=== PATIENT | male | born 1940 | race Caucasian/White ===

== ENCOUNTER 2016-08-27 10:42 | Inpatient (IN) | payer MEDICARE, OTHER ==
[2016-08-27] MEDS ORDERED: Albuterol/Ipratropium 3.0-0.5 MG/3 ML Neb Soln NEB ONE (10:59)
[2016-08-27] MEDS ORDERED: Sodium Chloride 0.9% 10 ML Syringe FLUSH PRN (11:04)
[2016-08-27] MEDS ORDERED: Lactated Ringers 500 ML IV ONE (11:06)
--- NOTE | 2016-08-27 11:09 | EDM.PDOC ---
ED HISTORY OF PRESENT ILLNESS - General Chief Complaint: Respiratory Problem Stated Complaint: [facility] Time Seen by Provider: 08/27/16 10:56 Source of Information: Reports: Patient, RN notes reviewed - History of Present Illness INITIAL COMMENTS - FREE TEXT/NARRATIVE: 75-year-old male has been brought in by [facility] from [facility] for evaluation of dyspnea, cough, fever and generalized weakness. He states he's been feeling sick for a long time. He is chronically short of breath on oxygen continuous typically 2-3 L nasal cannula. He's been coughing for many days. He states he had some diarrhea not too long ago and now also has low-grade fever. He is more short of breath than usual today. He fell trying to stand or walk and was found lying on the floor. He did suffer a toe abrasion. He states he may have injured his left hip and right arm but not having any significant bony discomfort from the fall. He denies hitting his head LOC or major neck pain from the fall. he does have history of COPD. He states he is coughing up yellow colored phlegm. No chest or abdominal pain at this time. - Related Data Allergies/ADRs: Allergies Allergy/AdvReac Type Severity Reaction Status Date / Time moxifloxacin Allergy Other Verified 08/27/16 11:30 tiotropium Allergy Other Verified 08/27/16 11:30 [From Spiriva with HandiHaler] clonidine AdvReac Tremors Verified 08/27/16 11:30 fluticasone AdvReac Leg Cramps Verified 08/27/16 11:30 [From Advair Diskus] paroxetine [From Paxil] AdvReac Tremors Verified 08/27/16 11:30 salmeterol AdvReac Leg Cramps Verified 08/27/16 11:30 [From Advair Diskus] Home Meds: Home Meds Aclidinium [place] [Tudorza Pressair] 1 puff IH BID 04/24/16 [History] Albuterol Sulfate 2.5 mg IH TID PRN 04/24/16 [History] Amitriptyline [Elavil] 25 - 50 mg PO BEDTIME 04/24/16 [History] Arformoterol [Brovana] 15 mcg NEB BID 04/24/16 [History] Aspirin 81 mg PO DAILY 04/24/16 [History] Budesonide [Pulmicort] 0.5 mg IH BID 04/24/16 [History] Clopidogrel [Plavix] 75 mg PO DAILY 04/24/16 [History] Montelukast [Singulair] 10 mg PO BEDTIME 04/24/16 [History] Multivitamin [Multivitamins] 1 each PO DAILY 04/24/16 [History] Nitroglycerin 0.4 mg SL Q5M PRN 04/24/16 [History] [place]-3/DHA/Epa/Fish Oil [Fish Oil 1,000 mg Softgel] 1 each PO DAILY 04/24/16 [ History] Risedronate Sodium 150 mg PO Q30D 04/24/16 [History] Roflumilast [Daliresp] 500 mcg PO DAILY 04/24/16 [History] Triamcinolone Acetonide [Triamcinolone Acetonide 0.1% Crm] 15 gm TOP DAILY PRN 04/24/16 [History] atorvaSTATin [Lipitor] 10 mg PO BEDTIME 04/24/16 [History] predniSONE [Prednisone] 5 mg PO DAILY 04/24/16 [History] Furosemide [Lasix] 40 mg PO DAILY #30 tablet 04/30/16 [Rx] Pantoprazole [Protonix] 40 mg PO 0700 #30 tab.cr 04/30/16 [Rx] Albuterol [IJD: Albuterol HFA] 2 puff INH Q4H PRN 06/14/16 [History] Calcium Carbonate/Vitamin D3 [Calcium 600 + Vit D Tablet] 1 tab PO DAILY [History] EPINEPHrine [Epipen] 0.3 mg IM ASDIRECTED PRN 08/27/16 [History] Lisinopril [Prinivil] 20 mg PO DAILY 08/27/16 [History] Omalizumab [Xolair] 375 mg IM Q30D 08/27/16 [History] Silver Sulfadiazine [Silvadene 1% Cream 20 GM] 1 dose TOP ASDIRECTED PRN [History] guaiFENesin [Tussin] 400 mg PO ASDIRECTED PRN 08/27/16 [History] Past Medical History HEENT History: Reports: Cataract Cardiovascular History: Reports: Hypertension, PTCA, PVD, Stents (1 in CAD on February 21, 2016) Other Cardiovascular History: reports leg edema but no CHF history Respiratory History: Reports: Asthma, COPD (on 3-4 L O2 at home) Gastrointestinal History: Reports: GERD, Hiatal hernia Genitourinary History: Reports: Retention, urinary Musculoskeletal History: Reports: Arthritis (gout) Endocrine/Metabolic History: Reports: Other (see below) Other Endocrine/Metabolic History: pituitary tumor Hematologic History: Reports: Anemia Immunologic History: Reports: None Other Immunologic History: pt is on prednisone for his copd - Past Surgical History Cardiovascular Surgical History: Reports: Coronary artery stent, Percutaneous transluminal angioplasty GI Surgical History: Reports: Appendectomy, Colonoscopy, Hernia, abdominal, Hernia, inguinal Male Surgical History: Reports: Circumcision Other Surgical History Comment: TURP, pituitary removal, but tumor recurred and is now stable for past couple years Social & Family History - Family History Family Medical History: Noncontributory Endocrine/Metabolic: Reports: Diabetes, type II (grandmother) Oncologic: Reports: Other (see below) (grandfather of unknown cancer) - Tobacco Use Smoking Status *Q: Former Smoker Years of Tobacco use: 50 Packs/Tins Daily: 1 Used Tobacco, but Quit: Yes Month Tobacco Last Used: 16 years Second Hand Smoke Exposure: No - Caffeine Use Caffeine Use: Reports: None - Recreational Drug Use Recreational Drug Use: No - Living Situation & Occupation Living situation: Reports: single, alone 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 Denies: Edema GI/Abdominal: Reports: Diarrhea (several days ago). Denies: Abdominal pain, Nausea, Vomiting Musculoskeletal: Reports: joint pain (left hip and right shoulder mild), other ( generalized myalgias) Neurological: Reports: dizziness, weakness (generalized). Denies: trouble speaking ED EXAM, GENERAL - Physical Exam Exam: See Below General Appearance: alert, moderate distress Eye Exam: bilateral eye: PERRL Ears: normal external exam Throat/Mouth: Normal inspection, Normal oropharynx Head: atraumatic. No: facial swelling Neck: supple, full range of motion, other (no JVD). No: lymphadenopathy (L), lymphadenopathy (R) Respiratory/Chest: respiratory distress (moderate), wheezing (moderate bilateral ) Cardiovascular: regular rate, rhythm GI/Abdominal: soft, non tender. No: guarding Back Exam: normal inspection. No: CVA tenderness (L), paraspinal tenderness Extremities: leg pain (mild tenderness left lateral hip mild pain with motion left hip), other (minimal tenderness right shoulder, minimal discomfort with motion, no visible deformity). No: pedal edema Neurological: alert, no motor/sensory deficits Skin Exam: Warm, Dry EKG INTERPRETATION EKG Date: 08/27/16 Rhythm: NSR [place]: RAD-right axis deviation ST-T: other (very mild nonspecific ST changes) Course - Vital Signs Last Recorded V/S: Last Vital Signs Temp 100 F 08/27/16 10:50 Pulse 98 08/27/16 10:50 Resp BP 102/84 08/27/16 10:50 Pulse Ox 99 08/27/16 10:59 - Orders/Labs/Meds Orders: Active Orders 24 hr Category Date Time Status Admission Status [Patient Status] [ADT] Routine ADT 08/27/16 14:22 Ordered EKG 12 Lead [EKG Documentation Completion] [RC] STAT Care 08/27/16 11:04 Active Peripheral IV Care [RC] . DIRECTED Care 08/27/16 11:05 Active RT Aerosol Therapy [RC] ASDIRECTED Care 08/27/16 10:59 Active Hip Min 2V or 3V w Pelvis Lt [CR] Stat Exams 08/27/16 12:15 Taken CULTURE BLOOD [BC] Stat Lab 08/27/16 11:44 Received CULTURE BLOOD [BC] Stat Lab 08/27/16 11:53 Received Sodium Chloride 0.9% [Saline Flush] Med 08/27/16 11:04 Active 10 ml FLUSH ASDIRECTED PRN Peripheral IV Insertion Adult [OM.PC] Stat Oth 08/27/16 11:05 Ordered Medication Orders Sodium Chloride (Saline Flush) 10 ml FLUSH ASDIRECTED PRN PRN Reason: Keep Vein Open Last Admin: 08/27/16 11:29 Dose: 10 ml Labs: Laboratory Tests 08/27/16 08/27/16 08/27/16 Range/Units 11:06 11:06 11:06 WBC 12.66 H (4.23-9.07) K/mm3 RBC 3.65 L (4.63-6.08) M/mm3 Hgb 11.1 L (13.7-17.5) gm/L Hct 35.2 L (40.1-51.0) % MCV 96.4 H (79.0-92.2) fl MCH 30.4 (25.7-32.2) pg MCHC 31.5 L (32.2-35.5) g/dl RDW Std Deviation 60.3 H (35.1-43.9) fL Plt Count 322 (163-337) K/mm3 MPV 9.5 (9.4-12.3) fl Neut % (Auto) 68.5 H (34.0-67.9) % Lymph % (Auto) 13.0 L (21.8-53.1) % [place] % (Auto) 17.8 H (5.3-12.2) % Eos % (Auto) 0.1 L (0.8-7.0) Baso % (Auto) 0.3 (0.1-1.2) % Neut # 8.68 H (1.78-5.38) K/mm3 Lymph # 1.64 (1.32-3.57) K/mm3 [place] # 2.25 H (0.30-0.82) K/mm3 Eos # 0.01 L (0.04-0.54) K/mm3 Baso # 0.04 (0.01-0.08) K/mm3 Manual Slide Review Normal smear Sodium 141 (136-145) mEq/L Potassium 4.2 (3.5-5.1) mEq/L Chloride 102 (98-107) mEq/L Carbon Dioxide 30 (21-32) mEq/L Anion Gap 13.2 (5-15) BUN 23 H (7-18) mg/dL Creatinine 1.6 H (0.7-1.3) mg/dL Est Cr Clr Drug Dosing TNP Estimated GFR (MDRD) 42 (>60) mL/min BUN/Creatinine Ratio 14.4 (14-18) Glucose 76 L (83-115) mg/dL Lactic Acid (0.4-2.0) mmol/L Calcium 8.7 (8.5-10.1) mg/dL Total Bilirubin 0.3 (0.2-1.0) mg/dL AST 67 H (15-37) U/L ALT 24 (16-63) U/L Alkaline Phosphatase 53 (46-116) U/L Troponin I 4.524 H* (0.00-0.056) ng/mL C-Reactive Protein 24.6 H* (<1.0) mg/dL B-Natriuretic Peptide (0-100) pg/mL Total Protein 6.2 L (6.4-8.2) g/dl Albumin 3.0 L (3.4-5.0) g/dl Globulin 3.2 gm/dL Albumin/Globulin Ratio 0.9 L (1-2) 08/27/16 08/27/16 Range/Units 11:06 11:53 WBC (4.23-9.07) K/mm3 RBC (4.63-6.08) M/mm3 Hgb (13.7-17.5) gm/L Hct (40.1-51.0) % MCV (79.0-92.2) fl MCH (25.7-32.2) pg MCHC (32.2-35.5) g/dl RDW Std Deviation (35.1-43.9) fL Plt Count (163-337) K/mm3 MPV (9.4-12.3) fl Neut % (Auto) (34.0-67.9) % Lymph % (Auto) (21.8-53.1) % [place] % (Auto) (5.3-12.2) % Eos % (Auto) (0.8-7.0) Baso % (Auto) (0.1-1.2) % Neut # (1.78-5.38) K/mm3 Lymph # (1.32-3.57) K/mm3 [place] # (0.30-0.82) K/mm3 Eos # (0.04-0.54) K/mm3 Baso # (0.01-0.08) K/mm3 Manual Slide Review Sodium (136-145) mEq/L Potassium (3.5-5.1) mEq/L Chloride (98-107) mEq/L Carbon Dioxide (21-32) mEq/L Anion Gap (5-15) BUN (7-18) mg/dL Creatinine (0.7-1.3) mg/dL Est Cr Clr Drug Dosing Estimated GFR (MDRD) (>60) mL/min BUN/Creatinine Ratio (14-18) Glucose (83-115) mg/dL Lactic Acid 1.8 (0.4-2.0) mmol/L Calcium (8.5-10.1) mg/dL Total Bilirubin (0.2-1.0) mg/dL AST (15-37) U/L ALT (16-63) U/L Alkaline Phosphatase (46-116) U/L Troponin I (0.00-0.056) ng/mL C-Reactive Protein (<1.0) mg/dL B-Natriuretic Peptide 886 H (0-100) pg/mL Total Protein (6.4-8.2) g/dl Albumin (3.4-5.0) g/dl Globulin gm/dL Albumin/Globulin Ratio (1-2) Meds: Medications Generic Name Dose Route Start Last Admin Trade Name Freq PRN Reason Stop Dose Admin Sodium Chloride 10 ml 08/27/16 11:04 08/27/16 11:29 Saline Flush FLUSH 10 ml ASDIRECTED PRN Administration Keep Vein Open Discontinued Medications Generic Name Dose Route Start Last Admin Trade Name Freq PRN Reason Stop Dose Admin Albuterol/Ipratropium 3 ml 08/27/16 10:59 08/27/16 11:06 Duoneb 3.0-0.5 Mg/3 Ml NEB 08/27/16 11:00 3 ml ONETIME ONE Administration Hydromorphone HCl 0.25 mg 08/27/16 12:57 08/27/16 13:02 Dilaudid IVPUSH 08/27/16 12:58 0.25 mg ONETIME ONE Administration Lactated Ringer's 500 mls @ 999 mls/hr 08/27/16 11:06 08/27/16 11:29 Ringers, Lactated IV 08/27/16 11:36 999 mls/hr .BOLUS ONE Administration Piperacillin Sod/Tazobactam 100 mls @ 200 mls/hr 08/27/16 12:05 08/27/16 12: 21 Sod 4.5 gm/ Sodium Chloride IV 08/27/16 12:34 200 mls/hr ONETIME ONE Administration - Re-Assessments/Exams Free Text/Narrative Re-Assessment/Exam: 08/27/16 11:07. patient has a sepsis alert with fever, tachycardia, tachypnea. Clinically I am more worried about pneumonia at this time. Blood cultures x2 will be obtained. Serum lactate has been ordered, he did have 500 cc LR in route , will give a further 500 cc bolus for a total of 1 L. He looks more dehydrated than failure risk at this time. 08/27/16 12:20 chest x-ray shows probable slight infiltrate left base, influenza screen is come back positive. His daughter gives a more concise history and states that he really became ill fairly sudden onset 2 days ago with cough, worsening shortness of breath and worsening generalized weakness. That is likely when the influenza started. He has not been having chest pain other than the difficulty breathing and other than some discomfort with coughing. Over his troponins come back elevated at over 4. BNP also mildly elevated. He did arrive full CODE STATUS. However I discussed with him and with daughter present asking if he really does want to be due to related if it would come to that and he would really want to be on a ventilator if he did go into respiratory failure and he states he really does not want either of those. Therefore he now is changed to code level II status, do not defibrillate, DO NOT INTUBATE. of note white blood count is elevated at 12, 700. C-reactive protein also elevated 24.6. 08/27/16 13:12. x-rays of the left hip are negative for fracture. No pelvic fracture. We we did start Zosyn 4.5 g IV quite a while ago. Or remained stable heart rate currently running in the upper 80s. On last report med surge with [facility] working on discharges. We have a call in the case management, he will need admission, anticipated inpatient status. 08/27/16 13:29 Departure - Departure Time of Disposition: 13:27 Disposition: Admitted As Inpatient 65 Condition: serious Clinical Impression: Influenza A Myocardial infarction Qualifiers: Myocardial infarction ST status: non-ST elevation myocardial infarction Qualified Code(s): I21.4 - Non-ST elevation (NSTEMI) myocardial infarction Referrals: Domingo Osborn Jr, MD [Primary Care Provider] - Forms: ED Department Discharge ED Communication - Discussed Case With (1) Discussed Case With (1): Admitting Provider (Dr. Le, decision to admit at about 14:15) - My Orders Last 24 Hours: My Active Orders 08/27/16 10:59 RT Aerosol Therapy [RC] ASDIRECTED 08/27/16 11:04 EKG 12 Lead [EKG Documentation Completion] [RC] STAT Sodium Chloride 0.9% [Saline Flush] 10 ml FLUSH ASDIRECTED PRN 08/27/16 11:05 Peripheral IV Care [RC] . DIRECTED Peripheral IV Insertion Adult [OM.PC] Stat 08/27/16 11:44 CULTURE BLOOD [BC] Stat 08/27/16 11:53 CULTURE BLOOD [BC] Stat 08/27/16 12:15 Hip Min 2V or 3V w Pelvis Lt [CR] Stat 08/27/16 14:22 Admission Status [Patient Status] [ADT] Routine - Assessment/Plan Last 24 Hours: My Active Orders 08/27/16 10:59 RT Aerosol Therapy [RC] ASDIRECTED 08/27/16 11:04 EKG 12 Lead [EKG Documentation Completion] [RC] STAT Sodium Chloride 0.9% [Saline Flush] 10 ml FLUSH ASDIRECTED PRN 08/27/16 11:05 Peripheral IV Care [RC] . DIRECTED Peripheral IV Insertion Adult [OM.PC] Stat 08/27/16 11:44 CULTURE BLOOD [BC] Stat 08/27/16 11:53 CULTURE BLOOD [BC] Stat 08/27/16 12:15 Hip Min 2V or 3V w Pelvis Lt [CR] Stat 08/27/16 14:22 Admission Status [Patient Status] [ADT] Routine
[2016-08-27] MEDS ORDERED: Piperacillin/Tazobactam 4.5 GM in Sodium Chloride 0.9% 100 ML IV ONE (12:05)
--- NOTE | 2016-08-27 12:28 | CR ---
Chest: Portable view of the chest was obtained. Comparison: Previous chest x-ray of 04/24/16. Heart size appears normal. Tortuous thoracic aorta is seen. Lungs are clear with no acute infiltrates. 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 This is stable from prior exam. Bony structures are grossly intact. Impression: 1. Incidental findings. Nothing acute identified on portable chest x-ray. Diagnostic code #2
[2016-08-27] MEDS ORDERED: HYDROmorphone 0.5 MG/0.5 ML Syringe IVPUSH ONE (12:57)
--- NOTE | 2016-08-27 15:36 | CR ---
Pelvis and left hip: AP view of the pelvis was obtained as well as AP and frog-leg lateral views of the left hip. Comparison: Previous CT study of 12/30/09 showing the pelvis. Findings: Joint spaces within both hips are maintained. Sacroiliac joints are unremarkable. Vascular calcification is seen. No acute fracture or other abnormality is identified. Degenerative change is partially visualized within the lower lumbar spine. Impression: 1. Incidental findings as described above. Nothing acute is identified on AP pelvis or on 2 view left hip exam. Diagnostic code #2
--- NOTE | 2016-08-27 16:07 | PCM.HP ---
H&P History of Present Illness - General Date of Service: 08/27/16 Admit Problem/Dx: Admission Diagnosis/Problem Admission Diagnosis/Problem Influenza due to influenza A virus Source of Information: Provider History Limitations: Reports: No limitations - History of Present Illness Initial Comments - Free Text/Narative: 75 year old male who lives at home fell after stubbing his left great toe and laid on the floor until the following AM. Was resuced by his son, EMS was notified. He was subsequently taken to the ED for evaluation. Intitial work up documents Influenza A, CAP eval has been started. The patient has been given one dose of Zosyn in the the ED. he is a longstanding COPD patient on chronic O2, 2-3 l/m. Multiple newer COPD meds have been prescribed to stabilize his pulmonary status. He reports fever, chills, productive cough, malaise. Onset of Symptoms: Reports: unknown/unsure Duration of Symptoms: Reports: Day(s):, Getting worse Location: Reports: chest Quality: Reports: Same as previous episode Improves with: Reports: Medication Worsens with: Reports: None Context: Reports: sick contact (influenza) Associated Symptoms: Reports: chest pain, cough, fever/chills, loss of appetite , malaise, nausea/vomiting, weakness left arm, shoulder Pain Score (Numeric/FACES): 5 - Related Data Allergies/Adverse Reactions: Allergies Allergy/AdvReac Type Severity Reaction Status Date / Time moxifloxacin Allergy Other Verified 08/27/16 16:05 tiotropium Allergy Other Verified 08/27/16 16:05 [From Spiriva with HandiHaler] clonidine AdvReac Tremors Verified 08/27/16 16:05 fluticasone AdvReac Leg Cramps Verified 08/27/16 16:05 [From Advair Diskus] paroxetine [From Paxil] AdvReac Tremors Verified 08/27/16 16:05 salmeterol AdvReac Leg Cramps Verified 08/27/16 16:05 [From Advair Diskus] Home Medications: Home Meds Aclidinium Watson [Tudorza Pressair] 1 puff IH BID 04/24/16 [History] Albuterol Sulfate 2.5 mg IH TID PRN 04/24/16 [History] Amitriptyline [Elavil] 25 - 50 mg PO BEDTIME 04/24/16 [History] Arformoterol [Brovana] 15 mcg NEB BID 04/24/16 [History] Aspirin 81 mg PO DAILY 04/24/16 [History] Budesonide [Pulmicort] 0.5 mg IH BID 04/24/16 [History] Clopidogrel [Plavix] 75 mg PO DAILY 04/24/16 [History] Montelukast [Singulair] 10 mg PO BEDTIME 04/24/16 [History] Multivitamin [Multivitamins] 1 each PO DAILY 04/24/16 [History] Nitroglycerin 0.4 mg SL Q5M PRN 04/24/16 [History] Warren-3/DHA/Epa/Fish Oil [Fish Oil 1,000 mg Softgel] 1 each PO DAILY 04/24/16 [ History] Risedronate Sodium 150 mg PO Q30D 04/24/16 [History] Roflumilast [Daliresp] 500 mcg PO DAILY 04/24/16 [History] Triamcinolone Acetonide [Triamcinolone Acetonide 0.1% Crm] 15 gm TOP DAILY PRN 04/24/16 [History] atorvaSTATin [Lipitor] 10 mg PO BEDTIME 04/24/16 [History] predniSONE [Prednisone] 5 mg PO DAILY 04/24/16 [History] Furosemide [Lasix] 40 mg PO DAILY #30 tablet 04/30/16 [Rx] Pantoprazole [Protonix] 40 mg PO 0700 #30 tab.cr 04/30/16 [Rx] Albuterol [IJD: Albuterol HFA] 2 puff INH Q4H PRN 06/14/16 [History] Calcium Carbonate/Vitamin D3 [Calcium 600 + Vit D Tablet] 1 tab PO DAILY [History] EPINEPHrine [Epipen] 0.3 mg IM ASDIRECTED PRN 08/27/16 [History] Lisinopril [Prinivil] 20 mg PO DAILY 08/27/16 [History] Omalizumab [Xolair] 375 mg IM Q30D 08/27/16 [History] Silver Sulfadiazine [Silvadene 1% Cream 20 GM] 1 dose TOP ASDIRECTED PRN [History] guaiFENesin [Tussin] 400 mg PO ASDIRECTED PRN 08/27/16 [History] Docusate Sodium 100 mg PO DAILY PRN 08/28/16 [History] Past Medical History HEENT History: Reports: Cataract Cardiovascular History: Reports: Hypertension, PTCA, PVD, Stents Other Cardiovascular History: reports leg edema but no CHF history Respiratory History: Reports: Asthma, COPD Gastrointestinal History: Reports: GERD, Hiatal hernia Genitourinary History: Reports: Retention, urinary Musculoskeletal History: Reports: Arthritis Endocrine/Metabolic History: Reports: Other (see below) Other Endocrine/Metabolic History: pituitary tumor Hematologic History: Reports: Anemia Immunologic History: Reports: None Other Immunologic History: pt is on prednisone for his copd Dermatologic History: Reports: Other (see below) Other Dermatologic History: fragile skin, is on prednisone/steroid therapy - Past Surgical History Cardiovascular Surgical History: Reports: Coronary artery stent, Percutaneous transluminal angioplasty GI Surgical History: Reports: Appendectomy, Colonoscopy, Hernia, abdominal, Hernia, inguinal Male Surgical History: Reports: Circumcision Social & Family History - Family History Family Medical History: Noncontributory Endocrine/Metabolic: Reports: Diabetes, type II Oncologic: Reports: Other (see below) (grandfather of unknown cancer) - Tobacco Use Smoking Status *Q: Former Smoker Years of Tobacco use: 50 Packs/Tins Daily: 1 Used Tobacco, but Quit: Yes Month Tobacco Last Used: 16 years Tobacco Use Comment: quit smoking in 1999 Second Hand Smoke Exposure: No - Caffeine Use Caffeine Use: Reports: None - Recreational Drug Use Recreational Drug Use: No - Living Situation & Occupation Living situation: Reports: single, alone 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[employer] , farming, [employer], and other work.) H&P Review of Systems - Review of Systems: Review Of Systems: See Below General: Reports: fever, chills, malaise, weakness, fatigue HEENT: Reports: no symptoms Pulmonary: Reports: pleuritic chest pain, cough, sputum (yellow) Cardiovascular: Reports: chest pain, lightheadedness Gastrointestinal: Reports: No symptoms Genitourinary: Reports: no symptoms Musculoskeletal: Reports: foot pain (left great toe) Skin: Reports: no symptoms Psychiatric: Reports: no symptoms Neurological: Reports: no symptoms Hematologic/Lymphatic: Reports: no symptoms Immunologic: Reports: no symptoms Exam - Exam Exam: See Below - Vital Signs Vital Signs: Last Vital Signs Temp 37.7 C 08/27/16 15:52 Pulse 92 08/27/16 16:05 Resp 20 08/27/16 15:52 BP 102/65 08/27/16 15:52 Pulse Ox 97 08/27/16 16:05 Weight: 81.42 kg - Exam Quality Assessment: supplemental oxygen, DVT prophylaxis General: alert, oriented, cooperative, mild distress HEENT: Conjunctiva clear, EACs clear, EOMI, Nares patent, Normal nasal septum, Posterior pharynx clear, Pupils equal, Pupils reactive Neck: trachea midline Lungs: Decreased breath sounds, Rhonchi, Wheezing Cardiovascular: regular rate, regular rhythm Abdomen: normal bowel sounds, soft (Male) Exam: Deferred Rectal (Males) Exam: Deferred Back Exam: normal inspection Extremities: normal pulses (UE), other (bloody left great toe; dried) Skin: warm, other (see extremity) Neurological: cranial nerves intact, normal speech Neuro Extensive - Mental Status: alert, oriented x3, normal mood/affect, normal cognition, memory intact Neuro Extensive - Motor, Sensory, Reflexes: CN II-XII intact Psychiatric: alert, normal affect, normal mood - Patient Data Result Diagrams: 08/29/16 05:10 08/29/16 05:10 *Q Meaningful Use (ADM) - VTE *Q VTE Criteria *Q: - Stroke *Q Stroke Criteria *Q: - AMI *Q AMI Criteria *Q: - Problem List (1) Influenza A SNOMED Code(s): 094690318 ICD Code: J10.1 - FLU DUE TO OTH IDENT INFLUENZA VIRUS W OTH RESP MANIFEST Status: Acute Current Visit: Yes (2) Myocardial infarction SNOMED Code(s): 17109246 ICD Code: I21.3 - ST ELEVATION (STEMI) MYOCARDIAL INFARCTION OF [facility] SITE Status: Acute Current Visit: Yes Qualifiers: Myocardial infarction ST status: non-ST elevation myocardial infarction Qualified Code(s): I21.4 - Non-ST elevation (NSTEMI) myocardial infarction (3) Anemia SNOMED Code(s): 794555144 ICD Code: D64.9 - ANEMIA, UNSPECIFIED Status: Acute Priority: High Current Visit: No Problem Details: macrocytic Qualifiers: Anemia type: unspecified type Qualified Code(s): D64.9 - Anemia, unspecified (4) Hypotension due to medication Status: Acute Priority: High Current Visit: No (5) Peripheral vascular disease SNOMED Code(s): 282768799 ICD Code: I73.9 - PERIPHERAL VASCULAR DISEASE, UNSPECIFIED Status: Acute Priority: High Current Visit: No Problem List Initiated/Reviewed/Updated: Yes Orders Last 24hrs: Medication Orders Sodium Chloride (Saline Flush) 10 ml FLUSH ASDIRECTED PRN PRN Reason: Keep Vein Open Last Admin: 08/27/16 11:29 Dose: 10 ml Assessment/Plan Comment:: Impression: Dizziness with URI Influenza A positive CAP screen with lab studies, continue empiric treatment COPD on chronic O2 s/p Fall without fracture or LOC ACS, will need ckmb for temporal relationship to current presentation Chronic HTN COPD Hyperlipidemia PVD CAD GERD Plan: RX for ACS, determination of timeline is necessary. Nebs IV ATBs Tamiflu renal dose Solumedrol Home meds Consult PT/OT/CM Would benefit from SNF stay.
[2016-08-27] MEDS ORDERED: Nitroglycerin 0.4 MG Tab.SL SL PRN (16:50)
[2016-08-27] MEDS ORDERED: Silver Sulfadiazine 1% Crm 50 GM Tube TOP PRN (16:50)
[2016-08-27] MEDS ORDERED: Triamcinolone Acetonide 0.1% Crm 15 GM Tube TOP PRN (16:50)
[2016-08-27] MEDS ORDERED: Levalbuterol HCl 0.63 MG/3 ML Neb NEB SCH (17:00)
[2016-08-27] MEDS ORDERED: Lactated Ringers 1,000 ML IV SCH (17:30)
[2016-08-27] MEDS: Isosorbide Mononitrate 30 MG Tab.ER PO SCH (17:32)
[2016-08-27] MEDS: DALIRESP PO SCH (17:42)
[2016-08-27] MEDS: Azithromycin 500 MG in Sodium Chloride 0.9% 250 ML IV SCH (17:47)
[2016-08-27] MEDS: methylPREDNISolone Sodium Succinate 125 MG/2 ML SDV IVPUSH SCH (17:47)
[2016-08-27] MEDS: Clopidogrel 75 MG Tab PO SCH (17:48)
[2016-08-27] MEDS: Amitriptyline 25 MG Tab PO SCH (20:47)
[2016-08-27] MEDS: Simvastatin 10 MG Tab PO SCH (20:47)
[2016-08-27] MEDS: Montelukast 10 MG Tab PO SCH (20:47)
[2016-08-27] MEDS: Oseltamivir 30 MG Cap PO SCH (20:47)
[2016-08-27] MEDS: Piperacillin/Tazobactam 4.5 GM in Sodium Chloride 0.9% 100 ML IV SCH (20:51)
[2016-08-27] MEDS ORDERED: Clopidogrel 75 MG Tab PO ONE (21:20)
[2016-08-27] MEDS: Budesonide 0.5 MG/2 ML Neb Susp INH SCH (21:37)
[2016-08-27] MEDS: Levalbuterol HCl 1.25 MG/3 ML Neb NEB SCH (21:38)
[2016-08-27] MEDS: Acetaminophen 325 MG Tab PO PRN (23:14)
[2016-08-28] MEDS: methylPREDNISolone Sodium Succinate 125 MG/2 ML SDV IVPUSH SCH ×4 (00:48→20:25)
[2016-08-28] MEDS: Albuterol 0.021% 0.63 MG/3 ML Neb Soln NEB PRN (02:20)
[2016-08-28] MEDS: Piperacillin/Tazobactam 4.5 GM in Sodium Chloride 0.9% 100 ML IV SCH ×3 (05:21→20:25)
[2016-08-28] MEDS: Levalbuterol HCl 1.25 MG/3 ML Neb NEB SCH ×4 (05:26→21:23)
[2016-08-28] MEDS ORDERED: Sodium Chloride 0.9% 1,000 ML IV SCH (06:30)
[2016-08-28] MEDS: Pantoprazole 40 MG Tab.CR PO SCH (06:59)
[2016-08-28] MEDS ORDERED: Enoxaparin 30 MG/0.3 ML Syringe SUBCUT SCH (09:00)
[2016-08-28] MEDS: Oseltamivir 30 MG Cap PO SCH ×2 (09:01→20:26)
[2016-08-28] MEDS: Clopidogrel 75 MG Tab PO SCH (09:01)
[2016-08-28] MEDS: Enoxaparin 40 MG/0.4 ML Syringe SUBCUT SCH ×2 (09:02→09:07)
[2016-08-28] MEDS: Aspirin 81 MG Tab.EC PO SCH (09:02)
[2016-08-28] MEDS: DALIRESP PO SCH (09:02)
[2016-08-28] MEDS: Lisinopril 20 MG Tab PO SCH (09:02)
[2016-08-28] MEDS: Isosorbide Mononitrate 30 MG Tab.ER PO SCH (09:03)
[2016-08-28] MEDS: Budesonide 0.5 MG/2 ML Neb Susp INH SCH ×2 (09:11→21:23)
--- NOTE | 2016-08-28 10:15 | CR ---
Chest: Two views of the chest were obtained. Comparison: Previous chest x-ray of 09/06/16. Thick linear density within the upper right lung adjacent to the mediastinum remains stable. Lung markings are slightly increased which are also stable. Stable scarring noted within the left upper lung. Diaphragms are flattened on the lateral view compatible with emphysematous change. Heart size is normal. Tortuous thoracic aorta is seen. Bony structures are unremarkable for the patient's age. Impression: 1. Emphysematous change. Areas of parenchymal scarring. Nothing acute is appreciated. Diagnostic code #2
[2016-08-28] MEDS: guaiFENesin 600 MG Tab.ER PO PRN (11:15)
[2016-08-28] MEDS: Sodium Chloride 0.9% 500 ML IV ONE ×2 (12:38→13:26)
[2016-08-28] MEDS: Sodium Chloride 0.9% 1,000 ML IV SCH ×2 (15:09→18:07)
--- NOTE | 2016-08-28 15:39 | PCM.PN ---
- General Info Date of Service: 08/28/16 Functional Status: Reports: tolerating diet, ambulating, urinating - Review of Systems General: Reports: no symptoms HEENT: Reports: no symptoms Pulmonary: Reports: no symptoms Cardiovascular: Reports: no symptoms Gastrointestinal: Reports: No symptoms Genitourinary: Reports: no symptoms Musculoskeletal: Reports: no symptoms Skin: Reports: no symptoms Neurological: Reports: no symptoms Psychiatric: Reports: no symptoms - Patient Data Vitals - most recent: Last Vital Signs Temp 36.9 C 08/28/16 12:00 Pulse 89 08/28/16 12:00 Resp 20 08/28/16 12:00 BP 136/82 08/28/16 12:00 Pulse Ox 96 08/28/16 15:00 Weight - most recent: 81.42 kg I&O - last 24 hours: Intake & Output 08/28/16 08/28/16 08/28/16 06:59 14:59 22:59 Intake Total 958 210 Output Total 650 Balance 308 210 Lab Results last 24 hrs: Laboratory Results - last 24 hr 08/27/16 08/27/16 08/28/16 Range/Units 18:07 18:07 02:37 WBC 9.49 H (4.23-9.07) K/mm3 RBC 3.23 L (4.63-6.08) M/mm3 Hgb 9.7 L (13.7-17.5) gm/L Hct 31.5 L (40.1-51.0) % MCV 97.5 H (79.0-92.2) fl MCH 30.0 (25.7-32.2) pg MCHC 30.8 L (32.2-35.5) g/dl RDW Std Deviation 60.0 H (35.1-43.9) fL Plt Count 274 (163-337) K/mm3 MPV 9.2 L (9.4-12.3) fl Neut % (Auto) 91.9 H (34.0-67.9) % Lymph % (Auto) 6.1 L (21.8-53.1) % Teller % (Auto) 1.8 L (5.3-12.2) % Eos % (Auto) 0 L (0.8-7.0) Baso % (Auto) 0.1 (0.1-1.2) % Neut # 8.72 H (1.78-5.38) K/mm3 Lymph # 0.58 L (1.32-3.57) K/mm3 Teller # 0.17 L (0.30-0.82) K/mm3 Eos # 0.00 L (0.04-0.54) K/mm3 Baso # 0.01 (0.01-0.08) K/mm3 Manual Slide Review Abnormal smear Sodium (136-145) mEq/L Potassium (3.5-5.1) mEq/L Chloride (98-107) mEq/L Carbon Dioxide (21-32) mEq/L Anion Gap (5-15) BUN (7-18) mg/dL Creatinine (0.7-1.3) mg/dL Est Cr Clr Drug Dosing mL/min Estimated GFR (MDRD) (>60) mL/min BUN/Creatinine Ratio (14-18) Glucose (83-115) mg/dL Lactic Acid (0.4-2.0) mmol/L Calcium (8.5-10.1) mg/dL Magnesium (1.8-2.4) mg/dl Creatine Kinase (39-308) U/L CK-MB (CK-2) 9.3 H (0-3.6) ng/ml Troponin I 6.204 H* (0.00-0.056) ng/mL C-Reactive Protein (<1.0) mg/dL Mycoplasma pneumon IgM Negative (NEGATIVE) 08/28/16 08/28/16 08/28/16 Range/Units 02:37 02:37 02:37 WBC (4.23-9.07) K/mm3 RBC (4.63-6.08) M/mm3 Hgb (13.7-17.5) gm/L Hct (40.1-51.0) % MCV (79.0-92.2) fl MCH (25.7-32.2) pg MCHC (32.2-35.5) g/dl RDW Std Deviation (35.1-43.9) fL Plt Count (163-337) K/mm3 MPV (9.4-12.3) fl Neut % (Auto) (34.0-67.9) % Lymph % (Auto) (21.8-53.1) % Teller % (Auto) (5.3-12.2) % Eos % (Auto) (0.8-7.0) Baso % (Auto) (0.1-1.2) % Neut # (1.78-5.38) K/mm3 Lymph # (1.32-3.57) K/mm3 Teller # (0.30-0.82) K/mm3 Eos # (0.04-0.54) K/mm3 Baso # (0.01-0.08) K/mm3 Manual Slide Review Sodium 139 (136-145) mEq/L Potassium 4.5 (3.5-5.1) mEq/L Chloride 103 (98-107) mEq/L Carbon Dioxide 28 (21-32) mEq/L Anion Gap 12.5 (5-15) BUN 29 H (7-18) mg/dL Creatinine 1.9 H (0.7-1.3) mg/dL Est Cr Clr Drug Dosing 36.30 mL/min Estimated GFR (MDRD) 35 (>60) mL/min BUN/Creatinine Ratio 15.3 (14-18) Glucose 123 H (83-115) mg/dL Lactic Acid 0.7 (0.4-2.0) mmol/L Calcium 8.0 L (8.5-10.1) mg/dL Magnesium 2.2 (1.8-2.4) mg/dl Creatine Kinase 2600 H (39-308) U/L CK-MB (CK-2) (0-3.6) ng/ml Troponin I 4.579 H* (0.00-0.056) ng/mL C-Reactive Protein 25.8 H* (<1.0) mg/dL Mycoplasma pneumon IgM (NEGATIVE) Med Orders - Current: Current Medications Acetaminophen (Tylenol) 650 mg PO Q4H PRN PRN Reason: Fever Last Admin: 08/27/16 23:14 Dose: 650 mg Albuterol (Proventil Neb Soln) 0.63 mg NEB Q4H PRN PRN Reason: Shortness of Breath Last Admin: 08/28/16 02:20 Dose: 0.63 mg Amitriptyline HCl (Elavil) 25 mg PO BEDTIME HELEN Last Admin: 08/27/16 20:47 Dose: 25 mg Aspirin (Halfprin) 81 mg PO DAILY HELEN Last Admin: 08/28/16 09:02 Dose: 81 mg Budesonide (Pulmicort) 0.5 mg INH BID [facility] Last Admin: 08/28/16 09:11 Dose: 0.5 mg Clopidogrel Bisulfate (Plavix) 75 mg PO DAILY [facility] Last Admin: 08/28/16 09:01 Dose: 75 mg Enoxaparin Sodium (Lovenox) 40 mg SUBCUT DAILY [facility] Last Admin: 08/28/16 09:07 Dose: Not Given Guaifenesin (Mucinex) 600 mg PO Q12H PRN PRN Reason: Congestion Last Admin: 08/28/16 11:15 Dose: 600 mg Piperacillin Sod/Tazobactam (Sod 4.5 gm/ Sodium Chloride) 100 mls @ 25 mls/hr IV Q8H [facility] Last Admin: 08/28/16 11:15 Dose: 25 mls/hr Azithromycin 500 mg/ Sodium (Chloride) 250 mls @ 250 mls/hr IV Q24H [facility] Last Admin: 08/27/16 17:47 Dose: 250 mls/hr Sodium Chloride (Normal Saline) 1,000 mls @ 100 mls/hr IV ASDIRECTED [facility] Last Admin: 08/28/16 15:09 Dose: 100 mls/hr Isosorbide Mononitrate (Imdur) 15 mg PO DAILY [facility] Last Admin: 08/28/16 09:03 Dose: 15 mg Levalbuterol HCl (Xopenex) 1.25 mg NEB QIDRT [facility] Last Admin: 08/28/16 15:00 Dose: 1.25 mg Lisinopril (Prinivil) 20 mg PO DAILY [facility] Last Admin: 08/28/16 09:02 Dose: 20 mg Methylprednisolone Sodium Succinate (Solu-Medrol) 125 mg IVPUSH Q6H [facility] Last Admin: 08/28/16 14:59 Dose: 125 mg Montelukast Sodium (Singulair) 10 mg PO BEDTIME [facility] Last Admin: 08/27/16 20:47 Dose: 10 mg Nitroglycerin (Nitrostat) 0.4 mg SL Q5M PRN PRN Reason: chest pain Oseltamivir Phosphate (Tamiflu) 30 mg PO BID [facility] Stop: 09/01/16 09:01 Last Admin: 08/28/16 09:01 Dose: 30 mg Pantoprazole Sodium (Protonix) 40 mg PO DAILY@0700 [facility] Last Admin: 08/28/16 06:59 Dose: 40 mg Daliresp ( (Roflumilast 500 Mcg)) 0 each PO DAILY [facility] Last Admin: 08/28/16 09:02 Dose: Not Given Risedronate Sodium (150 Mg) 0 each PO Q30D [facility] Silver Sulfadiazine (Silvadene 1% Cream 50 Gm) 0 gm TOP ASDIRECTED PRN PRN Reason: Other Simvastatin (Zocor) 10 mg PO BEDTIME [facility] Last Admin: 08/27/16 20:47 Dose: 10 mg Sodium Chloride (Saline Flush) 10 ml FLUSH ASDIRECTED PRN PRN Reason: Keep Vein Open Last Admin: 08/27/16 11:29 Dose: 10 ml Triamcinolone Acetonide (Triamcinolone Acetonide 0.1% Crm) 0 gm TOP DAILY PRN PRN Reason: Itching Discontinued Medications Albuterol/Ipratropium (Duoneb 3.0-0.5 Mg/3 Ml) 3 ml NEB ONETIME ONE Stop: 08/27/16 11:00 Last Admin: 08/27/16 11:06 Dose: 3 ml Clopidogrel Bisulfate (Plavix) 300 mg PO ONETIME ONE Stop: 08/27/16 21:21 Last Admin: 08/27/16 22:49 Dose: 300 mg Hydromorphone HCl (Dilaudid) 0.25 mg IVPUSH ONETIME ONE Stop: 08/27/16 12:58 Last Admin: 08/27/16 13:02 Dose: 0.25 mg Lactated Ringer's (Ringers, Lactated) 500 mls @ 999 mls/hr IV .BOLUS ONE Stop: 08/27/16 11:36 Last Admin: 08/27/16 11:29 Dose: 999 mls/hr Piperacillin Sod/Tazobactam (Sod 4.5 gm/ Sodium Chloride) 100 mls @ 200 mls/hr IV ONETIME ONE Stop: 08/27/16 12:34 Last Admin: 08/27/16 12:21 Dose: 200 mls/hr Lactated Ringer's (Ringers, Lactated) 1,000 mls @ 50 mls/hr IV ASDIRECTED [facility] Last Admin: 08/27/16 17:47 Dose: 50 mls/hr Sodium Chloride (Normal Saline) 1,000 mls @ 50 mls/hr IV ASDIRECTED [facility] Last Admin: 08/28/16 10:03 Dose: 50 mls/hr Sodium Chloride (Normal Saline) 500 mls @ 999 mls/hr IV .BOLUS ONE Stop: 08/28/16 12:39 Last Admin: 08/28/16 13:26 Dose: 999 mls/hr Levalbuterol HCl (Xopenex) 1.25 mg NEB QID [facility] Last Admin: 08/27/16 17:23 Dose: Not Given Methylprednisolone Sodium Succinate (Solu-Medrol) 125 mg IVPUSH Q8H [facility] Last Admin: 08/28/16 00:48 Dose: 125 mg - Exam Quality Assessment: DVT prophylaxis General: alert, oriented, cooperative, no acute distress HEENT: Pupils equal, Pupils reactive, EOMI Neck: supple, trachea midline Lungs: Normal respiratory effort, Decreased breath sounds, Wheezing Cardiovascular: regular rate, regular rhythm Abdomen: bowel sounds present, soft, no tenderness, no distension (Male) Exam: Deferred Back Exam: normal inspection. No: full range of motion Extremities: normal pulses, edema Skin: warm Neurological: no new focal deficit, normal speech Psy/Mental Status: alert, normal affect, normal mood - Problem List & Annotations (1) Influenza A SNOMED Code(s): 785256385 Code(s): J10.1 - FLU DUE TO OTH IDENT INFLUENZA VIRUS W OTH RESP MANIFEST Status: Acute Current Visit: Yes (2) Myocardial infarction SNOMED Code(s): 93124767 Code(s): I21.3 - ST ELEVATION (STEMI) MYOCARDIAL INFARCTION OF [facility] SITE Status: Acute Current Visit: Yes Qualifiers: Myocardial infarction ST status: non-ST elevation myocardial infarction Qualified Code(s): I21.4 - Non-ST elevation (NSTEMI) myocardial infarction (3) Anemia SNOMED Code(s): 398885754 Code(s): D64.9 - ANEMIA, UNSPECIFIED Status: Acute Priority: High Current Visit: No Qualifiers: Anemia type: unspecified type Qualified Code(s): D64.9 - Anemia, unspecified Annotation/Comment:: macrocytic (4) Hypotension due to medication Status: Acute Priority: High Current Visit: No (5) Peripheral vascular disease SNOMED Code(s): 035016447 Code(s): I73.9 - PERIPHERAL VASCULAR DISEASE, UNSPECIFIED Status: Acute Priority: High Current Visit: No - Problem List Review Problem List Initiated/Reviewed/Updated: Yes - My Orders Last 24 Hours: My Active Orders 08/27/16 16:47 Vital Signs [RC] Q4HR 08/27/16 16:48 Activity as Tolerated [RC] QSHIFT Isolation [COMM] Routine 08/27/16 16:50 Nitroglycerin [Nitrostat] 0.4 mg SL Q5M PRN Silver Sulfadiazine [Silvadene 1% Cream 50 GM] 0 gm TOP ASDIRECTED PRN Triamcinolone Acetonide [Triamcinolone Acetonide 0.1% Crm] 0 gm TOP DAILY PRN 08/27/16 17:00 Patient's Own Medication [Ptom] 0 each PO DAILY 08/27/16 17:01 Antiembolic Devices [RC] QSHIFT RT Aerosol Therapy [RC] .PRN Albuterol [Proventil Neb Soln] 0.63 mg NEB Q4H PRN CORY Hose [Antiembolic Hose] [OM.PC] Routine 08/27/16 17:06 Consult to Case Management [CONS] Routine 08/27/16 17:40 guaiFENesin [Mucinex] 600 mg PO Q12H PRN 08/27/16 18:00 Azithromycin [Zithromax] 500 mg Sodium Chloride 0.9% [Normal Saline] 250 ml IV Q24H Clopidogrel [Plavix] 75 mg PO DAILY Isosorbide Mononitrate [Imdur] 15 mg PO DAILY 08/27/16 20:00 Piperacillin/Tazobactam [Zosyn] 4.5 gm Sodium Chloride 0.9% [Normal Saline] 100 ml IV Q8H 08/27/16 20:32 Code Status [Resuscitation Status] Routine 08/27/16 21:00 Amitriptyline [Elavil] 25 mg PO BEDTIME Budesonide [Pulmicort] 0.5 mg INH BID Levalbuterol HCl [Xopenex] 1.25 mg NEB QIDRT Montelukast [Singulair] 10 mg PO BEDTIME Oseltamivir [Tamiflu] 30 mg PO BID Simvastatin [Zocor] 10 mg PO BEDTIME 08/27/16 22:48 Acetaminophen [Tylenol] 650 mg PO Q4H PRN 08/28/16 06:00 STREP PNEUMONIAE ANTIGEN [MREF] Routine 08/28/16 07:00 Pantoprazole [Protonix] 40 mg PO DAILY@0700 08/28/16 08:00 methylPREDNISolone Sod Succ [Solu-MEDROL] 125 mg IVPUSH Q6H 08/28/16 09:00 Consult to Occupational Therapy [OT Evaluation and Treatment] [CONS] Routine Consult to Physical Therapy [PT Evaluation and Treatment] [CONS] Routine Aspirin [Halfprin] 81 mg PO DAILY Enoxaparin [Lovenox] 40 mg SUBCUT DAILY Lisinopril [Prinivil] 20 mg PO DAILY 08/28/16 12:15 Sodium Chloride 0.9% [Normal Saline] 1,000 ml IV ASDIRECTED 08/29/16 05:00 BASIC METABOLIC PANEL,BMP [CHEM] DAILY CBC WITH AUTO DIFF [HEME] DAILY CKMB [CHEM] Routine CRP [C-REACTIVE PROTEIN] [CHEM] DAILY LACTIC ACID [CHEM] DAILY MAGNESIUM [CHEM] DAILY 08/30/16 05:00 BASIC METABOLIC PANEL,BMP [CHEM] DAILY CBC WITH AUTO DIFF [HEME] DAILY CRP [C-REACTIVE PROTEIN] [CHEM] DAILY MAGNESIUM [CHEM] DAILY 09/10/16 05:00 Patient's Own Medication [Ptom] 0 each PO Q30D - Plan Plan:: Impression: Dizziness with URI Influenza A positive CAP screen with lab studies, continue empiric treatment COPD on chronic O2 s/p Fall without fracture or LOC ACS, add selective BB 2D echo LVEF 60-65%; moderate , Grade 1 diastolic dysfunction Rhabdo Chronic HTN COPD Hyperlipidemia PVD CAD GERD Plan: RX for ACS; Tns have peaked. Nebs IV ATBs Tamiflu renal dose Solumedrol Home meds Consult PT/OT/CM Would benefit from SNF stay. Cardiology follow up at [place].
[2016-08-28] MEDS: Azithromycin 500 MG in Sodium Chloride 0.9% 250 ML IV SCH (18:07)
[2016-08-28] MEDS: Acetaminophen 325 MG Tab PO PRN (20:26)
[2016-08-28] MEDS: Simvastatin 10 MG Tab PO SCH (20:26)
[2016-08-28] MEDS: Amitriptyline 25 MG Tab PO SCH (20:26)
[2016-08-28] MEDS: Montelukast 10 MG Tab PO SCH (20:26)
[2016-08-29] MEDS ORDERED: Temazepam 15 MG Cap PO SCH ×2 (01:00→21:00)
[2016-08-29] MEDS: Temazepam 15 MG Cap PO PRN (01:18)
[2016-08-29] MEDS: guaiFENesin 600 MG Tab.ER PO PRN (01:18)
[2016-08-29] MEDS: methylPREDNISolone Sodium Succinate 125 MG/2 ML SDV IVPUSH SCH ×5 (01:18→21:03)
[2016-08-29] MEDS: Piperacillin/Tazobactam 4.5 GM in Sodium Chloride 0.9% 100 ML IV SCH ×3 (04:33→20:26)
[2016-08-29] MEDS: Acetaminophen 325 MG Tab PO PRN ×2 (04:34→19:01)
[2016-08-29] MEDS ORDERED: Magnesium Hydroxide 400 MG/5 ML Susp 30 ML Cup PO ONE (04:57)
[2016-08-29] MEDS: Levalbuterol HCl 1.25 MG/3 ML Neb NEB SCH ×5 (05:35→21:47)
[2016-08-29] MEDS ORDERED: Sodium Chloride 0.9% 1,000 ML IV SCH ×2 (06:00→12:00)
[2016-08-29] MEDS: Pantoprazole 40 MG Tab.CR PO SCH (06:19)
--- NOTE | 2016-08-29 08:38 | PCM.PN ---
- General Info Date of Service: 08/29/16 Admission Dx/Problem (Free Text): Admission Diagnosis/Problem Admission Diagnosis/Problem Influenza due to influenza A virus Subjective Update: Follow Up Functional Status: Reports: pain controlled, tolerating diet, urinating. Denies : new symptoms - Review of Systems General: Denies: fever, chills HEENT: Reports: no symptoms Pulmonary: Reports: cough. Denies: shortness of breath Cardiovascular: Reports: no symptoms Gastrointestinal: Reports: No symptoms Genitourinary: Reports: no symptoms Musculoskeletal: Reports: no symptoms Skin: Denies: cyanosis Neurological: Denies: confusion Psychiatric: Denies: depression, anxiety, hallucinations, suicidal ideation Systems Review Comment:: No overnight issues. He states "I'm getting better". He still has some chest congestion. He has no new complaints. - Patient Data Vitals - most recent: Last Vital Signs Temp 36.4 C 08/29/16 08:00 Pulse 83 08/29/16 08:00 Resp 18 08/29/16 08:00 BP 146/84 H 08/29/16 08:00 Pulse Ox 97 08/29/16 08:00 Weight - most recent: 84.55 kg I&O - last 24 hours: Intake & Output 08/28/16 08/29/16 08/29/16 22:59 06:59 14:59 Intake Total 2195 1750 Output Total 300 1450 Balance 1895 300 Lab Results last 24 hrs: Laboratory Results - last 24 hr 08/29/16 08/29/16 08/29/16 Range/Units 05:10 05:10 05:10 WBC 7.60 (4.23-9.07) K/mm3 RBC 3.17 L (4.63-6.08) M/mm3 Hgb 9.5 L (13.7-17.5) gm/L Hct 30.5 L (40.1-51.0) % MCV 96.2 H (79.0-92.2) fl MCH 30.0 (25.7-32.2) pg MCHC 31.1 L (32.2-35.5) g/dl RDW Std Deviation 55.8 H (35.1-43.9) fL Plt Count 287 (163-337) K/mm3 MPV 10.0 (9.4-12.3) fl Neut % (Auto) 87.3 H (34.0-67.9) % Lymph % (Auto) 8.4 L (21.8-53.1) % [place] % (Auto) 4.1 L (5.3-12.2) % Eos % (Auto) 0 L (0.8-7.0) Baso % (Auto) 0.1 (0.1-1.2) % Neut # 6.63 H (1.78-5.38) K/mm3 Lymph # 0.64 L (1.32-3.57) K/mm3 [place] # 0.31 (0.30-0.82) K/mm3 Eos # 0.00 L (0.04-0.54) K/mm3 Baso # 0.01 (0.01-0.08) K/mm3 Manual Slide Review Abnormal smear Sodium 141 (136-145) mEq/L Potassium 3.8 (3.5-5.1) mEq/L Chloride 106 (98-107) mEq/L Carbon Dioxide 25 (21-32) mEq/L Anion Gap 13.8 (5-15) BUN 34 H (7-18) mg/dL Creatinine 1.6 H (0.7-1.3) mg/dL Est Cr Clr Drug Dosing 43.11 mL/min Estimated GFR (MDRD) 42 (>60) mL/min BUN/Creatinine Ratio 21.3 H (14-18) Glucose 120 H (83-115) mg/dL Lactic Acid 1.7 (0.4-2.0) mmol/L Calcium 7.5 L (8.5-10.1) mg/dL Magnesium 2.2 (1.8-2.4) mg/dl Creatine Kinase 1555 H (39-308) U/L CK-MB (CK-2) 9.0 H (0-3.6) ng/ml Troponin I 1.652 H* (0.00-0.056) ng/mL C-Reactive Protein 14.8 H* (<1.0) mg/dL Fabien Results last 24 hrs: Microbiology 08/28/16 06:00 Streptococcus pneumoniae Antigen (M - Final Urine Med Orders - Current: Current Medications Acetaminophen (Tylenol) 650 mg PO Q4H PRN PRN Reason: Fever Last Admin: 08/29/16 04:34 Dose: 650 mg Albuterol (Proventil Neb Soln) 0.63 mg NEB Q4H PRN PRN Reason: Shortness of Breath Last Admin: 08/28/16 02:20 Dose: 0.63 mg Amitriptyline HCl (Elavil) 25 mg PO BEDTIME [facility] Last Admin: 08/28/16 20:26 Dose: 25 mg Aspirin (Halfprin) 81 mg PO DAILY [facility] Last Admin: 08/28/16 09:02 Dose: 81 mg Budesonide (Pulmicort) 0.5 mg INH BID [facility] Last Admin: 08/28/16 21:23 Dose: 0.5 mg Clopidogrel Bisulfate (Plavix) 75 mg PO DAILY [facility] Last Admin: 08/28/16 09:01 Dose: 75 mg Enoxaparin Sodium (Lovenox) 40 mg SUBCUT DAILY [facility] Last Admin: 08/28/16 09:07 Dose: Not Given Guaifenesin (Mucinex) 600 mg PO Q12H PRN PRN Reason: Congestion Last Admin: 08/29/16 01:18 Dose: 600 mg Piperacillin Sod/Tazobactam (Sod 4.5 gm/ Sodium Chloride) 100 mls @ 25 mls/hr IV Q8H [facility] Last Admin: 08/29/16 04:33 Dose: 25 mls/hr Azithromycin 500 mg/ Sodium (Chloride) 250 mls @ 250 mls/hr IV Q24H [facility] Last Admin: 08/28/16 18:07 Dose: 250 mls/hr Sodium Chloride (Normal Saline) 1,000 mls @ 75 mls/hr IV ASDIRECTED [facility] Stop: 08/29/16 12:00 Last Admin: 08/29/16 00:02 Dose: 75 mls/hr Sodium Chloride (Normal Saline) 1,000 mls @ 50 mls/hr IV ASDIRECTED [facility] Isosorbide Mononitrate (Imdur) 15 mg PO DAILY [facility] Last Admin: 08/28/16 09:03 Dose: 15 mg Levalbuterol HCl (Xopenex) 1.25 mg NEB QIDRT [facility] Last Admin: 08/29/16 05:35 Dose: 1.25 mg Lisinopril (Prinivil) 20 mg PO DAILY [facility] Last Admin: 08/28/16 09:02 Dose: 20 mg Methylprednisolone Sodium Succinate (Solu-Medrol) 125 mg IVPUSH Q6H [facility] Last Admin: 08/29/16 01:18 Dose: 125 mg Montelukast Sodium (Singulair) 10 mg PO BEDTIME [facility] Last Admin: 08/28/16 20:26 Dose: 10 mg Nitroglycerin (Nitrostat) 0.4 mg SL Q5M PRN PRN Reason: chest pain Oseltamivir Phosphate (Tamiflu) 30 mg PO BID [facility] Stop: 09/01/16 09:01 Last Admin: 08/28/16 20:26 Dose: 30 mg Pantoprazole Sodium (Protonix) 40 mg PO DAILY@0700 [facility] Last Admin: 08/29/16 06:19 Dose: 40 mg Daliresp ( (Roflumilast 500 Mcg)) 0 each PO DAILY [facility] Last Admin: 08/28/16 09:02 Dose: Not Given Risedronate Sodium (150 Mg) 0 each PO Q30D [facility] Silver Sulfadiazine (Silvadene 1% Cream 50 Gm) 0 gm TOP ASDIRECTED PRN PRN Reason: Other Simvastatin (Zocor) 10 mg PO BEDTIME [facility] Last Admin: 08/28/16 20:26 Dose: 10 mg Sodium Chloride (Saline Flush) 10 ml FLUSH ASDIRECTED PRN PRN Reason: Keep Vein Open Last Admin: 08/27/16 11:29 Dose: 10 ml Temazepam (Restoril) 15 mg PO BEDTIME PRN PRN Reason: Sleep Last Admin: 08/29/16 01:18 Dose: 15 mg Triamcinolone Acetonide (Triamcinolone Acetonide 0.1% Crm) 0 gm TOP DAILY PRN PRN Reason: Itching Last Admin: 08/29/16 04:35 Dose: 1 applic Discontinued Medications Albuterol/Ipratropium (Duoneb 3.0-0.5 Mg/3 Ml) 3 ml NEB ONETIME ONE Stop: 08/27/16 11:00 Last Admin: 08/27/16 11:06 Dose: 3 ml Clopidogrel Bisulfate (Plavix) 300 mg PO ONETIME ONE Stop: 08/27/16 21:21 Last Admin: 08/27/16 22:49 Dose: 300 mg Hydromorphone HCl (Dilaudid) 0.25 mg IVPUSH ONETIME ONE Stop: 08/27/16 12:58 Last Admin: 08/27/16 13:02 Dose: 0.25 mg Lactated Ringer's (Ringers, Lactated) 500 mls @ 999 mls/hr IV .BOLUS ONE Stop: 08/27/16 11:36 Last Admin: 08/27/16 11:29 Dose: 999 mls/hr Piperacillin Sod/Tazobactam (Sod 4.5 gm/ Sodium Chloride) 100 mls @ 200 mls/hr IV ONETIME ONE Stop: 08/27/16 12:34 Last Admin: 08/27/16 12:21 Dose: 200 mls/hr Lactated Ringer's (Ringers, Lactated) 1,000 mls @ 50 mls/hr IV ASDIRECTED [facility] Last Admin: 08/27/16 17:47 Dose: 50 mls/hr Sodium Chloride (Normal Saline) 1,000 mls @ 50 mls/hr IV ASDIRECTED [facility] Last Admin: 08/28/16 10:03 Dose: 50 mls/hr Sodium Chloride (Normal Saline) 500 mls @ 999 mls/hr IV .BOLUS ONE Stop: 08/28/16 12:39 Last Admin: 08/28/16 13:26 Dose: 999 mls/hr Sodium Chloride (Normal Saline) 1,000 mls @ 100 mls/hr IV ASDIRECTED [facility] Last Admin: 08/28/16 18:07 Dose: 100 mls/hr Levalbuterol HCl (Xopenex) 1.25 mg NEB QID [facility] Last Admin: 08/27/16 17:23 Dose: Not Given Magnesium Hydroxide (Milk Of Magnesia) 30 ml PO ONETIME ONE Stop: 08/29/16 04:58 Last Admin: 08/29/16 06:07 Dose: Not Given Methylprednisolone Sodium Succinate (Solu-Medrol) 125 mg IVPUSH Q8H [facility] Last Admin: 08/28/16 00:48 Dose: 125 mg Temazepam (Restoril) 15 mg PO BEDTIME [facility] Temazepam (Restoril) 15 mg PO BEDTIME [facility] - Exam General: alert, oriented, cooperative, no acute distress HEENT: Pupils equal, Pupils reactive, EOMI, Mucous membr. moist/pink Neck: supple, trachea midline, no JVD Lungs: Normal respiratory effort, Decreased breath sounds, Wheezing Cardiovascular: regular rate, regular rhythm Abdomen: bowel sounds present, soft, no tenderness, no distension (Male) Exam: Deferred Back Exam: normal inspection, decreased range of motion Extremities: no edema, normal pulses, no tenderness/swelling, no clubbing, no cyanosis, no calf tenderness Peripheral Pulses: 2+: dorsalis pedis (L), dorsalis pedis (R) Skin: warm, dry, intact Neurological: no new focal deficit Psy/Mental Status: alert, normal affect, normal mood - Problem List Review Problem List Initiated/Reviewed/Updated: Yes - Plan Plan:: Impression: Acute: Influenza A positive Advanced COPD on chronic O2 Respiratory Failure, O2 Dependent S/p Fall without fracture or LOC ACS, Medical Management Only: ASA, Plavix and Statin. Will add Coreg 12.5 mg po BID first dose tonight 2D echo LVEF 60-65%; moderate , Grade 1 diastolic dysfunction Rhabdomyolysis Chronic: HTN COPD Hyperlipidemia PVD CAD GERD Extensive Emphysema and Pulmonary Scarring/Fibrosis Plan: He is getting better clinically Continue current treatment Change Mucinex 600 mg po BID to scheduled Acapella Q2 awake if no improvement, Chest Physiotherapy BID Continue PT/OT/CM CXR in 2 days DVT ppx: Lovenox SubQ daily Would benefit from SNF stay, patient refused. He wants to go home Cardiology follow up at [place] Spoke to Dr. Perez per patient request, she states patient has extensive pulmonary scarring and advanced emphysema. Patient was recently discharged in [place] early July. He is to follow up with her in 3 months with repeat chest ct scan.
[2016-08-29] MEDS: Aspirin 81 MG Tab.EC PO SCH (08:48)
[2016-08-29] MEDS: Isosorbide Mononitrate 30 MG Tab.ER PO SCH (08:49)
[2016-08-29] MEDS: Enoxaparin 40 MG/0.4 ML Syringe SUBCUT SCH (08:49)
[2016-08-29] MEDS: Clopidogrel 75 MG Tab PO SCH (08:49)
[2016-08-29] MEDS: Lisinopril 20 MG Tab PO SCH (08:49)
[2016-08-29] MEDS: DALIRESP PO SCH (08:50)
[2016-08-29] MEDS: Oseltamivir 30 MG Cap PO SCH ×2 (08:50→20:31)
[2016-08-29] MEDS: Budesonide 0.5 MG/2 ML Neb Susp INH SCH ×2 (09:20→21:15)
[2016-08-29] MEDS: guaiFENesin 600 MG Tab.ER PO SCH ×2 (12:05→20:31)
[2016-08-29] MEDS ORDERED: hydrALAZINE 20 MG/ML SDV IVPUSH ONE (18:03)
[2016-08-29] MEDS: Azithromycin 500 MG in Sodium Chloride 0.9% 250 ML IV SCH (18:22)
[2016-08-29] MEDS: Simvastatin 10 MG Tab PO SCH (20:31)
[2016-08-29] MEDS: Amitriptyline 25 MG Tab PO SCH (20:31)
[2016-08-29] MEDS: Montelukast 10 MG Tab PO SCH (20:31)
[2016-08-29] MEDS: Saccharomyces Boulardii (Probiotic) 250 MG Cap PO SCH (20:32)
[2016-08-29] MEDS: Carvedilol 12.5 MG Tab PO SCH (20:32)
[2016-08-29] MEDS ORDERED: Levalbuterol HCl 1.25 MG/0.5 ML Neb ONE (21:13)
[2016-08-29] MEDS: ARFORMOTEROL 15 MCG NEB SCH (21:15)
[2016-08-29] MEDS: ACLIDINIUM BROMIDE INH SCH (21:16)
[2016-08-30] MEDS: Temazepam 15 MG Cap PO PRN (02:23)
[2016-08-30] MEDS: Piperacillin/Tazobactam 4.5 GM in Sodium Chloride 0.9% 100 ML IV SCH (04:16)
[2016-08-30] MEDS: methylPREDNISolone Sodium Succinate 125 MG/2 ML SDV IVPUSH SCH ×3 (06:00→18:03)
[2016-08-30] MEDS: Pantoprazole 40 MG Tab.CR PO SCH (06:00)
[2016-08-30] MEDS: Levalbuterol HCl 1.25 MG/3 ML Neb NEB SCH ×5 (06:12→21:52)
--- NOTE | 2016-08-30 07:37 | PCM.PN ---
- General Info Date of Service: 08/30/16 Admission Dx/Problem (Free Text): Admission Diagnosis/Problem Admission Diagnosis/Problem Influenza due to influenza A virus Subjective Update: Follow Up Functional Status: Reports: pain controlled, tolerating diet, ambulating, urinating. Denies: new symptoms - Review of Systems General: Denies: fever, chills HEENT: Reports: no symptoms Pulmonary: Reports: shortness of breath, cough Cardiovascular: Denies: chest pain Gastrointestinal: Denies: Abdominal pain, Nausea, Vomiting Genitourinary: Reports: no symptoms Musculoskeletal: Reports: no symptoms Skin: Denies: cyanosis Neurological: Denies: confusion, difficulty walking, weakness Psychiatric: Denies: depression, anxiety, hallucinations Systems Review Comment:: He did not sleep well last night. He got a lot of things going on in his mind. He complaints of not having the right home med list. He is about the same breathing [place]. He felt chest physiotherapy is not helping much. He is currently on Mucinex 600 mg po BID. He has no new complaints. - Patient Data Vitals - most recent: Last Vital Signs Temp 37.1 C 08/30/16 04:00 Pulse 81 08/30/16 04:00 Resp 18 08/30/16 04:00 BP 157/83 H 08/30/16 04:00 Pulse Ox 99 08/30/16 06:13 Weight - most recent: 85.502 kg I&O - last 24 hours: Intake & Output 08/29/16 08/30/16 08/30/16 22:59 06:59 14:59 Intake Total 2549 1650 Output Total 1600 1325 Balance 949 325 Lab Results last 24 hrs: Laboratory Results - last 24 hr 08/30/16 08/30/16 Range/Units 06:11 06:11 WBC 11.20 H (4.23-9.07) K/mm3 RBC 3.10 L (4.63-6.08) M/mm3 Hgb 9.2 L (13.7-17.5) gm/L Hct 29.5 L (40.1-51.0) % MCV 95.2 H (79.0-92.2) fl MCH 29.7 (25.7-32.2) pg MCHC 31.2 L (32.2-35.5) g/dl RDW Std Deviation 56.7 H (35.1-43.9) fL Plt Count 304 (163-337) K/mm3 MPV 9.7 (9.4-12.3) fl Neut % (Auto) 86.3 H (34.0-67.9) % Lymph % (Auto) 7.4 L (21.8-53.1) % [place] % (Auto) 5.5 (5.3-12.2) % Eos % (Auto) 0.2 L (0.8-7.0) Baso % (Auto) 0.1 (0.1-1.2) % Neut # 9.66 H (1.78-5.38) K/mm3 Lymph # 0.83 L (1.32-3.57) K/mm3 [place] # 0.62 (0.30-0.82) K/mm3 Eos # 0.02 L (0.04-0.54) K/mm3 Baso # 0.01 (0.01-0.08) K/mm3 Manual Slide Review Abnormal smear Sodium 146 H (136-145) mEq/L Potassium 3.5 (3.5-5.1) mEq/L Chloride 110 H (98-107) mEq/L Carbon Dioxide 26 (21-32) mEq/L Anion Gap 13.5 (5-15) BUN 27 H (7-18) mg/dL Creatinine 1.4 H (0.7-1.3) mg/dL Est Cr Clr Drug Dosing 49.34 mL/min Estimated GFR (MDRD) 49 (>60) mL/min BUN/Creatinine Ratio 19.3 H (14-18) Glucose 116 H (83-115) mg/dL Calcium 7.3 L (8.5-10.1) mg/dL Magnesium 2.3 (1.8-2.4) mg/dl C-Reactive Protein 6.0 H* (<1.0) mg/dL Fabien Results last 24 hrs: Microbiology 08/28/16 06:00 Streptococcus pneumoniae Antigen (M - Final Urine Med Orders - Current: Current Medications Acetaminophen (Tylenol) 650 mg PO Q4H PRN PRN Reason: Fever Last Admin: 08/29/16 19:01 Dose: 650 mg Albuterol (Proventil Neb Soln) 0.63 mg NEB Q4H PRN PRN Reason: Shortness of Breath Last Admin: 08/28/16 02:20 Dose: 0.63 mg Amitriptyline HCl (Elavil) 25 mg PO BEDTIME [facility] Last Admin: 08/29/16 20:31 Dose: 25 mg Aspirin (Halfprin) 81 mg PO DAILY [facility] Last Admin: 08/29/16 08:48 Dose: 81 mg Budesonide (Pulmicort) 0.5 mg INH BID [facility] Last Admin: 08/29/16 21:15 Dose: 0.5 mg Carvedilol (Coreg) 12.5 mg PO BID [facility] Last Admin: 08/29/16 20:32 Dose: Not Given Clopidogrel Bisulfate (Plavix) 75 mg PO DAILY [facility] Last Admin: 08/29/16 08:49 Dose: 75 mg Diphenhydr/Magaldrate/Simeth/Lidoca (First-Mouthwash Blm Susp) 10 ml PO QID [facility] Enoxaparin Sodium (Lovenox) 40 mg SUBCUT DAILY [facility] Last Admin: 08/29/16 08:49 Dose: Not Given Guaifenesin (Mucinex) 600 mg PO BID [facility] Last Admin: 08/29/16 20:31 Dose: 600 mg Piperacillin Sod/Tazobactam (Sod 4.5 gm/ Sodium Chloride) 100 mls @ 25 mls/hr IV Q8H [facility] Last Admin: 08/30/16 04:16 Dose: 25 mls/hr Azithromycin 500 mg/ Sodium (Chloride) 250 mls @ 250 mls/hr IV Q24H [facility] Last Admin: 08/29/16 18:22 Dose: 250 mls/hr Isosorbide Mononitrate (Imdur) 15 mg PO DAILY [facility] Last Admin: 08/29/16 08:49 Dose: 15 mg Levalbuterol HCl (Xopenex) 1.25 mg NEB QIDRT [facility] Last Admin: 08/30/16 06:12 Dose: 1.25 mg Lisinopril (Prinivil) 20 mg PO DAILY [facility] Last Admin: 08/29/16 08:49 Dose: 20 mg Methylprednisolone Sodium Succinate (Solu-Medrol) 125 mg IVPUSH Q12H [facility] Montelukast Sodium (Singulair) 10 mg PO BEDTIME [facility] Last Admin: 08/29/16 20:31 Dose: 10 mg Nitroglycerin (Nitrostat) 0.4 mg SL Q5M PRN PRN Reason: chest pain Oseltamivir Phosphate (Tamiflu) 30 mg PO BID [facility] Stop: 09/01/16 09:01 Last Admin: 08/29/16 20:31 Dose: 30 mg Pantoprazole Sodium (Protonix) 40 mg PO DAILY@0700 [facility] Last Admin: 08/30/16 06:00 Dose: 40 mg Daliresp ( (Roflumilast 500 Mcg)) 0 each PO DAILY [facility] Last Admin: 08/29/16 08:50 Dose: Not Given Risedronate Sodium (150 Mg) 0 each PO Q30D [facility] Aclidinium Fordyce [ Tudorza Pressair] Inhaler 0 each INH BID [facility] Last Admin: 08/29/16 21:16 Dose: 1 each Arformoterol 15 Mcg ((Brovana) Med Neb) 0 each NEB BID [facility] Last Admin: 08/29/16 21:15 Dose: 1 each (Omalizumab [Xolair] (375 Mg)) 0 each IM Q30D [facility] Last Admin: 08/29/16 17:02 Dose: Not Given Saccharomyces Boulardii (Florastor) 250 mg PO BID [facility] Last Admin: 08/29/16 20:32 Dose: 250 mg Silver Sulfadiazine (Silvadene 1% Cream 50 Gm) 0 gm TOP ASDIRECTED PRN PRN Reason: Other Simvastatin (Zocor) 10 mg PO BEDTIME [facility] Last Admin: 08/29/16 20:31 Dose: 10 mg Sodium Chloride (Saline Flush) 10 ml FLUSH ASDIRECTED PRN PRN Reason: Keep Vein Open Last Admin: 08/27/16 11:29 Dose: 10 ml Temazepam (Restoril) 15 mg PO BEDTIME PRN PRN Reason: Sleep Last Admin: 08/30/16 02:23 Dose: 15 mg Triamcinolone Acetonide (Triamcinolone Acetonide 0.1% Crm) 0 gm TOP DAILY PRN PRN Reason: Itching Last Admin: 08/29/16 04:35 Dose: 1 applic Discontinued Medications Albuterol/Ipratropium (Duoneb 3.0-0.5 Mg/3 Ml) 3 ml NEB ONETIME ONE Stop: 08/27/16 11:00 Last Admin: 08/27/16 11:06 Dose: 3 ml Clopidogrel Bisulfate (Plavix) 300 mg PO ONETIME ONE Stop: 08/27/16 21:21 Last Admin: 08/27/16 22:49 Dose: 300 mg Guaifenesin (Mucinex) 600 mg PO Q12H PRN PRN Reason: Congestion Last Admin: 08/29/16 01:18 Dose: 600 mg Hydralazine HCl (Apresoline) 20 mg IVPUSH ONETIME ONE Stop: 08/29/16 18:04 Last Admin: 08/29/16 18:22 Dose: 20 mg Hydromorphone HCl (Dilaudid) 0.25 mg IVPUSH ONETIME ONE Stop: 08/27/16 12:58 Last Admin: 08/27/16 13:02 Dose: 0.25 mg Lactated Ringer's (Ringers, Lactated) 500 mls @ 999 mls/hr IV .BOLUS ONE Stop: 08/27/16 11:36 Last Admin: 08/27/16 11:29 Dose: 999 mls/hr Piperacillin Sod/Tazobactam (Sod 4.5 gm/ Sodium Chloride) 100 mls @ 200 mls/hr IV ONETIME ONE Stop: 08/27/16 12:34 Last Admin: 08/27/16 12:21 Dose: 200 mls/hr Lactated Ringer's (Ringers, Lactated) 1,000 mls @ 50 mls/hr IV ASDIRECTED [facility] Last Admin: 08/27/16 17:47 Dose: 50 mls/hr Sodium Chloride (Normal Saline) 1,000 mls @ 50 mls/hr IV ASDIRECTED [facility] Last Admin: 08/28/16 10:03 Dose: 50 mls/hr Sodium Chloride (Normal Saline) 500 mls @ 999 mls/hr IV .BOLUS ONE Stop: 08/28/16 12:39 Last Admin: 08/28/16 13:26 Dose: 999 mls/hr Sodium Chloride (Normal Saline) 1,000 mls @ 100 mls/hr IV ASDIRECTED [facility] Last Admin: 08/28/16 18:07 Dose: 100 mls/hr Sodium Chloride (Normal Saline) 1,000 mls @ 75 mls/hr IV ASDIRECTED [facility] Stop: 08/29/16 12:00 Last Admin: 08/29/16 00:02 Dose: 75 mls/hr Sodium Chloride (Normal Saline) 1,000 mls @ 50 mls/hr IV ASDIRECTED [facility] Last Admin: 08/29/16 12:07 Dose: 50 mls/hr Levalbuterol HCl (Xopenex) 1.25 mg NEB QID [facility] Last Admin: 08/27/16 17:23 Dose: Not Given Levalbuterol HCl (Xopenex) Confirm Administered Dose 1.25 mg .ROUTE .STK-MED ONE Stop: 08/29/16 21:14 Last Admin: 08/29/16 21:15 Dose: 1.25 mg Magnesium Hydroxide (Milk Of Magnesia) 30 ml PO ONETIME ONE Stop: 08/29/16 04:58 Last Admin: 08/29/16 06:07 Dose: Not Given Methylprednisolone Sodium Succinate (Solu-Medrol) 125 mg IVPUSH Q8H [facility] Last Admin: 08/28/16 00:48 Dose: 125 mg Methylprednisolone Sodium Succinate (Solu-Medrol) 125 mg IVPUSH Q6H [facility] Last Admin: 08/29/16 14:10 Dose: 125 mg Methylprednisolone Sodium Succinate (Solu-Medrol) 125 mg IVPUSH Q8H [facility] Last Admin: 08/30/16 06:00 Dose: 125 mg Temazepam (Restoril) 15 mg PO BEDTIME [facility] Temazepam (Restoril) 15 mg PO BEDTIME [facility] - Exam Quality Assessment: supplemental oxygen General: alert, oriented, cooperative, no acute distress HEENT: Pupils equal, Pupils reactive, EOMI, Mucous membr. moist/pink Neck: supple, trachea midline, no JVD Lungs: Normal respiratory effort, Decreased breath sounds, Rhonchi, Wheezing Cardiovascular: regular rate, regular rhythm Abdomen: bowel sounds present, soft, no tenderness, no distension (Male) Exam: Deferred Back Exam: normal inspection, decreased range of motion Extremities: no edema, normal pulses, no tenderness/swelling, no clubbing, no cyanosis, no calf tenderness Peripheral Pulses: 2+: dorsalis pedis (L), dorsalis pedis (R) Skin: warm, dry, intact, ecchymosis Neurological: no new focal deficit Psy/Mental Status: alert, normal affect, normal mood - Problem List Review Problem List Initiated/Reviewed/Updated: Yes - My Orders Last 24 Hours: My Active Orders 08/29/16 11:42 Acapella [RT Chest Physiotherapy] [RC] ASDIRECTED 08/29/16 11:45 guaiFENesin [Mucinex] 600 mg PO BID 08/29/16 16:00 Patient's Own Medication [Ptom] 0 each IM Q30D 08/29/16 21:00 Carvedilol [Coreg] 12.5 mg PO BID Saccharomyces Boulardii [Florastor] 250 mg PO BID 08/30/16 09:00 methylPREDNISolone Sod Succ [Solu-MEDROL] 125 mg IVPUSH Q12H 08/31/16 07:00 Chest 2V [CR] Routine - Plan Plan:: Impression: Acute: Influenza A positive, On Tamiflu Advanced COPD on chronic O2, continue IV steroids at [facility], Respiratory Failure, O2 Dependent, Unchanged Medical-Noncompliance, He is refusing some medications Resolved: S/p Fall without fracture or LOC S/p ACS, Medical Management Only: ASA, Plavix, Statin and Coreg 12.5 mg po BID Rhabdomyolysis, likely resolved Chronic: HTN Hyperlipidemia PVD CAD GERD Extensive Emphysema and Pulmonary Scarring/Fibrosis Plan: He is about the same. He sounded really horrible this am. I do not expect him to get any better than at his current status. Patient carries an advanced lung disease: severe emphysema and scarring Continue current treatment Will increase Mucinex to 1200 mg po BID Start Aminophylline 250 mg IV x 1 then theophylline oral 300 mg po BID Acapella Q2 awake if no improvement, Chest Physiotherapy BID Continue PT/OT/CM CXR in 2 days Will increase Restoril dose to 30 mg po QHS PRN Ativan 1 mg Q6 PRN for Anxiety and to augment his Restoril at night DVT ppx: Lovenox SubQ daily Would benefit from SNF stay, patient refused. He wants to go home Cardiology follow up at [place] LOS anticipate > 96 hrs due to slow response to treatment
[2016-08-30] MEDS ORDERED: methylPREDNISolone Sodium Succinate 125 MG/2 ML SDV IVPUSH SCH (09:00)
[2016-08-30] MEDS: Saccharomyces Boulardii (Probiotic) 250 MG Cap PO SCH ×2 (09:20→21:03)
[2016-08-30] MEDS: Diphenhydramine/Lidocaine/MagAl/Simethicone 119 ML Bottle PO SCH ×4 (09:20→21:05)
[2016-08-30] MEDS: guaiFENesin 600 MG Tab.ER PO SCH ×2 (09:21→21:03)
[2016-08-30] MEDS: Aspirin 81 MG Tab.EC PO SCH (09:21)
[2016-08-30] MEDS: Lisinopril 20 MG Tab PO SCH (09:23)
[2016-08-30] MEDS: Carvedilol 12.5 MG Tab PO SCH ×2 (09:24→21:03)
[2016-08-30] MEDS: Clopidogrel 75 MG Tab PO SCH (09:25)
[2016-08-30] MEDS: Isosorbide Mononitrate 30 MG Tab.ER PO SCH (09:25)
[2016-08-30] MEDS: Enoxaparin 40 MG/0.4 ML Syringe SUBCUT SCH (09:25)
[2016-08-30] MEDS: ARFORMOTEROL 15 MCG NEB SCH ×3 (09:26→21:52)
[2016-08-30] MEDS: Oseltamivir 30 MG Cap PO SCH ×2 (09:26→21:04)
[2016-08-30] MEDS: ACLIDINIUM BROMIDE INH SCH ×3 (09:26→21:52)
[2016-08-30] MEDS: DALIRESP PO SCH (09:26)
[2016-08-30] MEDS ORDERED: Aminophylline 250 MG/10 ML SDV IVPUSH ONE (09:28)
[2016-08-30] MEDS ORDERED: LORazepam 2 MG/ML MDV IVPUSH PRN (09:30)
[2016-08-30] MEDS: Budesonide 0.5 MG/2 ML Neb Susp INH SCH ×3 (09:44→21:47)
[2016-08-30] MEDS ORDERED: SODIUM CHLORIDE 0.9% IV ONE (10:30)
[2016-08-30] MEDS ORDERED: AMINOPHYLLINE IV ONE (10:30)
[2016-08-30] MEDS ORDERED: Metoprolol Tartrate 5 MG/5 ML SDV IVPUSH PRN (17:45)
[2016-08-30] MEDS ORDERED: Lisinopril 10 MG Tab PO ONE (18:00)
[2016-08-30] MEDS: Azithromycin 500 MG in Sodium Chloride 0.9% 250 ML IV SCH (18:04)
[2016-08-30] MEDS: Acetaminophen 325 MG Tab PO PRN (18:31)
[2016-08-30] MEDS: Albuterol 0.021% 0.63 MG/3 ML Neb Soln NEB PRN (18:58)
[2016-08-30] MEDS: hydrALAZINE 20 MG/ML SDV IVPUSH PRN (19:18)
[2016-08-30] MEDS ORDERED: Theophylline 300 MG Tab.ER PO SCH (21:00)
[2016-08-30] MEDS ORDERED: Temazepam 30 MG Cap PO PRN (21:00)
[2016-08-30] MEDS ORDERED: Amitriptyline 25 MG Tab PO SCH (21:00)
[2016-08-30] MEDS: Montelukast 10 MG Tab PO SCH (21:04)
[2016-08-30] MEDS: Simvastatin 10 MG Tab PO SCH (21:05)
[2016-08-30] MEDS ORDERED: Levalbuterol HCl 1.25 MG/0.5 ML Neb ONE (21:44)
[2016-08-31] MEDS: methylPREDNISolone Sodium Succinate 125 MG/2 ML SDV IVPUSH SCH ×4 (00:51→17:24)
[2016-08-31] MEDS: hydrALAZINE 20 MG/ML SDV IVPUSH PRN ×2 (04:13→09:55)
[2016-08-31] MEDS ORDERED: Levalbuterol HCl 1.25 MG/0.5 ML Neb ONE (05:26)
[2016-08-31] MEDS: Levalbuterol HCl 1.25 MG/3 ML Neb NEB SCH ×3 (05:56→16:07)
[2016-08-31] MEDS: Pantoprazole 40 MG Tab.CR PO SCH (07:17)
[2016-08-31] MEDS ORDERED: Lisinopril 10 MG Tab PO SCH (09:00)
[2016-08-31] MEDS: Budesonide 0.5 MG/2 ML Neb Susp INH SCH (09:08)
[2016-08-31] MEDS: ARFORMOTEROL 15 MCG NEB SCH (09:09)
[2016-08-31] MEDS: ACLIDINIUM BROMIDE INH SCH (09:09)
[2016-08-31] MEDS: Oseltamivir 30 MG Cap PO SCH (09:29)
[2016-08-31] MEDS: guaiFENesin 600 MG Tab.ER PO SCH (09:29)
[2016-08-31] MEDS: Aspirin 81 MG Tab.EC PO SCH (09:30)
[2016-08-31] MEDS: Clopidogrel 75 MG Tab PO SCH (09:30)
[2016-08-31] MEDS: Saccharomyces Boulardii (Probiotic) 250 MG Cap PO SCH (09:30)
[2016-08-31] MEDS: Calcium Carbonate 600 MG Tab PO SCH ×2 (09:30→16:27)
[2016-08-31] MEDS: Isosorbide Mononitrate 30 MG Tab.ER PO SCH (09:31)
[2016-08-31] MEDS: Carvedilol 12.5 MG Tab PO SCH (09:31)
[2016-08-31] MEDS: DALIRESP PO SCH (09:32)
[2016-08-31] MEDS: Diphenhydramine/Lidocaine/MagAl/Simethicone 119 ML Bottle PO SCH ×4 (09:33→17:24)
[2016-08-31] MEDS: Enoxaparin 40 MG/0.4 ML Syringe SUBCUT SCH (09:37)
--- NOTE | 2016-08-31 09:46 | CR ---
Chest: Two views of the chest were obtained. Comparison: Previous chest x-ray of 08/28/16. Increased basilar lung markings are seen which appear stable. No acute infiltrates are seen. Lungs are hyperinflated compatible with emphysematous change. There is an area of stable scarring within the right upper lung seen best on the lateral view. Minimal scarring also seen within the left lung apex which is stable. Heart size is normal. Tortuous thoracic aorta is seen. Bony structures are unremarkable for the patient's age. Impression: 1. Emphysematous change. Mild fibrosis and scattered areas of scarring. 2. Nothing acute is appreciated. No significant change seen from prior chest x-ray. Diagnostic code #2
[2016-08-31] MEDS ORDERED: Theophylline 300 MG Tab.ER PO SCH (13:45)
--- NOTE | 2016-08-31 14:07 | PCM.DCSUM1 ---
Discharge Summary - Hospital Course Free Text/Narrative:: 75-year-old male has been brought in by [place] [facility] from [facility] for evaluation of dyspnea, cough, fever and generalized weakness. He states he's been feeling sick for a long time. He is chronically short of breath on oxygen continuous typically 2-3 L nasal cannula. He's been coughing for many days. He states he had some diarrhea not too long ago and now also has low-grade fever. He is more short of breath than usual today. He fell trying to stand or walk and was found lying on the floor. He did suffer a toe abrasion. He states he may have injured his left hip and right arm but not having any significant bony discomfort from the fall. He denies hitting his head LOC or major neck pain from the fall. he does have history of COPD. He states he is coughing up yellow colored phlegm. No chest or abdominal pain at this time. Hospitalist service is consulted for elevated troponin, COPD exacerbation, fall , weakness. Evaluation reveals patient is positive for influenza A. He was placed on 5 days of tamiflu BID. He was found to have elevated troponin and CKMB consistent with NSTEMI. He elected medical management of this only, no transfer to [place] for Cardiology evaluation. He does have established [facility] that he will follow up with as an outpatient. He was started on Coreg BID - he was frequently refusing this despite numerous attempts at education. Also started on Imdur once daily. Mycoplasma was negative, S. Pneumo was negative, CXR negative for pneumonia. He was treated for COPD exacerbation with Zithromax IV x 5 days and decreasing dose of IV solumedrol x 4 days; transitioned to PO prednisone taper at discharge. Oxygen saturations and supplemental requirements improved to baseline. He was started on theophylline drip, transitioned to oral dosing, tolerated well and discharged home on theophylline. Patient was very noncompliant with multiple medical recommendations during his stay; frequently refusing numerous medications and recommended therapies. He is to follow up with his PCP within 5-7 days of discharge for recheck. He was in agreement to Home Health Nursing Care. Per face to face encounter today, day of discharge, based on patients medical diagnosis of end stage COPD, CAD with recent AMI, he will benefit from home health nursing care for disease and medication education, vital signs assessment. He is home bound. He will follow up with his PCP, Dr. Osborn within 5-7 days of discharge for further Home Health Care orders and instructions. - Discharge Data Discharge Date: 08/31/16 (admit date 08/27/16) Discharge Disposition: Home, Self-Care 01 Condition: Good - Patient Summary/Data Operative Procedure(s) Performed: None Complications: None Consults: Consultations 08/27/16 17:06 Consult to Case Management [CONS] Routine 08/28/16 09:00 Consult to Occupational Therapy [OT Evaluation and Treatment] [CONS] Routine Consult to Physical Therapy [PT Evaluation and Treatment] [CONS] Routine Labs Pending at D/C: None Recommended Follow-up Testing/Procedures: Follow up with PCP within 5-7 days of discharge Follow up with Cardiology as previously scheduled Follow up with Pulmonology as previously scheduled Planned Operative Procedure(s) after DC: None Hospital Course: As above - Patient Instructions Diet: Heart Healthy Diet, Low Sodium Activity: As Tolerated Showering/Bathing: May Shower Wound/Incision Care: Change Dressing Daily Notify Provider of: Fever, Increased Pain, Swelling and Redness, Nausea and/or Vomiting (chest pain, worsening of shortness of breath, worsening of weakness) - Discharge Plan Prescriptions/Med Rec: Carvedilol [Coreg] 12.5 mg PO BID #60 tablet Isosorbide Mononitrate [Imdur] 15 mg PO DAILY #30 tab.er Prednisone [IJD: Prednisone] 10 mg PO DAILY #30 tab Theophylline [Theophylline Anhydrous] 300 mg PO DAILY #30 tab.er guaiFENesin [Mucinex] 1,200 mg PO BID #60 tab.er Home Medications: Home Meds Aclidinium [place] [Tudorza Pressair] 1 puff IH BID 04/24/16 [History] Albuterol Sulfate 2.5 mg IH TID PRN 04/24/16 [History] Amitriptyline [Elavil] 25 - 50 mg PO BEDTIME 04/24/16 [History] Arformoterol [Brovana] 15 mcg NEB BID 04/24/16 [History] Aspirin 81 mg PO DAILY 04/24/16 [History] Budesonide [Pulmicort] 0.5 mg IH BID 04/24/16 [History] Clopidogrel [Plavix] 75 mg PO DAILY 04/24/16 [History] Montelukast [Singulair] 10 mg PO BEDTIME 04/24/16 [History] Multivitamin [Multivitamins] 1 each PO DAILY 04/24/16 [History] Nitroglycerin 0.4 mg SL Q5M PRN 04/24/16 [History] Campbell-3/DHA/Epa/Fish Oil [Fish Oil 1,000 mg Softgel] 1 each PO DAILY 04/24/16 [ History] Risedronate Sodium 150 mg PO Q30D 04/24/16 [History] Roflumilast [Daliresp] 500 mcg PO DAILY 04/24/16 [History] Triamcinolone Acetonide [Triamcinolone Acetonide 0.1% Crm] 15 gm TOP DAILY PRN 04/24/16 [History] atorvaSTATin [Lipitor] 10 mg PO BEDTIME 04/24/16 [History] predniSONE [Prednisone] 5 mg PO DAILY 04/24/16 [History] Furosemide [Lasix] 40 mg PO DAILY #30 tablet 04/30/16 [Rx] Pantoprazole [Protonix] 40 mg PO 0700 #30 tab.cr 04/30/16 [Rx] Albuterol [IJD: Albuterol HFA] 2 puff INH Q4H PRN 06/14/16 [History] Calcium Carbonate/Vitamin D3 [Calcium 600 + Vit D Tablet] 1 tab PO DAILY [History] EPINEPHrine [Epipen] 0.3 mg IM ASDIRECTED PRN 08/27/16 [History] Lisinopril [Prinivil] 20 mg PO DAILY 08/27/16 [History] Omalizumab [Xolair] 375 mg IM Q30D 08/27/16 [History] Silver Sulfadiazine [Silvadene 1% Cream 20 GM] 1 dose TOP ASDIRECTED PRN [History] guaiFENesin [Tussin] 400 mg PO ASDIRECTED PRN 08/27/16 [History] Docusate Sodium 100 mg PO DAILY PRN 08/28/16 [History] Carvedilol [Coreg] 12.5 mg PO BID #60 tablet 08/31/16 [Rx] Isosorbide Mononitrate [Imdur] 15 mg PO DAILY #30 tab.er 08/31/16 [Rx] Prednisone [IJD: Prednisone] 10 mg PO DAILY #30 tab 08/31/16 [Rx] Theophylline [Theophylline Anhydrous] 300 mg PO DAILY #30 tab.er 08/31/16 [Rx] guaiFENesin [Mucinex] 1,200 mg PO BID #60 tab.er 08/31/16 [Rx] Patient Handouts: Rhabdomyolysis, Influenza, Adult, [id number], Heart Attack , [id number] Forms: ED Department Discharge Referrals: Vicente Asif MD [Ordering Only Provider] - (clinic will call patient for this appt. appt. to be in [place]) Jess Klein MD [Ordering Only Provider] - (facility ([facility]) will call patient when they have the doctors schedule at this time they do not have the October schedule.) Domingo Osborn Jr, MD [Primary Care Provider] - 09/06/16 2:15 pm (If this does not work for patient please call for another time.) - Discharge Summary/Plan Comment DC Time >30 min.: Yes (40 min) - General Info Date of Service: 08/31/16 Admission Dx/Problem (Free Text: Admission Diagnosis/Problem Admission Diagnosis/Problem Influenza due to influenza A virus Functional Status: Reports: pain controlled, tolerating diet, ambulating, urinating. Denies: new symptoms - Review of Systems General: Reports: weakness (improved), fatigue (improved) HEENT: Reports: no symptoms Pulmonary: Reports: shortness of breath (chronic and at baseline), wheezing ( chronic and at baseline) Cardiovascular: Reports: dyspnea on exertion (chronic and at baseline). Denies : chest pain, palpitations, edema, lightheadedness Gastrointestinal: Reports: No symptoms Genitourinary: Reports: no symptoms Musculoskeletal: Reports: no symptoms Neurological: Reports: no symptoms Psychiatric: Reports: no symptoms - Patient Data Vitals - Most Recent: Last Vital Signs Temp 98.2 F 08/31/16 08:44 Pulse 83 08/31/16 09:31 Resp 32 H 08/31/16 08:44 BP 176/85 H 08/31/16 09:31 Pulse Ox 94 L 08/31/16 09:45 Weight - Most Recent: 186 lb 14.4 oz I&O - Last 24 hours: Intake & Output 08/30/16 08/31/16 08/31/16 22:59 06:59 14:59 Intake Total 1590 1088 360 Output Total 1450 2295 Balance 140 -687 360 Lab Results - Last 24 hrs: Laboratory Results - last 24 hr 08/31/16 Range/Units 11:31 Theophylline 7.1 L (10.0-20.0) ug/mL Med Orders - Current: Current Medications Acetaminophen (Tylenol) 650 mg PO Q4H PRN PRN Reason: Fever Last Admin: 08/30/16 18:31 Dose: 650 mg Albuterol (Proventil Neb Soln) 0.63 mg NEB Q4H PRN PRN Reason: Shortness of Breath Last Admin: 08/30/16 18:58 Dose: 0.63 mg Amitriptyline HCl (Elavil) 50 mg PO BEDTIME [facility] Last Admin: 08/30/16 21:04 Dose: 50 mg Aspirin (Halfprin) 81 mg PO DAILY [facility] Last Admin: 08/31/16 09:30 Dose: 81 mg Budesonide (Pulmicort) 0.5 mg INH BID [facility] Last Admin: 08/31/16 09:08 Dose: 0.5 mg Calcium Carbonate/Glycine (Calcium Carbonate) 600 mg PO BIDMEALS [facility] Last Admin: 08/31/16 09:30 Dose: 600 mg Carvedilol (Coreg) 12.5 mg PO BID [facility] Last Admin: 08/31/16 09:31 Dose: 12.5 mg Clopidogrel Bisulfate (Plavix) 75 mg PO DAILY [facility] Last Admin: 08/31/16 09:30 Dose: 75 mg Diphenhydr/Magaldrate/Simeth/Lidoca (First-Mouthwash Blm Susp) 10 ml PO QID [facility] Last Admin: 08/31/16 09:40 Dose: Not Given Enoxaparin Sodium (Lovenox) 40 mg SUBCUT DAILY [facility] Last Admin: 08/31/16 09:37 Dose: Not Given Guaifenesin (Mucinex) 1,200 mg PO BID [facility] Last Admin: 08/31/16 09:29 Dose: 1,200 mg Hydralazine HCl (Apresoline) 20 mg IVPUSH Q4H PRN PRN Reason: Hypertension Last Admin: 08/31/16 09:55 Dose: 20 mg Azithromycin 500 mg/ Sodium (Chloride) 250 mls @ 250 mls/hr IV Q24H [facility] Last Admin: 08/30/16 18:04 Dose: 250 mls/hr Isosorbide Mononitrate (Imdur) 15 mg PO DAILY [facility] Last Admin: 08/31/16 09:31 Dose: 15 mg Levalbuterol HCl (Xopenex) 1.25 mg NEB QIDRT [facility] Last Admin: 08/31/16 09:09 Dose: 1.25 mg Lisinopril (Prinivil) 30 mg PO DAILY [facility] Last Admin: 08/31/16 09:30 Dose: 30 mg Lorazepam (Ativan) 1 mg IVPUSH Q6H PRN; Protocol PRN Reason: Anxiety Stop: 09/04/16 09:31 Last Admin: 08/30/16 21:06 Dose: 1 mg Methylprednisolone Sodium Succinate (Solu-Medrol) 125 mg IVPUSH Q8H [facility] Last Admin: 08/31/16 11:32 Dose: 125 mg Metoprolol Tartrate (Lopressor) 5 mg IVPUSH Q4H PRN PRN Reason: Tachycardia Montelukast Sodium (Singulair) 10 mg PO BEDTIME [facility] Last Admin: 08/30/16 21:04 Dose: 10 mg Nitroglycerin (Nitrostat) 0.4 mg SL Q5M PRN PRN Reason: chest pain Oseltamivir Phosphate (Tamiflu) 30 mg PO BID [facility] Stop: 09/01/16 09:01 Last Admin: 08/31/16 09:29 Dose: 30 mg Pantoprazole Sodium (Protonix) 40 mg PO DAILY@0700 [facility] Last Admin: 08/31/16 07:17 Dose: 40 mg Daliresp ( (Roflumilast 500 Mcg)) 0 each PO DAILY [facility] Last Admin: 08/31/16 09:32 Dose: Not Given Risedronate Sodium (150 Mg) 0 each PO Q30D [facility] Aclidinium [place] [ Tudorza Pressair] Inhaler 0 each INH BID [facility] Last Admin: 08/31/16 09:09 Dose: 1 each Arformoterol 15 Mcg ((Brovana) Med Neb) 0 each NEB BID [facility] Last Admin: 08/31/16 09:09 Dose: 1 each (Omalizumab [Xolair] (375 Mg)) 0 each IM Q30D [facility] Last Admin: 08/29/16 17:02 Dose: Not Given Saccharomyces Boulardii (Florastor) 250 mg PO BID [facility] Last Admin: 08/31/16 09:30 Dose: 250 mg Silver Sulfadiazine (Silvadene 1% Cream 50 Gm) 0 gm TOP ASDIRECTED PRN PRN Reason: Other Simvastatin (Zocor) 10 mg PO BEDTIME [facility] Last Admin: 08/30/16 21:05 Dose: 10 mg Sodium Chloride (Saline Flush) 10 ml FLUSH ASDIRECTED PRN PRN Reason: Keep Vein Open Last Admin: 08/27/16 11:29 Dose: 10 ml Temazepam (Restoril) 30 mg PO BEDTIME PRN PRN Reason: Sleep Last Admin: 08/30/16 21:04 Dose: 30 mg Theophylline (Theophylline Anhydrous) 300 mg PO DAILY [facility] Triamcinolone Acetonide (Triamcinolone Acetonide 0.1% Crm) 0 gm TOP DAILY PRN PRN Reason: Itching Last Admin: 08/29/16 04:35 Dose: 1 applic Discontinued Medications Albuterol/Ipratropium (Duoneb 3.0-0.5 Mg/3 Ml) 3 ml NEB ONETIME ONE Stop: 08/27/16 11:00 Last Admin: 08/27/16 11:06 Dose: 3 ml Aminophylline (Aminophylline) 250 mg IVPUSH ONETIME ONE Stop: 08/30/16 09:29 Last Admin: 08/30/16 10:48 Dose: Not Given Amitriptyline HCl (Elavil) 25 mg PO BEDTIME [facility] Last Admin: 08/29/16 20:31 Dose: 25 mg Clopidogrel Bisulfate (Plavix) 300 mg PO ONETIME ONE Stop: 08/27/16 21:21 Last Admin: 08/27/16 22:49 Dose: 300 mg Guaifenesin (Mucinex) 600 mg PO Q12H PRN PRN Reason: Congestion Last Admin: 08/29/16 01:18 Dose: 600 mg Guaifenesin (Mucinex) 600 mg PO BID [facility] Last Admin: 08/30/16 09:21 Dose: 600 mg Hydralazine HCl (Apresoline) 20 mg IVPUSH ONETIME ONE Stop: 08/29/16 18:04 Last Admin: 08/29/16 18:22 Dose: 20 mg Hydromorphone HCl (Dilaudid) 0.25 mg IVPUSH ONETIME ONE Stop: 08/27/16 12:58 Last Admin: 08/27/16 13:02 Dose: 0.25 mg Lactated Ringer's (Ringers, Lactated) 500 mls @ 999 mls/hr IV .BOLUS ONE Stop: 08/27/16 11:36 Last Admin: 08/27/16 11:29 Dose: 999 mls/hr Piperacillin Sod/Tazobactam (Sod 4.5 gm/ Sodium Chloride) 100 mls @ 200 mls/hr IV ONETIME ONE Stop: 08/27/16 12:34 Last Admin: 08/27/16 12:21 Dose: 200 mls/hr Piperacillin Sod/Tazobactam (Sod 4.5 gm/ Sodium Chloride) 100 mls @ 25 mls/hr IV Q8H [facility] Last Admin: 08/30/16 04:16 Dose: 25 mls/hr Lactated Ringer's (Ringers, Lactated) 1,000 mls @ 50 mls/hr IV ASDIRECTED [facility] Last Admin: 08/27/16 17:47 Dose: 50 mls/hr Sodium Chloride (Normal Saline) 1,000 mls @ 50 mls/hr IV ASDIRECTED [facility] Last Admin: 08/28/16 10:03 Dose: 50 mls/hr Sodium Chloride (Normal Saline) 500 mls @ 999 mls/hr IV .BOLUS ONE Stop: 08/28/16 12:39 Last Admin: 08/28/16 13:26 Dose: 999 mls/hr Sodium Chloride (Normal Saline) 1,000 mls @ 100 mls/hr IV ASDIRECTED [facility] Last Admin: 08/28/16 18:07 Dose: 100 mls/hr Sodium Chloride (Normal Saline) 1,000 mls @ 75 mls/hr IV ASDIRECTED [facility] Stop: 08/29/16 12:00 Last Admin: 08/29/16 00:02 Dose: 75 mls/hr Sodium Chloride (Normal Saline) 1,000 mls @ 50 mls/hr IV ASDIRECTED [facility] Last Admin: 08/29/16 12:07 Dose: 50 mls/hr Aminophylline 440 mg/ Sodium (Chloride) 100 mls @ 200 mls/hr IV ONETIME ONE Stop: 08/30/16 10:59 Last Admin: 08/30/16 11:01 Dose: 200 mls/hr Aminophylline 500 mg/ Sodium (Chloride) 250 mls @ 14.6 mls/hr IV Q24H [facility] Aminophylline 500 mg/ Sodium (Chloride) 250 mls @ 14.6 mls/hr IV Q24H [facility] Last Admin: 08/30/16 11:42 Dose: 14.6 mls/hr Levalbuterol HCl (Xopenex) 1.25 mg NEB QID [facility] Last Admin: 08/27/16 17:23 Dose: Not Given Levalbuterol HCl (Xopenex) Confirm Administered Dose 1.25 mg .ROUTE .STK-MED ONE Stop: 08/29/16 21:14 Last Admin: 08/29/16 21:15 Dose: 1.25 mg Levalbuterol HCl (Xopenex) Confirm Administered Dose 1.25 mg .ROUTE .STK-MED ONE Stop: 08/30/16 21:45 Last Admin: 08/30/16 21:47 Dose: 1.25 mg Levalbuterol HCl (Xopenex) Confirm Administered Dose 1.25 mg .ROUTE .STK-MED ONE Stop: 08/31/16 05:27 Last Admin: 08/31/16 05:53 Dose: 1.25 mg Lisinopril (Prinivil) 20 mg PO DAILY [facility] Last Admin: 08/30/16 09:23 Dose: 20 mg Lisinopril (Prinivil) 10 mg PO ONETIME ONE Stop: 08/30/16 18:01 Last Admin: 08/30/16 18:04 Dose: 10 mg Magnesium Hydroxide (Milk Of Magnesia) 30 ml PO ONETIME ONE Stop: 08/29/16 04:58 Last Admin: 08/29/16 06:07 Dose: Not Given Methylprednisolone Sodium Succinate (Solu-Medrol) 125 mg IVPUSH Q8H [facility] Last Admin: 08/28/16 00:48 Dose: 125 mg Methylprednisolone Sodium Succinate (Solu-Medrol) 125 mg IVPUSH Q6H [facility] Last Admin: 08/29/16 14:10 Dose: 125 mg Methylprednisolone Sodium Succinate (Solu-Medrol) 125 mg IVPUSH Q8H [facility] Last Admin: 08/30/16 06:00 Dose: 125 mg Methylprednisolone Sodium Succinate (Solu-Medrol) 125 mg IVPUSH Q12H [facility] Last Admin: 08/30/16 09:21 Dose: 125 mg Temazepam (Restoril) 15 mg PO BEDTIME [facility] Temazepam (Restoril) 15 mg PO BEDTIME [facility] Temazepam (Restoril) 15 mg PO BEDTIME PRN PRN Reason: Sleep Last Admin: 08/30/16 02:23 Dose: 15 mg Theophylline (Theophylline Anhydrous) 300 mg PO BID [facility] - Exam Quality Assessment: Reports: supplemental oxygen, DVT prophylaxis General: Reports: alert, oriented, cooperative, no acute distress HEENT: Reports: Pupils equal, Pupils reactive, EOMI, Mucous membr. moist/pink Neck: Reports: supple Lungs: Reports: Normal respiratory effort, Decreased breath sounds, Wheezing ( throughout on expiration) Cardiovascular: Reports: regular rate, regular rhythm Abdomen: Reports: bowel sounds present, soft, no tenderness, no distension (Male) Exam: Deferred Rectal (Males) Exam: Deferred Extremities: Reports: no edema, no calf tenderness Neurological: Reports: no new focal deficit Psy/Mental Status: Reports: alert, normal affect, normal mood *Q Meaningful Use (DIS) - VTE *Q VTE Criteria *Q: - Stroke *Q Stroke Criteria *Q: - AMI *Q AMI Criteria *Q:
[2016-08-31 14:59] VITALS: BP 142/71
== END 2016-08-31 17:00 | disposition home or self-care (01) | DRG 280 ==
LOC: JD.ED 10:42 → SUPCPDRO 10:42 → JD.MS 14:22
PROVIDERS: ADMIT Internal Medicine Cardiovascular Disease; ATTEND Internal Medicine Cardiovascular Disease
DX: I21.4 Non-ST elevation (NSTEMI) myocardial infarction (principal); J09.X2 Influenza due to identified novel influenza A virus with other respiratory manifestations; M25.552 Pain in left hip; M79.601 Pain in right arm; J96.90 Respiratory failure, unspecified, unspecified whether with hypoxia or hypercapnia; I10 Essential (primary) hypertension; I50.30 Unspecified diastolic (congestive) heart failure; M62.82 Rhabdomyolysis; J10.1 Influenza due to other identified influenza virus with other respiratory manifestations; D64.9 Anemia, unspecified; I95.2 Hypotension due to drugs; I73.9 Peripheral vascular disease, unspecified; R42 Dizziness and giddiness; J44.9 Chronic obstructive pulmonary disease, unspecified; J45.909 Unspecified asthma, uncomplicated; Z87.891 Personal history of nicotine dependence; W19.XXXA Unspecified fall, initial encounter; I25.10 Atherosclerotic heart disease of native coronary artery without angina pectoris; I11.0 Hypertensive heart disease with heart failure; Z95.5 Presence of coronary angioplasty implant and graft; Z88.8 Allergy status to other drugs, medicaments and biological substances; R60.0 Localized edema; K21.9 Gastro-esophageal reflux disease without esophagitis; K44.9 Diaphragmatic hernia without obstruction or gangrene; R33.9 Retention of urine, unspecified; M19.90 Unspecified osteoarthritis, unspecified site; Z79.82 Long term (current) use of aspirin; Z99.81 Dependence on supplemental oxygen; Z79.899 Other long term (current) drug therapy; Z91.14 Patient's other noncompliance with medication regimen; Z79.52 Long term (current) use of systemic steroids
CPT/HCPCS: 36415; 71010; 71010-26; 71020; 71020-26; 73502-26-LT; 73502-LT; 80048; 80053; 80198; 82550; 82553; 83605; 83735; 83880; 84484; 85025; 86140; 86738; 87040; 87804; 87899; 93005; 93306; 94640; 94640-76; 94664; 94667; 94668; 94760; 94761; 96361; 96365; 96375; 97110-GO; 97110-GP; 97116-GP; 97161-GP; 97166-GO; 97530-GO; 97530-GP; 99232; 99239; 99285; 99285-25; A9270-GY; J0280; J0360; J0456; J1170; J1650; J2060; J2543; J2930; J7030; J7040; J7050; J7120

== ENCOUNTER 2016-10-03 11:29 | Inpatient (IN) | payer MEDICARE, OTHER ==
[2016-10-03] MEDS ORDERED: Sodium Chloride 0.9% 10 ML Syringe FLUSH PRN (11:40)
[2016-10-03] MEDS ORDERED: Albuterol/Ipratropium 3.0-0.5 MG/3 ML Neb Soln NEB ONE (11:45)
[2016-10-03] MEDS ORDERED: Sodium Chloride 0.9% 500 ML IV ONE (11:46)
--- NOTE | 2016-10-03 12:06 | EDM.PDOC ---
ED HISTORY OF PRESENT ILLNESS - General Chief Complaint: Respiratory Problem Stated Complaint: SOB Time Seen by Provider: 10/03/16 11:44 Source of Information: Reports: Patient History Limitations: Reports: No limitations - History of Present Illness INITIAL COMMENTS - FREE TEXT/NARRATIVE: Patient presents for evaluation and treatment of productive cough, shortness of breath and chest pain. Patient was admitted to our facility about one month ago. At that time he was treated for pneumonia and influenza. Patient reports that since leaving the hospital he has been coughing. He states that for the last 10 days he has been coughing up a thick white phlegm which he describes as looking like pain. He states that today that it has been green and yellow in color. Patient became concerned today when he developed sharp stabbing pain to the right side of his chest. He states that the pain is worse with breathing and movement. Denies any fevers, nausea or vomiting. Patient has a past medical history of COPD. He normally is on 2-3 L of oxygen at home. He is on multiple nebulizers. He has been using his neds as prescribed. Location, General: Reports: chest - Related Data Allergies/ADRs: Allergies Allergy/AdvReac Type Severity Reaction Status Date / Time moxifloxacin Allergy Other Verified 10/03/16 11:42 tiotropium Allergy Other Verified 10/03/16 11:42 [From Spiriva with HandiHaler] clonidine AdvReac Tremors Verified 10/03/16 11:42 fluticasone AdvReac Leg Cramps Verified 10/03/16 11:42 [From Advair Diskus] paroxetine [From Paxil] AdvReac Tremors Verified 10/03/16 11:42 salmeterol AdvReac Leg Cramps Verified 10/03/16 11:42 [From Advair Diskus] Home Meds: Home Meds Aclidinium Means [Tudorza Pressair] 1 puff IH BID 04/24/16 [History] Albuterol Sulfate 2.5 mg IH TID PRN 04/24/16 [History] Amitriptyline [Elavil] 25 - 50 mg PO BEDTIME 04/24/16 [History] Arformoterol [Brovana] 15 mcg NEB BID 04/24/16 [History] Budesonide [Pulmicort] 0.5 mg IH BID 04/24/16 [History] Clopidogrel [Plavix] 75 mg PO DAILY 04/24/16 [History] Montelukast [Singulair] 10 mg PO BEDTIME 04/24/16 [History] Multivitamin [Multivitamins] 1 each PO DAILY 04/24/16 [History] Nitroglycerin 0.4 mg SL Q5M PRN 04/24/16 [History] Harrison-3/DHA/Epa/Fish Oil [Fish Oil 1,000 mg Softgel] 1 each PO DAILY 04/24/16 [ History] Risedronate Sodium 150 mg PO Q30D 04/24/16 [History] Roflumilast [Daliresp] 500 mcg PO DAILY 04/24/16 [History] Triamcinolone Acetonide [Triamcinolone Acetonide 0.1% Crm] 15 gm TOP DAILY PRN 04/24/16 [History] atorvaSTATin [Lipitor] 10 mg PO BEDTIME 04/24/16 [History] predniSONE [Prednisone] 5 mg PO DAILY 04/24/16 [History] Pantoprazole [ProTONIX] 40 mg PO 0700 #30 tab.cr 04/30/16 [Rx] Albuterol [IJD: Albuterol HFA] 2 puff INH Q4H PRN 06/14/16 [History] Calcium Carbonate/Vitamin D3 [Calcium 600 + Vit D Tablet] 1 tab PO DAILY [History] EPINEPHrine [Epipen] 0.3 mg IM ASDIRECTED PRN 08/27/16 [History] Lisinopril [Prinivil] 20 mg PO DAILY 08/27/16 [History] Silver Sulfadiazine [Silvadene 1% Cream 20 GM] 1 dose TOP ASDIRECTED PRN [History] guaiFENesin [Tussin] 400 mg PO ASDIRECTED PRN 08/27/16 [History] Docusate Sodium 100 mg PO DAILY PRN 08/28/16 [History] guaiFENesin [Mucinex] 1,200 mg PO BID #60 tab.er 08/31/16 [Rx] Past Medical History HEENT History: Reports: Cataract Cardiovascular History: Reports: Hypertension, PTCA, PVD, Stents, Other (see below) Other Cardiovascular History: reports leg edema but no CHF history, "silent 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 Respiratory History: Reports: Asthma, COPD Gastrointestinal History: Reports: GERD, Hiatal hernia Genitourinary History: Reports: Retention, urinary Musculoskeletal History: Reports: Arthritis Endocrine/Metabolic History: Reports: Other (see below) Other Endocrine/Metabolic History: pituitary tumor Hematologic History: Reports: Anemia Immunologic History: Reports: None Other Immunologic History: pt is on prednisone for his copd Dermatologic History: Reports: Other (see below) Other Dermatologic History: fragile skin, is on prednisone/steroid therapy - Past Surgical History Cardiovascular Surgical History: Reports: Coronary artery stent, Percutaneous transluminal angioplasty GI Surgical History: Reports: Appendectomy, Colonoscopy, Hernia, abdominal, Hernia, inguinal Male Surgical History: Reports: Circumcision Social & Family History - Family History Family Medical History: Noncontributory Endocrine/Metabolic: Reports: Diabetes, type II Oncologic: Reports: Other (see below) (grandfather of unknown cancer) - Tobacco Use Smoking Status *Q: Former Smoker Years of Tobacco use: 50 Packs/Tins Daily: 1 Used Tobacco, but Quit: Yes Month Tobacco Last Used: 18 Second Hand Smoke Exposure: No - Caffeine Use Caffeine Use: Reports: Coffee - Recreational Drug Use Recreational Drug Use: No - Living Situation & Occupation Living situation: Reports: single, alone 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[employer] , farming, realtor, and other work.) ED ROS GENERAL - Review of Systems Review Of Systems: See Below Constitutional: Denies: fever Respiratory: Reports: Shortness of Breath, Wheezing, Pleuritic Chest Pain, Cough , Sputum (yellow, white and green) Cardiovascular: Reports: Chest pain (right sided, sharp and stabbing) GI/Abdominal: Denies: Abdominal pain, Nausea, Vomiting ED EXAM, GENERAL - Physical Exam Exam: See Below Exam Limited By: No limitations General Appearance: alert, WD/WN, no apparent distress Ears: normal external exam Nose: normal inspection Throat/Mouth: Normal voice, No airway compromise Respiratory/Chest: respiratory distress (tachypnic ), decreased breath sounds, wheezing (diffuse expiratory) Cardiovascular: normal peripheral pulses, regular rate, rhythm, no murmur GI/Abdominal: normal bowel sounds, soft, non tender Neurological: alert, oriented, normal cognition Psychiatric: normal affect, normal mood Skin Exam: Warm, Dry, Normal color EKG INTERPRETATION EKG Date: 10/03/16 Time: 12:00 Rhythm: NSR Rate (beats/min): 94 Plessis: normal P-wave: present QRS: RBBB (incomplete) ST-T: normal QT: normal EKG Interpretation Comments: NSR at 94 bpm. Q wave in AVL. decreased voltage in the percordial leads. Incomplete RBBB pattern. Reviewed by myself and Dr. Moore. Course - Vital Signs Last Recorded V/S: Last Vital Signs Temp 36.6 C 10/03/16 15:01 Pulse 88 10/03/16 15:01 Resp 21 H 10/03/16 15:01 BP 154/77 H 10/03/16 15:01 Pulse Ox 94 L 10/03/16 15:01 - Orders/Labs/Meds Orders: Active Orders 24 hr Category Date Time Status Cardiac Monitoring [RC] . DIRECTED Care 10/03/16 11:40 Active EKG Documentation Completion [RC] STAT Care 10/03/16 11:40 Active Oxygen Therapy [RC] ASDIRECTED Care 10/03/16 11:47 Active Peripheral IV Care [RC] . DIRECTED Care 10/03/16 11:41 Active RT Aerosol Therapy [RC] ASDIRECTED Care 10/03/16 11:45 Active Ang Chest [CT] Stat Exams 10/03/16 11:40 Taken CULTURE BLOOD [BC] Stat Lab 10/03/16 13:42 Received CULTURE BLOOD [BC] Stat Lab 10/03/16 13:50 Received CULTURE SPUTUM + SMEAR [RM] Stat Lab 10/03/16 13:26 Uncollected Sodium Chloride 0.9% [Normal Saline] 100 ml Med 10/03/16 12:30 Active IV ASDIRECTED Sodium Chloride 0.9% [Saline Flush] Med 10/03/16 11:40 Active 10 ml FLUSH ASDIRECTED PRN Blood Culture x2 Reflex Set [OM.PC] Stat Oth 10/03/16 12:54 Ordered Peripheral IV Insertion Adult [OM.PC] Routine Oth 10/03/16 11:40 Ordered Medication Orders Sodium Chloride (Normal Saline) 100 mls @ 60 mls/hr IV ASDIRECTED HELEN Last Admin: 10/03/16 12:37 Dose: 60 mls/hr Sodium Chloride (Saline Flush) 10 ml FLUSH ASDIRECTED PRN PRN Reason: Keep Vein Open Last Admin: 10/03/16 11:59 Dose: 10 ml Labs: Laboratory Tests 10/03/16 10/03/16 10/03/16 Range/Units 11:40 11:40 11:40 WBC 26.19 H (4.23-9.07) K/mm3 RBC 3.59 L (4.63-6.08) M/mm3 Hgb 10.9 L (13.7-17.5) gm/L Hct 34.6 L (40.1-51.0) % MCV 96.4 H (79.0-92.2) fl MCH 30.4 (25.7-32.2) pg MCHC 31.5 L (32.2-35.5) g/dl RDW Std Deviation 59.4 H (35.1-43.9) fL Plt Count 450 H (163-337) K/mm3 MPV 9.2 L (9.4-12.3) fl Neut % (Auto) 83.9 H (34.0-67.9) % Lymph % (Auto) 7.8 L (21.8-53.1) % [place] % (Auto) 7.4 (5.3-12.2) % Eos % (Auto) 0.2 L (0.8-7.0) Baso % (Auto) 0.2 (0.1-1.2) % Neut # (Auto) 21.99 H (1.78-5.38) K/mm3 Lymph # (Auto) 2.04 (1.32-3.57) K/mm3 [place] # (Auto) 1.95 H (0.30-0.82) K/mm3 Eos # (Auto) 0.04 (0.04-0.54) K/mm3 Baso # (Auto) 0.04 (0.01-0.08) K/mm3 Manual Slide Review Abnormal smear D-Dimer, Quantitative 0.67 H (0.19-0.59) mg/L Sodium 142 (136-145) mEq/L Potassium 3.7 (3.5-5.1) mEq/L Chloride 104 (98-107) mEq/L Carbon Dioxide 29 (21-32) mEq/L Anion Gap 12.7 (5-15) BUN 19 H (7-18) mg/dL Creatinine 1.1 (0.7-1.3) mg/dL Est Cr Clr Drug Dosing 62.71 mL/min Estimated GFR (MDRD) > 60 (>60) mL/min BUN/Creatinine Ratio 17.3 (14-18) Glucose 92 (83-115) mg/dL Lactic Acid (0.4-2.0) mmol/L Calcium 8.9 (8.5-10.1) mg/dL Total Bilirubin 0.5 (0.2-1.0) mg/dL AST 11 L (15-37) U/L ALT 17 (16-63) U/L Alkaline Phosphatase 70 (46-116) U/L CK-MB (CK-2) 1.5 (0-3.6) ng/ml Troponin I < 0.017 (0.00-0.056) ng/mL C-Reactive Protein 16.1 H* (<1.0) mg/dL B-Natriuretic Peptide (0-100) pg/mL Total Protein 6.7 (6.4-8.2) g/dl Albumin 3.0 L (3.4-5.0) g/dl Globulin 3.7 gm/dL Albumin/Globulin Ratio 0.8 L (1-2) Lipase 166 (73-393) U/L Mycoplasma pneumon IgM (NEGATIVE) 10/03/16 10/03/16 10/03/16 Range/Units 11:40 11:40 13:50 WBC (4.23-9.07) K/mm3 RBC (4.63-6.08) M/mm3 Hgb (13.7-17.5) gm/L Hct (40.1-51.0) % MCV (79.0-92.2) fl MCH (25.7-32.2) pg MCHC (32.2-35.5) g/dl RDW Std Deviation (35.1-43.9) fL Plt Count (163-337) K/mm3 MPV (9.4-12.3) fl Neut % (Auto) (34.0-67.9) % Lymph % (Auto) (21.8-53.1) % [place] % (Auto) (5.3-12.2) % Eos % (Auto) (0.8-7.0) Baso % (Auto) (0.1-1.2) % Neut # (Auto) (1.78-5.38) K/mm3 Lymph # (Auto) (1.32-3.57) K/mm3 [place] # (Auto) (0.30-0.82) K/mm3 Eos # (Auto) (0.04-0.54) K/mm3 Baso # (Auto) (0.01-0.08) K/mm3 Manual Slide Review D-Dimer, Quantitative (0.19-0.59) mg/L Sodium (136-145) mEq/L Potassium (3.5-5.1) mEq/L Chloride (98-107) mEq/L Carbon Dioxide (21-32) mEq/L Anion Gap (5-15) BUN (7-18) mg/dL Creatinine (0.7-1.3) mg/dL Est Cr Clr Drug Dosing mL/min Estimated GFR (MDRD) (>60) mL/min BUN/Creatinine Ratio (14-18) Glucose (83-115) mg/dL Lactic Acid 1.0 (0.4-2.0) mmol/L Calcium (8.5-10.1) mg/dL Total Bilirubin (0.2-1.0) mg/dL AST (15-37) U/L ALT (16-63) U/L Alkaline Phosphatase (46-116) U/L CK-MB (CK-2) (0-3.6) ng/ml Troponin I (0.00-0.056) ng/mL C-Reactive Protein (<1.0) mg/dL B-Natriuretic Peptide 279 H (0-100) pg/mL Total Protein (6.4-8.2) g/dl Albumin (3.4-5.0) g/dl Globulin gm/dL Albumin/Globulin Ratio (1-2) Lipase (73-393) U/L Mycoplasma pneumon IgM Negative (NEGATIVE) Meds: Medications Generic Name Dose Route Start Last Admin Trade Name Freq PRN Reason Stop Dose Admin Sodium Chloride 100 mls @ 60 mls/hr 10/03/16 12:30 10/03/16 12:37 Normal Saline IV 60 mls/hr ASDIRECTED HELEN Administration Sodium Chloride 10 ml 10/03/16 11:40 10/03/16 11:59 Saline Flush FLUSH 10 ml ASDIRECTED PRN Administration Keep Vein Open Discontinued Medications Generic Name Dose Route Start Last Admin Trade Name Altagracia PRN Reason Stop Dose Admin Acetaminophen 650 mg 10/03/16 13:26 10/03/16 13:34 Tylenol PO 10/03/16 13:27 650 mg NOW ONE Administration Albuterol/Ipratropium 3 ml 10/03/16 11:45 10/03/16 12:03 Duoneb 3.0-0.5 Mg/3 Ml NEB 10/03/16 11:46 3 ml ONETIME ONE Administration Sodium Chloride 500 mls @ 500 mls/hr 10/03/16 11:46 10/03/16 11:59 Normal Saline IV 10/03/16 12:45 500 mls/hr ONETIME ONE Administration Levofloxacin/Dextrose 750 mg/ 150 mls @ 100 mls/hr 10/03/16 12:55 10/03/16 14 :06 Premix IV 10/03/16 14:24 100 mls/hr ONETIME ONE Administration Iopamidol 100 ml 10/03/16 12:30 10/03/16 12:36 Isovue-370 (76%) IVPUSH 10/03/16 12:31 100 ml ONETIME ONE Administration Sodium Chloride 10 ml 10/03/16 12:30 10/03/16 12:36 Saline Flush FLUSH 10/03/16 12:31 10 ml ONETIME ONE Administration - Radiology Interpretation Free Text/Narrative:: Chest PE impression per vrad: 1. Comparison to the previous CT chest study shows an interval development of multifocal subsegmental atelectases and/or pleuroparechymal scarring in both lungs especially the posterior segment of the right upper lobe, together with innumerable tiny nodular densities in both lungs and a tiny right pleural effusion. The differential diagnosis includes atypical infectious disease and small airways infectious disease versus underlying malignancy in some of the nodular areas of atelectasis especially on image 44 or series 6 in the right upper lobe on image 82 of series 6 in the right lower lobe. In view of the underlying emphysema and presumed high risk of malignancy, I would recommend following the [employer] ACR white paper guidelines which suggest follow-up pCT at around 3, 9 and 24 months with dynamic contrast-enhanced CT , PET an/or biopsy for patients with low or high risk of malignancy. 2. No evidence of acute PE. 3. No Ct evidence of acute aortic dissection, aneurysm or acute intramural thoracic aortic hematoma. 4. The heart size is normal. Moderately severe coronary artery calcification is present, however. 5. There is a 4.8 x 3.3 cm hypodense mass in the mid-pole left kidney, likely a cyst. CT Results Date: 10/03/16 - Re-Assessments/Exams Free Text/Narrative Re-Assessment/Exam: 10/03/16 13:48 Labs returned. White blood cell count is elevated at 26.19, hemoglobin 10.9 and platelets are 450. D-dimer is mildly elevated at 0.67. - CT pumonary angiogram was obtained to rule out PE (see report) BNP is mildly elevated at 279. Troponin is within normal limits a less than 0.017. CK-MB is within normal limits a 1.5. Lipase is 166. Sodium is 142, potassium 3.7 chloride is 104. Anion gap is 2.7. Creatinine is 1.1. Glucose is 92. CRP is elevated at 16.1 mycoplasma ag is negative Blood cultures, lactic acid and sputum cultures have been ordered. I feel the patient needs to be admitted for pneumonia. Will contact Dr. Le for admission. Lung sounds improved after duoneb treatment. Continues to have expiratory wheezing thought out but tightness has significantly improve.d 10/03/16 14:49 Dr. Le presented to the ER and evaluated the patient. Will admit to med/surg under Dr. Le. Departure - Departure Time of Disposition: 14:35 Disposition: Admitted As Inpatient 65 Condition: poor Clinical Impression: Pneumonia COPD (chronic obstructive pulmonary disease) with emphysema Qualifiers: Emphysema type: panlobular Qualified Code(s): J43.1 - Panlobular emphysema - My Orders Last 24 Hours: My Active Orders 10/03/16 11:40 Cardiac Monitoring [RC] . DIRECTED EKG Documentation Completion [RC] STAT Ang Chest [CT] Stat Sodium Chloride 0.9% [Saline Flush] 10 ml FLUSH ASDIRECTED PRN Peripheral IV Insertion Adult [OM.PC] Routine 10/03/16 11:41 Peripheral IV Care [RC] . DIRECTED 10/03/16 11:45 RT Aerosol Therapy [RC] ASDIRECTED 10/03/16 11:47 Oxygen Therapy [RC] ASDIRECTED 10/03/16 12:30 Sodium Chloride 0.9% [Normal Saline] 100 ml IV ASDIRECTED 10/03/16 12:54 Blood Culture x2 Reflex Set [OM.PC] Stat 10/03/16 13:26 CULTURE SPUTUM + SMEAR [RM] Stat 10/03/16 13:42 CULTURE BLOOD [BC] Stat 10/03/16 13:50 CULTURE BLOOD [BC] Stat - Assessment/Plan Last 24 Hours: My Active Orders 10/03/16 11:40 Cardiac Monitoring [RC] . DIRECTED EKG Documentation Completion [RC] STAT Ang Chest [CT] Stat Sodium Chloride 0.9% [Saline Flush] 10 ml FLUSH ASDIRECTED PRN Peripheral IV Insertion Adult [OM.PC] Routine 10/03/16 11:41 Peripheral IV Care [RC] . DIRECTED 10/03/16 11:45 RT Aerosol Therapy [RC] ASDIRECTED 10/03/16 11:47 Oxygen Therapy [RC] ASDIRECTED 10/03/16 12:30 Sodium Chloride 0.9% [Normal Saline] 100 ml IV ASDIRECTED 10/03/16 12:54 Blood Culture x2 Reflex Set [OM.PC] Stat 10/03/16 13:26 CULTURE SPUTUM + SMEAR [RM] Stat 10/03/16 13:42 CULTURE BLOOD [BC] Stat 10/03/16 13:50 CULTURE BLOOD [BC] Stat
[2016-10-03] MEDS ORDERED: Sodium Chloride 0.9% 10 ML Syringe FLUSH ONE (12:30)
[2016-10-03] MEDS ORDERED: Iopamidol 755 Mg/ML 100 ML Bottle IVPUSH ONE (12:30)
[2016-10-03] MEDS: Sodium Chloride 0.9% 100 ML IV SCH ×2 (12:37→17:15)
[2016-10-03] MEDS ORDERED: Levofloxacin/Dextrose 5%-Water 750 MG in Premix Bag 1 BAG IV ONE (12:55)
[2016-10-03] MEDS ORDERED: Acetaminophen 325 MG Tab PO ONE (13:26)
[2016-10-03] MEDS ORDERED: Triamcinolone Acetonide 0.1% Crm 15 GM Tube TOP PRN (16:25)
[2016-10-03] MEDS ORDERED: Docusate Sodium 100 MG Cap PO PRN (16:25)
[2016-10-03] MEDS ORDERED: Nitroglycerin 0.4 MG Tab.SL SL PRN (16:25)
[2016-10-03] MEDS ORDERED: Silver Sulfadiazine 1% Crm 50 GM Tube TOP PRN (16:25)
[2016-10-03] MEDS: methylPREDNISolone Sodium Succinate 40 MG/1 ML SDV IVPUSH SCH (17:13)
[2016-10-03] MEDS: Clopidogrel 75 MG Tab PO SCH (17:13)
--- NOTE | 2016-10-03 17:14 | PCM.HP ---
H&P History of Present Illness - General Date of Service: 10/03/16 Admit Problem/Dx: Admission Diagnosis/Problem Admission Diagnosis/Problem Pneumonia Source of Information: Patient, Provider History Limitations: Reports: No limitations - History of Present Illness Initial Comments - Free Text/Narative: 75 year old male with severe COPD, requires chronic O2 and steroids recently was treated for PNA and Influenza returns with similar complaints of productive cough with sputum. A CT of the thorax documents a change from the previous study , "innumerable tiny nodular densities" are noted; differential includes atypical infectious process cf malignancy. The cough has been present for ten days with a change in color from white to yellowish-green. The chest pain is sharp in nature, appears to be present on the right cf the left. The patient was discharged on 08/30/16 on prednisone 10 mg without an antibiotic. He has been seen by his pulmonary physician since discharged; Theophylline which had been started during the hospitalization has been subsequently discontinued. Onset of Symptoms: Reports: unknown/unsure Duration of Symptoms: Reports: Day(s):, Getting worse Location: Reports: chest Quality: Reports: Same as previous episode Improves with: Reports: Medication Worsens with: Reports: None Associated Symptoms: Reports: chest pain (right sided), cough w sputum Right Chest Pain Score (Numeric/FACES): 4 - Related Data Allergies/Adverse Reactions: Allergies Allergy/AdvReac Type Severity Reaction Status Date / Time moxifloxacin Allergy Other Verified 10/03/16 11:42 tiotropium Allergy Other Verified 10/03/16 11:42 [From Spiriva with HandiHaler] clonidine AdvReac Tremors Verified 10/03/16 11:42 fluticasone AdvReac Leg Cramps Verified 10/03/16 11:42 [From Advair Diskus] paroxetine [From Paxil] AdvReac Tremors Verified 10/03/16 11:42 salmeterol AdvReac Leg Cramps Verified 10/03/16 11:42 [From Advair Diskus] Home Medications: Home Meds Aclidinium [place] [Tudorza Pressair] 1 puff IH BID 04/24/16 [History] Albuterol Sulfate 2.5 mg IH TID PRN 04/24/16 [History] Amitriptyline [Elavil] 25 - 50 mg PO BEDTIME 04/24/16 [History] Arformoterol [Brovana] 15 mcg NEB BID 04/24/16 [History] Budesonide [Pulmicort] 0.5 mg IH BID 04/24/16 [History] Clopidogrel [Plavix] 75 mg PO DAILY 04/24/16 [History] Montelukast [Singulair] 10 mg PO BEDTIME 04/24/16 [History] Multivitamin [Multivitamins] 1 each PO DAILY 04/24/16 [History] Nitroglycerin 0.4 mg SL Q5M PRN 04/24/16 [History] [place]-3/DHA/Epa/Fish Oil [Fish Oil 1,000 mg Softgel] 1 each PO DAILY 04/24/16 [ History] Risedronate Sodium 150 mg PO Q30D 04/24/16 [History] Roflumilast [Daliresp] 500 mcg PO DAILY 04/24/16 [History] Triamcinolone Acetonide [Triamcinolone Acetonide 0.1% Crm] 15 gm TOP DAILY PRN 04/24/16 [History] atorvaSTATin [Lipitor] 10 mg PO BEDTIME 04/24/16 [History] predniSONE [Prednisone] 5 mg PO DAILY 04/24/16 [History] Pantoprazole [ProTONIX] 40 mg PO 0700 #30 tab.cr 04/30/16 [Rx] Albuterol [IJD: Albuterol HFA] 2 puff INH Q4H PRN 06/14/16 [History] Calcium Carbonate/Vitamin D3 [Calcium 600 + Vit D Tablet] 1 tab PO DAILY [History] EPINEPHrine [Epipen] 0.3 mg IM ASDIRECTED PRN 08/27/16 [History] Lisinopril [Prinivil] 20 mg PO DAILY 08/27/16 [History] Silver Sulfadiazine [Silvadene 1% Cream 20 GM] 1 dose TOP ASDIRECTED PRN [History] guaiFENesin [Tussin] 400 mg PO ASDIRECTED PRN 08/27/16 [History] Docusate Sodium 100 mg PO DAILY PRN 08/28/16 [History] guaiFENesin [Mucinex] 1,200 mg PO BID #60 tab.er 08/31/16 [Rx] Past Medical History HEENT History: Reports: Cataract Cardiovascular History: Reports: Hypertension, PTCA, PVD, Stents, Other (see below) Other Cardiovascular History: reports leg edema but no CHF history, "silent 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 Respiratory History: Reports: Asthma, COPD Other Respiratory History: wears O2 at 2L at home, up to 3-4L with activity Gastrointestinal History: Reports: GERD, Hiatal hernia Genitourinary History: Reports: Retention, urinary Musculoskeletal History: Reports: Arthritis Neurological History: Reports: Neuropathy, peripheral Endocrine/Metabolic History: Reports: Other (see below) Other Endocrine/Metabolic History: pituitary tumor Hematologic History: Reports: Anemia Immunologic History: Reports: None Other Immunologic History: pt is on prednisone for his copd Dermatologic History: Reports: Other (see below) Other Dermatologic History: fragile skin, is on prednisone/steroid therapy - Infectious Disease History Infectious Disease History: Reports: Influenza - Past Surgical History Cardiovascular Surgical History: Reports: Coronary artery stent, Percutaneous transluminal angioplasty GI Surgical History: Reports: Appendectomy, Colonoscopy, Hernia, abdominal, Hernia, inguinal Male Surgical History: Reports: Circumcision Social & Family History - Family History Family Medical History: Noncontributory Endocrine/Metabolic: Reports: Diabetes, type II Oncologic: Reports: Other (see below) (grandfather of unknown cancer) - Tobacco Use Smoking Status *Q: Former Smoker Years of Tobacco use: 50 Packs/Tins Daily: 1 Used Tobacco, but Quit: Yes Month Tobacco Last Used: 18 Second Hand Smoke Exposure: No - Caffeine Use Caffeine Use: Reports: Coffee - Recreational Drug Use Recreational Drug Use: No - Living Situation & Occupation Living situation: Reports: single, alone Occupation: retired (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 , farming, [employer], and other work.) H&P Review of Systems - Review of Systems: Review Of Systems: See Below General: Reports: malaise, weakness, fatigue HEENT: Denies: sore throat Pulmonary: Reports: Shortness of Breath, Wheezing, Pleuritic Chest Pain, Cough, Sputum Cardiovascular: Reports: no symptoms Gastrointestinal: Reports: No symptoms Genitourinary: Reports: no symptoms Musculoskeletal: Reports: no symptoms Skin: Reports: no symptoms Psychiatric: Reports: no symptoms Neurological: Reports: No Symptoms Hematologic/Lymphatic: Reports: no symptoms Immunologic: Reports: no symptoms Exam - Exam Exam: See Below - Vital Signs Vital Signs: Last Vital Signs Temp 36.6 C 10/03/16 15:01 Pulse 88 10/03/16 15:01 Resp 21 H 10/03/16 15:01 BP 154/77 H 10/03/16 15:01 Pulse Ox 94 L 10/03/16 15:01 Weight: 78.109 kg - Exam Quality Assessment: supplemental oxygen, DVT prophylaxis General: alert, oriented, cooperative HEENT: EOMI, Nares patent, Normal nasal septum, Pupils equal, Pupils reactive Neck: supple, trachea midline Lungs: Normal respiratory effort, Decreased breath sounds, Wheezing Cardiovascular: regular rate Abdomen: normal bowel sounds, soft (Male) Exam: Deferred Rectal (Males) Exam: Deferred Back Exam: normal inspection Extremities: normal pulses (UE) Skin: warm, dry Neurological: cranial nerves intact Neuro Extensive - Mental Status: alert, oriented x3, normal mood/affect, normal cognition, memory intact Neuro Extensive - Motor, Sensory, Reflexes: CN II-XII intact Psychiatric: alert, normal affect, normal mood - Patient Data Result Diagrams: 10/03/16 11:40 10/03/16 11:40 *Q Meaningful Use (ADM) - VTE *Q VTE Criteria *Q: - Stroke *Q Stroke Criteria *Q: - AMI *Q AMI Criteria *Q: - Problem List (1) Pneumonia SNOMED Code(s): 378036967 ICD Code: J18.9 - PNEUMONIA, UNSPECIFIED ORGANISM Status: Acute Current Visit: Yes (2) COPD (chronic obstructive pulmonary disease) with emphysema SNOMED Code(s): 76093260 ICD Code: J43.9 - EMPHYSEMA, UNSPECIFIED Status: Chronic Priority: High Current Visit: Yes Qualifiers: Emphysema type: panlobular Qualified Code(s): J43.1 - Panlobular emphysema (3) Anemia SNOMED Code(s): 815214190 ICD Code: D64.9 - ANEMIA, UNSPECIFIED Status: Acute Priority: High Current Visit: No Problem Details: macrocytic Qualifiers: Anemia type: unspecified type Qualified Code(s): D64.9 - Anemia, unspecified Problem List Initiated/Reviewed/Updated: Yes Orders Last 24hrs: Active Orders 24 hr Category Date Time Status Antiembolic Devices [RC] PER UNIT ROUTINE Care 10/03/16 15:41 Active Bedrest Bathroom Privileges [RC] ASDIRECTED Care 10/03/16 16:38 Active Vital Signs [RC] PER UNIT ROUTINE Care 10/03/16 16:38 Active Clear Liquid Diet [DIET] Diet 10/03/16 Dinner Active CXR [Chest 2V] [CR] Routine Exams 10/05/16 09:00 Ordered BASIC METABOLIC PANEL,BMP [CHEM] DAILY Lab 10/04/16 05:00 Ordered BASIC METABOLIC PANEL,BMP [CHEM] DAILY Lab 10/05/16 05:00 Ordered BASIC METABOLIC PANEL,BMP [CHEM] DAILY Lab 10/06/16 05:00 Ordered CBC WITH AUTO DIFF [HEME] DAILY Lab 10/04/16 05:00 Ordered CBC WITH AUTO DIFF [HEME] DAILY Lab 10/05/16 05:00 Ordered CBC WITH AUTO DIFF [HEME] DAILY Lab 10/06/16 05:00 Ordered CRP [C-REACTIVE PROTEIN] [CHEM] DAILY Lab 10/04/16 05:00 Ordered CRP [C-REACTIVE PROTEIN] [CHEM] DAILY Lab 10/05/16 05:00 Ordered CRP [C-REACTIVE PROTEIN] [CHEM] DAILY Lab 10/06/16 05:00 Ordered MAGNESIUM [CHEM] DAILY Lab 10/04/16 05:00 Ordered MAGNESIUM [CHEM] DAILY Lab 10/05/16 05:00 Ordered MAGNESIUM [CHEM] DAILY Lab 10/06/16 05:00 Ordered MYCOPLASMA PNEUMONIAE IGM AB [CHEM] Routine Lab 10/04/16 05:00 Ordered RESPIRATORY PANEL BY PCR [MREF] Routine Lab 10/03/16 16:33 Uncollected STREP PNEUMONIAE ANTIGEN [MREF] Routine Lab 10/03/16 18:00 Uncollected Albuterol [Proventil Neb Soln] Med 10/03/16 16:25 Active 2.5 mg NEB QID PRN Amitriptyline [Elavil] Med 10/03/16 21:00 Active 25 mg PO BEDTIME Budesonide [Pulmicort] Med 10/03/16 21:00 Active 0.5 mg NEB BID Clopidogrel [Plavix] Med 10/03/16 16:30 Active 75 mg PO DAILY Docusate Sodium [Colace] Med 10/03/16 16:25 Active 100 mg PO DAILY PRN Multivitamins,Therapeutic [Thera] Med 10/04/16 09:00 Active 1 each PO DAILY Nitroglycerin [Nitrostat] Med 10/03/16 16:25 Active 0.4 mg SL Q5M PRN Pantoprazole [ProTONIX] Med 10/04/16 07:00 Active 40 mg PO DAILY@0700 Patient's Own Medication [Ptom] Med 10/03/16 21:00 Active 0 each NEB BID Patient's Own Medication [Ptom] Med 10/04/16 09:00 Active 0 each PO DAILY Patient's Own Medication [Ptom] Med 10/11/16 06:00 Active 0 each PO Q30D Silver Sulfadiazine [Silvadene 1% Cream 50 GM] Med 10/03/16 16:25 Active 0 gm TOP ASDIRECTED PRN Simvastatin [Zocor] Med 10/03/16 21:00 Active 10 mg PO BEDTIME Triamcinolone Acetonide [Triamcinolone Acetonide 0.1% Med 10/03/16 16:25 Active Crm] 0 gm TOP DAILY PRN guaiFENesin [Mucinex] Med 10/03/16 21:00 Active 1,200 mg PO BID methylPREDNISolone Sod Succ [Solu-MEDROL] Med 10/03/16 17:00 Active 40 mg IVPUSH Q8H CORY Hose [Antiembolic Hose] [OM.PC] Routine Oth 10/03/16 15:41 Ordered Code Status [Resuscitation Status] Routine Resus Stat 10/03/16 16:37 Ordered Medication Orders Albuterol (Proventil Neb Soln) 2.5 mg NEB QID PRN PRN Reason: Wheezing Amitriptyline HCl (Elavil) 25 mg PO BEDTIME [facility] Budesonide (Pulmicort) 0.5 mg NEB BID [facility] Clopidogrel Bisulfate (Plavix) 75 mg PO DAILY [facility] Last Admin: 10/03/16 17:13 Dose: 75 mg Docusate Sodium (Colace) 100 mg PO DAILY PRN PRN Reason: Constipation Guaifenesin (Mucinex) 1,200 mg PO BID HELEN Sodium Chloride (Normal Saline) 100 mls @ 60 mls/hr IV ASDIRECTED [facility] Last Admin: 10/03/16 12:37 Dose: 60 mls/hr Methylprednisolone Sodium Succinate (Solu-Medrol) 40 mg IVPUSH Q8H [facility] Last Admin: 10/03/16 17:13 Dose: 40 mg Multivitamins (Thera) 1 each PO DAILY HELEN Nitroglycerin (Nitrostat) 0.4 mg SL Q5M PRN PRN Reason: chest pain Pantoprazole Sodium (Protonix) 40 mg PO DAILY@0700 HELEN Roflumilast 500 Mcg 0 each PO DAILY HELEN Risedronate Sodium (150 Mg) 0 each PO Q30D HELEN Arformoterol 15 Mcg 0 each NEB BID HELEN Silver Sulfadiazine (Silvadene 1% Cream 50 Gm) 0 gm TOP ASDIRECTED PRN PRN Reason: Other Simvastatin (Zocor) 10 mg PO BEDTIME HELEN Sodium Chloride (Saline Flush) 10 ml FLUSH ASDIRECTED PRN PRN Reason: Keep Vein Open Last Admin: 10/03/16 11:59 Dose: 10 ml Triamcinolone Acetonide (Triamcinolone Acetonide 0.1% Crm) 0 gm TOP DAILY PRN PRN Reason: Itching Assessment/Plan Comment:: Impression: Severe COPD patient on chronic O2 and steroids Abnormal CT of thorax, multiple tiny nodules Recent admission, 08/27-08/30/2016 for PNA, presents with leukocytosis, change in sputum with pleuritic CP; HCAP empiric treatment started. Chronic CAD PVD HTN GERD Plan: Solumedrol Home meds Zosyn/Levoquin Sputum with Cx Resp panel bacterial and viral Daily Labs DVT/GI prophylaxis
[2016-10-03] MEDS: guaiFENesin 600 MG Tab.ER PO SCH (20:16)
[2016-10-03] MEDS: Albuterol 0.083% 2.5 MG/3 ML Neb Soln NEB PRN (20:51)
[2016-10-03] MEDS: ARFORMOTEROL 15 MCG NEB SCH (20:51)
[2016-10-03] MEDS: Budesonide 0.5 MG/2 ML Neb Susp NEB SCH (20:51)
[2016-10-03] MEDS ORDERED: Amitriptyline 25 MG Tab PO SCH ×2 (21:00)
[2016-10-03] MEDS ORDERED: Simvastatin 10 MG Tab PO SCH (21:00)
[2016-10-04] MEDS ORDERED: Acetaminophen 325 MG Tab PO PRN (01:32)
[2016-10-04] MEDS ORDERED: guaiFENesin/Dextromethorphan 100-10 MG/5 ML Soln 5 ML Cup PO PRN (03:25)
[2016-10-04] MEDS: Pantoprazole 40 MG Tab.CR PO SCH (06:18)
[2016-10-04] MEDS: Benzonatate 100 MG Cap PO SCH ×3 (08:13→20:43)
[2016-10-04] MEDS: guaiFENesin 600 MG Tab.ER PO SCH ×2 (08:13→20:42)
[2016-10-04] MEDS: ARFORMOTEROL 15 MCG NEB SCH ×3 (08:14→20:17)
[2016-10-04] MEDS: Clopidogrel 75 MG Tab PO SCH (08:14)
[2016-10-04] MEDS: Multivitamins,Therapeutic Tab PO SCH (08:14)
[2016-10-04] MEDS: methylPREDNISolone Sodium Succinate 40 MG/1 ML SDV IVPUSH SCH ×3 (08:14→17:43)
[2016-10-04] MEDS: Albuterol 0.083% 2.5 MG/3 ML Neb Soln NEB PRN (09:41)
[2016-10-04] MEDS: Budesonide 0.5 MG/2 ML Neb Susp NEB SCH ×2 (09:41→20:17)
--- NOTE | 2016-10-04 10:14 | PCM.PN ---
<Susie Loaiza M - Last Filed: 10/04/16 10:03> - General Info Date of Service: 10/04/16 Admission Dx/Problem (Free Text): Admission Diagnosis/Problem Admission Diagnosis/Problem Pneumonia "Chau" is seen this morning. He coughed most of the night, improved after cough medicine. He feels "much better" this morning. Still has mild right sided pleuritic chest pain, but improved. Good appetite, voiding, no abdominal pain, n /v/d, no chest pain. VSS, afebrile overnight. Functional Status: Reports: pain controlled, tolerating diet (advanced to heart healthy diet- is hungry this morning), ambulating, urinating. Denies: new symptoms - Review of Systems General: Reports: No Symptoms HEENT: Reports: no symptoms Pulmonary: Reports: shortness of breath (chronic but improved from admit yesterday), pleuritic chest pain (rt sided, improved), cough, sputum (thick white), wheezing (improved) Cardiovascular: Reports: Dyspnea on Exertion (chronic). Denies: Chest Pain, Palpitations, Orthopnea, Edema, Lightheadedness Gastrointestinal: Reports: No symptoms Genitourinary: Reports: no symptoms Musculoskeletal: Reports: no symptoms Skin: Reports: no symptoms Neurological: Reports: No Symptoms Psychiatric: Reports: no symptoms - Patient Data Vitals - most recent: Last Vital Signs Temp 98.1 F 10/04/16 08:15 Pulse 72 10/04/16 08:15 Resp 22 H 10/04/16 08:15 BP 136/94 H 10/04/16 08:15 Pulse Ox 97 10/04/16 08:15 Weight - most recent: 76.702 kg I&O - last 24 hours: Intake & Output 10/03/16 10/04/16 10/04/16 22:59 06:59 14:59 Intake Total 840 1150 Output Total 300 1850 Balance 540 -700 Lab Results last 24 hrs: Laboratory Results - last 24 hr 10/04/16 10/04/16 Range/Units 06:05 06:05 WBC 15.12 H (4.23-9.07) K/mm3 RBC 3.25 L (4.63-6.08) M/mm3 Hgb 9.8 L (13.7-17.5) gm/L Hct 31.1 L (40.1-51.0) % MCV 95.7 H (79.0-92.2) fl MCH 30.2 (25.7-32.2) pg MCHC 31.5 L (32.2-35.5) g/dl RDW Std Deviation 57.1 H (35.1-43.9) fL Plt Count 402 H (163-337) K/mm3 MPV 9.4 (9.4-12.3) fl Neut % (Auto) 94.3 H (34.0-67.9) % Lymph % (Auto) 3.8 L (21.8-53.1) % [place] % (Auto) 1.5 L (5.3-12.2) % Eos % (Auto) 0 L (0.8-7.0) Baso % (Auto) 0.0 L (0.1-1.2) % Neut # (Auto) 14.27 H (1.78-5.38) K/mm3 Lymph # (Auto) 0.57 L (1.32-3.57) K/mm3 [place] # (Auto) 0.22 L (0.30-0.82) K/mm3 Eos # (Auto) 0.00 L (0.04-0.54) K/mm3 Baso # (Auto) 0.00 L (0.01-0.08) K/mm3 Manual Slide Review Abnormal smear Sodium 141 (136-145) mEq/L Potassium 4.5 (3.5-5.1) mEq/L Chloride 105 (98-107) mEq/L Carbon Dioxide 29 (21-32) mEq/L Anion Gap 11.5 (5-15) BUN 16 (7-18) mg/dL Creatinine 1.1 (0.7-1.3) mg/dL Est Cr Clr Drug Dosing 61.98 mL/min Estimated GFR (MDRD) > 60 (>60) mL/min BUN/Creatinine Ratio 14.5 (14-18) Glucose 117 H (83-115) mg/dL Calcium 8.7 (8.5-10.1) mg/dL Magnesium 2.3 (1.8-2.4) mg/dl C-Reactive Protein 16.9 H* (<1.0) mg/dL Mycoplasma pneumon IgM Negative (NEGATIVE) Fabien Results last 24 hrs: Microbiology 10/03/16 16:14 Gram Stain - Final Sputum - Expectorated Sputum Culture - Preliminary NORMAL RESPIRATORY [facility] 1 DAY Med Orders - Current: Current Medications Acetaminophen (Tylenol) 650 mg PO Q4H PRN PRN Reason: Pain Last Admin: 10/04/16 01:44 Dose: 650 mg Albuterol (Proventil Neb Soln) 2.5 mg NEB QID PRN PRN Reason: Wheezing Last Admin: 10/04/16 09:41 Dose: 2.5 mg Albuterol/Ipratropium (Duoneb 3.0-0.5 Mg/3 Ml) 3 ml NEB Q6HRRT [facility] Amitriptyline HCl (Elavil) 25 - 50 mg PO BEDTIME [facility] Benzonatate (Tessalon Perles) 100 mg PO TID [facility] Last Admin: 10/04/16 08:13 Dose: 100 mg Budesonide (Pulmicort) 0.5 mg NEB BID [facility] Last Admin: 10/04/16 09:41 Dose: 0.5 mg Clopidogrel Bisulfate (Plavix) 75 mg PO DAILY [facility] Last Admin: 10/04/16 08:14 Dose: 75 mg Docusate Sodium (Colace) 100 mg PO DAILY PRN PRN Reason: Constipation Enoxaparin Sodium (Lovenox) 40 mg SUBCUT DAILY [facility] Guaifenesin (Mucinex) 1,200 mg PO BID [facility] Last Admin: 10/04/16 08:13 Dose: 1,200 mg Guaifenesin/Phenylephrine HCl (Robitussin Dm) 10 ml PO QID PRN PRN Reason: Cough Last Admin: 10/04/16 03:36 Dose: 10 ml Levofloxacin/Dextrose 750 mg/ (Premix) 150 mls @ 100 mls/hr IV Q24H [facility] Piperacillin Sod/Tazobactam (Sod 4.5 gm/ Sodium Chloride) 100 mls @ 33.333 mls/ hr IV Q6H [facility] Methylprednisolone Sodium Succinate (Solu-Medrol) 40 mg IVPUSH Q8H [facility] Last Admin: 10/04/16 08:14 Dose: 40 mg Multivitamins (Thera) 1 each PO DAILY [facility] Last Admin: 10/04/16 08:14 Dose: 1 each Nitroglycerin (Nitrostat) 0.4 mg SL Q5M PRN PRN Reason: chest pain Pantoprazole Sodium (Protonix) 40 mg PO DAILY@0700 [facility] Last Admin: 10/04/16 06:18 Dose: 40 mg Roflumilast 500 Mcg 0 each PO DAILY [facility] Last Admin: 10/04/16 08:14 Dose: Not Given Risedronate Sodium (150 Mg) 0 each PO Q30D [facility] Arformoterol 15 Mcg 0 each NEB BID [facility] Last Admin: 10/04/16 09:44 Dose: 1 each Silver Sulfadiazine (Silvadene 1% Cream 50 Gm) 0 gm TOP ASDIRECTED PRN PRN Reason: Other Simvastatin (Zocor) 10 mg PO BEDTIME [facility] Last Admin: 10/03/16 20:16 Dose: 10 mg Sodium Chloride (Saline Flush) 10 ml FLUSH ASDIRECTED PRN PRN Reason: Keep Vein Open Last Admin: 10/03/16 11:59 Dose: 10 ml Triamcinolone Acetonide (Triamcinolone Acetonide 0.1% Crm) 0 gm TOP DAILY PRN PRN Reason: Itching Discontinued Medications Acetaminophen (Tylenol) 650 mg PO NOW ONE Stop: 10/03/16 13:27 Last Admin: 10/03/16 13:34 Dose: 650 mg Albuterol/Ipratropium (Duoneb 3.0-0.5 Mg/3 Ml) 3 ml NEB ONETIME ONE Stop: 10/03/16 11:46 Last Admin: 10/03/16 12:03 Dose: 3 ml Amitriptyline HCl (Elavil) 25 mg PO BEDTIME [facility] Amitriptyline HCl (Elavil) 50 mg PO BEDTIME [facility] Last Admin: 10/03/16 20:16 Dose: 50 mg Sodium Chloride (Normal Saline) 500 mls @ 500 mls/hr IV ONETIME ONE Stop: 10/03/16 12:45 Last Admin: 10/03/16 11:59 Dose: 500 mls/hr Sodium Chloride (Normal Saline) 100 mls @ 60 mls/hr IV ASDIRECTED [facility] Last Admin: 10/03/16 17:15 Dose: 60 mls/hr Levofloxacin/Dextrose 750 mg/ (Premix) 150 mls @ 100 mls/hr IV ONETIME ONE Stop: 10/03/16 14:24 Last Admin: 10/03/16 14:06 Dose: 100 mls/hr Iopamidol (Isovue-370 (76%)) 100 ml IVPUSH ONETIME ONE Stop: 10/03/16 12:31 Last Admin: 10/03/16 12:36 Dose: 100 ml Sodium Chloride (Saline Flush) 10 ml FLUSH ONETIME ONE Stop: 10/03/16 12:31 Last Admin: 10/03/16 12:36 Dose: 10 ml - Exam Quality Assessment: supplemental oxygen, DVT prophylaxis General: alert, oriented, cooperative, no acute distress HEENT: Pupils equal, Pupils reactive, EOMI, Mucous membr. moist/pink Neck: supple Lungs: Normal respiratory effort, Decreased breath sounds (throughout), Wheezing (expiratory throughout). No: Crackles, Rales Cardiovascular: Regular Rate, Regular Rhythm, No Murmurs, Other (distant heart tones) Abdomen: bowel sounds present, soft, no tenderness, no distension (Male) Exam: Deferred Back Exam: normal inspection Extremities: no edema, calf tenderness, other (teds bilat) Peripheral Pulses: 1+: dorsalis pedis (L), dorsalis pedis (R) Skin: warm, dry Neurological: no new focal deficit, cranial nerves intact Psy/Mental Status: alert, normal affect, normal mood - Problem List & Annotations (1) Pneumonia SNOMED Code(s): 499347126 Code(s): J18.9 - PNEUMONIA, UNSPECIFIED ORGANISM Status: Acute Priority: High Current Visit: Yes Qualifiers: Pneumonia type: due to unspecified organism Lung location: unspecified part of lung (2) COPD exacerbation SNOMED Code(s): 709043147, 840230178 Code(s): J44.1 - CHRONIC OBSTRUCTIVE PULMONARY DISEASE W (ACUTE) EXACERBATION Status: Acute Priority: High Current Visit: Yes (3) Anemia SNOMED Code(s): 135450290 Code(s): D64.9 - ANEMIA, UNSPECIFIED Status: Chronic Priority: High Current Visit: Yes Qualifiers: Anemia type: unspecified type Qualified Code(s): D64.9 - Anemia, unspecified Annotation/Comment:: macrocytic (4) Renal insufficiency SNOMED Code(s): 957210318 Code(s): N28.9 - DISORDER OF KIDNEY AND URETER, UNSPECIFIED Status: Chronic Priority: High Current Visit: Yes (5) Pulmonary nodules/lesions, multiple SNOMED Code(s): 669480785 Code(s): R91.8 - OTHER NONSPECIFIC ABNORMAL FINDING OF LUNG FIELD Status: Acute Priority: High Current Visit: Yes Annotation/Comment:: new finding on chest CT done on 10/03/16 - Problem List Review Problem List Initiated/Reviewed/Updated: Yes - My Orders Last 24 Hours: My Active Orders 10/04/16 06:48 Convert IV to Saline Lock [OM.PC] Routine 10/04/16 09:00 Benzonatate [Tessalon Perles] 100 mg PO TID 10/04/16 09:06 Activity as Tolerated [RC] BID 10/04/16 09:55 RT Aerosol Therapy [RC] ASDIRECTED 10/04/16 09:57 RT Chest Physiotherapy [RC] Q2HWA RT Incentive Spirometry [RC] Q2HWA Turn, Cough, Deep Breathe [RC] Q2HWA 10/04/16 10:00 Enoxaparin [Lovenox] 40 mg SUBCUT DAILY Levofloxacin/Dextrose 5%-Water [Levaquin in D5W 750 MG/150 ML] 750 mg Premix Bag 1 bag IV Q24H Piperacillin/Tazobactam [Zosyn] 4.5 gm Sodium Chloride 0.9% [Normal Saline] 100 ml IV Q6H 10/04/16 12:00 Albuterol/Ipratropium [DuoNeb 3.0-0.5 MG/3 ML] 3 ml NEB Q6HRRT 10/04/16 Breakfast Heart Healthy Diet [DIET] 10/08/16 07:00 CBC W/O DIFF,HEMOGRAM [HEME] MOTH@0700 10/11/16 07:00 CBC W/O DIFF,HEMOGRAM [HEME] MOTH@0700 10/15/16 07:00 CBC W/O DIFF,HEMOGRAM [HEME] MOTH@0700 10/18/16 07:00 CBC W/O DIFF,HEMOGRAM [HEME] MOTH@00 10/22/16 07:00 CBC W/O DIFF,HEMOGRAM [HEME] MOTH@0700 10/25/16 07:00 CBC W/O DIFF,HEMOGRAM [HEME] MOTH@0700 - Plan Plan:: Impression/Plan -HCAP with increased and change in sputum production, pleuritic chest pains, leukocytosis -Empiric tx with levaquin, zosyn -Solumedrol IV -Aggressive pulmonary toilet -Cont supplemental O2 to keep sats >90% -CXR repeat - tomorrow -Recent admission, 08/27-08/30/2016 for PNA Severe COPD patient on chronic O2 and steroids -Cont usual home meds and tx as above Abnormal CT of thorax, multiple tiny nodules- ? malignancy -Chart review states has had recent fup with Pulmonology -Will arrange recheck with [employer] [facility] after discharge; images from CT to [employer] [facility] [facility] Chronic anemia -Monitor labs daily -Workup in the past unremarkable, has refused colonoscopy on prior admissions CKD -Monitor labs daily -Renal dosing all meds- per pharmacy Chronic--cont usual home meds CAD PVD HTN GERD Other: DVT and GI prophylaxis CM/SW for DC planning- Patient just moved into [facility] assisted living home end of August, is slowly accepting this transition as family urged this placement. PT/OT Patient is DNR/DNI <Brittany Le - Last Filed: 10/04/16 15:55> - Patient Data Vitals - most recent: Last Vital Signs Temp 36.7 C 10/04/16 15:43 Pulse 82 10/04/16 15:43 Resp 18 10/04/16 15:43 BP 129/64 10/04/16 15:43 Pulse Ox 93 L 10/04/16 15:43 I&O - last 24 hours: Intake & Output 10/04/16 10/04/16 10/04/16 06:59 14:59 22:59 Intake Total 1150 1900 Output Total 1850 850 Balance -700 1050 Lab Results last 24 hrs: Laboratory Results - last 24 hr 10/04/16 10/04/16 Range/Units 06:05 06:05 WBC 15.12 H (4.23-9.07) K/mm3 RBC 3.25 L (4.63-6.08) M/mm3 Hgb 9.8 L (13.7-17.5) gm/L Hct 31.1 L (40.1-51.0) % MCV 95.7 H (79.0-92.2) fl MCH 30.2 (25.7-32.2) pg MCHC 31.5 L (32.2-35.5) g/dl RDW Std Deviation 57.1 H (35.1-43.9) fL Plt Count 402 H (163-337) K/mm3 MPV 9.4 (9.4-12.3) fl Neut % (Auto) 94.3 H (34.0-67.9) % Lymph % (Auto) 3.8 L (21.8-53.1) % [place] % (Auto) 1.5 L (5.3-12.2) % Eos % (Auto) 0 L (0.8-7.0) Baso % (Auto) 0.0 L (0.1-1.2) % Neut # (Auto) 14.27 H (1.78-5.38) K/mm3 Lymph # (Auto) 0.57 L (1.32-3.57) K/mm3 [place] # (Auto) 0.22 L (0.30-0.82) K/mm3 Eos # (Auto) 0.00 L (0.04-0.54) K/mm3 Baso # (Auto) 0.00 L (0.01-0.08) K/mm3 Manual Slide Review Abnormal smear Sodium 141 (136-145) mEq/L Potassium 4.5 (3.5-5.1) mEq/L Chloride 105 (98-107) mEq/L Carbon Dioxide 29 (21-32) mEq/L Anion Gap 11.5 (5-15) BUN 16 (7-18) mg/dL Creatinine 1.1 (0.7-1.3) mg/dL Est Cr Clr Drug Dosing 61.98 mL/min Estimated GFR (MDRD) > 60 (>60) mL/min BUN/Creatinine Ratio 14.5 (14-18) Glucose 117 H (83-115) mg/dL Calcium 8.7 (8.5-10.1) mg/dL Magnesium 2.3 (1.8-2.4) mg/dl C-Reactive Protein 16.9 H* (<1.0) mg/dL Mycoplasma pneumon IgM Negative (NEGATIVE) Fabien Results last 24 hrs: Microbiology 10/03/16 16:14 Gram Stain - Final Sputum - Expectorated Sputum Culture - Preliminary NORMAL RESPIRATORY [facility] 1 DAY Med Orders - Current: Current Medications Acetaminophen (Tylenol) 650 mg PO Q4H PRN PRN Reason: Pain Last Admin: 10/04/16 01:44 Dose: 650 mg Albuterol (Proventil Neb Soln) 2.5 mg NEB QID PRN PRN Reason: Wheezing Last Admin: 10/04/16 09:41 Dose: 2.5 mg Albuterol/Ipratropium (Duoneb 3.0-0.5 Mg/3 Ml) 3 ml NEB Q6HRRT [facility] Last Admin: 10/04/16 12:30 Dose: 3 ml Amitriptyline HCl (Elavil) 25 - 50 mg PO BEDTIME [facility] Benzonatate (Tessalon Perles) 100 mg PO TID [facility] Last Admin: 10/04/16 14:22 Dose: 100 mg Budesonide (Pulmicort) 0.5 mg NEB BID [facility] Last Admin: 10/04/16 09:41 Dose: 0.5 mg Clopidogrel Bisulfate (Plavix) 75 mg PO DAILY [facility] Last Admin: 10/04/16 08:14 Dose: 75 mg Docusate Sodium (Colace) 100 mg PO DAILY PRN PRN Reason: Constipation Enoxaparin Sodium (Lovenox) 40 mg SUBCUT DAILY [facility] Last Admin: 10/04/16 10:21 Dose: Not Given Guaifenesin (Mucinex) 1,200 mg PO BID [facility] Last Admin: 10/04/16 08:13 Dose: 1,200 mg Guaifenesin/Phenylephrine HCl (Robitussin Dm) 10 ml PO QID PRN PRN Reason: Cough Last Admin: 10/04/16 03:36 Dose: 10 ml Levofloxacin/Dextrose 750 mg/ (Premix) 150 mls @ 100 mls/hr IV Q24H [facility] Last Admin: 10/04/16 14:22 Dose: 100 mls/hr Piperacillin Sod/Tazobactam (Sod 4.5 gm/ Sodium Chloride) 100 mls @ 25 mls/hr IV Q8H [facility] Methylprednisolone Sodium Succinate (Solu-Medrol) 40 mg IVPUSH Q8H [facility] Last Admin: 10/04/16 08:14 Dose: 40 mg Multivitamins (Thera) 1 each PO DAILY [facility] Last Admin: 10/04/16 08:14 Dose: 1 each Nitroglycerin (Nitrostat) 0.4 mg SL Q5M PRN PRN Reason: chest pain Pantoprazole Sodium (Protonix) 40 mg PO DAILY@0700 [facility] Last Admin: 10/04/16 06:18 Dose: 40 mg Roflumilast 500 Mcg 0 each PO DAILY [facility] Last Admin: 10/04/16 08:14 Dose: Not Given Risedronate Sodium (150 Mg) 0 each PO Q30D [facility] Arformoterol 15 Mcg 0 each NEB BID [facility] Last Admin: 10/04/16 09:44 Dose: 1 each Aclidinium [place] [ Tudorza Pressair] 1 Puff 0 each INH BID [facility] Silver Sulfadiazine (Silvadene 1% Cream 50 Gm) 0 gm TOP ASDIRECTED PRN PRN Reason: Other Simvastatin (Zocor) 10 mg PO BEDTIME [facility] Last Admin: 10/03/16 20:16 Dose: 10 mg Sodium Chloride (Saline Flush) 10 ml FLUSH ASDIRECTED PRN PRN Reason: Keep Vein Open Last Admin: 10/03/16 11:59 Dose: 10 ml Triamcinolone Acetonide (Triamcinolone Acetonide 0.1% Crm) 0 gm TOP DAILY PRN PRN Reason: Itching Discontinued Medications Acetaminophen (Tylenol) 650 mg PO NOW ONE Stop: 10/03/16 13:27 Last Admin: 10/03/16 13:34 Dose: 650 mg Albuterol/Ipratropium (Duoneb 3.0-0.5 Mg/3 Ml) 3 ml NEB ONETIME ONE Stop: 10/03/16 11:46 Last Admin: 10/03/16 12:03 Dose: 3 ml Amitriptyline HCl (Elavil) 25 mg PO BEDTIME [facility] Amitriptyline HCl (Elavil) 50 mg PO BEDTIME [facility] Last Admin: 10/03/16 20:16 Dose: 50 mg Sodium Chloride (Normal Saline) 500 mls @ 500 mls/hr IV ONETIME ONE Stop: 10/03/16 12:45 Last Admin: 10/03/16 11:59 Dose: 500 mls/hr Sodium Chloride (Normal Saline) 100 mls @ 60 mls/hr IV ASDIRECTED [facility] Last Admin: 10/03/16 17:15 Dose: 60 mls/hr Levofloxacin/Dextrose 750 mg/ (Premix) 150 mls @ 100 mls/hr IV ONETIME ONE Stop: 10/03/16 14:24 Last Admin: 10/03/16 14:06 Dose: 100 mls/hr Piperacillin Sod/Tazobactam (Sod 4.5 gm/ Sodium Chloride) 100 mls @ 200 mls/hr IV ONETIME ONE Stop: 10/04/16 10:59 Last Admin: 10/04/16 10:22 Dose: 200 mls/hr Iopamidol (Isovue-370 (76%)) 100 ml IVPUSH ONETIME ONE Stop: 10/03/16 12:31 Last Admin: 10/03/16 12:36 Dose: 100 ml Sodium Chloride (Saline Flush) 10 ml FLUSH ONETIME ONE Stop: 10/03/16 12:31 Last Admin: 10/03/16 12:36 Dose: 10 ml - Problem List & Annotations (1) Pneumonia SNOMED Code(s): 764056666 Code(s): J18.9 - PNEUMONIA, UNSPECIFIED ORGANISM Status: Acute Priority: High Current Visit: Yes Qualifiers: Pneumonia type: due to unspecified organism Lung location: unspecified part of lung (2) COPD (chronic obstructive pulmonary disease) with emphysema SNOMED Code(s): 14962861 Code(s): J43.9 - EMPHYSEMA, UNSPECIFIED Status: Chronic Priority: High Current Visit: Yes Qualifiers: Emphysema type: panlobular Qualified Code(s): J43.1 - Panlobular emphysema (3) Anemia SNOMED Code(s): 043079448 Code(s): D64.9 - ANEMIA, UNSPECIFIED Status: Chronic Priority: High Current Visit: Yes Qualifiers: Anemia type: unspecified type Qualified Code(s): D64.9 - Anemia, unspecified Annotation/Comment:: macrocytic - My Orders Last 24 Hours: My Active Orders 10/03/16 15:41 Antiembolic Devices [RC] PER UNIT ROUTINE CORY Hose [Antiembolic Hose] [OM.PC] Routine 10/03/16 16:25 Albuterol [Proventil Neb Soln] 2.5 mg NEB QID PRN Docusate Sodium [Colace] 100 mg PO DAILY PRN Nitroglycerin [Nitrostat] 0.4 mg SL Q5M PRN Silver Sulfadiazine [Silvadene 1% Cream 50 GM] 0 gm TOP ASDIRECTED PRN Triamcinolone Acetonide [Triamcinolone Acetonide 0.1% Crm] 0 gm TOP DAILY PRN 10/03/16 16:30 Clopidogrel [Plavix] 75 mg PO DAILY 10/03/16 16:37 Code Status [Resuscitation Status] Routine 10/03/16 16:38 Vital Signs [RC] Q4HR 10/03/16 17:00 methylPREDNISolone Sod Succ [Solu-MEDROL] 40 mg IVPUSH Q8H 10/03/16 17:22 RESPIRATORY PANEL BY PCR [MREF] Routine 10/03/16 17:49 STREP PNEUMONIAE ANTIGEN [MREF] Routine 10/03/16 18:37 Consult to Occupational Therapy [OT Evaluation and Treatment] [CONS] Routine PT Evaluation and Treatment [CONS] Routine 10/03/16 21:00 Budesonide [Pulmicort] 0.5 mg NEB BID Patient's Own Medication [Ptom] 0 each NEB BID Simvastatin [Zocor] 10 mg PO BEDTIME guaiFENesin [Mucinex] 1,200 mg PO BID 10/04/16 00:48 Oxygen Therapy [RC] ASDIRECTED 10/04/16 01:32 Acetaminophen [Tylenol] 650 mg PO Q4H PRN 10/04/16 03:25 Dextromethorphan/guaiFENesin [Robitussin DM] 10 ml PO QID PRN 10/04/16 07:00 Pantoprazole [ProTONIX] 40 mg PO DAILY@0700 10/04/16 09:00 Multivitamins,Therapeutic [Thera] 1 each PO DAILY Patient's Own Medication [Ptom] 0 each PO DAILY 10/04/16 21:00 Amitriptyline [Elavil] 25 - 50 mg PO BEDTIME Patient's Own Medication [Ptom] 0 each INH BID 10/05/16 05:00 BASIC METABOLIC PANEL,BMP [CHEM] DAILY CBC WITH AUTO DIFF [HEME] DAILY CRP [C-REACTIVE PROTEIN] [CHEM] DAILY MAGNESIUM [CHEM] DAILY 10/05/16 09:00 CXR [Chest 2V] [CR] Routine 10/06/16 05:00 BASIC METABOLIC PANEL,BMP [CHEM] DAILY CBC WITH AUTO DIFF [HEME] DAILY CRP [C-REACTIVE PROTEIN] [CHEM] DAILY MAGNESIUM [CHEM] DAILY 10/11/16 06:00 Patient's Own Medication [Ptom] 0 each PO Q30D - Plan Plan:: Pulmonary meds are being confirmed
[2016-10-04] MEDS: Enoxaparin 40 MG/0.4 ML Syringe SUBCUT SCH (10:21)
[2016-10-04] MEDS ORDERED: Piperacillin/Tazobactam 4.5 GM in Sodium Chloride 0.9% 100 ML IV ONE (10:30)
--- NOTE | 2016-10-04 11:44 | CT ---
CT chest Technique: Multiple axial sections through the chest are obtained. Study performed as a pulmonary angiogram protocol. Comparison: Previous chest CT exam of 06/20/10. Findings: Pulmonary arteries are fairly well-opacified. No filling defects seen to indicate pulmonary embolism. Several calcified lymph nodes are seen within the mediastinum as well as other lymph nodes felt to be within normal limits. Fairly severe coronary artery calcification is seen. No pericardial thickening is seen. Low density lesion within the left kidney is seen compatible with a cyst measuring about 4.6 cm. Patchy areas of increased density are seen within both sides of the chest worse on the right side. Emphysematous changes are present. Parenchymal densities are an interval change from prior exam. Impression: 1. Patchy areas of increased density within both sides of the chest worse on the right side. Recommend patient be treated as a pneumonia and follow-up chest CT obtained at one month to evaluate for resolution. 2. No findings of pulmonary embolism. 3. Emphysematous change. 4. Other incidental findings. Agree with preliminary report issued by [facility] (preliminary report dictated on 10/03/16, 2:47 PM Central Time) Diagnostic code #3
[2016-10-04] MEDS: Albuterol/Ipratropium 3.0-0.5 MG/3 ML Neb Soln NEB SCH ×3 (12:30→21:36)
[2016-10-04] MEDS: Levofloxacin/Dextrose 5%-Water 750 MG in Premix Bag 1 BAG IV SCH (14:22)
[2016-10-04] MEDS: Piperacillin/Tazobactam 4.5 GM in Sodium Chloride 0.9% 100 ML IV SCH (17:43)
[2016-10-04] MEDS: Amitriptyline 25 MG Tab PO SCH (20:43)
[2016-10-04] MEDS: Simvastatin 40 MG Tab PO SCH (20:43)
[2016-10-04] MEDS: Carvedilol 12.5 MG Tab PO SCH (20:44)
[2016-10-04] MEDS: ACLIDINIUM BROMIDE INH SCH (21:10)
[2016-10-05] MEDS: methylPREDNISolone Sodium Succinate 40 MG/1 ML SDV IVPUSH SCH ×3 (01:41→18:00)
[2016-10-05] MEDS: Piperacillin/Tazobactam 4.5 GM in Sodium Chloride 0.9% 100 ML IV SCH ×3 (01:41→17:57)
[2016-10-05] MEDS: Albuterol/Ipratropium 3.0-0.5 MG/3 ML Neb Soln NEB SCH ×5 (06:14→20:44)
[2016-10-05] MEDS: Pantoprazole 40 MG Tab.CR PO SCH (06:50)
[2016-10-05] MEDS: ARFORMOTEROL 15 MCG NEB SCH ×2 (08:22→20:45)
[2016-10-05] MEDS: Budesonide 0.5 MG/2 ML Neb Susp NEB SCH ×2 (08:22→20:45)
--- NOTE | 2016-10-05 08:48 | PCM.PN ---
<Susie Loaiza M - Last Filed: 10/05/16 11:54> - General Info Date of Service: 10/05/16 Admission Dx/Problem (Free Text): Admission Diagnosis/Problem Admission Diagnosis/Problem Pneumonia "Chau" is seen this morning. Cough much improved. Slept well last night. Working with PT, strenght is "good". Good appetite, voiding, no abdominal pain, n/v/d, no chest pain. VSS, afebrile overnight. Functional Status: Reports: pain controlled (minimal to resolved rt sided pleuritic chest pain), tolerating diet, ambulating, urinating. Denies: new symptoms - Review of Systems General: Reports: No Symptoms. Denies: Fever HEENT: Reports: no symptoms Pulmonary: Reports: shortness of breath (chronic- at baseline), pleuritic chest pain (improving), cough (improving), wheezing (improving) Cardiovascular: Reports: No Symptoms. Denies: Chest Pain, Palpitations Gastrointestinal: Reports: No symptoms Genitourinary: Reports: no symptoms Musculoskeletal: Reports: no symptoms Skin: Reports: no symptoms Neurological: Reports: No Symptoms Psychiatric: Reports: no symptoms - Patient Data Vitals - most recent: Last Vital Signs Temp 98.1 F 10/05/16 01:51 Pulse 65 10/05/16 01:51 Resp 18 10/05/16 01:51 BP 142/69 H 10/05/16 01:51 Pulse Ox 95 10/05/16 08:23 Weight - most recent: 77.927 kg I&O - last 24 hours: Intake & Output 10/04/16 10/05/16 10/05/16 22:59 06:59 14:59 Intake Total 2350 300 Output Total 850 250 Balance 1500 50 Lab Results last 24 hrs: Laboratory Results - last 24 hr 10/05/16 10/05/16 Range/Units 05:51 05:51 WBC 18.24 H (4.23-9.07) K/mm3 RBC 3.13 L (4.63-6.08) M/mm3 Hgb 9.5 L (13.7-17.5) gm/L Hct 30.0 L (40.1-51.0) % MCV 95.8 H (79.0-92.2) fl MCH 30.4 (25.7-32.2) pg MCHC 31.7 L (32.2-35.5) g/dl RDW Std Deviation 56.7 H (35.1-43.9) fL Plt Count 417 H (163-337) K/mm3 MPV 9.7 (9.4-12.3) fl Neut % (Auto) 93.0 H (34.0-67.9) % Lymph % (Auto) 4.1 L (21.8-53.1) % [place] % (Auto) 2.4 L (5.3-12.2) % Eos % (Auto) 0 L (0.8-7.0) Baso % (Auto) 0.1 (0.1-1.2) % Neut # (Auto) 16.98 H (1.78-5.38) K/mm3 Lymph # (Auto) 0.75 L (1.32-3.57) K/mm3 [place] # (Auto) 0.43 (0.30-0.82) K/mm3 Eos # (Auto) 0.00 L (0.04-0.54) K/mm3 Baso # (Auto) 0.01 (0.01-0.08) K/mm3 Manual Slide Review Abnormal smear Sodium 142 (136-145) mEq/L Potassium 4.3 (3.5-5.1) mEq/L Chloride 108 H (98-107) mEq/L Carbon Dioxide 29 (21-32) mEq/L Anion Gap 9.3 (5-15) BUN 25 H (7-18) mg/dL Creatinine 1.4 H (0.7-1.3) mg/dL Est Cr Clr Drug Dosing 49.34 mL/min Estimated GFR (MDRD) 49 (>60) mL/min BUN/Creatinine Ratio 17.9 (14-18) Glucose 109 (83-115) mg/dL Calcium 8.3 L (8.5-10.1) mg/dL Magnesium 2.3 (1.8-2.4) mg/dl C-Reactive Protein 6.7 H* (<1.0) mg/dL Fabien Results last 24 hrs: Microbiology 10/03/16 17:22 Respiratory Virus Panel (PCR) (FABIEN) - Final Nasopharyngeal Swab 10/03/16 17:49 Streptococcus pneumoniae Antigen (M - Final Urine 10/03/16 16:14 Gram Stain - Final Sputum - Expectorated Sputum Culture - Preliminary NORMAL RESPIRATORY [facility] 1 DAY Med Orders - Current: Current Medications Acetaminophen (Tylenol) 650 mg PO Q4H PRN PRN Reason: Pain Last Admin: 10/04/16 01:44 Dose: 650 mg Albuterol (Proventil Neb Soln) 2.5 mg NEB QID PRN PRN Reason: Wheezing Last Admin: 10/04/16 09:41 Dose: 2.5 mg Albuterol/Ipratropium (Duoneb 3.0-0.5 Mg/3 Ml) 3 ml NEB QIDRT [facility] Last Admin: 10/05/16 08:22 Dose: 3 ml Amitriptyline HCl (Elavil) 25 - 50 mg PO BEDTIME [facility] Last Admin: 10/04/16 20:43 Dose: 50 mg Benzonatate (Tessalon Perles) 100 mg PO TID [facility] Last Admin: 10/04/16 20:43 Dose: 100 mg Budesonide (Pulmicort) 0.5 mg NEB BID [facility] Last Admin: 10/05/16 08:22 Dose: 0.5 mg Carvedilol (Coreg) 12.5 mg PO BID [facility] Last Admin: 10/04/16 20:44 Dose: 12.5 mg Clopidogrel Bisulfate (Plavix) 75 mg PO DAILY [facility] Last Admin: 10/04/16 08:14 Dose: 75 mg Docusate Sodium (Colace) 100 mg PO DAILY PRN PRN Reason: Constipation Last Admin: 10/04/16 20:52 Dose: 100 mg Enoxaparin Sodium (Lovenox) 40 mg SUBCUT DAILY [facility] Last Admin: 10/04/16 10:21 Dose: Not Given Guaifenesin (Mucinex) 1,200 mg PO BID [facility] Last Admin: 10/04/16 20:42 Dose: 1,200 mg Guaifenesin/Phenylephrine HCl (Robitussin Dm) 10 ml PO QID PRN PRN Reason: Cough Last Admin: 10/04/16 03:36 Dose: 10 ml Levofloxacin/Dextrose 750 mg/ (Premix) 150 mls @ 100 mls/hr IV Q24H [facility] Last Admin: 10/04/16 14:22 Dose: 100 mls/hr Piperacillin Sod/Tazobactam (Sod 4.5 gm/ Sodium Chloride) 100 mls @ 25 mls/hr IV Q8H [facility] Last Admin: 10/05/16 01:41 Dose: 25 mls/hr Methylprednisolone Sodium Succinate (Solu-Medrol) 40 mg IVPUSH Q8H [facility] Last Admin: 10/05/16 01:41 Dose: 40 mg Multivitamins (Thera) 1 each PO DAILY [facility] Last Admin: 10/04/16 08:14 Dose: 1 each Nitroglycerin (Nitrostat) 0.4 mg SL Q5M PRN PRN Reason: chest pain Pantoprazole Sodium (Protonix) 40 mg PO DAILY@0700 [facility] Last Admin: 10/05/16 06:50 Dose: 40 mg Roflumilast 500 Mcg 0 each PO DAILY [facility] Last Admin: 10/04/16 08:14 Dose: Not Given Risedronate Sodium (150 Mg) 0 each PO Q30D [facility] Arformoterol 15 Mcg 0 each NEB BID [facility] Last Admin: 10/05/16 08:22 Dose: 1 each Aclidinium [place] [ Tudorza Pressair] 1 Puff 0 each INH BID [facility] Last Admin: 10/04/16 21:10 Dose: Not Given Silver Sulfadiazine (Silvadene 1% Cream 50 Gm) 0 gm TOP ASDIRECTED PRN PRN Reason: Other Simvastatin (Zocor) 40 mg PO BEDTIME [facility] Last Admin: 10/04/16 20:43 Dose: 40 mg Sodium Chloride (Saline Flush) 10 ml FLUSH ASDIRECTED PRN PRN Reason: Keep Vein Open Last Admin: 10/03/16 11:59 Dose: 10 ml Triamcinolone Acetonide (Triamcinolone Acetonide 0.1% Crm) 0 gm TOP DAILY PRN PRN Reason: Itching Discontinued Medications Acetaminophen (Tylenol) 650 mg PO NOW ONE Stop: 10/03/16 13:27 Last Admin: 10/03/16 13:34 Dose: 650 mg Albuterol/Ipratropium (Duoneb 3.0-0.5 Mg/3 Ml) 3 ml NEB ONETIME ONE Stop: 10/03/16 11:46 Last Admin: 10/03/16 12:03 Dose: 3 ml Albuterol/Ipratropium (Duoneb 3.0-0.5 Mg/3 Ml) 3 ml NEB Q6HRRT [facility] Last Admin: 10/05/16 06:14 Dose: 3 ml Amitriptyline HCl (Elavil) 25 mg PO BEDTIME [facility] Amitriptyline HCl (Elavil) 50 mg PO BEDTIME [facility] Last Admin: 10/03/16 20:16 Dose: 50 mg Sodium Chloride (Normal Saline) 500 mls @ 500 mls/hr IV ONETIME ONE Stop: 10/03/16 12:45 Last Admin: 10/03/16 11:59 Dose: 500 mls/hr Sodium Chloride (Normal Saline) 100 mls @ 60 mls/hr IV ASDIRECTED [facility] Last Admin: 10/03/16 17:15 Dose: 60 mls/hr Levofloxacin/Dextrose 750 mg/ (Premix) 150 mls @ 100 mls/hr IV ONETIME ONE Stop: 10/03/16 14:24 Last Admin: 10/03/16 14:06 Dose: 100 mls/hr Piperacillin Sod/Tazobactam (Sod 4.5 gm/ Sodium Chloride) 100 mls @ 200 mls/hr IV ONETIME ONE Stop: 10/04/16 10:59 Last Admin: 10/04/16 10:22 Dose: 200 mls/hr Iopamidol (Isovue-370 (76%)) 100 ml IVPUSH ONETIME ONE Stop: 10/03/16 12:31 Last Admin: 10/03/16 12:36 Dose: 100 ml Simvastatin (Zocor) 10 mg PO BEDTIME [facility] Last Admin: 10/03/16 20:16 Dose: 10 mg Sodium Chloride (Saline Flush) 10 ml FLUSH ONETIME ONE Stop: 10/03/16 12:31 Last Admin: 10/03/16 12:36 Dose: 10 ml - Exam Quality Assessment: supplemental oxygen, DVT prophylaxis General: alert, oriented, cooperative, no acute distress HEENT: Pupils equal, Pupils reactive, EOMI, Mucous membr. moist/pink Neck: supple Lungs: Normal respiratory effort, Decreased breath sounds (to bases), Rhonchi ( rt lung base), Wheezing (improved from yesterday- scattered throughout) Cardiovascular: Regular Rate, Regular Rhythm Abdomen: bowel sounds present, soft, no tenderness, no distension (Male) Exam: Deferred Back Exam: normal inspection Extremities: no edema, no calf tenderness, other (teds bilat) Peripheral Pulses: 1+: dorsalis pedis (L), dorsalis pedis (R) Skin: warm, dry, intact Neurological: no new focal deficit Psy/Mental Status: alert, normal affect, normal mood - Problem List & Annotations (1) Pneumonia SNOMED Code(s): 386886649 Code(s): J18.9 - PNEUMONIA, UNSPECIFIED ORGANISM Status: Acute Priority: High Current Visit: Yes Qualifiers: Pneumonia type: due to unspecified organism Lung location: unspecified part of lung (2) COPD exacerbation SNOMED Code(s): 368448597, 208369402 Code(s): J44.1 - CHRONIC OBSTRUCTIVE PULMONARY DISEASE W (ACUTE) EXACERBATION Status: Acute Priority: High Current Visit: Yes (3) Anemia SNOMED Code(s): 945809404 Code(s): D64.9 - ANEMIA, UNSPECIFIED Status: Chronic Priority: High Current Visit: Yes Qualifiers: Anemia type: unspecified type Qualified Code(s): D64.9 - Anemia, unspecified Annotation/Comment:: macrocytic (4) Renal insufficiency SNOMED Code(s): 379168122 Code(s): N28.9 - DISORDER OF KIDNEY AND URETER, UNSPECIFIED Status: Chronic Priority: High Current Visit: Yes (5) Pulmonary nodules/lesions, multiple SNOMED Code(s): 598147437 Code(s): R91.8 - OTHER NONSPECIFIC ABNORMAL FINDING OF LUNG FIELD Status: Acute Priority: High Current Visit: Yes Annotation/Comment:: new finding on chest CT done on 10/03/16 - Problem List Review Problem List Initiated/Reviewed/Updated: Yes - My Orders Last 24 Hours: My Active Orders 10/04/16 09:00 Benzonatate [Tessalon Perles] 100 mg PO TID 10/04/16 09:06 Activity as Tolerated [RC] BID 10/04/16 09:55 RT Aerosol Therapy [RC] ASDIRECTED 10/04/16 09:57 RT Chest Physiotherapy [RC] Q2HWA RT Incentive Spirometry [RC] Q2HWA Turn, Cough, Deep Breathe [RC] Q2HWA 10/04/16 11:00 Enoxaparin [Lovenox] 40 mg SUBCUT DAILY 10/04/16 14:00 Levofloxacin/Dextrose 5%-Water [Levaquin in D5W 750 MG/150 ML] 750 mg Premix Bag 1 bag IV Q24H 10/04/16 18:30 Piperacillin/Tazobactam [Zosyn] 4.5 gm Sodium Chloride 0.9% [Normal Saline] 100 ml IV Q8H 10/05/16 10:00 Albuterol/Ipratropium [DuoNeb 3.0-0.5 MG/3 ML] 3 ml NEB QIDRT 10/08/16 07:00 CBC W/O DIFF,HEMOGRAM [HEME] MOTH@0700 10/11/16 07:00 CBC W/O DIFF,HEMOGRAM [HEME] MOTH@0700 10/15/16 07:00 CBC W/O DIFF,HEMOGRAM [HEME] MOTH@0700 10/18/16 07:00 CBC W/O DIFF,HEMOGRAM [HEME] MOTH@0700 10/22/16 07:00 CBC W/O DIFF,HEMOGRAM [HEME] MOTH@0700 10/25/16 07:00 CBC W/O DIFF,HEMOGRAM [HEME] MOTH@0700 - Plan Plan:: Impression/Plan -HCAP with increased and change in sputum production, pleuritic chest pains, leukocytosis -Empiric tx with levaquin, zosyn -Solumedrol IV -Aggressive pulmonary toilet -Cont supplemental O2 to keep sats >90% -CXR today- shows RLL pneumonia- treatment as above -Recent admission, 08/27-08/30/2016 for PNA Severe COPD patient on chronic O2 and steroids -Cont usual home meds and tx as above Abnormal CT of thorax, multiple tiny nodules- ? malignancy -Chart review states has had recent fup with Pulmonology -Will arrange recheck with [facility] after discharge; images from CT to [facility] Chronic anemia -Monitor labs daily -Workup in the past unremarkable, has refused colonoscopy on prior admissions CKD -Monitor labs daily -Renal dosing all meds- per pharmacy Chronic--cont usual home meds CAD PVD HTN GERD Other: DVT and GI prophylaxis CM/SW for DC planning- Patient just moved into [facility] [place] end of [place], is slowly accepting this transition as family urged this placement. PT/OT LOS will be 96 + hours due to recurrent pneumonia and need for complete course of IV abx treatment Patient is DNR/DNI <Brittany Le - Last Filed: 10/05/16 15:41> - Patient Data Vitals - most recent: Last Vital Signs Temp 36.9 C 10/05/16 13:36 Pulse 68 10/05/16 13:36 Resp 18 10/05/16 13:36 BP 179/70 H 10/05/16 13:36 Pulse Ox 98 10/05/16 15:23 I&O - last 24 hours: Intake & Output 10/05/16 10/05/16 10/05/16 06:59 14:59 22:59 Intake Total 300 330 Output Total 250 Balance 50 330 Lab Results last 24 hrs: Laboratory Results - last 24 hr 10/05/16 10/05/16 Range/Units 05:51 05:51 WBC 18.24 H (4.23-9.07) K/mm3 RBC 3.13 L (4.63-6.08) M/mm3 Hgb 9.5 L (13.7-17.5) gm/L Hct 30.0 L (40.1-51.0) % MCV 95.8 H (79.0-92.2) fl MCH 30.4 (25.7-32.2) pg MCHC 31.7 L (32.2-35.5) g/dl RDW Std Deviation 56.7 H (35.1-43.9) fL Plt Count 417 H (163-337) K/mm3 MPV 9.7 (9.4-12.3) fl Neut % (Auto) 93.0 H (34.0-67.9) % Lymph % (Auto) 4.1 L (21.8-53.1) % [place] % (Auto) 2.4 L (5.3-12.2) % Eos % (Auto) 0 L (0.8-7.0) Baso % (Auto) 0.1 (0.1-1.2) % Neut # (Auto) 16.98 H (1.78-5.38) K/mm3 Lymph # (Auto) 0.75 L (1.32-3.57) K/mm3 [place] # (Auto) 0.43 (0.30-0.82) K/mm3 Eos # (Auto) 0.00 L (0.04-0.54) K/mm3 Baso # (Auto) 0.01 (0.01-0.08) K/mm3 Manual Slide Review Abnormal smear Sodium 142 (136-145) mEq/L Potassium 4.3 (3.5-5.1) mEq/L Chloride 108 H (98-107) mEq/L Carbon Dioxide 29 (21-32) mEq/L Anion Gap 9.3 (5-15) BUN 25 H (7-18) mg/dL Creatinine 1.4 H (0.7-1.3) mg/dL Est Cr Clr Drug Dosing 49.34 mL/min Estimated GFR (MDRD) 49 (>60) mL/min BUN/Creatinine Ratio 17.9 (14-18) Glucose 109 (83-115) mg/dL Calcium 8.3 L (8.5-10.1) mg/dL Magnesium 2.3 (1.8-2.4) mg/dl C-Reactive Protein 6.7 H* (<1.0) mg/dL Fabien Results last 24 hrs: Microbiology 10/03/16 16:14 Gram Stain - Final Sputum - Expectorated Sputum Culture - Final NORMAL RESPIRATORY [facility] 2 DAYS 10/03/16 17:22 Respiratory Virus Panel (PCR) (FABIEN) - Final Nasopharyngeal Swab 10/03/16 17:49 Streptococcus pneumoniae Antigen (M - Final Urine Med Orders - Current: Current Medications Acetaminophen (Tylenol) 650 mg PO Q4H PRN PRN Reason: Pain Last Admin: 10/04/16 01:44 Dose: 650 mg Albuterol (Proventil Neb Soln) 2.5 mg NEB QID PRN PRN Reason: Wheezing Last Admin: 10/04/16 09:41 Dose: 2.5 mg Albuterol/Ipratropium (Duoneb 3.0-0.5 Mg/3 Ml) 3 ml NEB QIDRT [facility] Last Admin: 10/05/16 15:23 Dose: 3 ml Amitriptyline HCl (Elavil) 25 - 50 mg PO BEDTIME [facility] Last Admin: 10/04/16 20:43 Dose: 50 mg Benzonatate (Tessalon Perles) 100 mg PO TID [facility] Last Admin: 10/05/16 09:04 Dose: 100 mg Budesonide (Pulmicort) 0.5 mg NEB BID [facility] Last Admin: 10/05/16 08:22 Dose: 0.5 mg Carvedilol (Coreg) 12.5 mg PO BID [facility] Last Admin: 10/05/16 09:06 Dose: 12.5 mg Clopidogrel Bisulfate (Plavix) 75 mg PO DAILY [facility] Last Admin: 10/05/16 09:05 Dose: 75 mg Docusate Sodium (Colace) 100 mg PO DAILY PRN PRN Reason: Constipation Last Admin: 10/04/16 20:52 Dose: 100 mg Enoxaparin Sodium (Lovenox) 40 mg SUBCUT DAILY [facility] Last Admin: 10/05/16 09:04 Dose: Not Given Guaifenesin (Mucinex) 1,200 mg PO BID [facility] Last Admin: 10/05/16 09:05 Dose: 1,200 mg Guaifenesin/Phenylephrine HCl (Robitussin Dm) 10 ml PO QID PRN PRN Reason: Cough Last Admin: 10/04/16 03:36 Dose: 10 ml Levofloxacin/Dextrose 750 mg/ (Premix) 150 mls @ 100 mls/hr IV Q24H [facility] Last Admin: 10/05/16 13:49 Dose: 100 mls/hr Piperacillin Sod/Tazobactam (Sod 4.5 gm/ Sodium Chloride) 100 mls @ 25 mls/hr IV Q8H [facility] Last Admin: 10/05/16 09:50 Dose: 25 mls/hr Methylprednisolone Sodium Succinate (Solu-Medrol) 40 mg IVPUSH Q8H [facility] Last Admin: 10/05/16 09:04 Dose: 40 mg Multivitamins (Thera) 1 each PO DAILY [facility] Last Admin: 10/05/16 09:05 Dose: 1 each Nitroglycerin (Nitrostat) 0.4 mg SL Q5M PRN PRN Reason: chest pain Pantoprazole Sodium (Protonix) 40 mg PO DAILY@0700 [facility] Last Admin: 10/05/16 06:50 Dose: 40 mg Roflumilast 500 Mcg 0 each PO DAILY [facility] Last Admin: 10/05/16 09:51 Dose: Not Given Risedronate Sodium (150 Mg) 0 each PO Q30D [facility] Arformoterol 15 Mcg 0 each NEB BID [facility] Last Admin: 10/05/16 08:22 Dose: 1 each Aclidinium [place] [ Tudorza Pressair] 1 Puff 0 each INH BID [facility] Last Admin: 10/05/16 09:51 Dose: Not Given Silver Sulfadiazine (Silvadene 1% Cream 50 Gm) 0 gm TOP ASDIRECTED PRN PRN Reason: Other Simvastatin (Zocor) 40 mg PO BEDTIME [facility] Last Admin: 10/04/16 20:43 Dose: 40 mg Sodium Chloride (Saline Flush) 10 ml FLUSH ASDIRECTED PRN PRN Reason: Keep Vein Open Last Admin: 10/03/16 11:59 Dose: 10 ml Triamcinolone Acetonide (Triamcinolone Acetonide 0.1% Crm) 0 gm TOP DAILY PRN PRN Reason: Itching Discontinued Medications Acetaminophen (Tylenol) 650 mg PO NOW ONE Stop: 10/03/16 13:27 Last Admin: 10/03/16 13:34 Dose: 650 mg Albuterol/Ipratropium (Duoneb 3.0-0.5 Mg/3 Ml) 3 ml NEB ONETIME ONE Stop: 10/03/16 11:46 Last Admin: 10/03/16 12:03 Dose: 3 ml Albuterol/Ipratropium (Duoneb 3.0-0.5 Mg/3 Ml) 3 ml NEB Q6HRRT [facility] Last Admin: 10/05/16 06:14 Dose: 3 ml Amitriptyline HCl (Elavil) 25 mg PO BEDTIME [facility] Amitriptyline HCl (Elavil) 50 mg PO BEDTIME [facility] Last Admin: 10/03/16 20:16 Dose: 50 mg Sodium Chloride (Normal Saline) 500 mls @ 500 mls/hr IV ONETIME ONE Stop: 10/03/16 12:45 Last Admin: 10/03/16 11:59 Dose: 500 mls/hr Sodium Chloride (Normal Saline) 100 mls @ 60 mls/hr IV ASDIRECTED [facility] Last Admin: 10/03/16 17:15 Dose: 60 mls/hr Levofloxacin/Dextrose 750 mg/ (Premix) 150 mls @ 100 mls/hr IV ONETIME ONE Stop: 10/03/16 14:24 Last Admin: 10/03/16 14:06 Dose: 100 mls/hr Piperacillin Sod/Tazobactam (Sod 4.5 gm/ Sodium Chloride) 100 mls @ 200 mls/hr IV ONETIME ONE Stop: 10/04/16 10:59 Last Admin: 10/04/16 10:22 Dose: 200 mls/hr Iopamidol (Isovue-370 (76%)) 100 ml IVPUSH ONETIME ONE Stop: 10/03/16 12:31 Last Admin: 10/03/16 12:36 Dose: 100 ml Simvastatin (Zocor) 10 mg PO BEDTIME [facility] Last Admin: 10/03/16 20:16 Dose: 10 mg Sodium Chloride (Saline Flush) 10 ml FLUSH ONETIME ONE Stop: 10/03/16 12:31 Last Admin: 10/03/16 12:36 Dose: 10 ml - Problem List & Annotations (1) Pneumonia SNOMED Code(s): 658458512 Code(s): J18.9 - PNEUMONIA, UNSPECIFIED ORGANISM Status: Acute Priority: High Current Visit: Yes Qualifiers: Pneumonia type: due to unspecified organism Lung location: unspecified part of lung (2) COPD (chronic obstructive pulmonary disease) with emphysema SNOMED Code(s): 06316734 Code(s): J43.9 - EMPHYSEMA, UNSPECIFIED Status: Chronic Priority: High Current Visit: Yes Qualifiers: Emphysema type: panlobular Qualified Code(s): J43.1 - Panlobular emphysema (3) Anemia SNOMED Code(s): 399107257 Code(s): D64.9 - ANEMIA, UNSPECIFIED Status: Chronic Priority: High Current Visit: Yes Qualifiers: Anemia type: unspecified type Qualified Code(s): D64.9 - Anemia, unspecified Annotation/Comment:: macrocytic - My Orders Last 24 Hours: My Active Orders 10/04/16 21:00 Amitriptyline [Elavil] 25 - 50 mg PO BEDTIME Carvedilol [Coreg] 12.5 mg PO BID Patient's Own Medication [Ptom] 0 each INH BID Simvastatin [Zocor] 40 mg PO BEDTIME 10/06/16 05:00 BASIC METABOLIC PANEL,BMP [CHEM] DAILY CBC WITH AUTO DIFF [HEME] DAILY CRP [C-REACTIVE PROTEIN] [CHEM] DAILY MAGNESIUM [CHEM] DAILY 10/11/16 06:00 Patient's Own Medication [Ptom] 0 each PO Q30D
[2016-10-05] MEDS: Benzonatate 100 MG Cap PO SCH ×3 (09:04→21:41)
[2016-10-05] MEDS: Enoxaparin 40 MG/0.4 ML Syringe SUBCUT SCH (09:04)
[2016-10-05] MEDS: guaiFENesin 600 MG Tab.ER PO SCH ×2 (09:05→21:40)
[2016-10-05] MEDS: Multivitamins,Therapeutic Tab PO SCH (09:05)
[2016-10-05] MEDS: Clopidogrel 75 MG Tab PO SCH (09:05)
[2016-10-05] MEDS: Carvedilol 12.5 MG Tab PO SCH ×2 (09:06→21:39)
[2016-10-05] MEDS: ACLIDINIUM BROMIDE INH SCH ×2 (09:51→20:50)
--- NOTE | 2016-10-05 10:29 | CR ---
Chest: Two views of the chest were obtained. Comparison: Previous chest x-ray of 08/31/16. Patchy areas of increased density are noted within the right chest. Findings have slightly changed from previous exam. Increased density within the left base shows improvement from prior exam. Heart size appears within normal limits. Tortuous thoracic aorta is seen. Impression: 1. Slight changing areas of increased density within the right chest which may represent changing areas of pneumonia or atelectasis. 2. Improvement is seen within the left lung base. Diagnostic code #3
[2016-10-05] MEDS: Levofloxacin/Dextrose 5%-Water 750 MG in Premix Bag 1 BAG IV SCH (13:49)
[2016-10-05] MEDS: hydrALAZINE 20 MG/ML SDV IVPUSH PRN (16:19)
[2016-10-05] MEDS: Amitriptyline 25 MG Tab PO SCH (21:40)
[2016-10-05] MEDS: Simvastatin 40 MG Tab PO SCH (21:41)
[2016-10-06] MEDS: methylPREDNISolone Sodium Succinate 40 MG/1 ML SDV IVPUSH SCH ×3 (02:43→17:46)
[2016-10-06] MEDS: Piperacillin/Tazobactam 4.5 GM in Sodium Chloride 0.9% 100 ML IV SCH ×3 (02:43→17:47)
[2016-10-06] MEDS: Albuterol/Ipratropium 3.0-0.5 MG/3 ML Neb Soln NEB SCH ×4 (05:59→20:56)
[2016-10-06] MEDS: Pantoprazole 40 MG Tab.CR PO SCH (06:10)
[2016-10-06] MEDS: Clopidogrel 75 MG Tab PO SCH (08:27)
[2016-10-06] MEDS: Multivitamins,Therapeutic Tab PO SCH (08:27)
[2016-10-06] MEDS: Carvedilol 12.5 MG Tab PO SCH ×2 (08:28→20:19)
[2016-10-06] MEDS: Benzonatate 100 MG Cap PO SCH ×3 (08:28→20:19)
[2016-10-06] MEDS: guaiFENesin 600 MG Tab.ER PO SCH ×2 (08:28→20:19)
[2016-10-06] MEDS: Enoxaparin 40 MG/0.4 ML Syringe SUBCUT SCH (08:32)
[2016-10-06] MEDS: Budesonide 0.5 MG/2 ML Neb Susp NEB SCH ×2 (09:24→20:56)
[2016-10-06] MEDS: ARFORMOTEROL 15 MCG NEB SCH ×2 (09:25→20:56)
[2016-10-06] MEDS: ACLIDINIUM BROMIDE INH SCH ×2 (09:25→23:47)
[2016-10-06] MEDS: Lisinopril 20 MG Tab PO SCH ×2 (10:34→20:19)
--- NOTE | 2016-10-06 10:56 | PCM.PN ---
- General Info Date of Service: 10/06/16 Functional Status: Reports: tolerating diet, ambulating, urinating - Review of Systems General: Reports: No Symptoms HEENT: Reports: no symptoms Pulmonary: Reports: shortness of breath (decreased) Cardiovascular: Reports: No Symptoms Gastrointestinal: Reports: No symptoms Genitourinary: Reports: no symptoms Musculoskeletal: Reports: no symptoms Skin: Reports: no symptoms Neurological: Reports: No Symptoms Psychiatric: Reports: no symptoms - Patient Data Vitals - most recent: Last Vital Signs Temp 36.5 C 10/06/16 08:32 Pulse 80 10/06/16 08:32 Resp 20 10/06/16 08:32 BP 183/77 H 10/06/16 10:34 Pulse Ox 99 10/06/16 09:25 Weight - most recent: 77.791 kg I&O - last 24 hours: Intake & Output 10/05/16 10/06/16 10/06/16 22:59 06:59 14:59 Intake Total 1950 750 Output Total 1375 1050 Balance 575 -300 Lab Results last 24 hrs: Laboratory Results - last 24 hr 10/06/16 10/06/16 Range/Units 05:03 05:03 WBC 15.31 H (4.23-9.07) K/mm3 RBC 3.13 L (4.63-6.08) M/mm3 Hgb 9.4 L (13.7-17.5) gm/L Hct 30.0 L (40.1-51.0) % MCV 95.8 H (79.0-92.2) fl MCH 30.0 (25.7-32.2) pg MCHC 31.3 L (32.2-35.5) g/dl RDW Std Deviation 57.7 H (35.1-43.9) fL Plt Count 447 H (163-337) K/mm3 MPV 9.6 (9.4-12.3) fl Neut % (Auto) 87.0 H (34.0-67.9) % Lymph % (Auto) 7.7 L (21.8-53.1) % [place] % (Auto) 4.2 L (5.3-12.2) % Eos % (Auto) 0 L (0.8-7.0) Baso % (Auto) 0.1 (0.1-1.2) % Neut # (Auto) 13.33 H (1.78-5.38) K/mm3 Lymph # (Auto) 1.18 L (1.32-3.57) K/mm3 [place] # (Auto) 0.64 (0.30-0.82) K/mm3 Eos # (Auto) 0.00 L (0.04-0.54) K/mm3 Baso # (Auto) 0.01 (0.01-0.08) K/mm3 Manual Slide Review Abnormal smear Sodium 141 (136-145) mEq/L Potassium 4.2 (3.5-5.1) mEq/L Chloride 108 H (98-107) mEq/L Carbon Dioxide 27 (21-32) mEq/L Anion Gap 10.2 (5-15) BUN 32 H (7-18) mg/dL Creatinine 1.3 (0.7-1.3) mg/dL Est Cr Clr Drug Dosing 53.13 mL/min Estimated GFR (MDRD) 54 (>60) mL/min BUN/Creatinine Ratio 24.6 H (14-18) Glucose 90 (83-115) mg/dL Calcium 8.2 L (8.5-10.1) mg/dL Magnesium 2.2 (1.8-2.4) mg/dl C-Reactive Protein 3.2 H* (<1.0) mg/dL Fabien Results last 24 hrs: Microbiology 10/03/16 16:14 Gram Stain - Final Sputum - Expectorated Sputum Culture - Final NORMAL RESPIRATORY [facility] 2 DAYS Med Orders - Current: Current Medications Acetaminophen (Tylenol) 650 mg PO Q4H PRN PRN Reason: Pain Last Admin: 10/04/16 01:44 Dose: 650 mg Albuterol (Proventil Neb Soln) 2.5 mg NEB QID PRN PRN Reason: Wheezing Last Admin: 10/04/16 09:41 Dose: 2.5 mg Albuterol/Ipratropium (Duoneb 3.0-0.5 Mg/3 Ml) 3 ml NEB QIDRT [facility] Last Admin: 10/06/16 09:24 Dose: 3 ml Amitriptyline HCl (Elavil) 25 - 50 mg PO BEDTIME [facility] Last Admin: 10/05/16 21:40 Dose: 50 mg Benzonatate (Tessalon Perles) 100 mg PO TID [facility] Last Admin: 10/06/16 08:28 Dose: 100 mg Budesonide (Pulmicort) 0.5 mg NEB BID [facility] Last Admin: 10/06/16 09:24 Dose: 0.5 mg Carvedilol (Coreg) 12.5 mg PO BID [facility] Last Admin: 10/06/16 08:28 Dose: 12.5 mg Clopidogrel Bisulfate (Plavix) 75 mg PO DAILY [facility] Last Admin: 10/06/16 08:27 Dose: 75 mg Docusate Sodium (Colace) 100 mg PO DAILY PRN PRN Reason: Constipation Last Admin: 10/04/16 20:52 Dose: 100 mg Enoxaparin Sodium (Lovenox) 40 mg SUBCUT DAILY [facility] Last Admin: 10/06/16 08:32 Dose: Not Given Guaifenesin (Mucinex) 1,200 mg PO BID [facility] Last Admin: 10/06/16 08:28 Dose: 1,200 mg Guaifenesin/Phenylephrine HCl (Robitussin Dm) 10 ml PO QID PRN PRN Reason: Cough Last Admin: 10/04/16 03:36 Dose: 10 ml Hydralazine HCl (Apresoline) 20 mg IVPUSH Q6H PRN PRN Reason: Hypertension Last Admin: 10/05/16 16:19 Dose: 20 mg Levofloxacin/Dextrose 750 mg/ (Premix) 150 mls @ 100 mls/hr IV Q24H [facility] Last Admin: 10/05/16 13:49 Dose: 100 mls/hr Piperacillin Sod/Tazobactam (Sod 4.5 gm/ Sodium Chloride) 100 mls @ 25 mls/hr IV Q8H [facility] Last Admin: 10/06/16 10:34 Dose: 25 mls/hr Lisinopril (Prinivil) 20 mg PO BID [facility] Last Admin: 10/06/16 10:34 Dose: 20 mg Methylprednisolone Sodium Succinate (Solu-Medrol) 40 mg IVPUSH Q8H [facility] Last Admin: 10/06/16 08:27 Dose: 40 mg Multivitamins (Thera) 1 each PO DAILY [facility] Last Admin: 10/06/16 08:27 Dose: 1 each Nitroglycerin (Nitrostat) 0.4 mg SL Q5M PRN PRN Reason: chest pain Pantoprazole Sodium (Protonix) 40 mg PO DAILY@0700 [facility] Last Admin: 10/06/16 06:10 Dose: 40 mg Roflumilast 500 Mcg 0 each PO DAILY [facility] Last Admin: 10/06/16 08:33 Dose: 1 each Risedronate Sodium (150 Mg) 0 each PO Q30D [facility] Arformoterol 15 Mcg 0 each NEB BID [facility] Last Admin: 10/06/16 09:25 Dose: 1 each Aclidinium [place] [ Tudorza Pressair] 1 Puff 0 each INH BID [facility] Last Admin: 10/06/16 09:25 Dose: Not Given Silver Sulfadiazine (Silvadene 1% Cream 50 Gm) 0 gm TOP ASDIRECTED PRN PRN Reason: Other Simvastatin (Zocor) 40 mg PO BEDTIME [facility] Last Admin: 10/05/16 21:41 Dose: 40 mg Sodium Chloride (Saline Flush) 10 ml FLUSH ASDIRECTED PRN PRN Reason: Keep Vein Open Last Admin: 10/03/16 11:59 Dose: 10 ml Triamcinolone Acetonide (Triamcinolone Acetonide 0.1% Crm) 0 gm TOP DAILY PRN PRN Reason: Itching Discontinued Medications Acetaminophen (Tylenol) 650 mg PO NOW ONE Stop: 10/03/16 13:27 Last Admin: 10/03/16 13:34 Dose: 650 mg Albuterol/Ipratropium (Duoneb 3.0-0.5 Mg/3 Ml) 3 ml NEB ONETIME ONE Stop: 10/03/16 11:46 Last Admin: 10/03/16 12:03 Dose: 3 ml Albuterol/Ipratropium (Duoneb 3.0-0.5 Mg/3 Ml) 3 ml NEB Q6HRRT [facility] Last Admin: 10/05/16 06:14 Dose: 3 ml Amitriptyline HCl (Elavil) 25 mg PO BEDTIME [facility] Amitriptyline HCl (Elavil) 50 mg PO BEDTIME [facility] Last Admin: 10/03/16 20:16 Dose: 50 mg Sodium Chloride (Normal Saline) 500 mls @ 500 mls/hr IV ONETIME ONE Stop: 10/03/16 12:45 Last Admin: 10/03/16 11:59 Dose: 500 mls/hr Sodium Chloride (Normal Saline) 100 mls @ 60 mls/hr IV ASDIRECTED [facility] Last Admin: 10/03/16 17:15 Dose: 60 mls/hr Levofloxacin/Dextrose 750 mg/ (Premix) 150 mls @ 100 mls/hr IV ONETIME ONE Stop: 10/03/16 14:24 Last Admin: 10/03/16 14:06 Dose: 100 mls/hr Piperacillin Sod/Tazobactam (Sod 4.5 gm/ Sodium Chloride) 100 mls @ 200 mls/hr IV ONETIME ONE Stop: 10/04/16 10:59 Last Admin: 10/04/16 10:22 Dose: 200 mls/hr Iopamidol (Isovue-370 (76%)) 100 ml IVPUSH ONETIME ONE Stop: 10/03/16 12:31 Last Admin: 10/03/16 12:36 Dose: 100 ml Simvastatin (Zocor) 10 mg PO BEDTIME [facility] Last Admin: 10/03/16 20:16 Dose: 10 mg Sodium Chloride (Saline Flush) 10 ml FLUSH ONETIME ONE Stop: 10/03/16 12:31 Last Admin: 10/03/16 12:36 Dose: 10 ml - Exam Quality Assessment: supplemental oxygen, DVT prophylaxis General: alert, oriented, cooperative, no acute distress HEENT: Pupils equal, Pupils reactive, EOMI Neck: supple, trachea midline Lungs: Normal respiratory effort, Decreased breath sounds, Wheezing Cardiovascular: Regular Rate Abdomen: bowel sounds present, soft, no tenderness, no distension (Male) Exam: Deferred Back Exam: normal inspection Extremities: normal pulses Skin: warm Neurological: no new focal deficit, normal speech Psy/Mental Status: alert, normal affect, normal mood - Problem List & Annotations (1) Pneumonia SNOMED Code(s): 029883287 Code(s): J18.9 - PNEUMONIA, UNSPECIFIED ORGANISM Status: Acute Priority: High Current Visit: Yes Qualifiers: Pneumonia type: due to unspecified organism Lung location: unspecified part of lung (2) COPD (chronic obstructive pulmonary disease) with emphysema SNOMED Code(s): 47360169 Code(s): J43.9 - EMPHYSEMA, UNSPECIFIED Status: Chronic Priority: High Current Visit: Yes Qualifiers: Emphysema type: panlobular Qualified Code(s): J43.1 - Panlobular emphysema (3) Anemia SNOMED Code(s): 149269627 Code(s): D64.9 - ANEMIA, UNSPECIFIED Status: Chronic Priority: High Current Visit: Yes Qualifiers: Anemia type: unspecified type Qualified Code(s): D64.9 - Anemia, unspecified Annotation/Comment:: macrocytic - Problem List Review Problem List Initiated/Reviewed/Updated: Yes - My Orders Last 24 Hours: My Active Orders 10/05/16 16:02 hydrALAZINE [Apresoline] 20 mg IVPUSH Q6H PRN 10/06/16 09:15 Lisinopril [Prinivil] 20 mg PO BID 10/11/16 06:00 Patient's Own Medication [Ptom] 0 each PO Q30D - Plan Plan:: Impression/Plan -HCAP with increased and change in sputum production, pleuritic chest pains, improving leukocytosis -Empiric tx -Solumedrol IV -Aggressive pulmonary toilet -Cont supplemental O2 to keep sats >90% -CXR today- shows RLL pneumonia- treatment as above -Recent admission, 08/27-08/30/2016 for PNA Severe COPD patient on chronic O2 and steroids -Cont usual home meds and tx as above Abnormal CT of thorax, multiple tiny nodules- ? malignancy -Chart review states has had recent fup with Pulmonology -Will arrange recheck with [facility] after discharge; images from CT to [facility] HTN-Restarted lisinopril 20 mg; will use 20 mg BID or as tolerated; reportedly is allergic to hydrazine. Chronic anemia -Monitor labs daily -Workup in the past unremarkable, has refused colonoscopy on prior admissions CKD -Monitor labs daily -Renal dosing all meds- per pharmacy Chronic--cont usual home meds CAD PVD HTN GERD Other: DVT and GI prophylaxis CM/SW for DC planning- Patient just moved into [facility] assisted living home end of August, is slowly accepting this transition as family urged this placement. PT/OT LOS will be 96 + hours due to recurrent pneumonia and need for complete course of IV abx treatment Patient is DNR/DNI
[2016-10-06] MEDS: Levofloxacin/Dextrose 5%-Water 750 MG in Premix Bag 1 BAG IV SCH (14:35)
[2016-10-06] MEDS: Amitriptyline 25 MG Tab PO SCH (20:19)
[2016-10-06] MEDS: Simvastatin 40 MG Tab PO SCH (20:20)
[2016-10-07] MEDS: methylPREDNISolone Sodium Succinate 40 MG/1 ML SDV IVPUSH SCH ×3 (02:44→20:19)
[2016-10-07] MEDS: Piperacillin/Tazobactam 4.5 GM in Sodium Chloride 0.9% 100 ML IV SCH ×3 (02:44→17:52)
[2016-10-07] MEDS: hydrALAZINE 20 MG/ML SDV IVPUSH PRN (03:40)
[2016-10-07] MEDS: Albuterol/Ipratropium 3.0-0.5 MG/3 ML Neb Soln NEB SCH ×4 (06:14→20:50)
[2016-10-07] MEDS: Pantoprazole 40 MG Tab.CR PO SCH (06:20)
[2016-10-07] MEDS: Multivitamins,Therapeutic Tab PO SCH (08:14)
[2016-10-07] MEDS: guaiFENesin 600 MG Tab.ER PO SCH ×2 (08:14→20:19)
[2016-10-07] MEDS: Carvedilol 12.5 MG Tab PO SCH ×2 (08:15→20:20)
[2016-10-07] MEDS: Clopidogrel 75 MG Tab PO SCH (08:15)
[2016-10-07] MEDS: Enoxaparin 40 MG/0.4 ML Syringe SUBCUT SCH (08:15)
[2016-10-07] MEDS: Lisinopril 20 MG Tab PO SCH ×2 (08:15→20:19)
[2016-10-07] MEDS: Benzonatate 100 MG Cap PO SCH ×3 (08:15→20:19)
[2016-10-07] MEDS: ACLIDINIUM BROMIDE INH SCH ×2 (08:54→20:51)
[2016-10-07] MEDS: Budesonide 0.5 MG/2 ML Neb Susp NEB SCH ×2 (09:02→20:50)
[2016-10-07] MEDS: ARFORMOTEROL 15 MCG NEB SCH ×2 (09:02→20:51)
--- NOTE | 2016-10-07 09:35 | PCM.PN ---
- General Info Date of Service: 10/07/16 Functional Status: Reports: tolerating diet, ambulating, urinating - Review of Systems General: Reports: No Symptoms HEENT: Reports: no symptoms Pulmonary: Reports: shortness of breath (decreased) Cardiovascular: Reports: No Symptoms Gastrointestinal: Reports: No symptoms Genitourinary: Reports: no symptoms Musculoskeletal: Reports: no symptoms Skin: Reports: no symptoms Neurological: Reports: No Symptoms Psychiatric: Reports: no symptoms - Patient Data Vitals - most recent: Last Vital Signs Temp 36.1 C 10/07/16 08:14 Pulse 87 10/07/16 08:15 Resp 18 10/07/16 08:14 BP 160/81 H 10/07/16 08:15 Pulse Ox 97 10/07/16 09:03 Weight - most recent: 78.381 kg I&O - last 24 hours: Intake & Output 10/06/16 10/07/16 10/07/16 22:59 06:59 14:59 Intake Total 1680 400 Output Total 1850 1050 Balance -170 -650 Med Orders - Current: Current Medications Acetaminophen (Tylenol) 650 mg PO Q4H PRN PRN Reason: Pain Last Admin: 10/04/16 01:44 Dose: 650 mg Albuterol (Proventil Neb Soln) 2.5 mg NEB QID PRN PRN Reason: Wheezing Last Admin: 10/04/16 09:41 Dose: 2.5 mg Albuterol/Ipratropium (Duoneb 3.0-0.5 Mg/3 Ml) 3 ml NEB QIDRT [facility] Last Admin: 10/07/16 09:02 Dose: 3 ml Amitriptyline HCl (Elavil) 25 - 50 mg PO BEDTIME [facility] Last Admin: 10/06/16 20:19 Dose: 50 mg Benzonatate (Tessalon Perles) 100 mg PO TID [facility] Last Admin: 10/07/16 08:15 Dose: 100 mg Budesonide (Pulmicort) 0.5 mg NEB BID [facility] Last Admin: 10/07/16 09:02 Dose: 0.5 mg Carvedilol (Coreg) 12.5 mg PO BID [facility] Last Admin: 10/07/16 08:15 Dose: 12.5 mg Clopidogrel Bisulfate (Plavix) 75 mg PO DAILY [facility] Last Admin: 10/07/16 08:15 Dose: 75 mg Docusate Sodium (Colace) 100 mg PO DAILY PRN PRN Reason: Constipation Last Admin: 10/04/16 20:52 Dose: 100 mg Enoxaparin Sodium (Lovenox) 40 mg SUBCUT DAILY [facility] Last Admin: 10/07/16 08:15 Dose: Not Given Guaifenesin (Mucinex) 1,200 mg PO BID [facility] Last Admin: 10/07/16 08:14 Dose: 1,200 mg Guaifenesin/Phenylephrine HCl (Robitussin Dm) 10 ml PO QID PRN PRN Reason: Cough Last Admin: 10/04/16 03:36 Dose: 10 ml Hydralazine HCl (Apresoline) 20 mg IVPUSH Q6H PRN PRN Reason: Hypertension Last Admin: 10/07/16 03:40 Dose: 20 mg Levofloxacin/Dextrose 750 mg/ (Premix) 150 mls @ 100 mls/hr IV Q24H [facility] Last Admin: 10/06/16 14:35 Dose: 100 mls/hr Piperacillin Sod/Tazobactam (Sod 4.5 gm/ Sodium Chloride) 100 mls @ 25 mls/hr IV Q8H [facility] Last Admin: 10/07/16 02:44 Dose: 25 mls/hr Lisinopril (Prinivil) 20 mg PO BID [facility] Last Admin: 10/07/16 08:15 Dose: 20 mg Methylprednisolone Sodium Succinate (Solu-Medrol) 40 mg IVPUSH Q8H [facility] Last Admin: 10/07/16 08:15 Dose: 40 mg Multivitamins (Thera) 1 each PO DAILY [facility] Last Admin: 10/07/16 08:14 Dose: 1 each Nitroglycerin (Nitrostat) 0.4 mg SL Q5M PRN PRN Reason: chest pain Pantoprazole Sodium (Protonix) 40 mg PO DAILY@0700 [facility] Last Admin: 10/07/16 06:20 Dose: 40 mg Roflumilast 500 Mcg 0 each PO DAILY [facility] Last Admin: 10/07/16 08:15 Dose: 1 each Risedronate Sodium (150 Mg) 0 each PO Q30D [facility] Arformoterol 15 Mcg 0 each NEB BID [facility] Last Admin: 10/07/16 09:02 Dose: 1 each Aclidinium [place] [ Tudorza Pressair] 1 Puff 0 each INH BID [facility] Last Admin: 10/07/16 08:54 Dose: Not Given Silver Sulfadiazine (Silvadene 1% Cream 50 Gm) 0 gm TOP ASDIRECTED PRN PRN Reason: Other Simvastatin (Zocor) 40 mg PO BEDTIME [facility] Last Admin: 10/06/16 20:20 Dose: 40 mg Sodium Chloride (Saline Flush) 10 ml FLUSH ASDIRECTED PRN PRN Reason: Keep Vein Open Last Admin: 10/03/16 11:59 Dose: 10 ml Triamcinolone Acetonide (Triamcinolone Acetonide 0.1% Crm) 0 gm TOP DAILY PRN PRN Reason: Itching Discontinued Medications Acetaminophen (Tylenol) 650 mg PO NOW ONE Stop: 10/03/16 13:27 Last Admin: 10/03/16 13:34 Dose: 650 mg Albuterol/Ipratropium (Duoneb 3.0-0.5 Mg/3 Ml) 3 ml NEB ONETIME ONE Stop: 10/03/16 11:46 Last Admin: 10/03/16 12:03 Dose: 3 ml Albuterol/Ipratropium (Duoneb 3.0-0.5 Mg/3 Ml) 3 ml NEB Q6HRRT [facility] Last Admin: 10/05/16 06:14 Dose: 3 ml Amitriptyline HCl (Elavil) 25 mg PO BEDTIME [facility] Amitriptyline HCl (Elavil) 50 mg PO BEDTIME [facility] Last Admin: 10/03/16 20:16 Dose: 50 mg Sodium Chloride (Normal Saline) 500 mls @ 500 mls/hr IV ONETIME ONE Stop: 10/03/16 12:45 Last Admin: 10/03/16 11:59 Dose: 500 mls/hr Sodium Chloride (Normal Saline) 100 mls @ 60 mls/hr IV ASDIRECTED [facility] Last Admin: 10/03/16 17:15 Dose: 60 mls/hr Levofloxacin/Dextrose 750 mg/ (Premix) 150 mls @ 100 mls/hr IV ONETIME ONE Stop: 10/03/16 14:24 Last Admin: 10/03/16 14:06 Dose: 100 mls/hr Piperacillin Sod/Tazobactam (Sod 4.5 gm/ Sodium Chloride) 100 mls @ 200 mls/hr IV ONETIME ONE Stop: 10/04/16 10:59 Last Admin: 10/04/16 10:22 Dose: 200 mls/hr Iopamidol (Isovue-370 (76%)) 100 ml IVPUSH ONETIME ONE Stop: 10/03/16 12:31 Last Admin: 10/03/16 12:36 Dose: 100 ml Simvastatin (Zocor) 10 mg PO BEDTIME [facility] Last Admin: 10/03/16 20:16 Dose: 10 mg Sodium Chloride (Saline Flush) 10 ml FLUSH ONETIME ONE Stop: 10/03/16 12:31 Last Admin: 10/03/16 12:36 Dose: 10 ml - Exam Quality Assessment: supplemental oxygen, DVT prophylaxis General: alert, oriented, cooperative, no acute distress HEENT: Pupils equal, Pupils reactive, EOMI Neck: supple, trachea midline Lungs: Normal respiratory effort, Decreased breath sounds, Wheezing Cardiovascular: Regular Rate Abdomen: bowel sounds present, soft, no tenderness, no distension (Male) Exam: Deferred Back Exam: normal inspection Extremities: normal pulses Skin: warm Neurological: no new focal deficit, normal speech Psy/Mental Status: alert, normal affect, normal mood - Problem List & Annotations (1) Pneumonia SNOMED Code(s): 649280002 Code(s): J18.9 - PNEUMONIA, UNSPECIFIED ORGANISM Status: Acute Priority: High Current Visit: Yes Qualifiers: Pneumonia type: due to unspecified organism Lung location: unspecified part of lung (2) COPD (chronic obstructive pulmonary disease) with emphysema SNOMED Code(s): 11112267 Code(s): J43.9 - EMPHYSEMA, UNSPECIFIED Status: Chronic Priority: High Current Visit: Yes Qualifiers: Emphysema type: panlobular Qualified Code(s): J43.1 - Panlobular emphysema (3) Anemia SNOMED Code(s): 913810108 Code(s): D64.9 - ANEMIA, UNSPECIFIED Status: Chronic Priority: High Current Visit: Yes Qualifiers: Anemia type: unspecified type Qualified Code(s): D64.9 - Anemia, unspecified Annotation/Comment:: macrocytic - Problem List Review Problem List Initiated/Reviewed/Updated: Yes - My Orders Last 24 Hours: My Active Orders 10/06/16 09:15 Lisinopril [Prinivil] 20 mg PO BID 10/11/16 06:00 Patient's Own Medication [Ptom] 0 each PO Q30D - Plan Plan:: Impression/Plan -HCAP with increased and change in sputum production, pleuritic chest pains, improving leukocytosis -Empiric tx -Solumedrol IV decreased frequency to Q 12 H -Aggressive pulmonary toilet -Cont supplemental O2 to keep sats >90% -CXR today- shows RLL pneumonia- treatment as above -Recent admission, 08/27-08/30/2016 for PNA Severe COPD patient on chronic O2 and steroids -Cont usual home meds and tx as above Abnormal CT of thorax, multiple tiny nodules- ? malignancy -Chart review states has had recent fup with Pulmonology -Will arrange recheck with [facility] after discharge; images from CT to [facility] HTN-Restarted lisinopril 20 mg; will use 20 mg BID or as tolerated; reportedly is allergic to hydrazine. Chronic anemia -Monitor labs daily -Workup in the past unremarkable, has refused colonoscopy on prior admissions CKD -Monitor labs daily -Renal dosing all meds- per pharmacy Chronic--cont usual home meds CAD PVD HTN GERD Other: DVT and GI prophylaxis CM/SW for DC planning- Patient just moved into [facility] assisted living home end of August, is slowly accepting this transition as family urged this placement. PT/OT LOS will be 96 + hours due to recurrent pneumonia and need for complete course of IV abx treatment Patient is DNR/DNI DC 24-48 hours
[2016-10-07] MEDS: Levofloxacin/Dextrose 5%-Water 750 MG in Premix Bag 1 BAG IV SCH (14:31)
[2016-10-07] MEDS: Simvastatin 40 MG Tab PO SCH (20:19)
[2016-10-07] MEDS: Amitriptyline 25 MG Tab PO SCH (20:19)
[2016-10-08] MEDS: Piperacillin/Tazobactam 4.5 GM in Sodium Chloride 0.9% 100 ML IV SCH ×2 (03:34→12:50)
[2016-10-08] MEDS: hydrALAZINE 20 MG/ML SDV IVPUSH PRN (03:39)
[2016-10-08] MEDS: Albuterol/Ipratropium 3.0-0.5 MG/3 ML Neb Soln NEB SCH ×2 (05:50→09:53)
[2016-10-08] MEDS: Pantoprazole 40 MG Tab.CR PO SCH (06:09)
[2016-10-08 07:46] VITALS: BP 161/75
--- NOTE | 2016-10-08 08:41 | PCM.DCSUM1 ---
<Susie Loaiza - Last Filed: 10/08/16 12:17> Discharge Summary - Hospital Course Free Text/Narrative:: 75 year old male with severe COPD, requires chronic O2 and steroids recently was treated for PNA and Influenza returns with similar complaints of productive cough with sputum. A CT of the thorax done in ER documents a change from the previous study, "innumerable tiny nodular densities" are noted; differential includes atypical infectious process vs malignancy. The cough has been present for ten days with a change in color from white to yellowish-green. The chest pain is sharp in nature, appears to be present on the right lateral rib cage but none on the left side; worse with inspiration and with coughing. The patient was discharged on 08/30/16 on prednisone 10 mg without an antibiotic. He has been seen by his pulmonary physician since discharged; Theophylline which had been started during the hospitalization has been subsequently discontinued. Hospitalist service is asked to admit for COPD exacerbation, clinical pneumonia. Patient is admitted to medical surgical unit. Treated with gently hydration as hx of CHF, IV antibiotics of zosyn and levaquin, IV steroids/solumedrol and aggressive pulmonary toilet. He was maintained on supplemental oxygen. He had significant improvements early on with improvement to resolution of rt sided chest pain, coughing improved. WBC increased, thought to be due to steroid use. CXR was repeated and revealed RLL infiltrate. He was continued on IV abx as above and continued to have good response. He will be [facility] [place] today on Prednisone taper and zithromax x 5 days, continue on Neb tx's and baseline oxygen therapy. He should have follow up with his PCP, Dr. Osborn within 5-7 days of discharge with labs prior; CBC and BMP. He should have follow up with Pulmonology for recheck as soon as is able for re- evaluation of new multiple pulmonary nodules as there is concern for possible malignancy. Patient is aware of this and is concerned as well. - Discharge Data Discharge Date: 10/08/16 (admit date 10/03/16) Discharge Disposition: DC/Tfer to Other 70 Condition: Good - Discharge Diagnosis/Problem(s) (1) Pneumonia SNOMED Code(s): 458423484 ICD Code: J18.9 - PNEUMONIA, UNSPECIFIED ORGANISM Status: Acute Priority : High Qualifiers: Pneumonia type: due to unspecified organism Lung location: unspecified part of lung (2) COPD exacerbation SNOMED Code(s): 457455508, 986245068 ICD Code: J44.1 - CHRONIC OBSTRUCTIVE PULMONARY DISEASE W (ACUTE) EXACERBATION Status: Acute Priority: High (3) Anemia SNOMED Code(s): 596814986 ICD Code: D64.9 - ANEMIA, UNSPECIFIED Status: Chronic Priority: High Problem Details: macrocytic Qualifiers: Anemia type: unspecified type Qualified Code(s): D64.9 - Anemia, unspecified (4) Renal insufficiency SNOMED Code(s): 752982064 ICD Code: N28.9 - DISORDER OF KIDNEY AND URETER, UNSPECIFIED Status: Chronic Priority: High (5) Pulmonary nodules/lesions, multiple SNOMED Code(s): 833591469 ICD Code: R91.8 - OTHER NONSPECIFIC ABNORMAL FINDING OF LUNG FIELD Status: Acute Priority: High Problem Details: new finding on chest CT done on - Patient Summary/Data Operative Procedure(s) Performed: None Complications: None Consults: Consultations 10/03/16 18:37 Consult to Occupational Therapy [OT Evaluation and Treatment] [CONS] Routine PT Evaluation and Treatment [CONS] Routine Labs Pending at D/C: None Recommended Follow-up Testing/Procedures: Follow up with PCP, Dr. Osborn within 5-7 days of discharge with labs prior, CBC and BMP Follow up, recheck with Pulmonology as soon as able/possible for recheck and eval of multiple and new pulmonary nodules noted on CT scan Planned Operative Procedure(s) after DC: None Hospital Course: As above - Patient Instructions Diet: Heart Healthy Diet Activity: As Tolerated Driving: Do Not Drive Showering/Bathing: May Shower Notify Provider of: Fever, Increased Pain, Swelling and Redness, Nausea and/or Vomiting (worsening of cough, shortness of breath, chest pain, swelling of legs , weakness) - Discharge Plan Prescriptions/Med Rec: Albuterol/Ipratropium [DuoNeb 3.0-0.5 MG/3 ML] 3 ml NEB QIDRT #1 box Azithromycin [Zithromax] 250 mg PO DAILY #5 tablet Benzonatate [Tessalon Perles] 100 mg PO TID #40 cap Dextromethorphan/guaiFENesin [Robitussin DM] 10 ml PO QID PRN #240 ml PRN Reason: Cough Furosemide [Lasix] 20 mg PO DAILY #30 tablet Prednisone [IJD: Prednisone] 10 mg PO DAILY #30 tab Home Medications: Home Meds Aclidinium [place] [Tudorza Pressair] 1 puff IH BID 04/24/16 [History] Albuterol Sulfate 2.5 mg IH TID PRN 04/24/16 [History] Amitriptyline [Elavil] 50 mg PO BEDTIME 04/24/16 [History] Arformoterol [Brovana] 15 mcg NEB BID 04/24/16 [History] Budesonide [Pulmicort] 0.5 mg IH BID 04/24/16 [History] Clopidogrel [Plavix] 75 mg PO DAILY 04/24/16 [History] Montelukast [Singulair] 10 mg PO BEDTIME 04/24/16 [History] Multivitamin [Multivitamins] 1 each PO DAILY 04/24/16 [History] Nitroglycerin 0.4 mg SL Q5M PRN 04/24/16 [History] [place]-3/DHA/Epa/Fish Oil [Fish Oil 1,000 mg Softgel] 1 each PO DAILY 04/24/16 [ History] Risedronate Sodium 150 mg PO Q30D 04/24/16 [History] Roflumilast [Daliresp] 500 mcg PO DAILY 04/24/16 [History] Triamcinolone Acetonide [Triamcinolone Acetonide 0.1% Crm] 15 gm TOP DAILY PRN 04/24/16 [History] atorvaSTATin [Lipitor] 40 mg PO BEDTIME 04/24/16 [History] predniSONE [Prednisone] 5 mg PO DAILY 04/24/16 [History] Pantoprazole [ProTONIX] 40 mg PO 0700 #30 tab.cr 04/30/16 [Rx] Albuterol [IJD: Albuterol HFA] 2 puff INH Q4H PRN 06/14/16 [History] Calcium Carbonate/Vitamin D3 [Calcium 600 + Vit D Tablet] 1 tab PO DAILY [History] EPINEPHrine [Epipen] 0.3 mg IM ASDIRECTED PRN 08/27/16 [History] Lisinopril [Prinivil] 20 mg PO DAILY 08/27/16 [History] Silver Sulfadiazine [Silvadene 1% Cream 20 GM] 1 dose TOP ASDIRECTED PRN [History] guaiFENesin [Tussin] 400 mg PO ASDIRECTED PRN 08/27/16 [History] Docusate Sodium 100 mg PO DAILY PRN 08/28/16 [History] guaiFENesin [Mucinex] 1,200 mg PO BID #60 tab.er 08/31/16 [Rx] Carvedilol [Coreg] 12.5 mg PO BID 10/04/16 [History] Albuterol/Ipratropium [DuoNeb 3.0-0.5 MG/3 ML] 3 ml NEB QIDRT #1 box 10/08/16 [ Rx] Azithromycin [Zithromax] 250 mg PO DAILY #5 tablet 10/08/16 [Rx] Benzonatate [Tessalon Perles] 100 mg PO TID #40 cap 10/08/16 [Rx] Dextromethorphan/guaiFENesin [Robitussin DM] 10 ml PO QID PRN #240 ml 10/08/16 [ Rx] Furosemide [Lasix] 20 mg PO DAILY #30 tablet 10/08/16 [Rx] Prednisone [IJD: Prednisone] 10 mg PO DAILY #30 tab 10/08/16 [Rx] Patient Handouts: Chronic Obstructive Pulmonary Disease Exacerbation, Easy-to- Read, How to Use a Nebulizer, Chronic Obstructive Pulmonary Disease, Easy-to- Read, Oxygen Use at Home, Heart Failure, [id number], Community-Acquired Pneumonia, Adult, [id number] Forms: ED Department Discharge Referrals: Jess Klein MD [Ordering Only Provider] - Domingo Osborn Jr, MD [Primary Care Provider] - - Discharge Summary/Plan Comment DC Time >30 min.: Yes (40 min) - General Info Date of Service: 10/08/16 Admission Dx/Problem (Free Text: Admission Diagnosis/Problem Admission Diagnosis/Problem Pneumonia "Chau" is seen this morning. Cough much improved, at baseline. Slept well last night. Overall feels much better; still has sensation to rt lower/lateral chest with coughing but much improved Plans for DC back to assisted living in [place] today. Functional Status: Reports: pain controlled, tolerating diet, ambulating, urinating. Denies: new symptoms - Review of Systems General: Reports: No Symptoms. Denies: Fever HEENT: Reports: no symptoms Pulmonary: Reports: no symptoms, shortness of breath (chronic and at baseline), pleuritic chest pain (rt lower/lateral chest with coughing only- not noted at rest now), cough (improved ) Cardiovascular: Reports: No Symptoms, Dyspnea on Exertion (at baseline). Denies : Chest Pain, Palpitations Gastrointestinal: Reports: No symptoms Genitourinary: Reports: no symptoms Musculoskeletal: Reports: no symptoms Neurological: Reports: No Symptoms Psychiatric: Reports: no symptoms - Patient Data Vitals - Most Recent: Last Vital Signs Temp 97.9 F 10/08/16 07:44 Pulse 63 10/08/16 07:44 Resp 14 10/08/16 07:44 BP 161/75 H 10/08/16 07:44 Pulse Ox 100 10/08/16 07:44 Weight - Most Recent: 78.925 kg I&O - Last 24 hours: Intake & Output 10/07/16 10/08/16 10/08/16 22:59 06:59 14:59 Intake Total 1890 600 Output Total 2000 400 Balance -110 200 Lab Results - Last 24 hrs: Laboratory Results - last 24 hr 10/08/16 10/08/16 Range/Units 05:22 05:22 WBC 20.18 H (4.23-9.07) K/mm3 RBC 3.64 L (4.63-6.08) M/mm3 Hgb 11.0 L (13.7-17.5) gm/L Hct 34.7 L (40.1-51.0) % MCV 95.3 H (79.0-92.2) fl MCH 30.2 (25.7-32.2) pg MCHC 31.7 L (32.2-35.5) g/dl RDW Std Deviation 57.7 H (35.1-43.9) fL Plt Count 494 H (163-337) K/mm3 MPV 9.4 (9.4-12.3) fl Vitamin B12 577 (193-986) pg/ml Folate 18.6 (8.6-58.9) ng/mL Med Orders - Current: Current Medications Acetaminophen (Tylenol) 650 mg PO Q4H PRN PRN Reason: Pain Last Admin: 10/04/16 01:44 Dose: 650 mg Albuterol (Proventil Neb Soln) 2.5 mg NEB QID PRN PRN Reason: Wheezing Last Admin: 10/04/16 09:41 Dose: 2.5 mg Albuterol/Ipratropium (Duoneb 3.0-0.5 Mg/3 Ml) 3 ml NEB QIDRT [facility] Last Admin: 10/08/16 05:50 Dose: 3 ml Amitriptyline HCl (Elavil) 25 - 50 mg PO BEDTIME [facility] Last Admin: 10/07/16 20:19 Dose: 50 mg Benzonatate (Tessalon Perles) 100 mg PO TID [facility] Last Admin: 10/07/16 20:19 Dose: 100 mg Budesonide (Pulmicort) 0.5 mg NEB BID [facility] Last Admin: 10/07/16 20:50 Dose: 0.5 mg Carvedilol (Coreg) 12.5 mg PO BID [facility] Last Admin: 10/07/16 20:20 Dose: 12.5 mg Clopidogrel Bisulfate (Plavix) 75 mg PO DAILY [facility] Last Admin: 10/07/16 08:15 Dose: 75 mg Docusate Sodium (Colace) 100 mg PO DAILY PRN PRN Reason: Constipation Last Admin: 10/04/16 20:52 Dose: 100 mg Enoxaparin Sodium (Lovenox) 40 mg SUBCUT DAILY [facility] Last Admin: 10/07/16 08:15 Dose: Not Given Furosemide (Lasix) 20 mg PO DAILY [facility] Guaifenesin (Mucinex) 1,200 mg PO BID [facility] Last Admin: 10/07/16 20:19 Dose: 1,200 mg Guaifenesin/Phenylephrine HCl (Robitussin Dm) 10 ml PO QID PRN PRN Reason: Cough Last Admin: 10/04/16 03:36 Dose: 10 ml Hydralazine HCl (Apresoline) 20 mg IVPUSH Q6H PRN PRN Reason: Hypertension Last Admin: 10/08/16 03:39 Dose: 20 mg Levofloxacin/Dextrose 750 mg/ (Premix) 150 mls @ 100 mls/hr IV Q24H [facility] Last Admin: 10/07/16 14:31 Dose: 100 mls/hr Piperacillin Sod/Tazobactam (Sod 4.5 gm/ Sodium Chloride) 100 mls @ 25 mls/hr IV Q8H [facility] Last Admin: 10/08/16 03:34 Dose: 25 mls/hr Lisinopril (Prinivil) 20 mg PO BID [facility] Last Admin: 10/07/16 20:19 Dose: 20 mg Methylprednisolone Sodium Succinate (Solu-Medrol) 40 mg IVPUSH Q12H [facility] Last Admin: 10/07/16 20:19 Dose: 40 mg Multivitamins (Thera) 1 each PO DAILY [facility] Last Admin: 10/07/16 08:14 Dose: 1 each Nitroglycerin (Nitrostat) 0.4 mg SL Q5M PRN PRN Reason: chest pain Pantoprazole Sodium (Protonix) 40 mg PO DAILY@0700 [facility] Last Admin: 10/08/16 06:09 Dose: 40 mg Roflumilast 500 Mcg 0 each PO DAILY [facility] Last Admin: 10/07/16 08:15 Dose: 1 each Risedronate Sodium (150 Mg) 0 each PO Q30D [facility] Arformoterol 15 Mcg 0 each NEB BID [facility] Last Admin: 10/07/16 20:51 Dose: 1 each Aclidinium [place] [ Tudorza Pressair] 1 Puff 0 each INH BID [facility] Last Admin: 10/07/16 20:51 Dose: Not Given Silver Sulfadiazine (Silvadene 1% Cream 50 Gm) 0 gm TOP ASDIRECTED PRN PRN Reason: Other Simvastatin (Zocor) 40 mg PO BEDTIME [facility] Last Admin: 10/07/16 20:19 Dose: 40 mg Sodium Chloride (Saline Flush) 10 ml FLUSH ASDIRECTED PRN PRN Reason: Keep Vein Open Last Admin: 10/03/16 11:59 Dose: 10 ml Triamcinolone Acetonide (Triamcinolone Acetonide 0.1% Crm) 0 gm TOP DAILY PRN PRN Reason: Itching Discontinued Medications Acetaminophen (Tylenol) 650 mg PO NOW ONE Stop: 10/03/16 13:27 Last Admin: 10/03/16 13:34 Dose: 650 mg Albuterol/Ipratropium (Duoneb 3.0-0.5 Mg/3 Ml) 3 ml NEB ONETIME ONE Stop: 10/03/16 11:46 Last Admin: 10/03/16 12:03 Dose: 3 ml Albuterol/Ipratropium (Duoneb 3.0-0.5 Mg/3 Ml) 3 ml NEB Q6HRRT [facility] Last Admin: 10/05/16 06:14 Dose: 3 ml Amitriptyline HCl (Elavil) 25 mg PO BEDTIME [facility] Amitriptyline HCl (Elavil) 50 mg PO BEDTIME [facility] Last Admin: 10/03/16 20:16 Dose: 50 mg Sodium Chloride (Normal Saline) 500 mls @ 500 mls/hr IV ONETIME ONE Stop: 10/03/16 12:45 Last Admin: 10/03/16 11:59 Dose: 500 mls/hr Sodium Chloride (Normal Saline) 100 mls @ 60 mls/hr IV ASDIRECTED [facility] Last Admin: 10/03/16 17:15 Dose: 60 mls/hr Levofloxacin/Dextrose 750 mg/ (Premix) 150 mls @ 100 mls/hr IV ONETIME ONE Stop: 10/03/16 14:24 Last Admin: 10/03/16 14:06 Dose: 100 mls/hr Piperacillin Sod/Tazobactam (Sod 4.5 gm/ Sodium Chloride) 100 mls @ 200 mls/hr IV ONETIME ONE Stop: 10/04/16 10:59 Last Admin: 10/04/16 10:22 Dose: 200 mls/hr Iopamidol (Isovue-370 (76%)) 100 ml IVPUSH ONETIME ONE Stop: 10/03/16 12:31 Last Admin: 10/03/16 12:36 Dose: 100 ml Methylprednisolone Sodium Succinate (Solu-Medrol) 40 mg IVPUSH Q8H [facility] Last Admin: 10/07/16 08:15 Dose: 40 mg Simvastatin (Zocor) 10 mg PO BEDTIME [facility] Last Admin: 10/03/16 20:16 Dose: 10 mg Sodium Chloride (Saline Flush) 10 ml FLUSH ONETIME ONE Stop: 10/03/16 12:31 Last Admin: 10/03/16 12:36 Dose: 10 ml - Exam Quality Assessment: Reports: supplemental oxygen, DVT prophylaxis General: Reports: alert, oriented, cooperative, no acute distress HEENT: Reports: Pupils equal, Pupils reactive, EOMI, Mucous membr. moist/pink Neck: Reports: supple Lungs: Reports: Normal respiratory effort, Decreased breath sounds, Rhonchi (rt base), Wheezing (minimal but scattered throughout) Cardiovascular: Reports: Regular Rate, Regular Rhythm, Other (distant heart tones) Abdomen: Reports: bowel sounds present, soft, no tenderness, no distension (Male) Exam: Deferred Rectal (Males) Exam: Deferred Back Exam: Reports: normal inspection Extremities: Reports: no edema, no calf tenderness Skin: Reports: warm, dry Neurological: Reports: no new focal deficit Psy/Mental Status: Reports: alert, normal affect, normal mood *Q Meaningful Use (DIS) - VTE *Q VTE Criteria *Q: - Stroke *Q Stroke Criteria *Q: - AMI *Q AMI Criteria *Q: <Brittany Le - Last Filed: 10/08/16 17:46> Discharge Summary - Hospital Course Free Text/Narrative:: A change in the CT of the thorax is noted, and a follow up has been ordered accordingly. - Discharge Diagnosis/Problem(s) (1) Pneumonia SNOMED Code(s): 328583667 ICD Code: J18.9 - PNEUMONIA, UNSPECIFIED ORGANISM Status: Acute Priority : High Qualifiers: Pneumonia type: due to unspecified organism Lung location: unspecified part of lung (2) COPD (chronic obstructive pulmonary disease) with emphysema SNOMED Code(s): 66218432 ICD Code: J43.9 - EMPHYSEMA, UNSPECIFIED Status: Chronic Priority: High Qualifiers: Emphysema type: panlobular Qualified Code(s): J43.1 - Panlobular emphysema (3) Anemia SNOMED Code(s): 691229431 ICD Code: D64.9 - ANEMIA, UNSPECIFIED Status: Chronic Priority: High Problem Details: macrocytic Qualifiers: Anemia type: unspecified type Qualified Code(s): D64.9 - Anemia, unspecified - Patient Summary/Data Consults: Consultations 10/03/16 18:37 Consult to Occupational Therapy [OT Evaluation and Treatment] [CONS] Routine PT Evaluation and Treatment [CONS] Routine - Patient Data Vitals - Most Recent: Last Vital Signs Temp 36.6 C 10/08/16 07:44 Pulse 63 10/08/16 09:04 Resp 14 10/08/16 07:44 BP 161/75 H 10/08/16 09:04 Pulse Ox 100 10/08/16 09:56 I&O - Last 24 hours: Intake & Output 10/08/16 10/08/16 10/08/16 06:59 14:59 22:59 Intake Total 600 1190 Output Total 400 1600 Balance 200 -410 Lab Results - Last 24 hrs: Laboratory Results - last 24 hr 10/08/16 10/08/16 10/08/16 Range/Units 05:22 05:22 05:22 WBC 20.18 H (4.23-9.07) K/mm3 RBC 3.64 L (4.63-6.08) M/mm3 Hgb 11.0 L (13.7-17.5) gm/L Hct 34.7 L (40.1-51.0) % MCV 95.3 H (79.0-92.2) fl MCH 30.2 (25.7-32.2) pg MCHC 31.7 L (32.2-35.5) g/dl RDW Std Deviation 57.7 H (35.1-43.9) fL Plt Count 494 H (163-337) K/mm3 MPV 9.4 (9.4-12.3) fl Sodium 142 (136-145) mEq/L Potassium 4.4 (3.5-5.1) mEq/L Chloride 107 (98-107) mEq/L Carbon Dioxide 26 (21-32) mEq/L Anion Gap 13.4 (5-15) BUN 33 H (7-18) mg/dL Creatinine 1.3 (0.7-1.3) mg/dL Est Cr Clr Drug Dosing 53.13 mL/min Estimated GFR (MDRD) 54 (>60) mL/min BUN/Creatinine Ratio 25.4 H (14-18) Glucose 96 (83-115) mg/dL Calcium 8.6 (8.5-10.1) mg/dL C-Reactive Protein (<1.0) mg/dL Vitamin B12 577 (193-986) pg/ml Folate 18.6 (8.6-58.9) ng/mL 10/08/16 Range/Units 05:22 WBC (4.23-9.07) K/mm3 RBC (4.63-6.08) M/mm3 Hgb (13.7-17.5) gm/L Hct (40.1-51.0) % MCV (79.0-92.2) fl MCH (25.7-32.2) pg MCHC (32.2-35.5) g/dl RDW Std Deviation (35.1-43.9) fL Plt Count (163-337) K/mm3 MPV (9.4-12.3) fl Sodium (136-145) mEq/L Potassium (3.5-5.1) mEq/L Chloride (98-107) mEq/L Carbon Dioxide (21-32) mEq/L Anion Gap (5-15) BUN (7-18) mg/dL Creatinine (0.7-1.3) mg/dL Est Cr Clr Drug Dosing mL/min Estimated GFR (MDRD) (>60) mL/min BUN/Creatinine Ratio (14-18) Glucose (83-115) mg/dL Calcium (8.5-10.1) mg/dL C-Reactive Protein 1.1 H* (<1.0) mg/dL Vitamin B12 (193-986) pg/ml Folate (8.6-58.9) ng/mL Med Orders - Current: Current Medications Discontinued Medications Acetaminophen (Tylenol) 650 mg PO NOW ONE Stop: 10/03/16 13:27 Last Admin: 10/03/16 13:34 Dose: 650 mg Acetaminophen (Tylenol) 650 mg PO Q4H PRN PRN Reason: Pain Last Admin: 10/04/16 01:44 Dose: 650 mg Albuterol (Proventil Neb Soln) 2.5 mg NEB QID PRN PRN Reason: Wheezing Last Admin: 10/04/16 09:41 Dose: 2.5 mg Albuterol/Ipratropium (Duoneb 3.0-0.5 Mg/3 Ml) 3 ml NEB ONETIME ONE Stop: 10/03/16 11:46 Last Admin: 10/03/16 12:03 Dose: 3 ml Albuterol/Ipratropium (Duoneb 3.0-0.5 Mg/3 Ml) 3 ml NEB Q6HRRT [facility] Last Admin: 10/05/16 06:14 Dose: 3 ml Albuterol/Ipratropium (Duoneb 3.0-0.5 Mg/3 Ml) 3 ml NEB QIDRT [facility] Last Admin: 10/08/16 09:53 Dose: 3 ml Amitriptyline HCl (Elavil) 25 mg PO BEDTIME [facility] Amitriptyline HCl (Elavil) 50 mg PO BEDTIME [facility] Last Admin: 10/03/16 20:16 Dose: 50 mg Amitriptyline HCl (Elavil) 25 - 50 mg PO BEDTIME [facility] Last Admin: 10/07/16 20:19 Dose: 50 mg Benzonatate (Tessalon Perles) 100 mg PO TID [facility] Last Admin: 10/08/16 09:04 Dose: 100 mg Budesonide (Pulmicort) 0.5 mg NEB BID [facility] Last Admin: 10/08/16 09:55 Dose: 0.5 mg Carvedilol (Coreg) 12.5 mg PO BID [facility] Last Admin: 10/08/16 09:04 Dose: 12.5 mg Clopidogrel Bisulfate (Plavix) 75 mg PO DAILY [facility] Last Admin: 10/08/16 09:04 Dose: 75 mg Docusate Sodium (Colace) 100 mg PO DAILY PRN PRN Reason: Constipation Last Admin: 10/04/16 20:52 Dose: 100 mg Enoxaparin Sodium (Lovenox) 40 mg SUBCUT DAILY [facility] Last Admin: 10/08/16 09:08 Dose: Not Given Furosemide (Lasix) 20 mg PO DAILY [facility] Last Admin: 10/08/16 09:03 Dose: 20 mg Guaifenesin (Mucinex) 1,200 mg PO BID [facility] Last Admin: 10/08/16 09:03 Dose: 1,200 mg Guaifenesin/Phenylephrine HCl (Robitussin Dm) 10 ml PO QID PRN PRN Reason: Cough Last Admin: 10/04/16 03:36 Dose: 10 ml Hydralazine HCl (Apresoline) 20 mg IVPUSH Q6H PRN PRN Reason: Hypertension Last Admin: 10/08/16 03:39 Dose: 20 mg Sodium Chloride (Normal Saline) 500 mls @ 500 mls/hr IV ONETIME ONE Stop: 10/03/16 12:45 Last Admin: 10/03/16 11:59 Dose: 500 mls/hr Sodium Chloride (Normal Saline) 100 mls @ 60 mls/hr IV ASDIRECTED [facility] Last Admin: 10/03/16 17:15 Dose: 60 mls/hr Levofloxacin/Dextrose 750 mg/ (Premix) 150 mls @ 100 mls/hr IV ONETIME ONE Stop: 10/03/16 14:24 Last Admin: 10/03/16 14:06 Dose: 100 mls/hr Levofloxacin/Dextrose 750 mg/ (Premix) 150 mls @ 100 mls/hr IV Q24H [facility] Last Admin: 10/07/16 14:31 Dose: 100 mls/hr Piperacillin Sod/Tazobactam (Sod 4.5 gm/ Sodium Chloride) 100 mls @ 200 mls/hr IV ONETIME ONE Stop: 10/04/16 10:59 Last Admin: 10/04/16 10:22 Dose: 200 mls/hr Piperacillin Sod/Tazobactam (Sod 4.5 gm/ Sodium Chloride) 100 mls @ 25 mls/hr IV Q8H [facility] Last Admin: 10/08/16 12:50 Dose: Not Given Iopamidol (Isovue-370 (76%)) 100 ml IVPUSH ONETIME ONE Stop: 10/03/16 12:31 Last Admin: 10/03/16 12:36 Dose: 100 ml Lisinopril (Prinivil) 20 mg PO BID [facility] Last Admin: 10/08/16 09:03 Dose: 20 mg Methylprednisolone Sodium Succinate (Solu-Medrol) 40 mg IVPUSH Q8H [facility] Last Admin: 10/07/16 08:15 Dose: 40 mg Methylprednisolone Sodium Succinate (Solu-Medrol) 40 mg IVPUSH Q12H [facility] Last Admin: 10/08/16 09:08 Dose: 40 mg Multivitamins (Thera) 1 each PO DAILY [facility] Last Admin: 10/08/16 09:03 Dose: 1 each Nitroglycerin (Nitrostat) 0.4 mg SL Q5M PRN PRN Reason: chest pain Pantoprazole Sodium (Protonix) 40 mg PO DAILY@0700 [facility] Last Admin: 10/08/16 06:09 Dose: 40 mg Roflumilast 500 Mcg 0 each PO DAILY [facility] Last Admin: 10/08/16 09:08 Dose: 1 each Risedronate Sodium (150 Mg) 0 each PO Q30D [facility] Arformoterol 15 Mcg 0 each NEB BID [facility] Last Admin: 10/08/16 09:55 Dose: 1 each Aclidinium [place] [ Tudorza Pressair] 1 Puff 0 each INH BID [facility] Last Admin: 10/08/16 12:50 Dose: Not Given Silver Sulfadiazine (Silvadene 1% Cream 50 Gm) 0 gm TOP ASDIRECTED PRN PRN Reason: Other Simvastatin (Zocor) 10 mg PO BEDTIME [facility] Last Admin: 10/03/16 20:16 Dose: 10 mg Simvastatin (Zocor) 40 mg PO BEDTIME [facility] Last Admin: 10/07/16 20:19 Dose: 40 mg Sodium Chloride (Saline Flush) 10 ml FLUSH ASDIRECTED PRN PRN Reason: Keep Vein Open Last Admin: 10/03/16 11:59 Dose: 10 ml Sodium Chloride (Saline Flush) 10 ml FLUSH ONETIME ONE Stop: 10/03/16 12:31 Last Admin: 10/03/16 12:36 Dose: 10 ml Triamcinolone Acetonide (Triamcinolone Acetonide 0.1% Crm) 0 gm TOP DAILY PRN PRN Reason: Itching *Q Meaningful Use (DIS) - VTE *Q VTE Criteria *Q: - Stroke *Q Stroke Criteria *Q: - AMI *Q AMI Criteria *Q:
[2016-10-08] MEDS ORDERED: Furosemide 20 MG Tab PO SCH (09:00)
[2016-10-08] MEDS: Lisinopril 20 MG Tab PO SCH (09:03)
[2016-10-08] MEDS: Multivitamins,Therapeutic Tab PO SCH (09:03)
[2016-10-08] MEDS: guaiFENesin 600 MG Tab.ER PO SCH (09:03)
[2016-10-08] MEDS: Benzonatate 100 MG Cap PO SCH (09:04)
[2016-10-08] MEDS: Carvedilol 12.5 MG Tab PO SCH (09:04)
[2016-10-08] MEDS: Clopidogrel 75 MG Tab PO SCH (09:04)
[2016-10-08] MEDS: Enoxaparin 40 MG/0.4 ML Syringe SUBCUT SCH (09:08)
[2016-10-08] MEDS: methylPREDNISolone Sodium Succinate 40 MG/1 ML SDV IVPUSH SCH (09:08)
--- NOTE | 2016-10-08 09:19 | CR ---
Chest: Two views of the chest were obtained. Comparison: Previous chest x-ray of 10/05/16. Diaphragms flattened on the lateral view compatible with emphysematous change. Patchy parenchymal densities within the chest are seen believed to be stable. No acute appearing infiltrates are seen. Tortuous thoracic aorta is noted. Impression: 1. Emphysematous change. Other portions of the chest are also believed to be stable. Nothing acute is definitely appreciated. Diagnostic code #2
[2016-10-08] MEDS: Budesonide 0.5 MG/2 ML Neb Susp NEB SCH (09:55)
[2016-10-08] MEDS: ARFORMOTEROL 15 MCG NEB SCH (09:55)
[2016-10-08] MEDS: ACLIDINIUM BROMIDE INH SCH (12:50)
[2016-10-11] MEDS ORDERED: RISEDRONATE SODIUM 150 MG PO SCH (06:00)
== END 2016-10-08 12:15 | disposition other institution (70) | DRG 190 ==
LOC: JD.ED 11:29 → JD.MS 14:30
PROVIDERS: ADMIT Emergency Medicine; ATTEND Internal Medicine Cardiovascular Disease
DX: J43.1 Panlobular emphysema (principal); J44.0 Chronic obstructive pulmonary disease with (acute) lower respiratory infection; J45.909 Unspecified asthma, uncomplicated; I10 Essential (primary) hypertension; J18.9 Pneumonia, unspecified organism; I13.0 Hypertensive heart and chronic kidney disease with heart failure and stage 1 through stage 4 chronic kidney disease, or unspecified chronic kidney disease; J44.1 Chronic obstructive pulmonary disease with (acute) exacerbation; Z87.891 Personal history of nicotine dependence; D64.9 Anemia, unspecified; R91.8 Other nonspecific abnormal finding of lung field; I25.10 Atherosclerotic heart disease of native coronary artery without angina pectoris; I50.9 Heart failure, unspecified; N18.9 Chronic kidney disease, unspecified; Z95.5 Presence of coronary angioplasty implant and graft; I73.9 Peripheral vascular disease, unspecified; K21.9 Gastro-esophageal reflux disease without esophagitis; K44.9 Diaphragmatic hernia without obstruction or gangrene; M19.90 Unspecified osteoarthritis, unspecified site; G62.9 Polyneuropathy, unspecified; Z99.81 Dependence on supplemental oxygen; Z79.52 Long term (current) use of systemic steroids; Z79.899 Other long term (current) drug therapy; Z88.1 Allergy status to other antibiotic agents; Z88.8 Allergy status to other drugs, medicaments and biological substances; Z66 Do not resuscitate
CPT/HCPCS: 36415; 71275; 80053; 82553; 83605; 83690; 83880; 84484; 85025; 85379; 86140; 86738; 87040 ×2; 93005; 94664; 96361; 96365; 99285; A9270; J1956; J7030; J7040; J7050 ×2; Q9967; 71020; 71020-26; 80048; 82607; 82746; 83735; 85027; 87070; 87205; 87486; 87581; 87633; 87798; 87899; 94640-76; 94667; 94668; 94760; 94761; 97116-GP; 97161-GP; 97162-GP; 97165-GO; 97530-GO; 99232; 99284; J0360; J2543; J2920

== ENCOUNTER 2016-10-24 08:58 | Inpatient (IN) | payer MEDICARE, OTHER ==
[2016-10-24] MEDS ORDERED: Albuterol/Ipratropium 3.0-0.5 MG/3 ML Neb Soln NEB ONE (09:11)
[2016-10-24] MEDS ORDERED: methylPREDNISolone Sodium Succinate 125 MG/2 ML SDV IVPUSH ONE (09:11)
[2016-10-24] MEDS ORDERED: Magnesium Sulfate/Water 2 GM in Premix Bag 1 BAG IV ONE (09:12)
[2016-10-24] MEDS: Sodium Chloride 0.9% 10 ML Syringe FLUSH PRN (09:31)
[2016-10-24] MEDS ORDERED: cefTRIAXone 2 GM in Sodium Chloride 0.9% 100 ML IV ONE (09:35)
[2016-10-24] MEDS ORDERED: Azithromycin 500 MG in Sodium Chloride 0.9% 250 ML IV ONE (09:36)
--- NOTE | 2016-10-24 09:47 | EDM.PDOC ---
ED HISTORY OF PRESENT ILLNESS - General Chief Complaint: Respiratory Problem Stated Complaint: [facility] Time Seen by Provider: 10/24/16 09:06 Source of Information: Reports: Patient, EMS History Limitations: Reports: No limitations - History of Present Illness INITIAL COMMENTS - FREE TEXT/NARRATIVE: The patient presents with shortness of breath, cough and fever. He has a history of asthma and COPD. He was just in the hospital last month. This all started a couple days ago. His temp this morning was 101. He has no chest pain. He does have some upper back pain. He has no abdominal pain, nausea or vomiting. He does not have edema in his legs. He lives at an assisted living place in [place]. His oxygen saturations were in the 80s. He came by ambulance and he got 2 breathing treatments. Timing/Duration: Reports: Day(s): Severity: moderate Improves with: Reports: None Worsens with: Reports: None Associated Symptoms (General): Reports: cough, fever/chills, shortness of breath. Denies: chest pain, nausea/vomiting - Related Data Allergies/ADRs: Allergies Allergy/AdvReac Type Severity Reaction Status Date / Time moxifloxacin Allergy Other Verified 10/24/16 09:11 tiotropium Allergy Other Verified 10/24/16 09:11 [From Spiriva with HandiHaler] clonidine AdvReac Tremors Verified 10/24/16 09:11 fluticasone AdvReac Leg Cramps Verified 10/24/16 09:11 [From Advair Diskus] paroxetine [From Paxil] AdvReac Tremors Verified 10/24/16 09:11 salmeterol AdvReac Leg Cramps Verified 10/24/16 09:11 [From Advair Diskus] Home Meds: Home Meds Albuterol Sulfate 2.5 mg IH Q4HR PRN 04/24/16 [History] Amitriptyline [Elavil] 50 mg PO BEDTIME 04/24/16 [History] Arformoterol [Brovana] 15 mcg NEB BID 04/24/16 [History] Budesonide [Pulmicort] 0.5 mg IH BID 04/24/16 [History] Clopidogrel [Plavix] 75 mg PO DAILY 04/24/16 [History] Montelukast [Singulair] 10 mg PO BEDTIME 04/24/16 [History] Multivitamin [Multivitamins] 1 each PO DAILY 04/24/16 [History] Nitroglycerin 0.4 mg SL Q5M PRN 04/24/16 [History] [place]-3/DHA/Epa/Fish Oil [Fish Oil 1,000 mg Softgel] 1 each PO DAILY 04/24/16 [ History] Risedronate Sodium 150 mg PO Q30D 04/24/16 [History] Roflumilast [Daliresp] 500 mcg PO DAILY 04/24/16 [History] Triamcinolone Acetonide [Triamcinolone Acetonide 0.1% Crm] 15 gm TOP DAILY PRN 04/24/16 [History] atorvaSTATin [Lipitor] 40 mg PO BEDTIME 04/24/16 [History] EPINEPHrine [Epipen] 0.3 mg IM ASDIRECTED PRN 08/27/16 [History] Lisinopril [Prinivil] 20 mg PO DAILY 08/27/16 [History] Docusate Sodium 100 mg PO DAILY PRN 08/28/16 [History] guaiFENesin [Mucinex] 1,200 mg PO BID #60 tab.er 08/31/16 [Rx] Carvedilol [Coreg] 12.5 mg PO BID 10/04/16 [History] Aspirin [Ecotrin] 81 mg PO DAILY 10/24/16 [History] Furosemide [Lasix] 40 mg PO DAILY 10/24/16 [History] Pantoprazole [ProTONIX] 40 mg PO 0800 10/24/16 [History] atorvaSTATin [Lipitor] 10 mg PO QPM 10/24/16 [History] Past Medical History HEENT History: Reports: Cataract Cardiovascular History: Reports: Hypertension, PTCA, PVD, Stents, Other (see below) Other Cardiovascular History: reports leg edema but no CHF history, "silent 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 Respiratory History: Reports: Asthma, COPD Other Respiratory History: wears O2 at 2L at home, up to 3-4L with activity Gastrointestinal History: Reports: GERD, Hiatal hernia Genitourinary History: Reports: Retention, urinary Musculoskeletal History: Reports: Arthritis Neurological History: Reports: Neuropathy, peripheral Endocrine/Metabolic History: Reports: Other (see below) Other Endocrine/Metabolic History: pituitary tumor Hematologic History: Reports: Anemia Immunologic History: Reports: None Other Immunologic History: pt is on prednisone for his copd Dermatologic History: Reports: Other (see below) Other Dermatologic History: fragile skin, is on prednisone/steroid therapy - Infectious Disease History Infectious Disease History: Reports: Influenza - Past Surgical History Cardiovascular Surgical History: Reports: Coronary artery stent, Percutaneous transluminal angioplasty GI Surgical History: Reports: Appendectomy, Colonoscopy, Hernia, abdominal, Hernia, inguinal Male Surgical History: Reports: Circumcision Social & Family History - Family History Family Medical History: Noncontributory Endocrine/Metabolic: Reports: Diabetes, type II Oncologic: Reports: Other (see below) (grandfather of unknown cancer) - Tobacco Use Smoking Status *Q: Former Smoker Years of Tobacco use: 50 Packs/Tins Daily: 1 Used Tobacco, but Quit: Yes Month Tobacco Last Used: 20 years Second Hand Smoke Exposure: No - Caffeine Use Caffeine Use: Reports: Coffee - Recreational Drug Use Recreational Drug Use: No - Living Situation & Occupation Living situation: Reports: single, alone 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[employer] , farming, [employer], and other work.) ED ROS GENERAL - Review of Systems Review Of Systems: See Below Constitutional: Reports: fever, chills HEENT: Reports: No symptoms Respiratory: Reports: Shortness of Breath, Cough Cardiovascular: Reports: No symptoms Endocrine: Reports: no symptoms GI/Abdominal: Reports: No symptoms : Reports: no symptoms Musculoskeletal: Reports: no symptoms Neurological: Reports: No Symptoms ED EXAM, GENERAL - Physical Exam Exam: See Below Exam Limited By: No limitations General Appearance: mild distress Ears: normal external exam Nose: normal inspection Head: atraumatic, normocephalic Neck: normal inspection Respiratory/Chest: respiratory distress (mild), decreased breath sounds, wheezing (Moderate) Cardiovascular: no edema, no murmur, tachycardia GI/Abdominal: soft, non tender, no organomegaly, no mass Back Exam: normal inspection Extremities: normal inspection Neurological: alert, oriented, no motor/sensory deficits EKG INTERPRETATION EKG Date: 10/24/16 Time: 09:37 Rhythm: other (Sinus tachycardia) Rate (beats/min): 117 [place]: normal P-wave: present QRS: normal ST-T: depressed (anterolateral leads) Course - Vital Signs Last Recorded V/S: Last Vital Signs Temp 98.1 F 10/24/16 09:05 Pulse 127 H 10/24/16 09:05 Resp 29 H 10/24/16 09:05 BP 140/86 10/24/16 09:05 Pulse Ox 96 10/24/16 09:36 - Orders/Labs/Meds Orders: Active Orders 24 hr Category Date Time Status Cardiac Monitoring [RC] . DIRECTED Care 10/24/16 09:10 Active EKG Documentation Completion [RC] STAT Care 10/24/16 09:11 Active Oxygen Therapy [RC] PRN Care 10/24/16 09:10 Active Peripheral IV Care [RC] . DIRECTED Care 10/24/16 09:11 Active RT Aerosol Therapy [RC] ASDIRECTED Care 10/24/16 09:11 Active CULTURE BLOOD [BC] Stat Lab 10/24/16 09:30 Received CULTURE BLOOD [BC] Stat Lab 10/24/16 09:45 Received Sodium Chloride 0.9% [Saline Flush] Med 10/24/16 09:10 Active 10 ml FLUSH ASDIRECTED PRN Blood Culture x2 Reflex Set [OM.PC] Stat Oth 10/24/16 09:11 Ordered Peripheral IV Insertion Adult [OM.PC] Stat Oth 10/24/16 09:10 Ordered Medication Orders Sodium Chloride (Saline Flush) 10 ml FLUSH ASDIRECTED PRN PRN Reason: Keep Vein Open Last Admin: 10/24/16 09:31 Dose: 10 ml Labs: Laboratory Tests 10/24/16 10/24/16 10/24/16 Range/Units 09:20 09:30 09:45 WBC 14.43 H (4.23-9.07) K/mm3 RBC 3.51 L (4.63-6.08) M/mm3 Hgb 10.5 L (13.7-17.5) gm/L Hct 34.1 L (40.1-51.0) % MCV 97.2 H (79.0-92.2) fl MCH 29.9 (25.7-32.2) pg MCHC 30.8 L (32.2-35.5) g/dl RDW Std Deviation 58.7 H (35.1-43.9) fL Plt Count 263 (163-337) K/mm3 MPV 10.0 (9.4-12.3) fl Neut % (Auto) 83.4 H (34.0-67.9) % Lymph % (Auto) 7.7 L (21.8-53.1) % Creek % (Auto) 8.5 (5.3-12.2) % Eos % (Auto) 0 L (0.8-7.0) Baso % (Auto) 0.2 (0.1-1.2) % Neut # (Auto) 12.04 H (1.78-5.38) K/mm3 Lymph # (Auto) 1.11 L (1.32-3.57) K/mm3 [place] # (Auto) 1.22 H (0.30-0.82) K/mm3 Eos # (Auto) 0.00 L (0.04-0.54) K/mm3 Baso # (Auto) 0.03 (0.01-0.08) K/mm3 Manual Slide Review Abnormal smear Sodium 142 (136-145) mEq/L Potassium 4.2 (3.5-5.1) mEq/L Chloride 106 (98-107) mEq/L Carbon Dioxide 29 (21-32) mEq/L Anion Gap 11.2 (5-15) BUN 22 H (7-18) mg/dL Creatinine 1.3 (0.7-1.3) mg/dL Est Cr Clr Drug Dosing 53.06 mL/min Estimated GFR (MDRD) 54 (>60) mL/min BUN/Creatinine Ratio 16.9 (14-18) Glucose 83 (83-115) mg/dL Lactic Acid (0.4-2.0) mmol/L Calcium 8.7 (8.5-10.1) mg/dL Total Bilirubin 0.3 (0.2-1.0) mg/dL AST 19 (15-37) U/L ALT 24 (16-63) U/L Alkaline Phosphatase 55 (46-116) U/L Troponin I 0.040 (0.00-0.056) ng/mL Total Protein 6.7 (6.4-8.2) g/dl Albumin 2.8 L (3.4-5.0) g/dl Globulin 3.9 gm/dL Albumin/Globulin Ratio 0.7 L (1-2) Urine Color Yellow (Yellow) Urine Appearance Clear (Clear) Urine pH 7.0 (5.0-8.0) Ur Specific [place] 1.025 (1.005-1.030) Urine Protein 2+ H (Negative) Urine Glucose (UA) Negative (Negative) Urine Ketones Negative (Negative) Urine Occult Blood Negative (Negative) Urine Nitrite Negative (Negative) Urine Bilirubin Negative (Negative) Urine Urobilinogen 0.2 (0.2-1.0) Ur Leukocyte Esterase Negative (Negative) Urine RBC 0-5 (0-5) /hpf Urine WBC 0-5 (0-5) /hpf Ur Epithelial Cells 0-5 (0-5) /hpf Urine Bacteria Rare (FEW) /hpf Urine Mucus Not seen (FEW) /hpf 10/24/16 Range/Units 10:15 WBC (4.23-9.07) K/mm3 RBC (4.63-6.08) M/mm3 Hgb (13.7-17.5) gm/L Hct (40.1-51.0) % MCV (79.0-92.2) fl MCH (25.7-32.2) pg MCHC (32.2-35.5) g/dl RDW Std Deviation (35.1-43.9) fL Plt Count (163-337) K/mm3 MPV (9.4-12.3) fl Neut % (Auto) (34.0-67.9) % Lymph % (Auto) (21.8-53.1) % [place] % (Auto) (5.3-12.2) % Eos % (Auto) (0.8-7.0) Baso % (Auto) (0.1-1.2) % Neut # (Auto) (1.78-5.38) K/mm3 Lymph # (Auto) (1.32-3.57) K/mm3 [place] # (Auto) (0.30-0.82) K/mm3 Eos # (Auto) (0.04-0.54) K/mm3 Baso # (Auto) (0.01-0.08) K/mm3 Manual Slide Review Sodium (136-145) mEq/L Potassium (3.5-5.1) mEq/L Chloride (98-107) mEq/L Carbon Dioxide (21-32) mEq/L Anion Gap (5-15) BUN (7-18) mg/dL Creatinine (0.7-1.3) mg/dL Est Cr Clr Drug Dosing mL/min Estimated GFR (MDRD) (>60) mL/min BUN/Creatinine Ratio (14-18) Glucose (83-115) mg/dL Lactic Acid 1.9 (0.4-2.0) mmol/L Calcium (8.5-10.1) mg/dL Total Bilirubin (0.2-1.0) mg/dL AST (15-37) U/L ALT (16-63) U/L Alkaline Phosphatase (46-116) U/L Troponin I (0.00-0.056) ng/mL Total Protein (6.4-8.2) g/dl Albumin (3.4-5.0) g/dl Globulin gm/dL Albumin/Globulin Ratio (1-2) Urine Color (Yellow) Urine Appearance (Clear) Urine pH (5.0-8.0) Ur Specific [place] (1.005-1.030) Urine Protein (Negative) Urine Glucose (UA) (Negative) Urine Ketones (Negative) Urine Occult Blood (Negative) Urine Nitrite (Negative) Urine Bilirubin (Negative) Urine Urobilinogen (0.2-1.0) Ur Leukocyte Esterase (Negative) Urine RBC (0-5) /hpf Urine WBC (0-5) /hpf Ur Epithelial Cells (0-5) /hpf Urine Bacteria (FEW) /hpf Urine Mucus (FEW) /hpf Meds: Medications Generic Name Dose Route Start Last Admin Trade Name Altagracia PRN Reason Stop Dose Admin Sodium Chloride 10 ml 10/24/16 09:10 10/24/16 09:31 Saline Flush FLUSH 10 ml ASDIRECTED PRN Administration Keep Vein Open Discontinued Medications Generic Name Dose Route Start Last Admin Trade Name Freq PRN Reason Stop Dose Admin Acetaminophen 975 mg 10/24/16 11:56 10/24/16 11:59 Tylenol PO 10/24/16 11:57 975 mg NOW ONE Administration Albuterol/Ipratropium 3 ml 10/24/16 09:11 10/24/16 09:36 Duoneb 3.0-0.5 Mg/3 Ml NEB 10/24/16 09:12 3 ml ONETIME ONE Administration Magnesium Sulfate 2 gm/ Premix 50 mls @ 25 mls/hr 10/24/16 09:12 10/24/16 09: 22 IV 10/24/16 11:11 25 mls/hr ONETIME ONE Administration Azithromycin 500 mg/ Sodium 250 mls @ 250 mls/hr 10/24/16 09:36 10/24/16 09: 56 Chloride IV 10/24/16 10:35 250 mls/hr ONETIME ONE Administration Ceftriaxone Sodium 2 gm/ 100 mls @ 200 mls/hr 10/24/16 09:35 10/24/16 10:31 Sodium Chloride IV 10/24/16 10:04 200 mls/hr ONETIME ONE Administration Sodium Chloride 500 mls @ 1,000 mls/hr 10/24/16 11:15 10/24/16 11:27 Normal Saline IV 10/24/16 11:44 1,000 mls/hr .BOLUS ONE Administration Methylprednisolone Sodium Succinate 125 mg 10/24/16 09:11 10/24/16 09:25 Solu-Medrol IVPUSH 10/24/16 09:12 125 mg ONETIME ONE Administration - Re-Assessments/Exams Free Text/Narrative Re-Assessment/Exam: 10/24/16 09:47 I ordered oxygen, IV saline lock, Solu-medrol 125mg IV, Duoneb, and megnesium 2 grams IV. His EKG shows a sinus tachycardia with some ST depression in the anteriolateral leads. His CXR shows a right middle lobe infiltrate. I have ordered blood cultures and rocephin 2 grams IV and zithromax 500mg IV. 10/24/16 11:16 His WBC is elevated at 14.43. His Hgb is a little low at 10.5. His CMP is negative. His troponin is negative. He has pneumonia. He says a few days ago he fell and hurt his right hip. I will get an x-ray of that. 10/24/16 11:40 The X-ray looks good. There is no hip fracture. 10/24/16 11:45 The patient is septic with a high WBC, tachycardia and tachypnea. 10/24/16 12:[address] Sheikh and he agreed to the admission. 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 DIRECTED Oxygen Therapy [RC] PRN Sodium Chloride 0.9% [Saline Flush] 10 ml FLUSH ASDIRECTED PRN Peripheral IV Insertion Adult [OM.PC] Stat 10/24/16 09:11 EKG Documentation Completion [RC] STAT Peripheral IV Care [RC] . DIRECTED RT Aerosol Therapy [RC] ASDIRECTED Blood Culture x2 Reflex Set [OM.PC] Stat 10/24/16 09:30 CULTURE BLOOD [BC] Stat 10/24/16 09:45 CULTURE BLOOD [BC] Stat - Assessment/Plan Last 24 Hours: My Active Orders 10/24/16 09:10 Cardiac Monitoring [RC] . DIRECTED Oxygen Therapy [RC] PRN Sodium Chloride 0.9% [Saline Flush] 10 ml FLUSH ASDIRECTED PRN Peripheral IV Insertion Adult [OM.PC] Stat 10/24/16 09:11 EKG Documentation Completion [RC] STAT Peripheral IV Care [RC] . DIRECTED RT Aerosol Therapy [RC] ASDIRECTED Blood Culture x2 Reflex Set [OM.PC] Stat 10/24/16 09:30 CULTURE BLOOD [BC] Stat 10/24/16 09:45 CULTURE BLOOD [BC] Stat
--- NOTE | 2016-10-24 10:05 | CR ---
Chest: Portable view of the chest was obtained. Comparison: Previous chest x-ray of 10/08/16. Mild increasing density within the right lung base from prior exam. Scattered areas of scarring are seen within both lungs. Lungs otherwise are clear. Lungs are hyperinflated. Heart size is normal. Tortuous thoracic aorta is seen. Bony structures are osteopenic. Impression: 1. Mild increasing density within the right lung base with differential including focal bronchitis, early pneumonia or change from aspiration. 2. Scattered areas of scarring are noted as well as emphysematous change. 3. Nothing acute is otherwise seen. Diagnostic code #3
[2016-10-24] MEDS ORDERED: Sodium Chloride 0.9% 500 ML IV ONE (11:15)
--- NOTE | 2016-10-24 11:50 | CR ---
Pelvis and right hip: AP view of the pelvis was obtained as well as AP and frog-leg lateral views of both hips. Comparison: Previous pelvis study of 08/27/16. Degenerative change is partially visualized within the lower lumbar spine with disc space narrowing and endplate osteophytes. Joint spaces within both hips are maintained. Sacroiliac joints are within normal limits. Vascular calcification is present. Impression: 1. Findings as noted above. No significant change from previous x-ray. 2. Nothing acute is identified on AP pelvis or an two-view right hip exam. Diagnostic code #2
[2016-10-24] MEDS ORDERED: Acetaminophen 325 MG Tab PO ONE (11:56)
[2016-10-24] MEDS ORDERED: Acetaminophen/HYDROcodone 325-5 MG Tab PO PRN (13:37)
[2016-10-24] MEDS ORDERED: Morphine 2 MG/ML Syringe IVPUSH PRN (13:37)
[2016-10-24] MEDS ORDERED: Acetaminophen 325 MG Tab PO PRN (13:37)
[2016-10-24] MEDS ORDERED: EPINEPHrine 0.3 MG/0.3 ML Pen Autoinjector IM PRN (13:40)
[2016-10-24] MEDS ORDERED: Nitroglycerin 0.4 MG Tab.SL SL PRN (13:40)
[2016-10-24] MEDS ORDERED: Triamcinolone Acetonide 0.1% Crm 15 GM Tube TOP PRN (13:40)
[2016-10-24] MEDS ORDERED: RISEDRONATE SODIUM 150 MG PO SCH (13:45)
--- NOTE | 2016-10-24 13:47 | PCM.HP ---
H&P History of Present Illness - General Date of Service: 10/24/16 Admit Problem/Dx: Shortness of Breath Source of Information: Patient, Old records, Provider, RN notes reviewed History Limitations: Reports: Respiratory distress - History of Present Illness Initial Comments - Free Text/Narative: This a 75 yo elderly white male with past medical hx/o HTN, PVD, HLD, Hx/o CAD P /p Heart Cath, CKD Stage 3, GERD, Hiatal Hernia, Osteoporosis, Hx/o Pulmonary Nodules on Both Lungs, and Hx/o Pituitary Tumor S/p Resection who comes in with worsening shortness of breath associated with cough and fever that started 2 days ago. He reports a subjective fever of 101. Patient carries a hx/o Asthma/End Stage COPD and Chronic Respiratory Failure. He uses 2L NC at home. Patient is known to me from past admissions. His initial work up in ED shows a CBC remarkable for WBC of 14.43, Hgb 10.5, Hct 34.1, and Neutrophils of 83.4%. His chemistry is significant for BUN 22, CRP 12 and Albumin 2.8. His UA is negative for UTI. His CXR shows right lower lobe density. Patient is being admitted for CAP and COPD Exacerbation. He is DNR/DNI. Lower Back Pain Score (Numeric/FACES): 4 - Related Data Allergies/Adverse Reactions: Allergies Allergy/AdvReac Type Severity Reaction Status Date / Time moxifloxacin Allergy Other Verified 10/24/16 09:11 tiotropium Allergy Other Verified 10/24/16 09:11 [From Spiriva with HandiHaler] clonidine AdvReac Tremors Verified 10/24/16 09:11 fluticasone AdvReac Leg Cramps Verified 10/24/16 09:11 [From Advair Diskus] paroxetine [From Paxil] AdvReac Tremors Verified 10/24/16 09:11 salmeterol AdvReac Leg Cramps Verified 10/24/16 09:11 [From Advair Diskus] Home Medications: Home Meds Albuterol Sulfate 2.5 mg IH Q4HR PRN 04/24/16 [History] Amitriptyline [Elavil] 50 mg PO BEDTIME 04/24/16 [History] Arformoterol [Brovana] 15 mcg NEB BID 04/24/16 [History] Budesonide [Pulmicort] 0.5 mg IH BID 04/24/16 [History] Clopidogrel [Plavix] 75 mg PO DAILY 04/24/16 [History] Montelukast [Singulair] 10 mg PO BEDTIME 04/24/16 [History] Multivitamin [Multivitamins] 1 each PO DAILY 04/24/16 [History] Nitroglycerin 0.4 mg SL Q5M PRN 04/24/16 [History] Wiergate-3/DHA/Epa/Fish Oil [Fish Oil 1,000 mg Softgel] 1 each PO DAILY 04/24/16 [ History] Risedronate Sodium 150 mg PO Q30D 04/24/16 [History] Roflumilast [Daliresp] 500 mcg PO DAILY 04/24/16 [History] Triamcinolone Acetonide [Triamcinolone Acetonide 0.1% Crm] 15 gm TOP DAILY PRN 04/24/16 [History] atorvaSTATin [Lipitor] 40 mg PO BEDTIME 04/24/16 [History] EPINEPHrine [Epipen] 0.3 mg IM ASDIRECTED PRN 08/27/16 [History] Lisinopril [Prinivil] 20 mg PO BID 08/27/16 [History] Docusate Sodium 100 mg PO DAILY PRN 08/28/16 [History] guaiFENesin [Mucinex] 1,200 mg PO BID #60 tab.er 08/31/16 [Rx] Aspirin [Ecotrin] 81 mg PO DAILY 10/24/16 [History] Calc/D3/Mag/Zn/Barber Instructor/Garcia/[place] [Calcium 600 MG Plus Vit D] 600 mg PO DAILY [History] Furosemide [Lasix] 40 mg PO DAILY 10/24/16 [History] Pantoprazole [ProTONIX] 40 mg PO 0800 10/24/16 [History] atorvaSTATin [Lipitor] 10 mg PO QPM 10/24/16 [History] Past Medical History HEENT History: Reports: Cataract Cardiovascular History: Reports: Hypertension, PTCA, PVD, Stents, Other (see below) Other Cardiovascular History: reports leg edema but no CHF history, "silent 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 Respiratory History: Reports: Asthma, COPD Other Respiratory History: wears O2 at 2L at home, up to 3-4L with activity Gastrointestinal History: Reports: GERD, Hiatal hernia Genitourinary History: Reports: Retention, urinary Musculoskeletal History: Reports: Arthritis Neurological History: Reports: Neuropathy, peripheral Endocrine/Metabolic History: Reports: Other (see below) Other Endocrine/Metabolic History: pituitary tumor Hematologic History: Reports: Anemia Immunologic History: Reports: None Other Immunologic History: pt is on prednisone for his copd Dermatologic History: Reports: Other (see below) Other Dermatologic History: fragile skin, is on prednisone/steroid therapy - Infectious Disease History Infectious Disease History: Reports: Influenza - Past Surgical History Cardiovascular Surgical History: Reports: Coronary artery stent, Percutaneous transluminal angioplasty GI Surgical History: Reports: Appendectomy, Colonoscopy, Hernia, abdominal, Hernia, inguinal Male Surgical History: Reports: Circumcision Social & Family History - Family History Family Medical History: Noncontributory Endocrine/Metabolic: Reports: Diabetes, type II Oncologic: Reports: Other (see below) (grandfather of unknown cancer) - Tobacco Use Smoking Status *Q: Former Smoker Years of Tobacco use: 50 Packs/Tins Daily: 1 Used Tobacco, but Quit: Yes Month Tobacco Last Used: 20 years Second Hand Smoke Exposure: No - Caffeine Use Caffeine Use: Reports: Coffee - Recreational Drug Use Recreational Drug Use: No - Living Situation & Occupation Living situation: Reports: single, alone 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 Denies: Confusion, Weakness Hematologic/Lymphatic: Reports: no symptoms Immunologic: Reports: no symptoms Exam - Exam Exam: See Below - Vital Signs Vital Signs: Last Vital Signs Temp 36.7 C 10/24/16 09:05 Pulse 127 H 10/24/16 09:05 Resp 29 H 10/24/16 09:05 BP 140/86 10/24/16 09:05 Pulse Ox 96 10/24/16 09:36 Weight: 80.739 kg - Exam Quality Assessment: supplemental oxygen General: alert, oriented, cooperative, mild distress HEENT: Conjunctiva clear, EACs clear, EOMI, Hearing intact, Mucosa moist & pink , Nares patent, Normal nasal septum, Posterior pharynx clear, Pupils equal, Pupils reactive, TMs clear Neck: supple, trachea midline, 2+ carotid pulse wo bruit, full range of motion, other (mild use of acessory muscle). No: JVD Lungs: Wheezing. No: Normal respiratory effort Cardiovascular: regular rhythm, tachycardia Abdomen: normal bowel sounds, soft. No: organomegaly (Male) Exam: Deferred Rectal (Males) Exam: Deferred Back Exam: normal inspection, decreased range of motion Extremities: normal inspection, normal pulses. No: clubbing, cyanosis, calf tenderness, edema Peripheral Pulses: 2+: posterior tibial (L), posterior tibial (R), dorsalis pedis (L), dorsalis pedis (R) Skin: warm, dry, intact, ecchymosis Neuro Extensive - Mental Status: oriented x3, normal cognition, memory intact Neuro Extensive - Motor, Sensory, Reflexes: CN II-XII intact, normal gait Psychiatric: alert, normal affect, normal mood - Patient Data Result Diagrams: 10/24/16 09:45 10/24/16 09:30 EKG INTERPRETATION EKG Date: 10/24/16 Time: 09:37 Rhythm: other (Sinus Tachycardia) Rate (beats/min): 117 *Q Meaningful Use (ADM) - VTE *Q VTE Criteria *Q: - Stroke *Q Stroke Criteria *Q: - AMI *Q AMI Criteria *Q: Problem List Initiated/Reviewed/Updated: Yes Orders Last 24hrs: Active Orders 24 hr Category Date Time Status Intake and Output [RC] QSHIFT Care 10/24/16 13:37 Ordered Oxygen Therapy [RC] PRN Care 10/24/16 13:37 Ordered Up With Assistance [RC] ASDIRECTED Care 10/24/16 13:37 Ordered Up ad Izzy [RC] ASDIRECTED Care 10/24/16 13:37 Ordered VTE/DVT Education [RC] PER UNIT ROUTINE Care 10/24/16 13:37 Ordered Vital Signs [RC] Q4H Care 10/24/16 13:37 Ordered Heart Healthy Diet [DIET] Diet 10/24/16 Dinner Ordered Acetaminophen [Tylenol] Med 10/24/16 13:37 Ordered 650 mg PO Q4H PRN Acetaminophen/HYDROcodone [Williams 325-5 MG] Med 10/24/16 13:37 Ordered 1 tab PO Q4H PRN Amitriptyline [Elavil] Med 10/24/16 21:00 Ordered 50 mg PO BEDTIME Arformoterol Med 10/24/16 21:00 Ordered 15 mcg NEB BID Aspirin [Halfprin] Med 10/25/16 09:00 Ordered 81 mg PO DAILY Carvedilol [Coreg] Med 10/24/16 21:00 Ordered 12.5 mg PO BID Clopidogrel [Plavix] Med 10/25/16 09:00 Ordered 75 mg PO DAILY Docusate Sodium [Colace] Med 10/24/16 13:40 Ordered 100 mg PO DAILY PRN EPINEPHrine [Epipen] Med 10/24/16 13:40 Ordered 0.3 mg IM ASDIRECTED PRN Enoxaparin [Lovenox] Med 10/25/16 09:00 Ordered 40 mg SUBCUT DAILY Furosemide [Lasix] Med 10/25/16 09:00 Ordered 40 mg PO DAILY Lisinopril [Prinivil] Med 10/25/16 09:00 Ordered 20 mg PO DAILY Magnesium Oxide Med 10/24/16 21:00 Ordered 400 mg PO BID Montelukast [Singulair] Med 10/24/16 21:00 Ordered 10 mg PO BEDTIME Morphine Med 10/24/16 13:46 Ordered 1 mg IVPUSH Q4H PRN Morphine Med 10/24/16 13:37 Stop Req 2 mg IVPUSH Q4H PRN Multivitamin [Multivitamins] Med 10/25/16 09:00 Ordered 1 each PO DAILY Nitroglycerin [Nitrostat] Med 10/24/16 13:40 Ordered 0.4 mg SL Q5M PRN Wiergate-3/DHA/Epa/Fish Oil [Fish Oil 1,000 mg Softgel] Med 10/25/16 09:00 Ordered 1 each PO DAILY Pantoprazole [ProTONIX] Med 10/25/16 08:00 Ordered 40 mg PO 0800 Risedronate Sodium [Risedronate Sodium] Med 10/24/16 13:45 Ordered 150 mg PO Q30D Roflumilast Med 10/25/16 09:00 Ordered 500 mcg PO DAILY Triamcinolone Acetonide [Triamcinolone Acetonide 0.1% Med 10/24/16 13:40 Ordered Crm] 15 gm TOP DAILY PRN atorvaSTATin Med 10/24/16 18:00 Ordered 10 mg PO QPM atorvaSTATin Med 10/24/16 21:00 Ordered 40 mg PO BEDTIME guaiFENesin [Mucinex] Med 10/24/16 21:00 Ordered 1,200 mg PO BID methylPREDNISolone Sod Succ [Solu-MEDROL] Med 10/24/16 15:00 Ordered 125 mg IVPUSH Q6H Resuscitation Status Routine Resus Stat 10/24/16 13:37 Ordered Medication Orders Acetaminophen (Tylenol) 650 mg PO Q4H PRN PRN Reason: Pain (Mild 1-3)/fever Hydrocodone Bitart/Acetaminophen (Williams 325-5 Mg) 1 tab PO Q4H PRN PRN Reason: Pain (moderate 4-6) Amitriptyline HCl (Elavil) 50 mg PO BEDTIME [facility] Aspirin (Halfprin) 81 mg PO DAILY [facility] Carvedilol (Coreg) 12.5 mg PO BID [facility] Clopidogrel Bisulfate (Plavix) 75 mg PO DAILY [facility] Docusate Sodium (Colace) 100 mg PO DAILY PRN PRN Reason: Constipation Enoxaparin Sodium (Lovenox) 40 mg SUBCUT DAILY [facility] Epinephrine HCl (Epipen) 0.3 mg IM ASDIRECTED PRN PRN Reason: Allergies Furosemide (Lasix) 40 mg PO DAILY [facility] Guaifenesin (Mucinex) 1,200 mg PO BID [facility] Lisinopril (Prinivil) 20 mg PO DAILY [facility] Montelukast Sodium (Singulair) 10 mg PO BEDTIME [facility] Morphine Sulfate (Morphine) 2 mg IVPUSH Q4H PRN PRN Reason: Pain (severe 7-10) Stop: 10/27/16 13:38 Nitroglycerin (Nitrostat) 0.4 mg SL Q5M PRN PRN Reason: chest pain Non-Formulary Medication (Arformoterol) 15 mcg NEB BID [facility] Non-Formulary Medication (Multivitamin [Multivitamins]) 1 each PO DAILY [facility] Non-Formulary Medication (Wiergate-3/Dha/Epa/Fish Oil [Fish Oil 1,000 Mg Softgel]) 1 each PO DAILY [facility] Non-Formulary Medication (Risedronate Sodium [Risedronate Sodium]) 150 mg PO Q30D [facility] Non-Formulary Medication (Roflumilast) 500 mcg PO DAILY [facility] Non-Formulary Medication (Atorvastatin) 10 mg PO QPM [facility] Non-Formulary Medication (Atorvastatin) 40 mg PO BEDTIME [facility] Pantoprazole Sodium (Protonix) 40 mg PO 0800 [facility] Sodium Chloride (Saline Flush) 10 ml FLUSH ASDIRECTED PRN PRN Reason: Keep Vein Open Last Admin: 10/24/16 09:31 Dose: 10 ml Triamcinolone Acetonide (Triamcinolone Acetonide 0.1% Crm) 15 gm TOP DAILY PRN PRN Reason: Itching Assessment/Plan Comment:: Assessment/Plan: Acute: CAP- Right Lower Lobe PNA - Suspect Aspiration - Routine RT care, Supplemental O2 - Sputum Cx/Sx - Mycoplasma and Strep Ag test - IV Antibiotics: Azithromycin and Rocephin - Serial CXR COPD Exacerbation - Audible Wheezing - IV Solumedrol, Bronchodilators, Decongestant, IV Magnesium - IS q2 awake - Routine RT care Leukocytosis - WBC 14.43, CRP 12 - 2/2 above - Treat underlying cause Chronic: HTN PVD HLD Hx/o CAD P/p Heart Cath Asthma/End Stage COPD Chronic Respiratory Failure on 2L NC CKD Stage 3 GERD Hiatal Hernia Anemia Osteoporosis Hx/o Pulmonary Nodules on Both Lungs Hx/o Pituitary Tumor S/p Resection Plan: Admit to the floor Routine AM Labs Resume Home Meds PPI Daily PT/OT/RT consult SW/CM for d/c planning DVT PPx: Lovenox Sub Q daily Additional orders as above Code status: DNR/DNI
[2016-10-24] MEDS ORDERED: Polyethylene Glycol 3350 Powder 17 GM Packet PO PRN (13:49)
[2016-10-24] MEDS ORDERED: Promethazine 12.5 MG in Sodium Chloride 0.9% 50 ML IV PRN (13:49)
[2016-10-24] MEDS ORDERED: LORazepam 2 MG/ML MDV IV PRN (13:49)
[2016-10-24] MEDS ORDERED: Bisacodyl 5 MG Tab PO PRN (13:49)
[2016-10-24] MEDS ORDERED: Ondansetron 4 MG/2 ML SDV IV PRN (13:49)
[2016-10-24] MEDS: Morphine 2 MG/ML Syringe IVPUSH PRN ×2 (14:02→22:05)
[2016-10-24] MEDS: methylPREDNISolone Sodium Succinate 125 MG/2 ML SDV IVPUSH SCH ×3 (14:03→20:33)
[2016-10-24] MEDS ORDERED: Non-Formulary Medication 1 Each (Atorvastatin 10 MG) PO SCH (18:00)
[2016-10-24] MEDS: Amitriptyline 25 MG Tab PO SCH (20:32)
[2016-10-24] MEDS: Carvedilol 12.5 MG Tab PO SCH (20:33)
[2016-10-24] MEDS: Magnesium Oxide 400 MG Tab PO SCH (20:33)
[2016-10-24] MEDS: Montelukast 10 MG Tab PO SCH (20:33)
[2016-10-24] MEDS: Simvastatin 40 MG Tab PO SCH (20:33)
[2016-10-24] MEDS: guaiFENesin 600 MG Tab.ER PO SCH (20:33)
[2016-10-24] MEDS: ARFORMOTEROL 15 MCG NEB SCH (21:11)
[2016-10-24] MEDS: Albuterol/Ipratropium 3.0-0.5 MG/3 ML Neb Soln NEB PRN (21:12)
[2016-10-25] MEDS: Albuterol/Ipratropium 3.0-0.5 MG/3 ML Neb Soln NEB PRN ×4 (03:22→20:09)
[2016-10-25] MEDS: methylPREDNISolone Sodium Succinate 125 MG/2 ML SDV IVPUSH SCH ×4 (03:48→20:37)
[2016-10-25] MEDS: Hypromellose 0.5% Ophth Soln 15 ML Bottle EYEBOTH PRN ×2 (03:54→05:15)
[2016-10-25] MEDS ORDERED: Sodium Chloride 0.9% 100 ML ONE (07:58)
[2016-10-25] MEDS ORDERED: cefTRIAXone 1 GM Vial ONE (07:58)
[2016-10-25] MEDS: cefTRIAXone 1 GM in Sodium Chloride 0.9% 100 ML IV SCH (08:14)
[2016-10-25] MEDS: guaiFENesin 600 MG Tab.ER PO SCH ×2 (08:19→20:24)
[2016-10-25] MEDS: Calcium Carbonate/Vitamin D3 1500 MG-200 Units Tab PO SCH (08:19)
[2016-10-25] MEDS: Magnesium Oxide 400 MG Tab PO SCH ×2 (08:19→20:24)
[2016-10-25] MEDS: Fish Oil/Omega-3 Fatty Acids 1 Gm Cap PO SCH (08:19)
[2016-10-25] MEDS: Multivitamins,Therapeutic Tab PO SCH (08:19)
[2016-10-25] MEDS: Carvedilol 12.5 MG Tab PO SCH ×2 (08:19→20:25)
[2016-10-25] MEDS: Clopidogrel 75 MG Tab PO SCH (08:19)
[2016-10-25] MEDS: Aspirin 81 MG Tab.EC PO SCH (08:19)
[2016-10-25] MEDS: Pantoprazole 40 MG Tab.CR PO SCH (08:19)
[2016-10-25] MEDS: Furosemide 40 MG Tab PO SCH (08:20)
[2016-10-25] MEDS: Enoxaparin 40 MG/0.4 ML Syringe SUBCUT SCH (08:21)
[2016-10-25] MEDS: Morphine 2 MG/ML Syringe IVPUSH PRN (08:33)
[2016-10-25] MEDS: ARFORMOTEROL 15 MCG NEB SCH ×2 (08:43→20:06)
[2016-10-25] MEDS ORDERED: Lisinopril 20 MG Tab PO SCH (09:00)
[2016-10-25] MEDS: Azithromycin 500 MG in Sodium Chloride 0.9% 250 ML IV SCH (10:13)
[2016-10-25] MEDS ORDERED: Albuterol 0.083% 2.5 MG/3 ML Neb Soln ONE (11:12)
[2016-10-25] MEDS ORDERED: Albuterol 0.083% 2.5 MG/3 ML Neb Soln NEB ONE (11:14)
--- NOTE | 2016-10-25 14:30 | PCM.PN ---
- General Info Date of Service: 10/25/16 Functional Status: Reports: tolerating diet - Review of Systems General: Reports: No Symptoms HEENT: Reports: no symptoms Pulmonary: Reports: shortness of breath Cardiovascular: Reports: No Symptoms Gastrointestinal: Reports: No symptoms Genitourinary: Reports: no symptoms Musculoskeletal: Reports: no symptoms Skin: Reports: no symptoms Neurological: Reports: No Symptoms Psychiatric: Reports: no symptoms - Patient Data Vitals - most recent: Last Vital Signs Temp 36.4 C 10/25/16 03:57 Pulse 72 10/25/16 08:19 Resp 20 10/25/16 03:57 BP 160/90 H 10/25/16 08:19 Pulse Ox 100 10/25/16 14:15 Weight - most recent: 77.292 kg I&O - last 24 hours: Intake & Output 10/24/16 10/25/16 10/25/16 22:59 06:59 14:59 Intake Total 460 275 450 Output Total 225 800 200 Balance 235 -525 250 Lab Results last 24 hrs: Laboratory Results - last 24 hr 10/24/16 10/25/16 10/25/16 Range/Units 20:45 05:15 05:15 WBC 9.46 H (4.23-9.07) K/mm3 RBC 3.01 L (4.63-6.08) M/mm3 Hgb 9.2 L (13.7-17.5) gm/L Hct 29.3 L (40.1-51.0) % MCV 97.3 H (79.0-92.2) fl MCH 30.6 (25.7-32.2) pg MCHC 31.4 L (32.2-35.5) g/dl RDW Std Deviation 58.6 H (35.1-43.9) fL Plt Count 228 (163-337) K/mm3 MPV 10.4 (9.4-12.3) fl Neut % (Auto) 92.9 H (34.0-67.9) % Lymph % (Auto) 4.3 L (21.8-53.1) % Citrus % (Auto) 2.6 L (5.3-12.2) % Eos % (Auto) 0 L (0.8-7.0) Baso % (Auto) 0.0 L (0.1-1.2) % Neut # (Auto) 8.78 H (1.78-5.38) K/mm3 Lymph # (Auto) 0.41 L (1.32-3.57) K/mm3 Citrus # (Auto) 0.25 L (0.30-0.82) K/mm3 Eos # (Auto) 0.00 L (0.04-0.54) K/mm3 Baso # (Auto) 0.00 L (0.01-0.08) K/mm3 Manual Slide Review Abnormal smear Puncture Site ABG pH (7.35-7.45) ABG pCO2 (35.0-45.0) mmHg ABG pO2 (80.0-100.0) mmHg ABG HCO3 (22.0-26.0) meq/L ABG O2 Saturation (96.0-97.0) % ABG Base Excess (-2-2.0) Harsh Test A-a Gradient mmHg O2 Delivery Device Oxygen Flow Rate FiO2 (21.00-100.00) % Sodium 142 (136-145) mEq/L Potassium 4.8 (3.5-5.1) mEq/L Chloride 107 (98-107) mEq/L Carbon Dioxide 28 (21-32) mEq/L Anion Gap 11.8 (5-15) BUN 27 H (7-18) mg/dL Creatinine 1.2 (0.7-1.3) mg/dL Est Cr Clr Drug Dosing TNP Estimated GFR (MDRD) 59 (>60) mL/min BUN/Creatinine Ratio 22.5 H (14-18) Glucose 102 (83-115) mg/dL Calcium 7.9 L (8.5-10.1) mg/dL Magnesium 2.8 H (1.8-2.4) mg/dl C-Reactive Protein 18.0 H* (<1.0) mg/dL Mycoplasma pneumon IgM Negative (NEGATIVE) MRSA (PCR) Negative 10/25/16 Range/Units 12:52 WBC (4.23-9.07) K/mm3 RBC (4.63-6.08) M/mm3 Hgb (13.7-17.5) gm/L Hct (40.1-51.0) % MCV (79.0-92.2) fl MCH (25.7-32.2) pg MCHC (32.2-35.5) g/dl RDW Std Deviation (35.1-43.9) fL Plt Count (163-337) K/mm3 MPV (9.4-12.3) fl Neut % (Auto) (34.0-67.9) % Lymph % (Auto) (21.8-53.1) % Citrus % (Auto) (5.3-12.2) % Eos % (Auto) (0.8-7.0) Baso % (Auto) (0.1-1.2) % Neut # (Auto) (1.78-5.38) K/mm3 Lymph # (Auto) (1.32-3.57) K/mm3 Citrus # (Auto) (0.30-0.82) K/mm3 Eos # (Auto) (0.04-0.54) K/mm3 Baso # (Auto) (0.01-0.08) K/mm3 Manual Slide Review Puncture Site Lt radial ABG pH 7.39 (7.35-7.45) ABG pCO2 41.4 (35.0-45.0) mmHg ABG pO2 72.0 L (80.0-100.0) mmHg ABG HCO3 24.6 (22.0-26.0) meq/L ABG O2 Saturation 94.6 L (96.0-97.0) % ABG Base Excess 0.2 (-2-2.0) Harsh Test Positive A-a Gradient 56 mmHg O2 Delivery Device Nasal cannula Oxygen Flow Rate 2.0 FiO2 28.00 (21.00-100.00) % Sodium (136-145) mEq/L Potassium (3.5-5.1) mEq/L Chloride (98-107) mEq/L Carbon Dioxide (21-32) mEq/L Anion Gap (5-15) BUN (7-18) mg/dL Creatinine (0.7-1.3) mg/dL Est Cr Clr Drug Dosing Estimated GFR (MDRD) (>60) mL/min BUN/Creatinine Ratio (14-18) Glucose (83-115) mg/dL Calcium (8.5-10.1) mg/dL Magnesium (1.8-2.4) mg/dl C-Reactive Protein (<1.0) mg/dL Mycoplasma pneumon IgM (NEGATIVE) MRSA (PCR) Fabien Results last 24 hrs: Microbiology 10/24/16 19:49 Gram Stain - Final Sputum - Expectorated Med Orders - Current: Current Medications Acetaminophen (Tylenol) 650 mg PO Q4H PRN PRN Reason: Pain (Mild 1-3)/fever Hydrocodone Bitart/Acetaminophen ([place] 325-5 Mg) 1 tab PO Q4H PRN PRN Reason: Pain (moderate 4-6) Albuterol/Ipratropium (Duoneb 3.0-0.5 Mg/3 Ml) 3 ml NEB Q6HRRT PRN PRN Reason: sob Last Admin: 10/25/16 14:15 Dose: 3 ml Amitriptyline HCl (Elavil) 50 mg PO BEDTIME [facility] Last Admin: 10/24/16 20:32 Dose: 50 mg Artificial Tears (Isopto Tears 0.5% Ophth Soln) 1 ml EYEBOTH Q1H PRN PRN Reason: dry eyes Last Admin: 10/25/16 05:15 Dose: 1 ml Aspirin (Halfprin) 81 mg PO DAILY [facility] Last Admin: 10/25/16 08:19 Dose: 81 mg Bisacodyl (Dulcolax) 5 mg PO DAILY PRN PRN Reason: Constipation Calcium Carbonate (Calcium Carbonate/Vitamin D 1500 Mg-200 Unit) 1 tab PO DAILY [facility] Last Admin: 10/25/16 08:19 Dose: 1 tab Carvedilol (Coreg) 12.5 mg PO BID [facility] Last Admin: 10/25/16 08:19 Dose: 12.5 mg Clopidogrel Bisulfate (Plavix) 75 mg PO DAILY [facility] Last Admin: 10/25/16 08:19 Dose: 75 mg Docusate Sodium (Colace) 100 mg PO DAILY PRN PRN Reason: Constipation Enoxaparin Sodium (Lovenox) 40 mg SUBCUT DAILY [facility] Last Admin: 10/25/16 08:21 Dose: Not Given Fish Oil (Fish Oil) 1 gm PO DAILY [facility] Last Admin: 10/25/16 08:19 Dose: 1 gm Furosemide (Lasix) 40 mg PO DAILY [facility] Last Admin: 10/25/16 08:20 Dose: 40 mg Guaifenesin (Mucinex) 1,200 mg PO BID [facility] Last Admin: 10/25/16 08:19 Dose: 1,200 mg Azithromycin 500 mg/ Sodium (Chloride) 250 mls @ 250 mls/hr IV Q24H [facility] Last Admin: 10/25/16 10:13 Dose: 250 mls/hr Ceftriaxone Sodium 1 gm/ (Sodium Chloride) 100 mls @ 200 mls/hr IV Q24H [facility] Last Admin: 10/25/16 08:14 Dose: 200 mls/hr Lisinopril (Prinivil) 20 mg PO BID [facility] Lorazepam (Ativan) 0.5 mg IV Q6H PRN PRN Reason: Anxiety Magnesium Oxide (Magnesium Oxide) 400 mg PO BID [facility] Last Admin: 10/25/16 08:19 Dose: 400 mg Methylprednisolone Sodium Succinate (Solu-Medrol) 125 mg IVPUSH Q6H [facility] Last Admin: 10/25/16 08:20 Dose: 125 mg Montelukast Sodium (Singulair) 10 mg PO BEDTIME [facility] Last Admin: 10/24/16 20:33 Dose: 10 mg Morphine Sulfate (Morphine) 1 mg IVPUSH Q4H PRN PRN Reason: Other Stop: 10/27/16 13:38 Last Admin: 10/25/16 08:33 Dose: 1 mg Multivitamins (Thera) 1 each PO DAILY [facility] Last Admin: 10/25/16 08:19 Dose: 1 each Nitroglycerin (Nitrostat) 0.4 mg SL Q5M PRN PRN Reason: chest pain Ondansetron HCl (Zofran) 4 mg IV Q6H PRN PRN Reason: Nausea/Vomiting Pantoprazole Sodium (Protonix) 40 mg PO 0800 [facility] Last Admin: 10/25/16 08:19 Dose: 40 mg Arformoterol 15 Mcg 0 each NEB BID [facility] Last Admin: 10/25/16 08:43 Dose: 1 each Roflumilast 500 Mcg 0 each PO DAILY [facility] Last Admin: 10/25/16 09:18 Dose: Not Given Polyethylene Glycol (Miralax) 17 gm PO DAILY PRN PRN Reason: Constipation Senna/Docusate Sodium (Senna Plus) 1 tab PO BID PRN PRN Reason: Constipation Simvastatin (Zocor) 40 mg PO BEDTIME [facility] Last Admin: 10/24/16 20:33 Dose: 40 mg Sodium Chloride (Saline Flush) 10 ml FLUSH ASDIRECTED PRN PRN Reason: Keep Vein Open Last Admin: 10/24/16 09:31 Dose: 10 ml Temazepam (Restoril) 15 mg PO BEDTIME PRN PRN Reason: Sleep Triamcinolone Acetonide (Triamcinolone Acetonide 0.1% Crm) 15 gm TOP DAILY PRN PRN Reason: Itching Discontinued Medications Acetaminophen (Tylenol) 975 mg PO NOW ONE Stop: 10/24/16 11:57 Last Admin: 10/24/16 11:59 Dose: 975 mg Albuterol (Proventil Neb Soln) Confirm Administered Dose 2.5 mg .ROUTE .STK-MED ONE Stop: 10/25/16 11:13 Last Admin: 10/25/16 11:15 Dose: 2.5 mg Albuterol (Proventil Neb Soln) 2.5 mg NEB ONETIME ONE Stop: 10/25/16 11:15 Last Admin: 10/25/16 11:17 Dose: Not Given Albuterol/Ipratropium (Duoneb 3.0-0.5 Mg/3 Ml) 3 ml NEB ONETIME ONE Stop: 10/24/16 09:12 Last Admin: 10/24/16 09:36 Dose: 3 ml Ceftriaxone Sodium (Rocephin) Confirm Administered Dose 1 gm .ROUTE .STK-MED ONE Stop: 10/25/16 07:59 Last Admin: 10/25/16 08:06 Dose: Not Given Epinephrine HCl (Epipen) 0.3 mg IM ASDIRECTED PRN PRN Reason: Allergies Magnesium Sulfate 2 gm/ Premix 50 mls @ 25 mls/hr IV ONETIME ONE Stop: 10/24/16 11:11 Last Admin: 10/24/16 09:22 Dose: 25 mls/hr Azithromycin 500 mg/ Sodium (Chloride) 250 mls @ 250 mls/hr IV ONETIME ONE Stop: 10/24/16 10:35 Last Admin: 10/24/16 09:56 Dose: 250 mls/hr Ceftriaxone Sodium 2 gm/ (Sodium Chloride) 100 mls @ 200 mls/hr IV ONETIME ONE Stop: 10/24/16 10:04 Last Admin: 10/24/16 10:31 Dose: 200 mls/hr Sodium Chloride (Normal Saline) 500 mls @ 1,000 mls/hr IV .BOLUS ONE Stop: 10/24/16 11:44 Last Admin: 10/24/16 11:27 Dose: 1,000 mls/hr Promethazine HCl 12.5 mg/ (Sodium Chloride) 50.5 mls @ 100 mls/hr IV Q6H PRN PRN Reason: Nausea/Vomiting Sodium Chloride (Normal Saline) Confirm Administered Dose 100 mls @ as directed .ROUTE .STK-MED ONE Stop: 10/25/16 07:59 Last Admin: 10/25/16 08:07 Dose: Not Given Lisinopril (Prinivil) 20 mg PO DAILY [facility] Last Admin: 10/25/16 08:19 Dose: 20 mg Methylprednisolone Sodium Succinate (Solu-Medrol) 125 mg IVPUSH ONETIME ONE Stop: 10/24/16 09:12 Last Admin: 10/24/16 09:25 Dose: 125 mg Morphine Sulfate (Morphine) 2 mg IVPUSH Q4H PRN PRN Reason: Pain (severe 7-10) Stop: 10/27/16 13:38 Non-Formulary Medication (Risedronate Sodium [Risedronate Sodium]) 150 mg PO Q30D [facility] Last Admin: 10/24/16 14:33 Dose: Not Given Non-Formulary Medication (Atorvastatin) 10 mg PO QPM HELEN - Exam Quality Assessment: supplemental oxygen, DVT prophylaxis General: alert, oriented, cooperative HEENT: Pupils equal, Pupils reactive, EOMI Neck: supple, trachea midline Lungs: Decreased breath sounds, Rhonchi, Wheezing Cardiovascular: Regular Rate Abdomen: bowel sounds present, soft, no tenderness, no distension (Male) Exam: Deferred Back Exam: normal inspection Extremities: normal pulses Skin: warm Neurological: no new focal deficit Psy/Mental Status: alert, normal affect, normal mood - Problem List & Annotations (1) Pneumonia SNOMED Code(s): 943443402 Code(s): J18.9 - PNEUMONIA, UNSPECIFIED ORGANISM Status: Acute Priority: High Current Visit: Yes Qualifiers: Pneumonia type: due to unspecified organism Laterality: right Lung location: middle lobe of lung Qualified Code(s): J18.1 - Lobar pneumonia, unspecified organism (2) Sepsis SNOMED Code(s): 66569978 Code(s): A41.9 - SEPSIS, UNSPECIFIED ORGANISM Status: Acute Current Visit : Yes Qualifiers: Sepsis type: sepsis due to unspecified organism Qualified Code(s): A41.9 - Sepsis, unspecified organism (3) COPD (chronic obstructive pulmonary disease) with emphysema SNOMED Code(s): 69678802 Code(s): J43.9 - EMPHYSEMA, UNSPECIFIED Status: Chronic Priority: High Current Visit: Yes Qualifiers: Emphysema type: panlobular Qualified Code(s): J43.1 - Panlobular emphysema (4) COPD exacerbation SNOMED Code(s): 922363100, 197928115 Code(s): J44.1 - CHRONIC OBSTRUCTIVE PULMONARY DISEASE W (ACUTE) EXACERBATION Status: Acute Priority: High Current Visit: No - Problem List Review Problem List Initiated/Reviewed/Updated: Yes - My Orders Last 24 Hours: My Active Orders 10/25/16 12:08 Antiembolic Devices [RC] PER UNIT ROUTINE SCD [Sequential Compression Device] [OM.PC] Routine 10/25/16 12:44 Admission Status [Patient Status] [ADT] Routine 10/25/16 13:30 BIPAP [RT BiPAP/CPAP] [RC] ASDIRECTED - Plan Plan:: Assessment/Plan: Acute: CAP- Right Lower Lobe PNA - Suspect Aspiration - Routine RT care, Supplemental O2 - Sputum Cx/Sx - Mycoplasma and Strep Ag test - IV Antibiotics: Azithromycin and Rocephin - Serial CXR SOB with significant wheezing, ABG without severe hypercapnia or hypoxia; transferred to ICU for close monitoring after abrupt SOB. COPD Exacerbation - Audible Wheezing - IV Solumedrol, Bronchodilators, Decongestant, IV Magnesium - IS q2 awake - Routine RT care Leukocytosis - WBC 14.43, CRP 12 - 2/2 above - Treat underlying cause Chronic: HTN PVD HLD Hx/o CAD P/p Heart Cath Asthma/End Stage COPD Chronic Respiratory Failure on 2L NC CKD Stage 3 GERD Hiatal Hernia Anemia Osteoporosis Hx/o Pulmonary Nodules on Both Lungs Hx/o Pituitary Tumor S/p Resection Plan: ICU 24-48 hours Routine AM Labs Resume Home Meds PPI Daily PT/OT/RT consult SW/CM for d/c planning DVT PPx: Lovenox Sub Q daily Additional orders as above Code status: DNR/DNI
[2016-10-25] MEDS ORDERED: methylPREDNISolone Sodium Succinate 125 MG/2 ML SDV IVPUSH ONE (15:29)
[2016-10-25] MEDS: Simvastatin 40 MG Tab PO SCH (20:24)
[2016-10-25] MEDS: Montelukast 10 MG Tab PO SCH (20:24)
[2016-10-25] MEDS: Amitriptyline 25 MG Tab PO SCH (20:25)
[2016-10-25] MEDS: Lisinopril 20 MG Tab PO SCH (20:26)
[2016-10-25] MEDS: Sodium Chloride 0.9% 10 ML Syringe FLUSH PRN (20:28)
[2016-10-26] MEDS: Albuterol/Ipratropium 3.0-0.5 MG/3 ML Neb Soln NEB PRN ×4 (02:18→20:17)
[2016-10-26] MEDS: methylPREDNISolone Sodium Succinate 125 MG/2 ML SDV IVPUSH SCH ×4 (02:30→20:05)
[2016-10-26] MEDS: Carvedilol 12.5 MG Tab PO SCH ×2 (08:22→20:04)
[2016-10-26] MEDS: Calcium Carbonate/Vitamin D3 1500 MG-200 Units Tab PO SCH (08:22)
[2016-10-26] MEDS: Magnesium Oxide 400 MG Tab PO SCH (08:24)
[2016-10-26] MEDS: guaiFENesin 600 MG Tab.ER PO SCH ×2 (08:24→20:05)
[2016-10-26] MEDS: Lisinopril 20 MG Tab PO SCH ×2 (08:25→20:01)
[2016-10-26] MEDS: Fish Oil/Omega-3 Fatty Acids 1 Gm Cap PO SCH (08:25)
[2016-10-26] MEDS: Multivitamins,Therapeutic Tab PO SCH (08:25)
[2016-10-26] MEDS: Aspirin 81 MG Tab.EC PO SCH (08:25)
[2016-10-26] MEDS: Clopidogrel 75 MG Tab PO SCH (08:26)
[2016-10-26] MEDS: cefTRIAXone 1 GM in Sodium Chloride 0.9% 100 ML IV SCH (08:26)
[2016-10-26] MEDS: Furosemide 40 MG Tab PO SCH (08:26)
[2016-10-26] MEDS: Pantoprazole 40 MG Tab.CR PO SCH (08:38)
[2016-10-26] MEDS: Enoxaparin 40 MG/0.4 ML Syringe SUBCUT SCH (09:07)
[2016-10-26] MEDS: ARFORMOTEROL 15 MCG NEB SCH ×3 (09:08→20:16)
[2016-10-26] MEDS: Azithromycin 500 MG in Sodium Chloride 0.9% 250 ML IV SCH (09:09)
--- NOTE | 2016-10-26 09:42 | PCM.PN ---
- General Info Date of Service: 10/26/16 Functional Status: Reports: tolerating diet, ambulating, urinating - Review of Systems General: Reports: No Symptoms HEENT: Reports: no symptoms Pulmonary: Reports: shortness of breath (improved after theophylline) Cardiovascular: Reports: No Symptoms Gastrointestinal: Reports: No symptoms Genitourinary: Reports: no symptoms Musculoskeletal: Reports: no symptoms Skin: Reports: no symptoms Neurological: Reports: No Symptoms Psychiatric: Reports: no symptoms - Patient Data Vitals - most recent: Last Vital Signs Temp 36.7 C 10/26/16 08:00 Pulse 60 10/26/16 08:22 Resp 22 H 10/26/16 08:00 BP 187/84 H 10/26/16 08:25 Pulse Ox 100 10/26/16 08:00 Weight - most recent: 78.199 kg I&O - last 24 hours: Intake & Output 10/25/16 10/26/16 10/26/16 22:59 06:59 14:59 Intake Total 1650 400 Output Total 2385 400 275 Balance -735 0 -275 Lab Results last 24 hrs: Laboratory Results - last 24 hr 10/25/16 10/26/16 10/26/16 Range/Units 12:52 05:52 05:52 WBC 14.68 H (4.23-9.07) K/mm3 RBC 3.08 L (4.63-6.08) M/mm3 Hgb 9.2 L (13.7-17.5) gm/L Hct 29.6 L (40.1-51.0) % MCV 96.1 H (79.0-92.2) fl MCH 29.9 (25.7-32.2) pg MCHC 31.1 L (32.2-35.5) g/dl RDW Std Deviation 57.2 H (35.1-43.9) fL Plt Count 265 (163-337) K/mm3 MPV 10.1 (9.4-12.3) fl Neut % (Auto) 94.2 H (34.0-67.9) % Lymph % (Auto) 3.2 L (21.8-53.1) % Parke % (Auto) 2.4 L (5.3-12.2) % Eos % (Auto) 0 L (0.8-7.0) Baso % (Auto) 0.1 (0.1-1.2) % Neut # (Auto) 13.83 H (1.78-5.38) K/mm3 Lymph # (Auto) 0.47 L (1.32-3.57) K/mm3 Parke # (Auto) 0.35 (0.30-0.82) K/mm3 Eos # (Auto) 0.00 L (0.04-0.54) K/mm3 Baso # (Auto) 0.01 (0.01-0.08) K/mm3 Manual Slide Review Abnormal smear Puncture Site Lt radial ABG pH 7.39 (7.35-7.45) ABG pCO2 41.4 (35.0-45.0) mmHg ABG pO2 72.0 L (80.0-100.0) mmHg ABG HCO3 24.6 (22.0-26.0) meq/L ABG O2 Saturation 94.6 L (96.0-97.0) % ABG Base Excess 0.2 (-2-2.0) Harsh Test Positive A-a Gradient 56 mmHg O2 Delivery Device Nasal cannula Oxygen Flow Rate 2.0 FiO2 28.00 (21.00-100.00) % Sodium 144 (136-145) mEq/L Potassium 4.5 (3.5-5.1) mEq/L Chloride 109 H (98-107) mEq/L Carbon Dioxide 28 (21-32) mEq/L Anion Gap 11.5 (5-15) BUN 30 H (7-18) mg/dL Creatinine 1.2 (0.7-1.3) mg/dL Est Cr Clr Drug Dosing TNP Estimated GFR (MDRD) 59 (>60) mL/min BUN/Creatinine Ratio 25.0 H (14-18) Glucose 113 (83-115) mg/dL Calcium 7.9 L (8.5-10.1) mg/dL Magnesium 2.7 H (1.8-2.4) mg/dl C-Reactive Protein 9.3 H* (<1.0) mg/dL Fabien Results last 24 hrs: Microbiology 10/25/16 06:30 Streptococcus pneumoniae Antigen (M - Final Urine - Other 10/24/16 19:49 Gram Stain - Final Sputum - Expectorated Sputum Culture - Preliminary Med Orders - Current: Current Medications Acetaminophen (Tylenol) 650 mg PO Q4H PRN PRN Reason: Pain (Mild 1-3)/fever Hydrocodone Bitart/Acetaminophen (Aurora 325-5 Mg) 1 tab PO Q4H PRN PRN Reason: Pain (moderate 4-6) Albuterol/Ipratropium (Duoneb 3.0-0.5 Mg/3 Ml) 3 ml NEB Q6HRRT PRN PRN Reason: sob Last Admin: 10/26/16 07:57 Dose: 3 ml Amitriptyline HCl (Elavil) 50 mg PO BEDTIME [facility] Last Admin: 10/25/16 20:25 Dose: 50 mg Artificial Tears (Isopto Tears 0.5% Ophth Soln) 1 ml EYEBOTH Q1H PRN PRN Reason: dry eyes Last Admin: 10/25/16 05:15 Dose: 1 ml Aspirin (Halfprin) 81 mg PO DAILY [facility] Last Admin: 10/26/16 08:25 Dose: 81 mg Bisacodyl (Dulcolax) 5 mg PO DAILY PRN PRN Reason: Constipation Calcium Carbonate (Calcium Carbonate/Vitamin D 1500 Mg-200 Unit) 1 tab PO DAILY [facility] Last Admin: 10/26/16 08:22 Dose: 1 tab Carvedilol (Coreg) 12.5 mg PO BID [facility] Last Admin: 10/26/16 08:22 Dose: 12.5 mg Clopidogrel Bisulfate (Plavix) 75 mg PO DAILY [facility] Last Admin: 10/26/16 08:26 Dose: 75 mg Docusate Sodium (Colace) 100 mg PO DAILY PRN PRN Reason: Constipation Enoxaparin Sodium (Lovenox) 40 mg SUBCUT DAILY [facility] Last Admin: 10/26/16 09:07 Dose: Not Given Fish Oil (Fish Oil) 1 gm PO DAILY [facility] Last Admin: 10/26/16 08:25 Dose: 1 gm Furosemide (Lasix) 40 mg PO DAILY [facility] Last Admin: 10/26/16 08:26 Dose: 40 mg Guaifenesin (Mucinex) 1,200 mg PO BID [facility] Last Admin: 10/26/16 08:24 Dose: 1,200 mg Azithromycin 500 mg/ Sodium (Chloride) 250 mls @ 250 mls/hr IV Q24H [facility] Last Admin: 10/26/16 09:09 Dose: 250 mls/hr Ceftriaxone Sodium 1 gm/ (Sodium Chloride) 100 mls @ 200 mls/hr IV Q24H [facility] Last Admin: 10/26/16 08:26 Dose: 200 mls/hr Lisinopril (Prinivil) 20 mg PO BID [facility] Last Admin: 10/26/16 08:25 Dose: 20 mg Lorazepam (Ativan) 0.5 mg IV Q6H PRN PRN Reason: Anxiety Magnesium Oxide (Magnesium Oxide) 400 mg PO BID [facility] Methylprednisolone Sodium Succinate (Solu-Medrol) 125 mg IVPUSH Q6H [facility] Last Admin: 10/26/16 08:26 Dose: 125 mg Montelukast Sodium (Singulair) 10 mg PO BEDTIME [facility] Last Admin: 10/25/16 20:24 Dose: 10 mg Morphine Sulfate (Morphine) 1 mg IVPUSH Q4H PRN PRN Reason: Other Stop: 10/27/16 13:38 Last Admin: 10/25/16 08:33 Dose: 1 mg Multivitamins (Thera) 1 each PO DAILY [facility] Last Admin: 10/26/16 08:25 Dose: 1 each Nitroglycerin (Nitrostat) 0.4 mg SL Q5M PRN PRN Reason: chest pain Ondansetron HCl (Zofran) 4 mg IV Q6H PRN PRN Reason: Nausea/Vomiting Pantoprazole Sodium (Protonix) 40 mg PO 0800 [facility] Last Admin: 10/26/16 08:38 Dose: 40 mg Arformoterol 15 Mcg 0 each NEB BID [facility] Last Admin: 10/26/16 09:08 Dose: 1 each Roflumilast 500 Mcg 0 each PO DAILY [facility] Last Admin: 10/26/16 09:08 Dose: Not Given Polyethylene Glycol (Miralax) 17 gm PO DAILY PRN PRN Reason: Constipation Senna/Docusate Sodium (Senna Plus) 1 tab PO BID PRN PRN Reason: Constipation Simvastatin (Zocor) 40 mg PO BEDTIME [facility] Last Admin: 10/25/16 20:24 Dose: 40 mg Sodium Chloride (Saline Flush) 10 ml FLUSH ASDIRECTED PRN PRN Reason: Keep Vein Open Last Admin: 10/25/16 20:28 Dose: 10 ml Temazepam (Restoril) 15 mg PO BEDTIME PRN PRN Reason: Sleep Triamcinolone Acetonide (Triamcinolone Acetonide 0.1% Crm) 15 gm TOP DAILY PRN PRN Reason: Itching Discontinued Medications Acetaminophen (Tylenol) 975 mg PO NOW ONE Stop: 10/24/16 11:57 Last Admin: 10/24/16 11:59 Dose: 975 mg Albuterol (Proventil Neb Soln) Confirm Administered Dose 2.5 mg .ROUTE .STK-MED ONE Stop: 10/25/16 11:13 Last Admin: 10/25/16 11:15 Dose: 2.5 mg Albuterol (Proventil Neb Soln) 2.5 mg NEB ONETIME ONE Stop: 10/25/16 11:15 Last Admin: 10/25/16 11:17 Dose: Not Given Albuterol/Ipratropium (Duoneb 3.0-0.5 Mg/3 Ml) 3 ml NEB ONETIME ONE Stop: 10/24/16 09:12 Last Admin: 10/24/16 09:36 Dose: 3 ml Ceftriaxone Sodium (Rocephin) Confirm Administered Dose 1 gm .ROUTE .STK-MED ONE Stop: 10/25/16 07:59 Last Admin: 10/25/16 08:06 Dose: Not Given Epinephrine HCl (Epipen) 0.3 mg IM ASDIRECTED PRN PRN Reason: Allergies Magnesium Sulfate 2 gm/ Premix 50 mls @ 25 mls/hr IV ONETIME ONE Stop: 10/24/16 11:11 Last Admin: 10/24/16 09:22 Dose: 25 mls/hr Azithromycin 500 mg/ Sodium (Chloride) 250 mls @ 250 mls/hr IV ONETIME ONE Stop: 10/24/16 10:35 Last Admin: 10/24/16 09:56 Dose: 250 mls/hr Ceftriaxone Sodium 2 gm/ (Sodium Chloride) 100 mls @ 200 mls/hr IV ONETIME ONE Stop: 10/24/16 10:04 Last Admin: 10/24/16 10:31 Dose: 200 mls/hr Sodium Chloride (Normal Saline) 500 mls @ 1,000 mls/hr IV .BOLUS ONE Stop: 10/24/16 11:44 Last Admin: 10/24/16 11:27 Dose: 1,000 mls/hr Promethazine HCl 12.5 mg/ (Sodium Chloride) 50.5 mls @ 100 mls/hr IV Q6H PRN PRN Reason: Nausea/Vomiting Sodium Chloride (Normal Saline) Confirm Administered Dose 100 mls @ as directed .ROUTE .STK-MED ONE Stop: 10/25/16 07:59 Last Admin: 10/25/16 08:07 Dose: Not Given Lisinopril (Prinivil) 20 mg PO DAILY [facility] Last Admin: 10/25/16 08:19 Dose: 20 mg Magnesium Oxide (Magnesium Oxide) 400 mg PO BID [facility] Last Admin: 10/26/16 08:24 Dose: 400 mg Methylprednisolone Sodium Succinate (Solu-Medrol) 125 mg IVPUSH ONETIME ONE Stop: 10/24/16 09:12 Last Admin: 10/24/16 09:25 Dose: 125 mg Methylprednisolone Sodium Succinate (Solu-Medrol) 125 mg IVPUSH ONETIME ONE Stop: 10/25/16 15:30 Last Admin: 10/25/16 18:42 Dose: 125 mg Morphine Sulfate (Morphine) 2 mg IVPUSH Q4H PRN PRN Reason: Pain (severe 7-10) Stop: 10/27/16 13:38 Non-Formulary Medication (Risedronate Sodium [Risedronate Sodium]) 150 mg PO Q30D [facility] Last Admin: 10/24/16 14:33 Dose: Not Given Non-Formulary Medication (Atorvastatin) 10 mg PO QPM [facility] - Exam Quality Assessment: supplemental oxygen, DVT prophylaxis General: alert, oriented, cooperative, no acute distress HEENT: Pupils equal, Pupils reactive, EOMI Neck: supple, trachea midline Lungs: Normal respiratory effort, Decreased breath sounds, Wheezing (improved) Cardiovascular: Regular Rate, Regular Rhythm Abdomen: bowel sounds present, soft, no tenderness, no distension (Male) Exam: Deferred Back Exam: normal inspection Extremities: normal pulses Skin: warm Neurological: no new focal deficit, normal speech Psy/Mental Status: alert, normal affect, normal mood - Problem List & Annotations (1) Pneumonia SNOMED Code(s): 089847086 Code(s): J18.9 - PNEUMONIA, UNSPECIFIED ORGANISM Status: Acute Priority: High Current Visit: Yes Qualifiers: Pneumonia type: due to unspecified organism Laterality: right Lung location: middle lobe of lung Qualified Code(s): J18.1 - Lobar pneumonia, unspecified organism (2) Sepsis SNOMED Code(s): 85605328 Code(s): A41.9 - SEPSIS, UNSPECIFIED ORGANISM Status: Acute Current Visit : Yes Qualifiers: Sepsis type: sepsis due to unspecified organism Qualified Code(s): A41.9 - Sepsis, unspecified organism (3) COPD (chronic obstructive pulmonary disease) with emphysema SNOMED Code(s): 51627747 Code(s): J43.9 - EMPHYSEMA, UNSPECIFIED Status: Chronic Priority: High Current Visit: Yes Qualifiers: Emphysema type: panlobular Qualified Code(s): J43.1 - Panlobular emphysema (4) COPD exacerbation SNOMED Code(s): 052993671, 795833651 Code(s): J44.1 - CHRONIC OBSTRUCTIVE PULMONARY DISEASE W (ACUTE) EXACERBATION Status: Acute Priority: High Current Visit: No - Problem List Review Problem List Initiated/Reviewed/Updated: Yes - My Orders Last 24 Hours: My Active Orders 10/25/16 12:08 Antiembolic Devices [RC] 10,22 SCD [Sequential Compression Device] [OM.PC] Routine 10/25/16 12:44 Admission Status [Patient Status] [ADT] Routine 10/25/16 13:30 BIPAP [RT BiPAP/CPAP] [RC] ASDIRECTED - Plan Plan:: Assessment/Plan: Acute: CAP- Right Lower Lobe PNA - Suspect Aspiration - Routine RT care, Supplemental O2 - Sputum Cx/Sx - Mycoplasma and Strep Ag test - IV Antibiotics: Azithromycin and Rocephin - Serial CXR SOB with significant wheezing, ABG without severe hypercapnia or hypoxia; transferred to ICU for close monitoring after abrupt SOB. Restarted Aminophylline, it was used on an earlier admission with good response. However it was subsequently stopped by the pulmonary doctor on his hospital DC visit. COPD Exacerbation - Audible Wheezing - IV Solumedrol, Bronchodilators, Decongestant, IV Magnesium - IS q2 awake - Routine RT care Leukocytosis - WBC 14.43, CRP 12 - 2/2 above - Treat underlying cause Chronic: HTN PVD HLD Hx/o CAD P/p Heart Cath Asthma/End Stage COPD Chronic Respiratory Failure on 2L NC CKD Stage 3 GERD Hiatal Hernia Anemia Osteoporosis Hx/o Pulmonary Nodules on Both Lungs Hx/o Pituitary Tumor S/p Resection Plan: ICU 24-48 hours Routine AM Labs Resume Home Meds PPI Daily PT/OT/RT consult SW/CM for d/c planning DVT PPx: Lovenox Sub Q daily Additional orders as above Code status: DNR/DNI DC expected >96 hours; would benefit from SNF placement.
--- NOTE | 2016-10-26 10:54 | CR ---
Chest: Portable view of the chest was obtained. Comparison: Previous chest x-ray of 10/24/16. Heart size is normal. Mild tortuosity of the thoracic aorta is seen. Patchy areas of increased density noted within the right upper and right lower lung. Findings are felt to be slightly improved within the right base from prior study but otherwise unchanged. Minimal interstitial change within the left base is seen also felt to be stable. Bony structures are grossly intact. Impression: 1. Increased density within the chest as described above. Findings felt to be minimally improved within the right base. Other findings are felt to be stable. Diagnostic code #2
[2016-10-26] MEDS ORDERED: AMINOPHYLLINE IV ONE (11:45)
[2016-10-26] MEDS ORDERED: SODIUM CHLORIDE 0.9% IV ONE (11:45)
[2016-10-26] MEDS ORDERED: Aminophylline 500 MG in Sodium Chloride 0.9% 500 ML IV ONE (12:30)
[2016-10-26] MEDS: Amitriptyline 25 MG Tab PO SCH (20:01)
[2016-10-26] MEDS: Temazepam 15 MG Cap PO PRN (20:04)
[2016-10-26] MEDS: Simvastatin 40 MG Tab PO SCH (20:04)
[2016-10-26] MEDS: Montelukast 10 MG Tab PO SCH (20:04)
[2016-10-27] MEDS: methylPREDNISolone Sodium Succinate 125 MG/2 ML SDV IVPUSH SCH ×4 (03:19→20:33)
[2016-10-27] MEDS: Albuterol/Ipratropium 3.0-0.5 MG/3 ML Neb Soln NEB PRN ×2 (03:28→09:07)
[2016-10-27] MEDS: Pantoprazole 40 MG Tab.CR PO SCH (08:14)
[2016-10-27] MEDS: cefTRIAXone 1 GM in Sodium Chloride 0.9% 100 ML IV SCH (08:14)
[2016-10-27] MEDS: Aspirin 81 MG Tab.EC PO SCH (08:31)
[2016-10-27] MEDS: Calcium Carbonate/Vitamin D3 1500 MG-200 Units Tab PO SCH (08:31)
[2016-10-27] MEDS: Multivitamins,Therapeutic Tab PO SCH (08:31)
[2016-10-27] MEDS: Lisinopril 20 MG Tab PO SCH ×2 (08:31→20:34)
[2016-10-27] MEDS: Furosemide 40 MG Tab PO SCH (08:32)
[2016-10-27] MEDS: Enoxaparin 40 MG/0.4 ML Syringe SUBCUT SCH (08:32)
[2016-10-27] MEDS: guaiFENesin 600 MG Tab.ER PO SCH ×2 (08:32→20:33)
[2016-10-27] MEDS: Carvedilol 12.5 MG Tab PO SCH ×2 (08:32→17:59)
[2016-10-27] MEDS: Clopidogrel 75 MG Tab PO SCH (08:32)
[2016-10-27] MEDS: Fish Oil/Omega-3 Fatty Acids 1 Gm Cap PO SCH (08:32)
[2016-10-27] MEDS: Azithromycin 500 MG in Sodium Chloride 0.9% 250 ML IV SCH (08:59)
[2016-10-27] MEDS: Magnesium Oxide 400 MG Tab PO SCH ×2 (09:28→20:34)
[2016-10-27] MEDS: Theophylline 300 MG Tab.ER PO SCH (09:29)
[2016-10-27] MEDS: ARFORMOTEROL 15 MCG NEB SCH ×2 (10:52→21:01)
[2016-10-27] MEDS ORDERED: amLODIPine 10 MG Tab PO SCH (11:45)
[2016-10-27] MEDS ORDERED: Meropenem 1 GM in Sodium Chloride 0.9% 100 ML IV SCH (12:00)
[2016-10-27] MEDS: amLODIPine 5 MG Tab PO SCH ×2 (12:04→20:36)
[2016-10-27] MEDS: Levofloxacin/Dextrose 5%-Water 750 MG in Premix Bag 1 BAG IV SCH (12:04)
[2016-10-27] MEDS: Albuterol 0.083% 2.5 MG/3 ML Neb Soln NEB PRN (12:44)
[2016-10-27] MEDS: Meropenem 500 MG in Sodium Chloride 0.9% 100 ML IV SCH ×2 (13:30→20:42)
[2016-10-27] MEDS: Albuterol/Ipratropium 3.0-0.5 MG/3 ML Neb Soln NEB SCH ×2 (15:54→21:01)
--- NOTE | 2016-10-27 15:54 | PCM.PN ---
- General Info Date of Service: 10/27/16 Functional Status: Reports: tolerating diet, urinating - Review of Systems General: Reports: No Symptoms HEENT: Reports: no symptoms Pulmonary: Reports: shortness of breath Cardiovascular: Reports: No Symptoms Gastrointestinal: Reports: No symptoms Genitourinary: Reports: no symptoms Musculoskeletal: Reports: no symptoms Skin: Reports: no symptoms Neurological: Reports: No Symptoms Psychiatric: Reports: no symptoms - Patient Data Vitals - most recent: Last Vital Signs Temp 36.3 C 10/27/16 12:00 Pulse 94 10/27/16 08:32 Resp 20 10/27/16 12:00 BP 158/89 H 10/27/16 15:00 Pulse Ox 98 10/27/16 12:45 Weight - most recent: 79.696 kg I&O - last 24 hours: Intake & Output 10/27/16 10/27/16 10/27/16 06:59 14:59 22:59 Intake Total 378 600 Output Total 425 500 Balance -47 100 Lab Results last 24 hrs: Laboratory Results - last 24 hr 10/27/16 10/27/16 10/27/16 Range/Units 07:01 07:01 07:01 WBC 14.09 H (4.23-9.07) K/mm3 RBC 3.15 L (4.63-6.08) M/mm3 Hgb 9.5 L (13.7-17.5) gm/L Hct 30.2 L (40.1-51.0) % MCV 95.9 H (79.0-92.2) fl MCH 30.2 (25.7-32.2) pg MCHC 31.5 L (32.2-35.5) g/dl RDW Std Deviation 55.6 H (35.1-43.9) fL Plt Count 350 H (163-337) K/mm3 MPV 9.9 (9.4-12.3) fl Neut % (Auto) 95.5 H (34.0-67.9) % Lymph % (Auto) 2.7 L (21.8-53.1) % [place] % (Auto) 1.5 L (5.3-12.2) % Eos % (Auto) 0 L (0.8-7.0) Baso % (Auto) 0.0 L (0.1-1.2) % Neut # (Auto) 13.46 H (1.78-5.38) K/mm3 Lymph # (Auto) 0.38 L (1.32-3.57) K/mm3 [place] # (Auto) 0.21 L (0.30-0.82) K/mm3 Eos # (Auto) 0.00 L (0.04-0.54) K/mm3 Baso # (Auto) 0.00 L (0.01-0.08) K/mm3 Manual Slide Review Abnormal smear Sodium 145 (136-145) mEq/L Potassium 3.9 (3.5-5.1) mEq/L Chloride 108 H (98-107) mEq/L Carbon Dioxide 31 (21-32) mEq/L Anion Gap 9.9 (5-15) BUN 28 H (7-18) mg/dL Creatinine 1.0 (0.7-1.3) mg/dL Est Cr Clr Drug Dosing TNP Estimated GFR (MDRD) > 60 (>60) mL/min BUN/Creatinine Ratio 28.0 H (14-18) Glucose 106 (83-115) mg/dL Calcium 7.8 L (8.5-10.1) mg/dL Magnesium 2.5 H (1.8-2.4) mg/dl C-Reactive Protein 3.9 H* (<1.0) mg/dL Theophylline 9.1 L (10.0-20.0) ug/mL Fabien Results last 24 hrs: Microbiology 10/24/16 19:49 Gram Stain - Final Sputum - Expectorated Sputum Culture - Final Normal Bess Med Orders - Current: Current Medications Acetaminophen (Tylenol) 650 mg PO Q4H PRN PRN Reason: Pain (Mild 1-3)/fever Hydrocodone Bitart/Acetaminophen ([place] 325-5 Mg) 1 tab PO Q4H PRN PRN Reason: Pain (moderate 4-6) Albuterol (Proventil Neb Soln) 2.5 mg NEB Q4HRRT PRN PRN Reason: Shortness of Breath Last Admin: 10/27/16 12:44 Dose: 2.5 mg Albuterol/Ipratropium (Duoneb 3.0-0.5 Mg/3 Ml) 3 ml NEB QIDRT [facility] Amitriptyline HCl (Elavil) 50 mg PO BEDTIME [facility] Last Admin: 10/26/16 20:01 Dose: 50 mg Amlodipine Besylate (Norvasc) 5 mg PO BID [facility] Last Admin: 10/27/16 12:04 Dose: 5 mg Artificial Tears (Isopto Tears 0.5% Ophth Soln) 1 ml EYEBOTH Q1H PRN PRN Reason: dry eyes Last Admin: 10/25/16 05:15 Dose: 1 ml Aspirin (Halfprin) 81 mg PO DAILY [facility] Last Admin: 10/27/16 08:31 Dose: 81 mg Bisacodyl (Dulcolax) 5 mg PO DAILY PRN PRN Reason: Constipation Calcium Carbonate (Calcium Carbonate/Vitamin D 1500 Mg-200 Unit) 1 tab PO DAILY [facility] Last Admin: 10/27/16 08:31 Dose: 1 tab Carvedilol (Coreg) 12.5 mg PO BID@0600,1800 [facility] Clopidogrel Bisulfate (Plavix) 75 mg PO DAILY [facility] Last Admin: 10/27/16 08:32 Dose: 75 mg Docusate Sodium (Colace) 100 mg PO DAILY PRN PRN Reason: Constipation Enoxaparin Sodium (Lovenox) 40 mg SUBCUT DAILY [facility] Last Admin: 10/27/16 08:32 Dose: Not Given Fish Oil (Fish Oil) 1 gm PO DAILY [facility] Last Admin: 10/27/16 08:32 Dose: 1 gm Furosemide (Lasix) 40 mg PO DAILY [facility] Last Admin: 10/27/16 08:32 Dose: 40 mg Guaifenesin (Mucinex) 1,200 mg PO BID [facility] Last Admin: 10/27/16 08:32 Dose: 1,200 mg Levofloxacin/Dextrose 750 mg/ (Premix) 150 mls @ 100 mls/hr IV Q24H [facility] Last Admin: 10/27/16 12:04 Dose: 100 mls/hr Meropenem 500 mg/ Sodium (Chloride) 100 mls @ 200 mls/hr IV Q6H [facility] Last Admin: 10/27/16 13:30 Dose: 200 mls/hr Lisinopril (Prinivil) 20 mg PO BID [facility] Last Admin: 10/27/16 08:31 Dose: 20 mg Lorazepam (Ativan) 0.5 mg IV Q6H PRN PRN Reason: Anxiety Magnesium Oxide (Magnesium Oxide) 400 mg PO BID [facility] Last Admin: 10/27/16 09:28 Dose: Not Given Methylprednisolone Sodium Succinate (Solu-Medrol) 125 mg IVPUSH Q6H [facility] Last Admin: 10/27/16 14:32 Dose: 125 mg Montelukast Sodium (Singulair) 10 mg PO BEDTIME [facility] Last Admin: 10/26/16 20:04 Dose: 10 mg Multivitamins (Thera) 1 each PO DAILY [facility] Last Admin: 10/27/16 08:31 Dose: 1 each Nitroglycerin (Nitrostat) 0.4 mg SL Q5M PRN PRN Reason: chest pain Ondansetron HCl (Zofran) 4 mg IV Q6H PRN PRN Reason: Nausea/Vomiting Pantoprazole Sodium (Protonix) 40 mg PO 0800 [facility] Last Admin: 10/27/16 08:14 Dose: 40 mg Arformoterol 15 Mcg 0 each NEB BID [facility] Last Admin: 10/27/16 10:52 Dose: Not Given Roflumilast 500 Mcg 0 each PO DAILY [facility] Last Admin: 10/27/16 09:28 Dose: Not Given Polyethylene Glycol (Miralax) 17 gm PO DAILY PRN PRN Reason: Constipation Saccharomyces Boulardii (Florastor) 500 mg PO BID [facility] Senna/Docusate Sodium (Senna Plus) 1 tab PO BID PRN PRN Reason: Constipation Simvastatin (Zocor) 40 mg PO BEDTIME [facility] Last Admin: 10/26/16 20:04 Dose: 40 mg Sodium Chloride (Saline Flush) 10 ml FLUSH ASDIRECTED PRN PRN Reason: Keep Vein Open Last Admin: 10/25/16 20:28 Dose: 10 ml Temazepam (Restoril) 15 mg PO BEDTIME PRN PRN Reason: Sleep Last Admin: 10/26/16 20:04 Dose: 15 mg Theophylline (Theophylline Anhydrous) 300 mg PO DAILY [facility] Last Admin: 10/27/16 09:29 Dose: 300 mg Triamcinolone Acetonide (Triamcinolone Acetonide 0.1% Crm) 15 gm TOP DAILY PRN PRN Reason: Itching Discontinued Medications Acetaminophen (Tylenol) 975 mg PO NOW ONE Stop: 10/24/16 11:57 Last Admin: 10/24/16 11:59 Dose: 975 mg Albuterol (Proventil Neb Soln) Confirm Administered Dose 2.5 mg .ROUTE .STK-MED ONE Stop: 10/25/16 11:13 Last Admin: 10/25/16 11:15 Dose: 2.5 mg Albuterol (Proventil Neb Soln) 2.5 mg NEB ONETIME ONE Stop: 10/25/16 11:15 Last Admin: 10/25/16 11:17 Dose: Not Given Albuterol/Ipratropium (Duoneb 3.0-0.5 Mg/3 Ml) 3 ml NEB ONETIME ONE Stop: 10/24/16 09:12 Last Admin: 10/24/16 09:36 Dose: 3 ml Albuterol/Ipratropium (Duoneb 3.0-0.5 Mg/3 Ml) 3 ml NEB Q6HRRT PRN PRN Reason: sob Last Admin: 10/27/16 09:07 Dose: 3 ml Carvedilol (Coreg) 12.5 mg PO BID [facility] Last Admin: 10/27/16 08:32 Dose: 12.5 mg Ceftriaxone Sodium (Rocephin) Confirm Administered Dose 1 gm .ROUTE .STK-MED ONE Stop: 10/25/16 07:59 Last Admin: 10/25/16 08:06 Dose: Not Given Epinephrine HCl (Epipen) 0.3 mg IM ASDIRECTED PRN PRN Reason: Allergies Magnesium Sulfate 2 gm/ Premix 50 mls @ 25 mls/hr IV ONETIME ONE Stop: 10/24/16 11:11 Last Admin: 10/24/16 09:22 Dose: 25 mls/hr Azithromycin 500 mg/ Sodium (Chloride) 250 mls @ 250 mls/hr IV ONETIME ONE Stop: 10/24/16 10:35 Last Admin: 10/24/16 09:56 Dose: 250 mls/hr Ceftriaxone Sodium 2 gm/ (Sodium Chloride) 100 mls @ 200 mls/hr IV ONETIME ONE Stop: 10/24/16 10:04 Last Admin: 10/24/16 10:31 Dose: 200 mls/hr Sodium Chloride (Normal Saline) 500 mls @ 1,000 mls/hr IV .BOLUS ONE Stop: 10/24/16 11:44 Last Admin: 10/24/16 11:27 Dose: 1,000 mls/hr Azithromycin 500 mg/ Sodium (Chloride) 250 mls @ 250 mls/hr IV Q24H [facility] Last Admin: 10/27/16 08:59 Dose: 250 mls/hr Promethazine HCl 12.5 mg/ (Sodium Chloride) 50.5 mls @ 100 mls/hr IV Q6H PRN PRN Reason: Nausea/Vomiting Ceftriaxone Sodium 1 gm/ (Sodium Chloride) 100 mls @ 200 mls/hr IV Q24H [facility] Last Admin: 10/27/16 08:14 Dose: 200 mls/hr Sodium Chloride (Normal Saline) Confirm Administered Dose 100 mls @ as directed .ROUTE .STK-MED ONE Stop: 10/25/16 07:59 Last Admin: 10/25/16 08:07 Dose: Not Given Aminophylline 440 mg/ Sodium (Chloride) 117.6 mls @ 235 mls/hr IV ONETIME ONE Stop: 10/26/16 12:15 Last Admin: 10/26/16 11:27 Dose: 235 mls/hr Aminophylline 500 mg/ Sodium (Chloride) 520 mls @ 30 mls/hr IV ONETIME ONE Stop: 10/27/16 05:49 Last Admin: 10/26/16 12:06 Dose: 30 mls/hr Meropenem 1 gm/ Sodium (Chloride) 100 mls @ 200 mls/hr IV Q8H [facility] Lisinopril (Prinivil) 20 mg PO DAILY [facility] Last Admin: 10/25/16 08:19 Dose: 20 mg Magnesium Oxide (Magnesium Oxide) 400 mg PO BID [facility] Last Admin: 10/26/16 08:24 Dose: 400 mg Methylprednisolone Sodium Succinate (Solu-Medrol) 125 mg IVPUSH ONETIME ONE Stop: 10/24/16 09:12 Last Admin: 10/24/16 09:25 Dose: 125 mg Methylprednisolone Sodium Succinate (Solu-Medrol) 125 mg IVPUSH ONETIME ONE Stop: 10/25/16 15:30 Last Admin: 10/25/16 18:42 Dose: 125 mg Morphine Sulfate (Morphine) 2 mg IVPUSH Q4H PRN PRN Reason: Pain (severe 7-10) Stop: 10/27/16 13:38 Morphine Sulfate (Morphine) 1 mg IVPUSH Q4H PRN PRN Reason: Other Stop: 10/27/16 13:38 Last Admin: 10/25/16 08:33 Dose: 1 mg Non-Formulary Medication (Risedronate Sodium [Risedronate Sodium]) 150 mg PO Q30D [facility] Last Admin: 10/24/16 14:33 Dose: Not Given Non-Formulary Medication (Atorvastatin) 10 mg PO QPM [facility] - Exam Quality Assessment: supplemental oxygen, DVT prophylaxis General: alert, oriented, cooperative, no acute distress HEENT: Pupils equal, Pupils reactive, EOMI Neck: supple, trachea midline, no JVD Lungs: Normal respiratory effort, Decreased breath sounds, Wheezing Cardiovascular: Regular Rate Abdomen: bowel sounds present, soft, no tenderness, no distension (Male) Exam: Deferred Back Exam: normal inspection Extremities: normal pulses Skin: warm Neurological: no new focal deficit, normal speech Psy/Mental Status: alert, normal affect, normal mood - Problem List & Annotations (1) Pneumonia SNOMED Code(s): 273075498 Code(s): J18.9 - PNEUMONIA, UNSPECIFIED ORGANISM Status: Acute Priority: High Current Visit: Yes Qualifiers: Pneumonia type: due to unspecified organism Laterality: right Lung location: middle lobe of lung Qualified Code(s): J18.1 - Lobar pneumonia, unspecified organism (2) Sepsis SNOMED Code(s): 33715987 Code(s): A41.9 - SEPSIS, UNSPECIFIED ORGANISM Status: Acute Current Visit : Yes Qualifiers: Sepsis type: sepsis due to unspecified organism Qualified Code(s): A41.9 - Sepsis, unspecified organism (3) COPD (chronic obstructive pulmonary disease) with emphysema SNOMED Code(s): 36135970 Code(s): J43.9 - EMPHYSEMA, UNSPECIFIED Status: Chronic Priority: High Current Visit: Yes Qualifiers: Emphysema type: panlobular Qualified Code(s): J43.1 - Panlobular emphysema (4) COPD exacerbation SNOMED Code(s): 622022450, 552837980 Code(s): J44.1 - CHRONIC OBSTRUCTIVE PULMONARY DISEASE W (ACUTE) EXACERBATION Status: Acute Priority: High Current Visit: No - Problem List Review Problem List Initiated/Reviewed/Updated: Yes - My Orders Last 24 Hours: My Active Orders 10/27/16 09:00 Theophylline [Theophylline Anhydrous] 300 mg PO DAILY 10/27/16 11:36 Albuterol [Proventil Neb Soln] 2.5 mg NEB Q4HRRT PRN 10/27/16 11:37 RT Aerosol Therapy [RC] ASDIRECTED 10/27/16 12:00 Levofloxacin/Dextrose 5%-Water [Levaquin in D5W 750 MG/150 ML] 750 mg Premix Bag 1 bag IV Q24H amLODIPine [Norvasc] 5 mg PO BID 10/27/16 14:00 CXR [Chest 2V] [CR] Routine Meropenem [Merrem] 500 mg Sodium Chloride 0.9% [Normal Saline] 100 ml IV Q6H 10/27/16 16:00 Albuterol/Ipratropium [DuoNeb 3.0-0.5 MG/3 ML] 3 ml NEB QIDRT 10/27/16 18:00 Carvedilol [Coreg] 12.5 mg PO BID@0600,1800 10/27/16 21:00 Saccharomyces Boulardii [Florastor] 500 mg PO BID - Plan Plan:: Assessment/Plan: Acute: CAP- Right Lower Lobe PNA - Suspect Aspiration - Routine RT care, Supplemental O2 - Sputum Cx/Sx - Mycoplasma and Strep Ag test - IV Antibiotics: Azithromycin and Rocephin, stopped today; started meropenem and levoquin. - Serial CXR, recent showed RLL PNA without significant pulmonary congestion SOB with significant wheezing, ABG without severe hypercapnia or hypoxia; transferred to ICU for close monitoring after abrupt SOB. Restarted Aminophylline, it was used on an earlier admission with good response. However it was subsequently stopped by the pulmonary doctor on his hospital DC visit. COPD Exacerbation - Audible Wheezing - IV Solumedrol, Bronchodilators, Decongestant, IV Magnesium - IS q2 awake - Routine RT care Leukocytosis - WBC 14.43, CRP 12 - 2/2 above - Treat underlying cause Chronic: HTN PVD HLD Hx/o CAD P/p Heart Cath Asthma/End Stage COPD Chronic Respiratory Failure on 2L NC CKD Stage 3 GERD Hiatal Hernia Anemia Osteoporosis Hx/o Pulmonary Nodules on Both Lungs Hx/o Pituitary Tumor S/p Resection Plan: ICU 24-48 hours Routine AM Labs Resume Home Meds PPI Daily PT/OT/RT consult SW/CM for d/c planning DVT PPx: Lovenox Sub Q daily Additional orders as above Code status: DNR/DNI DC>96 hours; would benefit from SNF placement.
[2016-10-27] MEDS ORDERED: Doxazosin 2 MG Tab PO ONE (16:23)
[2016-10-27] MEDS: Saccharomyces Boulardii (Probiotic) 250 MG Cap PO SCH (20:33)
[2016-10-27] MEDS: Temazepam 15 MG Cap PO PRN (20:36)
[2016-10-27] MEDS: Montelukast 10 MG Tab PO SCH (20:36)
[2016-10-27] MEDS: Simvastatin 40 MG Tab PO SCH (20:36)
[2016-10-27] MEDS: Amitriptyline 25 MG Tab PO SCH (20:36)
[2016-10-28] MEDS: Meropenem 500 MG in Sodium Chloride 0.9% 100 ML IV SCH ×4 (01:56→20:03)
[2016-10-28] MEDS: methylPREDNISolone Sodium Succinate 125 MG/2 ML SDV IVPUSH SCH ×4 (02:00→20:04)
[2016-10-28] MEDS: Albuterol 0.083% 2.5 MG/3 ML Neb Soln NEB PRN (02:03)
[2016-10-28] MEDS: guaiFENesin 600 MG Tab.ER PO SCH ×2 (06:05→17:21)
[2016-10-28] MEDS: Carvedilol 12.5 MG Tab PO SCH ×2 (06:05→17:21)
[2016-10-28] MEDS: Albuterol/Ipratropium 3.0-0.5 MG/3 ML Neb Soln NEB SCH ×4 (06:41→20:20)
[2016-10-28] MEDS: Pantoprazole 40 MG Tab.CR PO SCH (08:25)
[2016-10-28] MEDS: ARFORMOTEROL 15 MCG NEB SCH ×2 (09:01→20:21)
[2016-10-28] MEDS: Calcium Carbonate/Vitamin D3 1500 MG-200 Units Tab PO SCH (09:34)
[2016-10-28] MEDS: Lisinopril 20 MG Tab PO SCH ×2 (09:34→20:10)
[2016-10-28] MEDS: Fish Oil/Omega-3 Fatty Acids 1 Gm Cap PO SCH (09:34)
[2016-10-28] MEDS: Multivitamins,Therapeutic Tab PO SCH (09:34)
[2016-10-28] MEDS: Clopidogrel 75 MG Tab PO SCH (09:35)
[2016-10-28] MEDS: Enoxaparin 40 MG/0.4 ML Syringe SUBCUT SCH (09:35)
[2016-10-28] MEDS: Furosemide 40 MG Tab PO SCH (09:35)
[2016-10-28] MEDS: Aspirin 81 MG Tab.EC PO SCH (09:35)
[2016-10-28] MEDS: amLODIPine 5 MG Tab PO SCH ×2 (09:35→20:10)
[2016-10-28] MEDS: Saccharomyces Boulardii (Probiotic) 250 MG Cap PO SCH ×2 (09:35→20:08)
[2016-10-28] MEDS: Theophylline 300 MG Tab.ER PO SCH (09:36)
--- NOTE | 2016-10-28 10:26 | PCM.PN ---
- General Info Date of Service: 10/28/16 Functional Status: Reports: new symptoms (facial fullness ) - Review of Systems General: Reports: Weakness HEENT: Reports: no symptoms Pulmonary: Reports: shortness of breath Cardiovascular: Reports: No Symptoms Gastrointestinal: Reports: No symptoms Genitourinary: Reports: no symptoms Musculoskeletal: Reports: no symptoms Skin: Reports: no symptoms Neurological: Reports: No Symptoms Psychiatric: Reports: no symptoms - Patient Data Vitals - most recent: Last Vital Signs Temp 36.4 C 10/28/16 08:00 Pulse 90 10/28/16 06:05 Resp 22 H 10/28/16 08:00 BP 154/91 H 10/28/16 09:35 Pulse Ox 96 10/28/16 09:03 Weight - most recent: 79.832 kg I&O - last 24 hours: Intake & Output 10/27/16 10/28/16 10/28/16 22:59 06:59 14:59 Intake Total 1960 600 Output Total 850 325 Balance 1110 275 Lab Results last 24 hrs: Laboratory Results - last 24 hr 10/28/16 Range/Units 05:07 Sodium 143 (136-145) mEq/L Potassium 3.6 (3.5-5.1) mEq/L Chloride 106 (98-107) mEq/L Carbon Dioxide 32 (21-32) mEq/L Anion Gap 8.6 (5-15) BUN 30 H (7-18) mg/dL Creatinine 1.0 (0.7-1.3) mg/dL Est Cr Clr Drug Dosing TNP Estimated GFR (MDRD) > 60 (>60) mL/min BUN/Creatinine Ratio 30.0 H (14-18) Glucose 123 H (83-115) mg/dL Calcium 7.6 L (8.5-10.1) mg/dL Magnesium 2.6 H (1.8-2.4) mg/dl C-Reactive Protein 2.0 H* (<1.0) mg/dL Fabien Results last 24 hrs: Microbiology 10/24/16 19:49 Gram Stain - Final Sputum - Expectorated Sputum Culture - Final Normal Bess Med Orders - Current: Current Medications Acetaminophen (Tylenol) 650 mg PO Q4H PRN PRN Reason: Pain (Mild 1-3)/fever Hydrocodone Bitart/Acetaminophen ([place] 325-5 Mg) 1 tab PO Q4H PRN PRN Reason: Pain (moderate 4-6) Albuterol (Proventil Neb Soln) 2.5 mg NEB Q4HRRT PRN PRN Reason: Shortness of Breath Last Admin: 10/28/16 02:03 Dose: 2.5 mg Albuterol/Ipratropium (Duoneb 3.0-0.5 Mg/3 Ml) 3 ml NEB QIDRT [facility] Last Admin: 10/28/16 09:01 Dose: 3 ml Amitriptyline HCl (Elavil) 50 mg PO BEDTIME [facility] Last Admin: 10/27/16 20:36 Dose: 50 mg Amlodipine Besylate (Norvasc) 5 mg PO BID [facility] Last Admin: 10/28/16 09:35 Dose: 5 mg Artificial Tears (Isopto Tears 0.5% Ophth Soln) 1 ml EYEBOTH Q1H PRN PRN Reason: dry eyes Last Admin: 10/25/16 05:15 Dose: 1 ml Aspirin (Halfprin) 81 mg PO DAILY [facility] Last Admin: 10/28/16 09:35 Dose: 81 mg Bisacodyl (Dulcolax) 5 mg PO DAILY PRN PRN Reason: Constipation Calcium Carbonate (Calcium Carbonate/Vitamin D 1500 Mg-200 Unit) 1 tab PO DAILY [facility] Last Admin: 10/28/16 09:34 Dose: 1 tab Carvedilol (Coreg) 12.5 mg PO BID@0600,1800 [facility] Last Admin: 10/28/16 06:05 Dose: 12.5 mg Clopidogrel Bisulfate (Plavix) 75 mg PO DAILY [facility] Last Admin: 10/28/16 09:35 Dose: 75 mg Docusate Sodium (Colace) 100 mg PO DAILY PRN PRN Reason: Constipation Enoxaparin Sodium (Lovenox) 40 mg SUBCUT DAILY [facility] Last Admin: 10/28/16 09:35 Dose: Not Given Fish Oil (Fish Oil) 1 gm PO DAILY [facility] Last Admin: 10/28/16 09:34 Dose: 1 gm Furosemide (Lasix) 40 mg PO DAILY [facility] Last Admin: 10/28/16 09:35 Dose: 40 mg Guaifenesin (Mucinex) 1,200 mg PO Q12H [facility] Last Admin: 10/28/16 06:05 Dose: 1,200 mg Levofloxacin/Dextrose 750 mg/ (Premix) 150 mls @ 100 mls/hr IV Q24H [facility] Last Admin: 10/27/16 12:04 Dose: 100 mls/hr Meropenem 500 mg/ Sodium (Chloride) 100 mls @ 200 mls/hr IV Q6H [facility] Last Admin: 10/28/16 08:54 Dose: 200 mls/hr Lisinopril (Prinivil) 20 mg PO BID [facility] Last Admin: 10/28/16 09:34 Dose: 20 mg Lorazepam (Ativan) 0.5 mg IV Q6H PRN PRN Reason: Anxiety Magnesium Oxide (Magnesium Oxide) 400 mg PO BID [facility] Last Admin: 10/27/16 20:34 Dose: 400 mg Methylprednisolone Sodium Succinate (Solu-Medrol) 125 mg IVPUSH Q6H [facility] Last Admin: 10/28/16 08:54 Dose: 125 mg Montelukast Sodium (Singulair) 10 mg PO BEDTIME [facility] Last Admin: 10/27/16 20:36 Dose: 10 mg Multivitamins (Thera) 1 each PO DAILY [facility] Last Admin: 10/28/16 09:34 Dose: 1 each Nitroglycerin (Nitrostat) 0.4 mg SL Q5M PRN PRN Reason: chest pain Ondansetron HCl (Zofran) 4 mg IV Q6H PRN PRN Reason: Nausea/Vomiting Pantoprazole Sodium (Protonix) 40 mg PO 0800 [facility] Last Admin: 10/28/16 08:25 Dose: 40 mg Arformoterol 15 Mcg 0 each NEB BID [facility] Last Admin: 10/28/16 09:01 Dose: 1 each Roflumilast 500 Mcg 0 each PO DAILY [facility] Last Admin: 10/28/16 09:36 Dose: Not Given Polyethylene Glycol (Miralax) 17 gm PO DAILY PRN PRN Reason: Constipation Saccharomyces Boulardii (Florastor) 500 mg PO BID [facility] Last Admin: 10/28/16 09:35 Dose: 500 mg Senna/Docusate Sodium (Senna Plus) 1 tab PO BID PRN PRN Reason: Constipation Simvastatin (Zocor) 40 mg PO BEDTIME [facility] Last Admin: 10/27/16 20:36 Dose: 40 mg Sodium Chloride (Saline Flush) 10 ml FLUSH ASDIRECTED PRN PRN Reason: Keep Vein Open Last Admin: 10/25/16 20:28 Dose: 10 ml Temazepam (Restoril) 15 mg PO BEDTIME PRN PRN Reason: Sleep Last Admin: 10/27/16 20:36 Dose: 15 mg Theophylline (Theophylline Anhydrous) 300 mg PO DAILY [facility] Last Admin: 10/28/16 09:36 Dose: 300 mg Triamcinolone Acetonide (Triamcinolone Acetonide 0.1% Crm) 15 gm TOP DAILY PRN PRN Reason: Itching Discontinued Medications Acetaminophen (Tylenol) 975 mg PO NOW ONE Stop: 10/24/16 11:57 Last Admin: 10/24/16 11:59 Dose: 975 mg Albuterol (Proventil Neb Soln) Confirm Administered Dose 2.5 mg .ROUTE .STK-MED ONE Stop: 10/25/16 11:13 Last Admin: 10/25/16 11:15 Dose: 2.5 mg Albuterol (Proventil Neb Soln) 2.5 mg NEB ONETIME ONE Stop: 10/25/16 11:15 Last Admin: 10/25/16 11:17 Dose: Not Given Albuterol/Ipratropium (Duoneb 3.0-0.5 Mg/3 Ml) 3 ml NEB ONETIME ONE Stop: 10/24/16 09:12 Last Admin: 10/24/16 09:36 Dose: 3 ml Albuterol/Ipratropium (Duoneb 3.0-0.5 Mg/3 Ml) 3 ml NEB Q6HRRT PRN PRN Reason: sob Last Admin: 10/27/16 09:07 Dose: 3 ml Carvedilol (Coreg) 12.5 mg PO BID [facility] Last Admin: 10/27/16 08:32 Dose: 12.5 mg Ceftriaxone Sodium (Rocephin) Confirm Administered Dose 1 gm .ROUTE .STK-MED ONE Stop: 10/25/16 07:59 Last Admin: 10/25/16 08:06 Dose: Not Given Doxazosin Mesylate (Cardura) 2 mg PO ONETIME ONE Stop: 10/27/16 16:24 Last Admin: 10/27/16 16:33 Dose: 2 mg Epinephrine HCl (Epipen) 0.3 mg IM ASDIRECTED PRN PRN Reason: Allergies Guaifenesin (Mucinex) 1,200 mg PO BID [facility] Last Admin: 10/27/16 20:33 Dose: 1,200 mg Magnesium Sulfate 2 gm/ Premix 50 mls @ 25 mls/hr IV ONETIME ONE Stop: 10/24/16 11:11 Last Admin: 10/24/16 09:22 Dose: 25 mls/hr Azithromycin 500 mg/ Sodium (Chloride) 250 mls @ 250 mls/hr IV ONETIME ONE Stop: 10/24/16 10:35 Last Admin: 10/24/16 09:56 Dose: 250 mls/hr Ceftriaxone Sodium 2 gm/ (Sodium Chloride) 100 mls @ 200 mls/hr IV ONETIME ONE Stop: 10/24/16 10:04 Last Admin: 10/24/16 10:31 Dose: 200 mls/hr Sodium Chloride (Normal Saline) 500 mls @ 1,000 mls/hr IV .BOLUS ONE Stop: 10/24/16 11:44 Last Admin: 10/24/16 11:27 Dose: 1,000 mls/hr Azithromycin 500 mg/ Sodium (Chloride) 250 mls @ 250 mls/hr IV Q24H [facility] Last Admin: 10/27/16 08:59 Dose: 250 mls/hr Promethazine HCl 12.5 mg/ (Sodium Chloride) 50.5 mls @ 100 mls/hr IV Q6H PRN PRN Reason: Nausea/Vomiting Ceftriaxone Sodium 1 gm/ (Sodium Chloride) 100 mls @ 200 mls/hr IV Q24H [facility] Last Admin: 10/27/16 08:14 Dose: 200 mls/hr Sodium Chloride (Normal Saline) Confirm Administered Dose 100 mls @ as directed .ROUTE .STK-MED ONE Stop: 10/25/16 07:59 Last Admin: 10/25/16 08:07 Dose: Not Given Aminophylline 440 mg/ Sodium (Chloride) 117.6 mls @ 235 mls/hr IV ONETIME ONE Stop: 10/26/16 12:15 Last Admin: 10/26/16 11:27 Dose: 235 mls/hr Aminophylline 500 mg/ Sodium (Chloride) 520 mls @ 30 mls/hr IV ONETIME ONE Stop: 10/27/16 05:49 Last Admin: 10/26/16 12:06 Dose: 30 mls/hr Meropenem 1 gm/ Sodium (Chloride) 100 mls @ 200 mls/hr IV Q8H [facility] Lisinopril (Prinivil) 20 mg PO DAILY [facility] Last Admin: 10/25/16 08:19 Dose: 20 mg Magnesium Oxide (Magnesium Oxide) 400 mg PO BID [facility] Last Admin: 10/26/16 08:24 Dose: 400 mg Methylprednisolone Sodium Succinate (Solu-Medrol) 125 mg IVPUSH ONETIME ONE Stop: 10/24/16 09:12 Last Admin: 10/24/16 09:25 Dose: 125 mg Methylprednisolone Sodium Succinate (Solu-Medrol) 125 mg IVPUSH ONETIME ONE Stop: 10/25/16 15:30 Last Admin: 10/25/16 18:42 Dose: 125 mg Morphine Sulfate (Morphine) 2 mg IVPUSH Q4H PRN PRN Reason: Pain (severe 7-10) Stop: 10/27/16 13:38 Morphine Sulfate (Morphine) 1 mg IVPUSH Q4H PRN PRN Reason: Other Stop: 10/27/16 13:38 Last Admin: 10/25/16 08:33 Dose: 1 mg Non-Formulary Medication (Risedronate Sodium [Risedronate Sodium]) 150 mg PO Q30D [facility] Last Admin: 10/24/16 14:33 Dose: Not Given Non-Formulary Medication (Atorvastatin) 10 mg PO QPM [facility] - Exam Quality Assessment: supplemental oxygen, DVT prophylaxis General: alert, oriented, cooperative, no acute distress HEENT: Pupils equal, Pupils reactive, EOMI Neck: supple, trachea midline, no JVD Lungs: Normal respiratory effort, Decreased breath sounds, Wheezing Cardiovascular: Regular Rate, Regular Rhythm Abdomen: bowel sounds present, soft, no tenderness, no distension (Male) Exam: Deferred Back Exam: normal inspection Extremities: normal pulses Skin: warm Neurological: no new focal deficit, normal gait, normal speech Psy/Mental Status: alert, normal affect, normal mood - Problem List & Annotations (1) Pneumonia SNOMED Code(s): 265113710 Code(s): J18.9 - PNEUMONIA, UNSPECIFIED ORGANISM Status: Acute Priority: High Current Visit: Yes Qualifiers: Pneumonia type: due to unspecified organism Laterality: right Lung location: middle lobe of lung Qualified Code(s): J18.1 - Lobar pneumonia, unspecified organism (2) Sepsis SNOMED Code(s): 01195100 Code(s): A41.9 - SEPSIS, UNSPECIFIED ORGANISM Status: Acute Current Visit : Yes Qualifiers: Sepsis type: sepsis due to unspecified organism Qualified Code(s): A41.9 - Sepsis, unspecified organism (3) COPD (chronic obstructive pulmonary disease) with emphysema SNOMED Code(s): 87837173 Code(s): J43.9 - EMPHYSEMA, UNSPECIFIED Status: Chronic Priority: High Current Visit: Yes Qualifiers: Emphysema type: panlobular Qualified Code(s): J43.1 - Panlobular emphysema (4) COPD exacerbation SNOMED Code(s): 679942902, 202487479 Code(s): J44.1 - CHRONIC OBSTRUCTIVE PULMONARY DISEASE W (ACUTE) EXACERBATION Status: Acute Priority: High Current Visit: No - Problem List Review Problem List Initiated/Reviewed/Updated: Yes - My Orders Last 24 Hours: My Active Orders 10/27/16 11:36 Albuterol [Proventil Neb Soln] 2.5 mg NEB Q4HRRT PRN 10/27/16 11:37 RT Aerosol Therapy [RC] ASDIRECTED 10/27/16 12:00 Levofloxacin/Dextrose 5%-Water [Levaquin in D5W 750 MG/150 ML] 750 mg Premix Bag 1 bag IV Q24H amLODIPine [Norvasc] 5 mg PO BID 10/27/16 14:00 CXR [Chest 2V] [CR] Routine Meropenem [Merrem] 500 mg Sodium Chloride 0.9% [Normal Saline] 100 ml IV Q6H 10/27/16 16:00 Albuterol/Ipratropium [DuoNeb 3.0-0.5 MG/3 ML] 3 ml NEB QIDRT 10/27/16 18:00 Carvedilol [Coreg] 12.5 mg PO BID@0600,1800 10/27/16 21:00 Saccharomyces Boulardii [Florastor] 500 mg PO BID - Plan Plan:: Assessment/Plan: Acute: CAP- Right Lower Lobe PNA; HCAP - Suspect Aspiration - Routine RT care, Supplemental O2 - Sputum Cx/Sx - Mycoplasma and Strep Ag test - IV Antibiotics: Azithromycin and Rocephin, stopped today; started meropenem and levoquin, day 2. - Serial CXR, recent showed RLL PNA without significant pulmonary congestion SOB with significant wheezing, ABG without severe hypercapnia or hypoxia; transferred to ICU for close monitoring after abrupt SOB. Restarted Aminophylline, it was used on an earlier admission with good response. However it was subsequently stopped by the pulmonary doctor on his hospital DC visit. COPD Exacerbation - Audible Wheezing - IV Solumedrol, Bronchodilators, Decongestant, IV Magnesium - IS q2 awake - Routine RT care Leukocytosis - WBC 14.43, CRP 12 - 2/2 above - Treat underlying cause Chronic: HTN PVD HLD Hx/o CAD P/p Heart Cath Asthma/End Stage COPD Chronic Respiratory Failure on 2L NC CKD Stage 3 GERD Hiatal Hernia Anemia Osteoporosis Hx/o Pulmonary Nodules on Both Lungs Hx/o Pituitary Tumor S/p Resection Plan: ICU 24-48 hours Routine AM Labs Resume Home Meds PPI Daily PT/OT/RT consult SW/SACHI for d/c planning DVT PPx: Lovenox Sub Q daily Additional orders as above Code status: DNR/DNI DC>96 hours; would benefit from SNF placement.
[2016-10-28] MEDS: Magnesium Oxide 400 MG Tab PO SCH (10:50)
[2016-10-28] MEDS ORDERED: Doxazosin 2 MG Tab PO PRN (11:05)
[2016-10-28] MEDS ORDERED: Pseudoephedrine 30 MG Tab PO ONE (11:10)
[2016-10-28] MEDS: Levofloxacin/Dextrose 5%-Water 750 MG in Premix Bag 1 BAG IV SCH (11:19)
[2016-10-28] MEDS: Potassium Chloride 10% 20 MEQ/15 ML Soln 30 ML UD Cup PO SCH ×2 (12:11→20:08)
[2016-10-28] MEDS: Montelukast 10 MG Tab PO SCH (20:08)
[2016-10-28] MEDS: Amitriptyline 25 MG Tab PO SCH (20:09)
[2016-10-28] MEDS: Temazepam 15 MG Cap PO PRN (20:09)
[2016-10-28] MEDS: Simvastatin 40 MG Tab PO SCH (20:10)
[2016-10-28] MEDS ORDERED: Furosemide 20 MG/2 ML VIAL IVPUSH ONE (20:55)
[2016-10-28] MEDS: guaiFENesin 100 MG/5 ML Soln 10 ML UD Cup PO SCH (21:18)
[2016-10-29] MEDS: Budesonide 0.5 MG/2 ML Neb Susp INH SCH ×3 (01:19→20:42)
[2016-10-29] MEDS: guaiFENesin 100 MG/5 ML Soln 10 ML UD Cup PO SCH ×6 (03:04→21:05)
[2016-10-29] MEDS: Meropenem 500 MG in Sodium Chloride 0.9% 100 ML IV SCH ×4 (03:05→21:10)
[2016-10-29] MEDS: methylPREDNISolone Sodium Succinate 125 MG/2 ML SDV IVPUSH SCH ×4 (03:05→21:05)
[2016-10-29] MEDS: Carvedilol 12.5 MG Tab PO SCH ×2 (05:10→18:07)
[2016-10-29] MEDS: guaiFENesin 600 MG Tab.ER PO SCH ×2 (05:12→18:06)
[2016-10-29] MEDS: Albuterol/Ipratropium 3.0-0.5 MG/3 ML Neb Soln NEB SCH ×4 (05:45→20:41)
[2016-10-29] MEDS: Saccharomyces Boulardii (Probiotic) 250 MG Cap PO SCH ×2 (08:14→21:06)
[2016-10-29] MEDS: Furosemide 40 MG Tab PO SCH (08:15)
[2016-10-29] MEDS: Multivitamins,Therapeutic Tab PO SCH (08:15)
[2016-10-29] MEDS: Fish Oil/Omega-3 Fatty Acids 1 Gm Cap PO SCH (08:15)
[2016-10-29] MEDS: Calcium Carbonate/Vitamin D3 1500 MG-200 Units Tab PO SCH (08:15)
[2016-10-29] MEDS: Clopidogrel 75 MG Tab PO SCH (08:15)
[2016-10-29] MEDS: Aspirin 81 MG Tab.EC PO SCH (08:16)
[2016-10-29] MEDS: amLODIPine 5 MG Tab PO SCH ×2 (08:16→21:05)
[2016-10-29] MEDS: Lisinopril 20 MG Tab PO SCH ×2 (08:18→21:06)
[2016-10-29] MEDS: Enoxaparin 40 MG/0.4 ML Syringe SUBCUT SCH (08:19)
[2016-10-29] MEDS: Theophylline 300 MG Tab.ER PO SCH (08:23)
[2016-10-29] MEDS: Pantoprazole 40 MG Tab.CR PO SCH (08:48)
[2016-10-29] MEDS: ARFORMOTEROL 15 MCG NEB SCH ×2 (09:10→20:42)
--- NOTE | 2016-10-29 10:34 | CR ---
Chest: Two views of the chest are obtained. Comparison: Previous chest x-ray of 10/26/16. Heart size is normal. Tortuous thoracic aorta is seen. Areas of increased lung markings noted within the right upper and right lower lung as well as left lung base. These findings are felt to be fairly stable when allowing for differences in technique. Lungs are hyperinflated compatible with emphysematous change. Mild degenerative spurring is seen within the thoracic spine. Impression: 1. Emphysematous change. 2. Increased lung markings which appear fairly stable from most recent study of 10/26/16. 3. Nothing acute is appreciated on current chest x-ray. Diagnostic code #3 I agree with preliminary report issued by [employer] (preliminary report dictated on 10/27/16, 3:39 PM Central Time)
[2016-10-29] MEDS: Levofloxacin/Dextrose 5%-Water 750 MG in Premix Bag 1 BAG IV SCH (12:11)
[2016-10-29] MEDS ORDERED: Aminophylline 500 MG in Sodium Chloride 0.9% 500 ML IV ONE (16:00)
--- NOTE | 2016-10-29 19:50 | PCM.PN ---
- General Info Date of Service: 10/29/16 Functional Status: Reports: tolerating diet, ambulating (minimal), incentive spirometry - Review of Systems General: Reports: No Symptoms HEENT: Reports: no symptoms Pulmonary: Reports: shortness of breath Cardiovascular: Reports: No Symptoms Gastrointestinal: Reports: No symptoms Genitourinary: Reports: no symptoms Musculoskeletal: Reports: no symptoms Skin: Reports: no symptoms Neurological: Reports: No Symptoms Psychiatric: Reports: no symptoms - Patient Data Vitals - most recent: Last Vital Signs Temp 36.3 C 10/29/16 16:00 Pulse 77 10/29/16 05:10 Resp 16 10/29/16 16:00 BP 167/99 H 10/29/16 18:07 Pulse Ox 100 10/29/16 16:00 Weight - most recent: 80.785 kg I&O - last 24 hours: Intake & Output 10/29/16 10/29/16 10/29/16 06:59 14:59 22:59 Intake Total 355 214 9201 Output Total 1100 900 200 Balance -900 -450 800 Lab Results last 24 hrs: Laboratory Results - last 24 hr 10/28/16 10/29/16 10/29/16 Range/Units 21:00 04:15 04:15 WBC 13.37 H (4.23-9.07) K/mm3 RBC 3.56 L (4.63-6.08) M/mm3 Hgb 10.6 L (13.7-17.5) gm/L Hct 33.6 L (40.1-51.0) % MCV 94.4 H (79.0-92.2) fl MCH 29.8 (25.7-32.2) pg MCHC 31.5 L (32.2-35.5) g/dl RDW Std Deviation 54.6 H (35.1-43.9) fL Plt Count 440 H (163-337) K/mm3 MPV 9.6 (9.4-12.3) fl Neut % (Auto) 91.0 H (34.0-67.9) % Lymph % (Auto) 4.9 L (21.8-53.1) % Burt % (Auto) 2.1 L (5.3-12.2) % Eos % (Auto) 0 L (0.8-7.0) Baso % (Auto) 0.1 (0.1-1.2) % Neut # (Auto) 12.16 H (1.78-5.38) K/mm3 Lymph # (Auto) 0.66 L (1.32-3.57) K/mm3 Burt # (Auto) 0.28 L (0.30-0.82) K/mm3 Eos # (Auto) 0.00 L (0.04-0.54) K/mm3 Baso # (Auto) 0.01 (0.01-0.08) K/mm3 Manual Slide Review Abnormal smear Puncture Site Lt radial ABG pH 7.41 (7.35-7.45) ABG pCO2 49.9 H (35.0-45.0) mmHg ABG pO2 71.0 L (80.0-100.0) mmHg ABG HCO3 30.6 H (22.0-26.0) meq/L ABG O2 Saturation 95.5 L (96.0-97.0) % ABG Base Excess 5.5 H (-2-2.0) Harsh Test Positive O2 Delivery Device Nasal cannula Oxygen Flow Rate 3.0 FiO2 0.00 L (21.00-100.00) % Magnesium 2.2 (1.8-2.4) mg/dl Theophylline (10.0-20.0) ug/mL 10/29/16 Range/Units 13:05 WBC (4.23-9.07) K/mm3 RBC (4.63-6.08) M/mm3 Hgb (13.7-17.5) gm/L Hct (40.1-51.0) % MCV (79.0-92.2) fl MCH (25.7-32.2) pg MCHC (32.2-35.5) g/dl RDW Std Deviation (35.1-43.9) fL Plt Count (163-337) K/mm3 MPV (9.4-12.3) fl Neut % (Auto) (34.0-67.9) % Lymph % (Auto) (21.8-53.1) % Burt % (Auto) (5.3-12.2) % Eos % (Auto) (0.8-7.0) Baso % (Auto) (0.1-1.2) % Neut # (Auto) (1.78-5.38) K/mm3 Lymph # (Auto) (1.32-3.57) K/mm3 Burt # (Auto) (0.30-0.82) K/mm3 Eos # (Auto) (0.04-0.54) K/mm3 Baso # (Auto) (0.01-0.08) K/mm3 Manual Slide Review Puncture Site ABG pH (7.35-7.45) ABG pCO2 (35.0-45.0) mmHg ABG pO2 (80.0-100.0) mmHg ABG HCO3 (22.0-26.0) meq/L ABG O2 Saturation (96.0-97.0) % ABG Base Excess (-2-2.0) Harsh Test O2 Delivery Device Oxygen Flow Rate FiO2 (21.00-100.00) % Magnesium (1.8-2.4) mg/dl Theophylline 8.1 L (10.0-20.0) ug/mL Med Orders - Current: Current Medications Acetaminophen (Tylenol) 650 mg PO Q4H PRN PRN Reason: Pain (Mild 1-3)/fever Hydrocodone Bitart/Acetaminophen (Villard 325-5 Mg) 1 tab PO Q4H PRN PRN Reason: Pain (moderate 4-6) Albuterol (Proventil Neb Soln) 2.5 mg NEB Q4HRRT PRN PRN Reason: Shortness of Breath Last Admin: 10/28/16 02:03 Dose: 2.5 mg Albuterol/Ipratropium (Duoneb 3.0-0.5 Mg/3 Ml) 3 ml NEB QIDRT [facility] Last Admin: 10/29/16 15:08 Dose: 3 ml Amitriptyline HCl (Elavil) 50 mg PO BEDTIME [facility] Last Admin: 10/28/16 20:09 Dose: 50 mg Amlodipine Besylate (Norvasc) 5 mg PO BID [facility] Last Admin: 10/29/16 08:16 Dose: 5 mg Artificial Tears (Isopto Tears 0.5% Ophth Soln) 1 ml EYEBOTH Q1H PRN PRN Reason: dry eyes Last Admin: 10/25/16 05:15 Dose: 1 ml Aspirin (Halfprin) 81 mg PO DAILY [facility] Last Admin: 10/29/16 08:16 Dose: 81 mg Bisacodyl (Dulcolax) 5 mg PO DAILY PRN PRN Reason: Constipation Budesonide (Pulmicort) 0.5 mg INH BIDRT [facility] Last Admin: 10/29/16 05:44 Dose: 0.5 mg Calcium Carbonate (Calcium Carbonate/Vitamin D 1500 Mg-200 Unit) 1 tab PO DAILY [facility] Last Admin: 10/29/16 08:15 Dose: 1 tab Carvedilol (Coreg) 12.5 mg PO BID@0600,1800 [facility] Last Admin: 10/29/16 18:07 Dose: 12.5 mg Clopidogrel Bisulfate (Plavix) 75 mg PO DAILY [facility] Last Admin: 10/29/16 08:15 Dose: 75 mg Docusate Sodium (Colace) 100 mg PO DAILY PRN PRN Reason: Constipation Doxazosin Mesylate (Cardura) 2 mg PO DAILY PRN PRN Reason: SBP greater than 160 Fish Oil (Fish Oil) 1 gm PO DAILY [facility] Last Admin: 10/29/16 08:15 Dose: 1 gm Furosemide (Lasix) 40 mg PO DAILY [facility] Last Admin: 10/29/16 08:15 Dose: 40 mg Guaifenesin (Mucinex) 1,200 mg PO Q12H [facility] Last Admin: 10/29/16 18:06 Dose: 1,200 mg Guaifenesin (Robitussin) 200 mg PO Q4H [facility] Last Admin: 10/29/16 16:23 Dose: 200 mg Levofloxacin/Dextrose 750 mg/ (Premix) 150 mls @ 100 mls/hr IV Q24H [facility] Last Admin: 10/29/16 12:11 Dose: 100 mls/hr Meropenem 500 mg/ Sodium (Chloride) 100 mls @ 200 mls/hr IV Q6H [facility] Last Admin: 10/29/16 13:38 Dose: 200 mls/hr Aminophylline 500 mg/ Sodium (Chloride) 520 mls @ 30 mls/hr IV ONETIME ONE Stop: 10/30/16 09:19 Last Admin: 10/29/16 16:21 Dose: 30 mls/hr Lisinopril (Prinivil) 20 mg PO BID [facility] Last Admin: 10/29/16 08:18 Dose: 20 mg Lorazepam (Ativan) 0.5 mg IV Q6H PRN PRN Reason: Anxiety Methylprednisolone Sodium Succinate (Solu-Medrol) 125 mg IVPUSH Q6H [facility] Last Admin: 10/29/16 14:11 Dose: 125 mg Montelukast Sodium (Singulair) 10 mg PO BEDTIME [facility] Last Admin: 10/28/16 20:08 Dose: 10 mg Multivitamins (Thera) 1 each PO DAILY [facility] Last Admin: 10/29/16 08:15 Dose: 1 each Nitroglycerin (Nitrostat) 0.4 mg SL Q5M PRN PRN Reason: chest pain Ondansetron HCl (Zofran) 4 mg IV Q6H PRN PRN Reason: Nausea/Vomiting Pantoprazole Sodium (Protonix) 40 mg PO 0800 [facility] Last Admin: 10/29/16 08:48 Dose: 40 mg Arformoterol 15 Mcg 0 each NEB BID [facility] Last Admin: 10/29/16 09:10 Dose: 1 each Roflumilast 500 Mcg 0 each PO DAILY [facility] Last Admin: 10/29/16 08:32 Dose: Not Given Polyethylene Glycol (Miralax) 17 gm PO DAILY PRN PRN Reason: Constipation Pseudoephedrine HCl (Sudogest) 30 mg PO QID PRN PRN Reason: Congestion Rivaroxaban (Xarelto) 10 mg PO DAILY [facility] Saccharomyces Boulardii (Florastor) 250 mg PO BID [facility] Senna/Docusate Sodium (Senna Plus) 1 tab PO BID PRN PRN Reason: Constipation Simvastatin (Zocor) 40 mg PO BEDTIME [facility] Last Admin: 10/28/16 20:10 Dose: 40 mg Sodium Chloride (Saline Flush) 10 ml FLUSH ASDIRECTED PRN PRN Reason: Keep Vein Open Last Admin: 10/25/16 20:28 Dose: 10 ml Temazepam (Restoril) 15 mg PO BEDTIME PRN PRN Reason: Sleep Last Admin: 10/28/16 20:09 Dose: 15 mg Theophylline (Theophylline Anhydrous) 300 mg PO DAILY [facility] Triamcinolone Acetonide (Triamcinolone Acetonide 0.1% Crm) 15 gm TOP DAILY PRN PRN Reason: Itching Discontinued Medications Acetaminophen (Tylenol) 975 mg PO NOW ONE Stop: 10/24/16 11:57 Last Admin: 10/24/16 11:59 Dose: 975 mg Albuterol (Proventil Neb Soln) Confirm Administered Dose 2.5 mg .ROUTE .STK-MED ONE Stop: 10/25/16 11:13 Last Admin: 10/25/16 11:15 Dose: 2.5 mg Albuterol (Proventil Neb Soln) 2.5 mg NEB ONETIME ONE Stop: 10/25/16 11:15 Last Admin: 10/25/16 11:17 Dose: Not Given Albuterol/Ipratropium (Duoneb 3.0-0.5 Mg/3 Ml) 3 ml NEB ONETIME ONE Stop: 10/24/16 09:12 Last Admin: 10/24/16 09:36 Dose: 3 ml Albuterol/Ipratropium (Duoneb 3.0-0.5 Mg/3 Ml) 3 ml NEB Q6HRRT PRN PRN Reason: sob Last Admin: 10/27/16 09:07 Dose: 3 ml Carvedilol (Coreg) 12.5 mg PO BID [facility] Last Admin: 10/27/16 08:32 Dose: 12.5 mg Ceftriaxone Sodium (Rocephin) Confirm Administered Dose 1 gm .ROUTE .STK-MED ONE Stop: 10/25/16 07:59 Last Admin: 10/25/16 08:06 Dose: Not Given Doxazosin Mesylate (Cardura) 2 mg PO ONETIME ONE Stop: 10/27/16 16:24 Last Admin: 10/27/16 16:33 Dose: 2 mg Enoxaparin Sodium (Lovenox) 40 mg SUBCUT DAILY [facility] Last Admin: 10/29/16 08:19 Dose: Not Given Epinephrine HCl (Epipen) 0.3 mg IM ASDIRECTED PRN PRN Reason: Allergies Furosemide (Lasix) 20 mg IVPUSH NOW ONE Stop: 10/28/16 20:56 Last Admin: 10/28/16 21:20 Dose: 20 mg Guaifenesin (Mucinex) 1,200 mg PO BID [facility] Last Admin: 10/27/16 20:33 Dose: 1,200 mg Magnesium Sulfate 2 gm/ Premix 50 mls @ 25 mls/hr IV ONETIME ONE Stop: 10/24/16 11:11 Last Admin: 10/24/16 09:22 Dose: 25 mls/hr Azithromycin 500 mg/ Sodium (Chloride) 250 mls @ 250 mls/hr IV ONETIME ONE Stop: 10/24/16 10:35 Last Admin: 10/24/16 09:56 Dose: 250 mls/hr Ceftriaxone Sodium 2 gm/ (Sodium Chloride) 100 mls @ 200 mls/hr IV ONETIME ONE Stop: 10/24/16 10:04 Last Admin: 10/24/16 10:31 Dose: 200 mls/hr Sodium Chloride (Normal Saline) 500 mls @ 1,000 mls/hr IV .BOLUS ONE Stop: 10/24/16 11:44 Last Admin: 10/24/16 11:27 Dose: 1,000 mls/hr Azithromycin 500 mg/ Sodium (Chloride) 250 mls @ 250 mls/hr IV Q24H [facility] Last Admin: 10/27/16 08:59 Dose: 250 mls/hr Promethazine HCl 12.5 mg/ (Sodium Chloride) 50.5 mls @ 100 mls/hr IV Q6H PRN PRN Reason: Nausea/Vomiting Ceftriaxone Sodium 1 gm/ (Sodium Chloride) 100 mls @ 200 mls/hr IV Q24H [facility] Last Admin: 10/27/16 08:14 Dose: 200 mls/hr Sodium Chloride (Normal Saline) Confirm Administered Dose 100 mls @ as directed .ROUTE .STK-MED ONE Stop: 10/25/16 07:59 Last Admin: 10/25/16 08:07 Dose: Not Given Aminophylline 440 mg/ Sodium (Chloride) 117.6 mls @ 235 mls/hr IV ONETIME ONE Stop: 10/26/16 12:15 Last Admin: 10/26/16 11:27 Dose: 235 mls/hr Aminophylline 500 mg/ Sodium (Chloride) 520 mls @ 30 mls/hr IV ONETIME ONE Stop: 10/27/16 05:49 Last Admin: 10/26/16 12:06 Dose: 30 mls/hr Meropenem 1 gm/ Sodium (Chloride) 100 mls @ 200 mls/hr IV Q8H [facility] Lisinopril (Prinivil) 20 mg PO DAILY [facility] Last Admin: 10/25/16 08:19 Dose: 20 mg Magnesium Oxide (Magnesium Oxide) 400 mg PO BID [facility] Last Admin: 10/26/16 08:24 Dose: 400 mg Magnesium Oxide (Magnesium Oxide) 400 mg PO BID [facility] Last Admin: 10/28/16 10:50 Dose: Not Given Methylprednisolone Sodium Succinate (Solu-Medrol) 125 mg IVPUSH ONETIME ONE Stop: 10/24/16 09:12 Last Admin: 10/24/16 09:25 Dose: 125 mg Methylprednisolone Sodium Succinate (Solu-Medrol) 125 mg IVPUSH ONETIME ONE Stop: 10/25/16 15:30 Last Admin: 10/25/16 18:42 Dose: 125 mg Morphine Sulfate (Morphine) 2 mg IVPUSH Q4H PRN PRN Reason: Pain (severe 7-10) Stop: 10/27/16 13:38 Morphine Sulfate (Morphine) 1 mg IVPUSH Q4H PRN PRN Reason: Other Stop: 10/27/16 13:38 Last Admin: 10/25/16 08:33 Dose: 1 mg Non-Formulary Medication (Risedronate Sodium [Risedronate Sodium]) 150 mg PO Q30D [facility] Last Admin: 10/24/16 14:33 Dose: Not Given Non-Formulary Medication (Atorvastatin) 10 mg PO QPM [facility] Potassium Chloride (Potassium Chloride) 40 meq PO BID [facility] Stop: 10/28/16 21:01 Last Admin: 10/28/16 20:08 Dose: 40 meq Pseudoephedrine HCl (Sudogest) 60 mg PO ONETIME ONE Stop: 10/28/16 11:11 Last Admin: 10/28/16 11:20 Dose: 60 mg Saccharomyces Boulardii (Florastor) 500 mg PO BID [facility] Last Admin: 10/29/16 08:14 Dose: 500 mg Theophylline (Theophylline Anhydrous) 300 mg PO DAILY [facility] Last Admin: 10/29/16 08:23 Dose: 300 mg - Exam Quality Assessment: supplemental oxygen, DVT prophylaxis General: alert, oriented, cooperative, no acute distress HEENT: Pupils equal, Pupils reactive, EOMI Neck: supple, trachea midline Lungs: Normal respiratory effort, Decreased breath sounds, Rhonchi, Wheezing Cardiovascular: Regular Rate, Regular Rhythm Abdomen: bowel sounds present, soft, no tenderness, no distension (Male) Exam: Deferred Back Exam: normal inspection Extremities: normal pulses Skin: warm Neurological: no new focal deficit Psy/Mental Status: alert, normal affect, normal mood - Problem List & Annotations (1) Pneumonia SNOMED Code(s): 623295183 Code(s): J18.9 - PNEUMONIA, UNSPECIFIED ORGANISM Status: Acute Priority: High Current Visit: Yes Qualifiers: Pneumonia type: due to unspecified organism Laterality: right Lung location: middle lobe of lung Qualified Code(s): J18.1 - Lobar pneumonia, unspecified organism (2) Sepsis SNOMED Code(s): 10887015 Code(s): A41.9 - SEPSIS, UNSPECIFIED ORGANISM Status: Acute Current Visit : Yes Qualifiers: Sepsis type: sepsis due to unspecified organism Qualified Code(s): A41.9 - Sepsis, unspecified organism (3) COPD (chronic obstructive pulmonary disease) with emphysema SNOMED Code(s): 68814203 Code(s): J43.9 - EMPHYSEMA, UNSPECIFIED Status: Chronic Priority: High Current Visit: Yes Qualifiers: Emphysema type: panlobular Qualified Code(s): J43.1 - Panlobular emphysema (4) COPD exacerbation SNOMED Code(s): 216237729, 750348370 Code(s): J44.1 - CHRONIC OBSTRUCTIVE PULMONARY DISEASE W (ACUTE) EXACERBATION Status: Acute Priority: High Current Visit: No - Problem List Review Problem List Initiated/Reviewed/Updated: Yes - My Orders Last 24 Hours: My Active Orders 10/28/16 20:57 Pseudoephedrine [Sudogest] 30 mg PO QID PRN 10/28/16 21:00 Budesonide [Pulmicort] 0.5 mg INH BIDRT 10/28/16 21:15 guaiFENesin [Robitussin] 200 mg PO Q4H 10/29/16 10:12 Saccharomyces Boulardii [Florastor] 250 mg PO BID 10/29/16 16:00 Aminophylline 500 mg Sodium Chloride 0.9% [Normal Saline] 500 ml IV ONETIME 10/30/16 05:00 CBC WITH AUTO DIFF [HEME] DAILY 10/30/16 13:00 Rivaroxaban [Xarelto] 10 mg PO DAILY 10/30/16 19:00 THEOPHYLLINE [CHEM] Timed 10/31/16 05:00 CBC WITH AUTO DIFF [HEME] DAILY 10/31/16 09:00 Theophylline [Theophylline Anhydrous] 300 mg PO DAILY 11/01/16 05:00 CBC WITH AUTO DIFF [HEME] DAILY - Plan Plan:: Assessment/Plan: Acute: CAP- Right Lower Lobe PNA; HCAP - Suspect Aspiration - Routine RT care, Supplemental O2 - Sputum Cx/Sx - Mycoplasma and Strep Ag test - IV Antibiotics: Azithromycin and Rocephin, stopped today; started meropenem and levoquin, day 2. - Serial CXR, recent showed RLL PNA without significant pulmonary congestion SOB with significant wheezing, ABG without severe hypercapnia or hypoxia; transferred to ICU for close monitoring after abrupt SOB. Restarted Aminophylline, it was used on an earlier admission with good response. However it was subsequently stopped by the pulmonary doctor on his hospital DC visit. Additionally IV Aminophylline ordered, subtherapeutic level; rechecking as ordered by pharmacy. COPD Exacerbation - Audible Wheezing - IV Solumedrol, Bronchodilators, Decongestant, IV Magnesium - IS q2 awake - Routine RT care Leukocytosis - WBC 14.43, CRP 12 - 2/2 above - Treat underlying cause Chronic: HTN PVD HLD Hx/o CAD P/p Heart Cath Asthma/End Stage COPD Chronic Respiratory Failure on 2L NC CKD Stage 3 GERD Hiatal Hernia Anemia Osteoporosis Hx/o Pulmonary Nodules on Both Lungs Hx/o Pituitary Tumor S/p Resection Plan: Continue ICU Pulmonary Toilet Routine AM Labs Resume Home Meds PPI Daily PT/OT/RT consult SW/CM for d/c planning DVT PPx: Lovenox Sub Q daily Additional orders as above Code status: DNR/DNI DC>96 hours; would benefit from SNF placement.
[2016-10-29] MEDS: Montelukast 10 MG Tab PO SCH (21:05)
[2016-10-29] MEDS: Temazepam 15 MG Cap PO PRN (21:06)
[2016-10-29] MEDS: Amitriptyline 25 MG Tab PO SCH (21:06)
[2016-10-29] MEDS: Simvastatin 40 MG Tab PO SCH (21:06)
[2016-10-29] MEDS: Docusate Sodium 100 MG Cap PO PRN (21:09)
[2016-10-30] MEDS: guaiFENesin 100 MG/5 ML Soln 10 ML UD Cup PO SCH ×6 (03:01→20:30)
[2016-10-30] MEDS: Meropenem 500 MG in Sodium Chloride 0.9% 100 ML IV SCH ×4 (03:08→20:30)
[2016-10-30] MEDS: methylPREDNISolone Sodium Succinate 125 MG/2 ML SDV IVPUSH SCH ×4 (03:08→20:30)
[2016-10-30] MEDS: guaiFENesin 600 MG Tab.ER PO SCH ×2 (05:10→17:50)
[2016-10-30] MEDS: Carvedilol 12.5 MG Tab PO SCH ×2 (05:10→17:51)
[2016-10-30] MEDS: Albuterol/Ipratropium 3.0-0.5 MG/3 ML Neb Soln NEB SCH ×4 (05:58→21:16)
[2016-10-30] MEDS: Budesonide 0.5 MG/2 ML Neb Susp INH SCH ×2 (05:58→21:16)
[2016-10-30] MEDS: Multivitamins,Therapeutic Tab PO SCH (08:22)
[2016-10-30] MEDS: Aspirin 81 MG Tab.EC PO SCH (08:22)
[2016-10-30] MEDS: Fish Oil/Omega-3 Fatty Acids 1 Gm Cap PO SCH (08:22)
[2016-10-30] MEDS: Pantoprazole 40 MG Tab.CR PO SCH (08:22)
[2016-10-30] MEDS: Furosemide 40 MG Tab PO SCH (08:23)
[2016-10-30] MEDS: Calcium Carbonate/Vitamin D3 1500 MG-200 Units Tab PO SCH (08:23)
[2016-10-30] MEDS: Lisinopril 20 MG Tab PO SCH ×2 (08:26→20:30)
[2016-10-30] MEDS: Clopidogrel 75 MG Tab PO SCH (08:26)
[2016-10-30] MEDS: amLODIPine 5 MG Tab PO SCH ×2 (08:26→20:30)
[2016-10-30] MEDS ORDERED: Diltiazem 100 MG in Sodium Chloride 0.9% 100 ML IV SCH (08:30)
[2016-10-30] MEDS ORDERED: Dextrose 5%-0.9% NaCl 1,000 ML IV SCH (08:30)
[2016-10-30] MEDS: ARFORMOTEROL 15 MCG NEB SCH ×2 (09:00→21:16)
--- NOTE | 2016-10-30 09:40 | PCM.PN ---
- General Info Date of Service: 10/30/16 Subjective Update: Feeling better, but still short of breath. Ok to use/take licorice tea from home. Functional Status: Reports: tolerating diet, ambulating, urinating - Review of Systems General: Reports: No Symptoms HEENT: Reports: no symptoms Pulmonary: Reports: shortness of breath Cardiovascular: Reports: No Symptoms Gastrointestinal: Reports: No symptoms Genitourinary: Reports: no symptoms Musculoskeletal: Reports: no symptoms Skin: Reports: no symptoms Neurological: Reports: No Symptoms Psychiatric: Reports: no symptoms - Patient Data Vitals - most recent: Last Vital Signs Temp 36.5 C 10/30/16 08:00 Pulse 85 10/30/16 05:10 Resp 18 10/30/16 08:00 BP 165/99 H 10/30/16 08:26 Pulse Ox 99 10/30/16 09:00 Weight - most recent: 81.102 kg I&O - last 24 hours: Intake & Output 10/29/16 10/30/16 10/30/16 22:59 06:59 14:59 Intake Total 1330 770 Output Total 875 675 Balance 455 95 Lab Results last 24 hrs: Laboratory Results - last 24 hr 10/29/16 10/30/16 Range/Units 13:05 05:04 WBC 15.70 H (4.23-9.07) K/mm3 RBC 3.34 L (4.63-6.08) M/mm3 Hgb 10.1 L (13.7-17.5) gm/L Hct 31.4 L (40.1-51.0) % MCV 94.0 H (79.0-92.2) fl MCH 30.2 (25.7-32.2) pg MCHC 32.2 (32.2-35.5) g/dl RDW Std Deviation 54.6 H (35.1-43.9) fL Plt Count 444 H (163-337) K/mm3 MPV 9.2 L (9.4-12.3) fl Neut % (Auto) 89.2 H (34.0-67.9) % Lymph % (Auto) 4.6 L (21.8-53.1) % Banner % (Auto) 2.5 L (5.3-12.2) % Eos % (Auto) 0 L (0.8-7.0) Baso % (Auto) 0.1 (0.1-1.2) % Neut # (Auto) 13.98 H (1.78-5.38) K/mm3 Lymph # (Auto) 0.73 L (1.32-3.57) K/mm3 Banner # (Auto) 0.40 (0.30-0.82) K/mm3 Eos # (Auto) 0.00 L (0.04-0.54) K/mm3 Baso # (Auto) 0.02 (0.01-0.08) K/mm3 Manual Slide Review Abnormal smear Theophylline 8.1 L (10.0-20.0) ug/mL Med Orders - Current: Current Medications Acetaminophen (Tylenol) 650 mg PO Q4H PRN PRN Reason: Pain (Mild 1-3)/fever Hydrocodone Bitart/Acetaminophen ([place] 325-5 Mg) 1 tab PO Q4H PRN PRN Reason: Pain (moderate 4-6) Albuterol (Proventil Neb Soln) 2.5 mg NEB Q4HRRT PRN PRN Reason: Shortness of Breath Last Admin: 10/28/16 02:03 Dose: 2.5 mg Albuterol/Ipratropium (Duoneb 3.0-0.5 Mg/3 Ml) 3 ml NEB QIDRT [facility] Last Admin: 10/30/16 09:00 Dose: 3 ml Amitriptyline HCl (Elavil) 50 mg PO BEDTIME [facility] Last Admin: 10/29/16 21:06 Dose: 50 mg Amlodipine Besylate (Norvasc) 5 mg PO BID [facility] Last Admin: 10/30/16 08:26 Dose: 5 mg Artificial Tears (Isopto Tears 0.5% Ophth Soln) 1 ml EYEBOTH Q1H PRN PRN Reason: dry eyes Last Admin: 10/25/16 05:15 Dose: 1 ml Aspirin (Halfprin) 81 mg PO DAILY [facility] Last Admin: 10/30/16 08:22 Dose: 81 mg Bisacodyl (Dulcolax) 5 mg PO DAILY PRN PRN Reason: Constipation Budesonide (Pulmicort) 0.5 mg INH BIDRT [facility] Last Admin: 10/30/16 05:58 Dose: 0.5 mg Calcium Carbonate (Calcium Carbonate/Vitamin D 1500 Mg-200 Unit) 1 tab PO DAILY [facility] Last Admin: 10/30/16 08:23 Dose: 1 tab Carvedilol (Coreg) 12.5 mg PO BID@0600,1800 [facility] Last Admin: 10/30/16 05:10 Dose: 12.5 mg Clopidogrel Bisulfate (Plavix) 75 mg PO DAILY [facility] Last Admin: 10/30/16 08:26 Dose: 75 mg Docusate Sodium (Colace) 100 mg PO DAILY PRN PRN Reason: Constipation Last Admin: 10/29/16 21:09 Dose: 100 mg Doxazosin Mesylate (Cardura) 2 mg PO DAILY PRN PRN Reason: SBP greater than 160 Fish Oil (Fish Oil) 1 gm PO DAILY [facility] Last Admin: 10/30/16 08:22 Dose: 1 gm Furosemide (Lasix) 40 mg PO DAILY [facility] Last Admin: 10/30/16 08:23 Dose: 40 mg Guaifenesin (Mucinex) 1,200 mg PO Q12H [facility] Last Admin: 10/30/16 05:10 Dose: 1,200 mg Guaifenesin (Robitussin) 200 mg PO Q4H [facility] Last Admin: 10/30/16 08:39 Dose: 200 mg Levofloxacin/Dextrose 750 mg/ (Premix) 150 mls @ 100 mls/hr IV Q24H [facility] Last Admin: 10/29/16 12:11 Dose: 100 mls/hr Meropenem 500 mg/ Sodium (Chloride) 100 mls @ 200 mls/hr IV Q6H [facility] Last Admin: 10/30/16 08:24 Dose: 200 mls/hr Lisinopril (Prinivil) 20 mg PO BID [facility] Last Admin: 10/30/16 08:26 Dose: 20 mg Lorazepam (Ativan) 0.5 mg IV Q6H PRN PRN Reason: Anxiety Methylprednisolone Sodium Succinate (Solu-Medrol) 125 mg IVPUSH Q6H [facility] Last Admin: 10/30/16 08:22 Dose: 125 mg Montelukast Sodium (Singulair) 10 mg PO BEDTIME [facility] Last Admin: 10/29/16 21:05 Dose: 10 mg Multivitamins (Thera) 1 each PO DAILY [facility] Last Admin: 10/30/16 08:22 Dose: 1 each Nitroglycerin (Nitrostat) 0.4 mg SL Q5M PRN PRN Reason: chest pain Ondansetron HCl (Zofran) 4 mg IV Q6H PRN PRN Reason: Nausea/Vomiting Pantoprazole Sodium (Protonix) 40 mg PO 0800 [facility] Last Admin: 10/30/16 08:22 Dose: 40 mg Arformoterol 15 Mcg 0 each NEB BID [facility] Last Admin: 10/30/16 09:00 Dose: 1 each Roflumilast 500 Mcg 0 each PO DAILY [facility] Last Admin: 10/30/16 09:11 Dose: Not Given Polyethylene Glycol (Miralax) 17 gm PO DAILY PRN PRN Reason: Constipation Pseudoephedrine HCl (Sudogest) 30 mg PO QID PRN PRN Reason: Congestion Rivaroxaban (Xarelto) 10 mg PO DAILY [facility] Saccharomyces Boulardii (Florastor) 250 mg PO BID [facility] Last Admin: 10/29/16 21:06 Dose: Not Given Senna/Docusate Sodium (Senna Plus) 1 tab PO BID PRN PRN Reason: Constipation Simvastatin (Zocor) 40 mg PO BEDTIME [facility] Last Admin: 10/29/16 21:06 Dose: 40 mg Sodium Chloride (Saline Flush) 10 ml FLUSH ASDIRECTED PRN PRN Reason: Keep Vein Open Last Admin: 10/25/16 20:28 Dose: 10 ml Temazepam (Restoril) 15 mg PO BEDTIME PRN PRN Reason: Sleep Last Admin: 10/29/16 21:06 Dose: 15 mg Theophylline (Theophylline Anhydrous) 300 mg PO DAILY [facility] Triamcinolone Acetonide (Triamcinolone Acetonide 0.1% Crm) 15 gm TOP DAILY PRN PRN Reason: Itching Discontinued Medications Acetaminophen (Tylenol) 975 mg PO NOW ONE Stop: 10/24/16 11:57 Last Admin: 10/24/16 11:59 Dose: 975 mg Albuterol (Proventil Neb Soln) Confirm Administered Dose 2.5 mg .ROUTE .STK-MED ONE Stop: 10/25/16 11:13 Last Admin: 10/25/16 11:15 Dose: 2.5 mg Albuterol (Proventil Neb Soln) 2.5 mg NEB ONETIME ONE Stop: 10/25/16 11:15 Last Admin: 10/25/16 11:17 Dose: Not Given Albuterol/Ipratropium (Duoneb 3.0-0.5 Mg/3 Ml) 3 ml NEB ONETIME ONE Stop: 10/24/16 09:12 Last Admin: 10/24/16 09:36 Dose: 3 ml Albuterol/Ipratropium (Duoneb 3.0-0.5 Mg/3 Ml) 3 ml NEB Q6HRRT PRN PRN Reason: sob Last Admin: 10/27/16 09:07 Dose: 3 ml Carvedilol (Coreg) 12.5 mg PO BID [facility] Last Admin: 10/27/16 08:32 Dose: 12.5 mg Ceftriaxone Sodium (Rocephin) Confirm Administered Dose 1 gm .ROUTE .STK-MED ONE Stop: 10/25/16 07:59 Last Admin: 10/25/16 08:06 Dose: Not Given Doxazosin Mesylate (Cardura) 2 mg PO ONETIME ONE Stop: 10/27/16 16:24 Last Admin: 10/27/16 16:33 Dose: 2 mg Enoxaparin Sodium (Lovenox) 40 mg SUBCUT DAILY [facility] Last Admin: 10/29/16 08:19 Dose: Not Given Epinephrine HCl (Epipen) 0.3 mg IM ASDIRECTED PRN PRN Reason: Allergies Furosemide (Lasix) 20 mg IVPUSH NOW ONE Stop: 10/28/16 20:56 Last Admin: 10/28/16 21:20 Dose: 20 mg Guaifenesin (Mucinex) 1,200 mg PO BID [facility] Last Admin: 10/27/16 20:33 Dose: 1,200 mg Magnesium Sulfate 2 gm/ Premix 50 mls @ 25 mls/hr IV ONETIME ONE Stop: 10/24/16 11:11 Last Admin: 10/24/16 09:22 Dose: 25 mls/hr Azithromycin 500 mg/ Sodium (Chloride) 250 mls @ 250 mls/hr IV ONETIME ONE Stop: 10/24/16 10:35 Last Admin: 10/24/16 09:56 Dose: 250 mls/hr Ceftriaxone Sodium 2 gm/ (Sodium Chloride) 100 mls @ 200 mls/hr IV ONETIME ONE Stop: 10/24/16 10:04 Last Admin: 10/24/16 10:31 Dose: 200 mls/hr Sodium Chloride (Normal Saline) 500 mls @ 1,000 mls/hr IV .BOLUS ONE Stop: 10/24/16 11:44 Last Admin: 10/24/16 11:27 Dose: 1,000 mls/hr Azithromycin 500 mg/ Sodium (Chloride) 250 mls @ 250 mls/hr IV Q24H [facility] Last Admin: 10/27/16 08:59 Dose: 250 mls/hr Promethazine HCl 12.5 mg/ (Sodium Chloride) 50.5 mls @ 100 mls/hr IV Q6H PRN PRN Reason: Nausea/Vomiting Ceftriaxone Sodium 1 gm/ (Sodium Chloride) 100 mls @ 200 mls/hr IV Q24H [facility] Last Admin: 10/27/16 08:14 Dose: 200 mls/hr Sodium Chloride (Normal Saline) Confirm Administered Dose 100 mls @ as directed .ROUTE .STK-MED ONE Stop: 10/25/16 07:59 Last Admin: 10/25/16 08:07 Dose: Not Given Aminophylline 440 mg/ Sodium (Chloride) 117.6 mls @ 235 mls/hr IV ONETIME ONE Stop: 10/26/16 12:15 Last Admin: 10/26/16 11:27 Dose: 235 mls/hr Aminophylline 500 mg/ Sodium (Chloride) 520 mls @ 30 mls/hr IV ONETIME ONE Stop: 10/27/16 05:49 Last Admin: 10/26/16 12:06 Dose: 30 mls/hr Meropenem 1 gm/ Sodium (Chloride) 100 mls @ 200 mls/hr IV Q8H [facility] Aminophylline 500 mg/ Sodium (Chloride) 520 mls @ 30 mls/hr IV ONETIME ONE Stop: 10/30/16 09:19 Last Admin: 10/29/16 16:21 Dose: 30 mls/hr Dextrose/Sodium Chloride (Dextrose 5%-Normal Saline) 1,000 mls @ 125 mls/hr IV ASDIRECTED [facility] Insulin Human Regular 100 unit (/ Sodium Chloride) 100 mls @ 4 mls/hr IV TITRATE [facility]; 4 UNITS/HR PRN Reason: Protocol Diltiazem HCl 100 mg/ Sodium (Chloride) 100 mls @ 10 mls/hr IV TITRATE HELEN; 10 MG/HR PRN Reason: Protocol Lisinopril (Prinivil) 20 mg PO DAILY [facility] Last Admin: 10/25/16 08:19 Dose: 20 mg Magnesium Oxide (Magnesium Oxide) 400 mg PO BID [facility] Last Admin: 10/26/16 08:24 Dose: 400 mg Magnesium Oxide (Magnesium Oxide) 400 mg PO BID [facility] Last Admin: 10/28/16 10:50 Dose: Not Given Methylprednisolone Sodium Succinate (Solu-Medrol) 125 mg IVPUSH ONETIME ONE Stop: 10/24/16 09:12 Last Admin: 10/24/16 09:25 Dose: 125 mg Methylprednisolone Sodium Succinate (Solu-Medrol) 125 mg IVPUSH ONETIME ONE Stop: 10/25/16 15:30 Last Admin: 10/25/16 18:42 Dose: 125 mg Morphine Sulfate (Morphine) 2 mg IVPUSH Q4H PRN PRN Reason: Pain (severe 7-10) Stop: 10/27/16 13:38 Morphine Sulfate (Morphine) 1 mg IVPUSH Q4H PRN PRN Reason: Other Stop: 10/27/16 13:38 Last Admin: 10/25/16 08:33 Dose: 1 mg Non-Formulary Medication (Risedronate Sodium [Risedronate Sodium]) 150 mg PO Q30D [facility] Last Admin: 10/24/16 14:33 Dose: Not Given Non-Formulary Medication (Atorvastatin) 10 mg PO QPM [facility] Potassium Chloride (Potassium Chloride) 40 meq PO BID [facility] Stop: 10/28/16 21:01 Last Admin: 10/28/16 20:08 Dose: 40 meq Pseudoephedrine HCl (Sudogest) 60 mg PO ONETIME ONE Stop: 10/28/16 11:11 Last Admin: 10/28/16 11:20 Dose: 60 mg Saccharomyces Boulardii (Florastor) 500 mg PO BID [facility] Last Admin: 10/29/16 08:14 Dose: 500 mg Theophylline (Theophylline Anhydrous) 300 mg PO DAILY [facility] Last Admin: 10/29/16 08:23 Dose: 300 mg - Exam Quality Assessment: supplemental oxygen, DVT prophylaxis General: alert, oriented HEENT: Pupils equal, Pupils reactive, EOMI Neck: supple, trachea midline Lungs: Normal respiratory effort Cardiovascular: Regular Rate Abdomen: bowel sounds present, soft, no tenderness, no distension (Male) Exam: Deferred Back Exam: normal inspection Extremities: normal pulses Skin: warm, dry Neurological: no new focal deficit, normal speech Psy/Mental Status: alert, normal affect, normal mood - Problem List & Annotations (1) Pneumonia SNOMED Code(s): 389644956 Code(s): J18.9 - PNEUMONIA, UNSPECIFIED ORGANISM Status: Acute Priority: High Current Visit: Yes Qualifiers: Pneumonia type: due to unspecified organism Laterality: right Lung location: middle lobe of lung Qualified Code(s): J18.1 - Lobar pneumonia, unspecified organism (2) Sepsis SNOMED Code(s): 04886902 Code(s): A41.9 - SEPSIS, UNSPECIFIED ORGANISM Status: Acute Current Visit : Yes Qualifiers: Sepsis type: sepsis due to unspecified organism Qualified Code(s): A41.9 - Sepsis, unspecified organism (3) COPD (chronic obstructive pulmonary disease) with emphysema SNOMED Code(s): 22693432 Code(s): J43.9 - EMPHYSEMA, UNSPECIFIED Status: Chronic Priority: High Current Visit: Yes Qualifiers: Emphysema type: panlobular Qualified Code(s): J43.1 - Panlobular emphysema (4) COPD exacerbation SNOMED Code(s): 438233369, 234780040 Code(s): J44.1 - CHRONIC OBSTRUCTIVE PULMONARY DISEASE W (ACUTE) EXACERBATION Status: Acute Priority: High Current Visit: No - Problem List Review Problem List Initiated/Reviewed/Updated: Yes - My Orders Last 24 Hours: My Active Orders 10/29/16 10:12 Saccharomyces Boulardii [Florastor] 250 mg PO BID 10/30/16 13:00 Rivaroxaban [Xarelto] 10 mg PO DAILY 10/30/16 19:00 THEOPHYLLINE [CHEM] Timed 10/31/16 05:00 CBC WITH AUTO DIFF [HEME] DAILY 10/31/16 09:00 Theophylline [Theophylline Anhydrous] 300 mg PO DAILY 11/01/16 05:00 CBC WITH AUTO DIFF [HEME] DAILY - Plan Plan:: Assessment/Plan: Acute: CAP- Right Lower Lobe PNA; HCAP - Suspect Aspiration - Routine RT care, Supplemental O2 - Sputum Cx/Sx - Mycoplasma and Strep Ag test - IV Antibiotics: Azithromycin and Rocephin, stopped today; started meropenem and levoquin, day 2. - Serial CXR, recent showed RLL PNA without significant pulmonary congestion Willl order resp panel, continue meds as ordered , SOB with significant wheezing, ABG without severe hypercapnia or hypoxia; transferred to ICU for close monitoring after abrupt SOB. Restarted Aminophylline, it was used on an earlier admission with good response. However it was subsequently stopped by the pulmonary doctor on his hospital DC visit. Additionally IV Aminophylline ordered, subtherapeutic level; rechecking as ordered by pharmacy. COPD Exacerbation - Audible Wheezing - IV Solumedrol, Bronchodilators, Decongestant, IV Magnesium - IS q2 awake - Routine RT care Leukocytosis - WBC 14.43, CRP 12 - 2/2 above - Treat underlying cause Chronic: HTN PVD HLD Hx/o CAD P/p Heart Cath Asthma/End Stage COPD Chronic Respiratory Failure on 2L NC CKD Stage 3 GERD Hiatal Hernia Anemia Osteoporosis Hx/o Pulmonary Nodules on Both Lungs Hx/o Pituitary Tumor S/p Resection Plan: Check for Change to MST Increase Pulmonary Toilet Routine AM Labs Resume Home Meds PPI Daily PT/OT/RT consult SW/CM for d/c planning DVT PPx: Lovenox Sub Q daily Additional orders as above Code status: DNR/DNI DC>96 hours;[place], SNF placement.
[2016-10-30] MEDS: Docusate Sodium 100 MG Cap PO PRN (10:02)
[2016-10-30] MEDS: Levofloxacin/Dextrose 5%-Water 750 MG in Premix Bag 1 BAG IV SCH (12:29)
[2016-10-30] MEDS: Rivaroxaban 10 MG Tab PO SCH (12:41)
[2016-10-30] MEDS: Saccharomyces Boulardii (Probiotic) 250 MG Cap PO SCH ×2 (12:41→20:30)
[2016-10-30] MEDS: Pseudoephedrine 30 MG Tab PO PRN (20:30)
[2016-10-30] MEDS: Montelukast 10 MG Tab PO SCH (20:30)
[2016-10-30] MEDS: Amitriptyline 25 MG Tab PO SCH (20:30)
[2016-10-30] MEDS: Temazepam 15 MG Cap PO PRN (20:31)
[2016-10-30] MEDS: Simvastatin 40 MG Tab PO SCH (20:31)
[2016-10-31] MEDS: guaiFENesin 100 MG/5 ML Soln 10 ML UD Cup PO SCH ×6 (02:48→20:25)
[2016-10-31] MEDS: Meropenem 500 MG in Sodium Chloride 0.9% 100 ML IV SCH ×4 (03:03→20:22)
[2016-10-31] MEDS: methylPREDNISolone Sodium Succinate 125 MG/2 ML SDV IVPUSH SCH ×4 (03:03→20:22)
[2016-10-31] MEDS: guaiFENesin 600 MG Tab.ER PO SCH ×2 (05:19→19:17)
[2016-10-31] MEDS: Carvedilol 12.5 MG Tab PO SCH ×2 (05:20→19:17)
[2016-10-31] MEDS: Albuterol/Ipratropium 3.0-0.5 MG/3 ML Neb Soln NEB SCH ×4 (06:02→20:33)
[2016-10-31] MEDS: Budesonide 0.5 MG/2 ML Neb Susp INH SCH ×2 (06:02→20:33)
[2016-10-31] MEDS: Multivitamins,Therapeutic Tab PO SCH (08:07)
[2016-10-31] MEDS: amLODIPine 5 MG Tab PO SCH ×2 (08:07→20:25)
[2016-10-31] MEDS: Furosemide 40 MG Tab PO SCH (08:07)
[2016-10-31] MEDS: Aspirin 81 MG Tab.EC PO SCH (08:07)
[2016-10-31] MEDS: Calcium Carbonate/Vitamin D3 1500 MG-200 Units Tab PO SCH (08:07)
[2016-10-31] MEDS: Lisinopril 20 MG Tab PO SCH ×2 (08:07→20:25)
[2016-10-31] MEDS: Fish Oil/Omega-3 Fatty Acids 1 Gm Cap PO SCH (08:07)
[2016-10-31] MEDS: Clopidogrel 75 MG Tab PO SCH (08:07)
[2016-10-31] MEDS: Saccharomyces Boulardii (Probiotic) 250 MG Cap PO SCH ×2 (08:08→20:25)
[2016-10-31] MEDS: Rivaroxaban 10 MG Tab PO SCH (08:15)
[2016-10-31] MEDS ORDERED: Theophylline 300 MG Tab.ER PO SCH (09:00)
[2016-10-31] MEDS: ARFORMOTEROL 15 MCG NEB SCH ×2 (09:08→20:33)
[2016-10-31] MEDS: Pantoprazole 40 MG Tab.CR PO SCH (09:23)
[2016-10-31] MEDS: Aminophylline 500 MG in Sodium Chloride 0.9% 500 ML IV SCH (11:21)
[2016-10-31] MEDS: Levofloxacin 750 MG Tab PO SCH (12:21)
[2016-10-31] MEDS ORDERED: Sodium Chloride 0.9% 1,000 ML IV SCH (13:30)
--- NOTE | 2016-10-31 13:32 | PCM.PN ---
- General Info Date of Service: 10/31/16 Functional Status: Reports: tolerating diet, ambulating, urinating - Review of Systems General: Reports: No Symptoms HEENT: Reports: no symptoms Pulmonary: Reports: shortness of breath Cardiovascular: Reports: No Symptoms Gastrointestinal: Reports: No symptoms Genitourinary: Reports: no symptoms Musculoskeletal: Reports: no symptoms Skin: Reports: no symptoms Neurological: Reports: No Symptoms Psychiatric: Reports: no symptoms - Patient Data Vitals - most recent: Last Vital Signs Temp 36.2 C 10/31/16 09:00 Pulse 83 10/31/16 05:20 Resp 18 10/31/16 09:00 BP 136/87 10/31/16 09:00 Pulse Ox 97 10/31/16 09:08 Weight - most recent: 80.014 kg I&O - last 24 hours: Intake & Output 10/30/16 10/31/16 10/31/16 22:59 06:59 14:59 Intake Total 1680 820 450 Output Total 800 400 Balance 880 420 450 Lab Results last 24 hrs: Laboratory Results - last 24 hr 10/30/16 10/31/16 Range/Units 18:47 05:20 WBC 19.22 H (4.23-9.07) K/mm3 RBC 3.58 L (4.63-6.08) M/mm3 Hgb 10.5 L (13.7-17.5) gm/L Hct 33.8 L (40.1-51.0) % MCV 94.4 H (79.0-92.2) fl MCH 29.3 (25.7-32.2) pg MCHC 31.1 L (32.2-35.5) g/dl RDW Std Deviation 55.9 H (35.1-43.9) fL Plt Count 484 H (163-337) K/mm3 MPV 9.1 L (9.4-12.3) fl Neut % (Auto) 89.0 H (34.0-67.9) % Lymph % (Auto) 3.9 L (21.8-53.1) % Leon % (Auto) 2.4 L (5.3-12.2) % Eos % (Auto) 0 L (0.8-7.0) Baso % (Auto) 0.2 (0.1-1.2) % Neut # (Auto) 17.11 H (1.78-5.38) K/mm3 Lymph # (Auto) 0.74 L (1.32-3.57) K/mm3 Leon # (Auto) 0.47 (0.30-0.82) K/mm3 Eos # (Auto) 0.00 L (0.04-0.54) K/mm3 Baso # (Auto) 0.03 (0.01-0.08) K/mm3 Manual Slide Review Abnormal smear Theophylline 5.0 L (10.0-20.0) ug/mL Fabien Results last 24 hrs: Microbiology 10/30/16 17:38 Respiratory Syncytial Virus Ag Scrn - Final Nasal, Unspecified NEGATIVE RSV ANTIGEN Med Orders - Current: Current Medications Acetaminophen (Tylenol) 650 mg PO Q4H PRN PRN Reason: Pain (Mild 1-3)/fever Hydrocodone Bitart/Acetaminophen ([place] 325-5 Mg) 1 tab PO Q4H PRN PRN Reason: Pain (moderate 4-6) Albuterol (Proventil Neb Soln) 2.5 mg NEB Q4HRRT PRN PRN Reason: Shortness of Breath Last Admin: 10/28/16 02:03 Dose: 2.5 mg Albuterol/Ipratropium (Duoneb 3.0-0.5 Mg/3 Ml) 3 ml NEB QIDRT [facility] Last Admin: 10/31/16 09:08 Dose: 3 ml Amitriptyline HCl (Elavil) 50 mg PO BEDTIME [facility] Last Admin: 10/30/16 20:30 Dose: 50 mg Amlodipine Besylate (Norvasc) 5 mg PO BID [facility] Last Admin: 10/31/16 08:07 Dose: 5 mg Artificial Tears (Isopto Tears 0.5% Ophth Soln) 1 ml EYEBOTH Q1H PRN PRN Reason: dry eyes Last Admin: 10/25/16 05:15 Dose: 1 ml Aspirin (Halfprin) 81 mg PO DAILY [facility] Last Admin: 10/31/16 08:07 Dose: 81 mg Bisacodyl (Dulcolax) 5 mg PO DAILY PRN PRN Reason: Constipation Budesonide (Pulmicort) 0.5 mg INH BIDRT [facility] Last Admin: 10/31/16 06:02 Dose: 0.5 mg Calcium Carbonate (Calcium Carbonate/Vitamin D 1500 Mg-200 Unit) 1 tab PO DAILY [facility] Last Admin: 10/31/16 08:07 Dose: 1 tab Carvedilol (Coreg) 12.5 mg PO BID@0600,1800 [facility] Last Admin: 10/31/16 05:20 Dose: 12.5 mg Clopidogrel Bisulfate (Plavix) 75 mg PO DAILY [facility] Last Admin: 10/31/16 08:07 Dose: 75 mg Docusate Sodium (Colace) 100 mg PO DAILY PRN PRN Reason: Constipation Last Admin: 10/30/16 10:02 Dose: 100 mg Doxazosin Mesylate (Cardura) 2 mg PO DAILY PRN PRN Reason: SBP greater than 160 Fish Oil (Fish Oil) 1 gm PO DAILY [facility] Last Admin: 10/31/16 08:07 Dose: 1 gm Furosemide (Lasix) 40 mg PO DAILY [facility] Last Admin: 10/31/16 08:07 Dose: 40 mg Guaifenesin (Mucinex) 1,200 mg PO Q12H [facility] Last Admin: 10/31/16 05:19 Dose: 1,200 mg Guaifenesin (Robitussin) 200 mg PO Q4H [facility] Last Admin: 10/31/16 12:21 Dose: 200 mg Meropenem 500 mg/ Sodium (Chloride) 100 mls @ 200 mls/hr IV Q6H [facility] Last Admin: 10/31/16 08:06 Dose: 200 mls/hr Aminophylline 500 mg/ Sodium (Chloride) 520 mls @ 37.5 mls/hr IV ASDIRECTED [facility] Stop: 11/01/16 11:00 Last Admin: 10/31/16 11:21 Dose: 37.5 mls/hr Sodium Chloride (Normal Saline) 1,000 mls @ 15 mls/hr IV ASDIRECTED [facility] Levofloxacin (Levaquin) 750 mg PO Q24H [facility] Last Admin: 10/31/16 12:21 Dose: 750 mg Lisinopril (Prinivil) 20 mg PO BID [facility] Last Admin: 10/31/16 08:07 Dose: 20 mg Lorazepam (Ativan) 0.5 mg IV Q6H PRN PRN Reason: Anxiety Methylprednisolone Sodium Succinate (Solu-Medrol) 125 mg IVPUSH Q6H [facility] Last Admin: 10/31/16 08:08 Dose: 125 mg Montelukast Sodium (Singulair) 10 mg PO BEDTIME [facility] Last Admin: 10/30/16 20:30 Dose: 10 mg Multivitamins (Thera) 1 each PO DAILY [facility] Last Admin: 10/31/16 08:07 Dose: 1 each Nitroglycerin (Nitrostat) 0.4 mg SL Q5M PRN PRN Reason: chest pain Ondansetron HCl (Zofran) 4 mg IV Q6H PRN PRN Reason: Nausea/Vomiting Pantoprazole Sodium (Protonix) 40 mg PO 0800 [facility] Last Admin: 10/31/16 09:23 Dose: 40 mg Arformoterol 15 Mcg 0 each NEB BID [facility] Last Admin: 10/31/16 09:08 Dose: 1 each Roflumilast 500 Mcg 0 each PO DAILY [facility] Last Admin: 10/31/16 10:50 Dose: Not Given Polyethylene Glycol (Miralax) 17 gm PO DAILY PRN PRN Reason: Constipation Pseudoephedrine HCl (Sudogest) 30 mg PO QID PRN PRN Reason: Congestion Last Admin: 10/30/16 20:30 Dose: 30 mg Rivaroxaban (Xarelto) 10 mg PO DAILY [facility] Last Admin: 10/31/16 08:15 Dose: Not Given Saccharomyces Boulardii (Florastor) 250 mg PO BID [facility] Last Admin: 10/31/16 08:08 Dose: 250 mg Senna/Docusate Sodium (Senna Plus) 1 tab PO BID PRN PRN Reason: Constipation Simvastatin (Zocor) 40 mg PO BEDTIME [facility] Last Admin: 10/30/16 20:31 Dose: 40 mg Sodium Chloride (Saline Flush) 10 ml FLUSH ASDIRECTED PRN PRN Reason: Keep Vein Open Last Admin: 10/25/16 20:28 Dose: 10 ml Temazepam (Restoril) 15 mg PO BEDTIME PRN PRN Reason: Sleep Last Admin: 10/30/16 20:31 Dose: 15 mg Theophylline (Theophylline Anhydrous) 300 mg PO DAILY [facility] Triamcinolone Acetonide (Triamcinolone Acetonide 0.1% Crm) 15 gm TOP DAILY PRN PRN Reason: Itching Discontinued Medications Acetaminophen (Tylenol) 975 mg PO NOW ONE Stop: 10/24/16 11:57 Last Admin: 10/24/16 11:59 Dose: 975 mg Albuterol (Proventil Neb Soln) Confirm Administered Dose 2.5 mg .ROUTE .STK-MED ONE Stop: 10/25/16 11:13 Last Admin: 10/25/16 11:15 Dose: 2.5 mg Albuterol (Proventil Neb Soln) 2.5 mg NEB ONETIME ONE Stop: 10/25/16 11:15 Last Admin: 10/25/16 11:17 Dose: Not Given Albuterol/Ipratropium (Duoneb 3.0-0.5 Mg/3 Ml) 3 ml NEB ONETIME ONE Stop: 10/24/16 09:12 Last Admin: 10/24/16 09:36 Dose: 3 ml Albuterol/Ipratropium (Duoneb 3.0-0.5 Mg/3 Ml) 3 ml NEB Q6HRRT PRN PRN Reason: sob Last Admin: 10/27/16 09:07 Dose: 3 ml Carvedilol (Coreg) 12.5 mg PO BID [facility] Last Admin: 10/27/16 08:32 Dose: 12.5 mg Ceftriaxone Sodium (Rocephin) Confirm Administered Dose 1 gm .ROUTE .STK-MED ONE Stop: 10/25/16 07:59 Last Admin: 10/25/16 08:06 Dose: Not Given Doxazosin Mesylate (Cardura) 2 mg PO ONETIME ONE Stop: 10/27/16 16:24 Last Admin: 10/27/16 16:33 Dose: 2 mg Enoxaparin Sodium (Lovenox) 40 mg SUBCUT DAILY [facility] Last Admin: 10/29/16 08:19 Dose: Not Given Epinephrine HCl (Epipen) 0.3 mg IM ASDIRECTED PRN PRN Reason: Allergies Furosemide (Lasix) 20 mg IVPUSH NOW ONE Stop: 10/28/16 20:56 Last Admin: 10/28/16 21:20 Dose: 20 mg Guaifenesin (Mucinex) 1,200 mg PO BID [facility] Last Admin: 10/27/16 20:33 Dose: 1,200 mg Magnesium Sulfate 2 gm/ Premix 50 mls @ 25 mls/hr IV ONETIME ONE Stop: 10/24/16 11:11 Last Admin: 10/24/16 09:22 Dose: 25 mls/hr Azithromycin 500 mg/ Sodium (Chloride) 250 mls @ 250 mls/hr IV ONETIME ONE Stop: 10/24/16 10:35 Last Admin: 10/24/16 09:56 Dose: 250 mls/hr Ceftriaxone Sodium 2 gm/ (Sodium Chloride) 100 mls @ 200 mls/hr IV ONETIME ONE Stop: 10/24/16 10:04 Last Admin: 10/24/16 10:31 Dose: 200 mls/hr Sodium Chloride (Normal Saline) 500 mls @ 1,000 mls/hr IV .BOLUS ONE Stop: 10/24/16 11:44 Last Admin: 10/24/16 11:27 Dose: 1,000 mls/hr Azithromycin 500 mg/ Sodium (Chloride) 250 mls @ 250 mls/hr IV Q24H [facility] Last Admin: 10/27/16 08:59 Dose: 250 mls/hr Promethazine HCl 12.5 mg/ (Sodium Chloride) 50.5 mls @ 100 mls/hr IV Q6H PRN PRN Reason: Nausea/Vomiting Ceftriaxone Sodium 1 gm/ (Sodium Chloride) 100 mls @ 200 mls/hr IV Q24H [facility] Last Admin: 10/27/16 08:14 Dose: 200 mls/hr Sodium Chloride (Normal Saline) Confirm Administered Dose 100 mls @ as directed .ROUTE .STK-MED ONE Stop: 10/25/16 07:59 Last Admin: 10/25/16 08:07 Dose: Not Given Aminophylline 440 mg/ Sodium (Chloride) 117.6 mls @ 235 mls/hr IV ONETIME ONE Stop: 10/26/16 12:15 Last Admin: 10/26/16 11:27 Dose: 235 mls/hr Aminophylline 500 mg/ Sodium (Chloride) 520 mls @ 30 mls/hr IV ONETIME ONE Stop: 10/27/16 05:49 Last Admin: 10/26/16 12:06 Dose: 30 mls/hr Meropenem 1 gm/ Sodium (Chloride) 100 mls @ 200 mls/hr IV Q8H [facility] Levofloxacin/Dextrose 750 mg/ (Premix) 150 mls @ 100 mls/hr IV Q24H [facility] Last Admin: 10/30/16 12:29 Dose: 100 mls/hr Aminophylline 500 mg/ Sodium (Chloride) 520 mls @ 30 mls/hr IV ONETIME ONE Stop: 10/30/16 09:19 Last Admin: 10/29/16 16:21 Dose: 30 mls/hr Dextrose/Sodium Chloride (Dextrose 5%-Normal Saline) 1,000 mls @ 125 mls/hr IV ASDIRECTED [facility] Insulin Human Regular 100 unit (/ Sodium Chloride) 100 mls @ 4 mls/hr IV TITRATE [facility]; 4 UNITS/HR PRN Reason: Protocol Diltiazem HCl 100 mg/ Sodium (Chloride) 100 mls @ 10 mls/hr IV TITRATE HELEN; 10 MG/HR PRN Reason: Protocol Lisinopril (Prinivil) 20 mg PO DAILY [facility] Last Admin: 10/25/16 08:19 Dose: 20 mg Magnesium Oxide (Magnesium Oxide) 400 mg PO BID [facility] Last Admin: 10/26/16 08:24 Dose: 400 mg Magnesium Oxide (Magnesium Oxide) 400 mg PO BID [facility] Last Admin: 10/28/16 10:50 Dose: Not Given Methylprednisolone Sodium Succinate (Solu-Medrol) 125 mg IVPUSH ONETIME ONE Stop: 10/24/16 09:12 Last Admin: 10/24/16 09:25 Dose: 125 mg Methylprednisolone Sodium Succinate (Solu-Medrol) 125 mg IVPUSH ONETIME ONE Stop: 10/25/16 15:30 Last Admin: 10/25/16 18:42 Dose: 125 mg Morphine Sulfate (Morphine) 2 mg IVPUSH Q4H PRN PRN Reason: Pain (severe 7-10) Stop: 10/27/16 13:38 Morphine Sulfate (Morphine) 1 mg IVPUSH Q4H PRN PRN Reason: Other Stop: 10/27/16 13:38 Last Admin: 10/25/16 08:33 Dose: 1 mg Non-Formulary Medication (Risedronate Sodium [Risedronate Sodium]) 150 mg PO Q30D [facility] Last Admin: 10/24/16 14:33 Dose: Not Given Non-Formulary Medication (Atorvastatin) 10 mg PO QPM [facility] Potassium Chloride (Potassium Chloride) 40 meq PO BID [facility] Stop: 10/28/16 21:01 Last Admin: 10/28/16 20:08 Dose: 40 meq Pseudoephedrine HCl (Sudogest) 60 mg PO ONETIME ONE Stop: 10/28/16 11:11 Last Admin: 10/28/16 11:20 Dose: 60 mg Saccharomyces Boulardii (Florastor) 500 mg PO BID [facility] Last Admin: 10/29/16 08:14 Dose: 500 mg Theophylline (Theophylline Anhydrous) 300 mg PO DAILY [facility] Last Admin: 10/29/16 08:23 Dose: 300 mg Theophylline (Theophylline Anhydrous) 300 mg PO DAILY [facility] Last Admin: 10/31/16 08:08 Dose: 300 mg - Exam Quality Assessment: supplemental oxygen, DVT prophylaxis. No: central line/PICC General: alert, oriented, cooperative, no acute distress HEENT: Pupils equal, Pupils reactive, EOMI Neck: supple, trachea midline Lungs: Normal respiratory effort, Decreased breath sounds, Wheezing Cardiovascular: Regular Rate Abdomen: bowel sounds present, soft, no tenderness, no distension (Male) Exam: Deferred Back Exam: normal inspection Extremities: normal pulses Skin: warm Neurological: no new focal deficit, normal gait, normal speech Psy/Mental Status: alert, normal affect, normal mood - Problem List & Annotations (1) Pneumonia SNOMED Code(s): 263697853 Code(s): J18.9 - PNEUMONIA, UNSPECIFIED ORGANISM Status: Acute Priority: High Current Visit: Yes Qualifiers: Pneumonia type: due to unspecified organism Laterality: right Lung location: middle lobe of lung Qualified Code(s): J18.1 - Lobar pneumonia, unspecified organism (2) Sepsis SNOMED Code(s): 21681941 Code(s): A41.9 - SEPSIS, UNSPECIFIED ORGANISM Status: Acute Current Visit : Yes Qualifiers: Sepsis type: sepsis due to unspecified organism Qualified Code(s): A41.9 - Sepsis, unspecified organism (3) COPD (chronic obstructive pulmonary disease) with emphysema SNOMED Code(s): 54056115 Code(s): J43.9 - EMPHYSEMA, UNSPECIFIED Status: Chronic Priority: High Current Visit: Yes Qualifiers: Emphysema type: panlobular Qualified Code(s): J43.1 - Panlobular emphysema (4) COPD exacerbation SNOMED Code(s): 768909763, 373415234 Code(s): J44.1 - CHRONIC OBSTRUCTIVE PULMONARY DISEASE W (ACUTE) EXACERBATION Status: Acute Priority: High Current Visit: No - Problem List Review Problem List Initiated/Reviewed/Updated: Yes - My Orders Last 24 Hours: My Active Orders 10/30/16 13:00 Rivaroxaban [Xarelto] 10 mg PO DAILY 10/30/16 17:38 RESPIRATORY PANEL BY PCR [MREF] Routine STREP PNEUMONIAE ANTIGEN [MREF] Routine 10/31/16 11:00 Aminophylline 500 mg Sodium Chloride 0.9% [Normal Saline] 500 ml IV ASDIRECTED 10/31/16 12:00 Levofloxacin [Levaquin] 750 mg PO Q24H 10/31/16 13:30 Sodium Chloride 0.9% [Normal Saline] 1,000 ml IV ASDIRECTED 11/01/16 05:00 CBC WITH AUTO DIFF [HEME] DAILY 11/01/16 23:00 THEOPHYLLINE [CHEM] Timed 11/03/16 09:00 Theophylline [Theophylline Anhydrous] 300 mg PO DAILY - Plan Plan:: Assessment/Plan: Acute: CAP- Right Lower Lobe PNA; HCAP - Suspect Aspiration - Routine RT care, Supplemental O2 - Sputum Cx/Sx - IV Antibiotics: Azithromycin and Rocephin, stopped today; started meropenem and levoquin; add gentamycin - Serial CXR, recent showed RLL PNA without significant pulmonary congestion Willl order resp panel, continue meds as ordered , SOB with significant wheezing, ABG without severe hypercapnia or hypoxia; transferred to ICU for close monitoring after abrupt SOB. Restarted Aminophylline, it was used on an earlier admission with good response. However it was subsequently stopped by the pulmonary doctor on his hospital DC visit. Additionally IV Aminophylline ordered, subtherapeutic level; rechecking as ordered by pharmacy. COPD Exacerbation - Audible Wheezing - IV Solumedrol, Bronchodilators, Decongestant, IV Magnesium - IS q2 awake - Routine RT care Leukocytosis - WBC 14.43, CRP 12 - 2/2 above - Treat underlying cause Chronic: HTN PVD HLD Hx/o CAD P/p Heart Cath Asthma/End Stage COPD Chronic Respiratory Failure on 2L NC CKD Stage 3 GERD Hiatal Hernia Anemia Osteoporosis Hx/o Pulmonary Nodules on Both Lungs Hx/o Pituitary Tumor S/p Resection Plan: Check for Change to MST Increase Pulmonary Toilet Routine AM Labs Resume Home Meds PPI Daily PT/OT/RT consult SW/CM for d/c planning DVT PPx: Lovenox Sub Q daily Additional orders as above Code status: DNR/DNI DC>96 hours;[place], SNF placement.
[2016-10-31] MEDS ORDERED: Gentamicin 400 MG in Dextrose 5% in Water 100 ML IV ONE ×2 (19:00)
[2016-10-31] MEDS: Montelukast 10 MG Tab PO SCH (20:25)
[2016-10-31] MEDS: Amitriptyline 25 MG Tab PO SCH (20:25)
[2016-10-31] MEDS: Simvastatin 40 MG Tab PO SCH (20:25)
[2016-10-31] MEDS: Pseudoephedrine 30 MG Tab PO PRN (22:35)
[2016-11-01] MEDS: methylPREDNISolone Sodium Succinate 125 MG/2 ML SDV IVPUSH SCH ×2 (02:04→08:42)
[2016-11-01] MEDS: guaiFENesin 100 MG/5 ML Soln 10 ML UD Cup PO SCH ×6 (02:04→20:34)
[2016-11-01] MEDS: Meropenem 500 MG in Sodium Chloride 0.9% 100 ML IV SCH ×5 (02:04→20:36)
[2016-11-01] MEDS: Aminophylline 500 MG in Sodium Chloride 0.9% 500 ML IV SCH (03:13)
[2016-11-01] MEDS: Budesonide 0.5 MG/2 ML Neb Susp INH SCH ×2 (06:07→21:31)
[2016-11-01] MEDS: Albuterol/Ipratropium 3.0-0.5 MG/3 ML Neb Soln NEB SCH ×4 (06:07→21:31)
[2016-11-01] MEDS: Carvedilol 12.5 MG Tab PO SCH ×2 (06:15→17:25)
[2016-11-01] MEDS: guaiFENesin 600 MG Tab.ER PO SCH ×2 (06:15→17:25)
[2016-11-01] MEDS: Calcium Carbonate/Vitamin D3 1500 MG-200 Units Tab PO SCH (08:35)
[2016-11-01] MEDS: Aspirin 81 MG Tab.EC PO SCH (08:36)
[2016-11-01] MEDS: Fish Oil/Omega-3 Fatty Acids 1 Gm Cap PO SCH (08:36)
[2016-11-01] MEDS: Saccharomyces Boulardii (Probiotic) 250 MG Cap PO SCH ×2 (08:36→20:35)
[2016-11-01] MEDS: Furosemide 40 MG Tab PO SCH (08:37)
[2016-11-01] MEDS: amLODIPine 5 MG Tab PO SCH ×2 (08:38→20:35)
[2016-11-01] MEDS: Lisinopril 20 MG Tab PO SCH ×2 (08:39→20:35)
[2016-11-01] MEDS: Clopidogrel 75 MG Tab PO SCH (08:39)
[2016-11-01] MEDS: Multivitamins,Therapeutic Tab PO SCH (08:41)
[2016-11-01] MEDS: Rivaroxaban 10 MG Tab PO SCH (08:42)
[2016-11-01] MEDS: Pantoprazole 40 MG Tab.CR PO SCH (09:15)
[2016-11-01] MEDS: methylPREDNISolone Sodium Succinate 40 MG/1 ML SDV IVPUSH SCH ×3 (10:00→22:27)
--- NOTE | 2016-11-01 10:16 | PCM.PN ---
- General Info Date of Service: 11/01/16 Functional Status: Reports: tolerating diet, ambulating, urinating - Review of Systems General: Reports: Weakness HEENT: Reports: no symptoms Pulmonary: Reports: shortness of breath Cardiovascular: Reports: No Symptoms Gastrointestinal: Reports: No symptoms Genitourinary: Reports: no symptoms Musculoskeletal: Reports: no symptoms Skin: Reports: no symptoms Neurological: Reports: No Symptoms Psychiatric: Reports: no symptoms - Patient Data Vitals - most recent: Last Vital Signs Temp 36.7 C 11/01/16 08:05 Pulse 74 11/01/16 08:05 Resp 16 11/01/16 08:05 BP 139/82 11/01/16 08:39 Pulse Ox 97 11/01/16 08:05 Weight - most recent: 82.372 kg I&O - last 24 hours: Intake & Output 10/31/16 11/01/16 11/01/16 22:59 06:59 14:59 Intake Total 1265 1516 Output Total 900 600 Balance 365 916 Lab Results last 24 hrs: Laboratory Results - last 24 hr 11/01/16 11/01/16 Range/Units 05:01 05:01 WBC 24.04 H (4.23-9.07) K/mm3 RBC 3.65 L (4.63-6.08) M/mm3 Hgb 11.0 L (13.7-17.5) gm/L Hct 34.3 L (40.1-51.0) % MCV 94.0 H (79.0-92.2) fl MCH 30.1 (25.7-32.2) pg MCHC 32.1 L (32.2-35.5) g/dl RDW Std Deviation 56.5 H (35.1-43.9) fL Plt Count 514 H (163-337) K/mm3 MPV 9.1 L (9.4-12.3) fl Neut % (Auto) 88.6 H (34.0-67.9) % Lymph % (Auto) 3.2 L (21.8-53.1) % Castro % (Auto) 2.4 L (5.3-12.2) % Eos % (Auto) 0 L (0.8-7.0) Baso % (Auto) 0.3 (0.1-1.2) % Neut # (Auto) 21.29 H (1.78-5.38) K/mm3 Lymph # (Auto) 0.78 L (1.32-3.57) K/mm3 Castro # (Auto) 0.57 (0.30-0.82) K/mm3 Eos # (Auto) 0.00 L (0.04-0.54) K/mm3 Baso # (Auto) 0.08 (0.01-0.08) K/mm3 Manual Slide Review Abnormal smear Random Gentamicin 4.1 L (5.0-10.0) ug/mL Fabien Results last 24 hrs: Microbiology 10/30/16 17:38 Streptococcus pneumoniae Antigen (M - Final Urine 10/30/16 17:38 Respiratory Virus Panel (PCR) (FABIEN) - Final Nasopharyngeal Swab - Nare, Unspecified Med Orders - Current: Current Medications Acetaminophen (Tylenol) 650 mg PO Q4H PRN PRN Reason: Pain (Mild 1-3)/fever Hydrocodone Bitart/Acetaminophen ([place] 325-5 Mg) 1 tab PO Q4H PRN PRN Reason: Pain (moderate 4-6) Albuterol (Proventil Neb Soln) 2.5 mg NEB Q4HRRT PRN PRN Reason: Shortness of Breath Last Admin: 10/28/16 02:03 Dose: 2.5 mg Albuterol/Ipratropium (Duoneb 3.0-0.5 Mg/3 Ml) 3 ml NEB QIDRT [facility] Last Admin: 11/01/16 06:07 Dose: 3 ml Amitriptyline HCl (Elavil) 50 mg PO BEDTIME [facility] Last Admin: 10/31/16 20:25 Dose: 50 mg Amlodipine Besylate (Norvasc) 5 mg PO BID [facility] Last Admin: 11/01/16 08:38 Dose: 5 mg Artificial Tears (Isopto Tears 0.5% Ophth Soln) 1 ml EYEBOTH Q1H PRN PRN Reason: dry eyes Last Admin: 10/25/16 05:15 Dose: 1 ml Aspirin (Halfprin) 81 mg PO DAILY [facility] Last Admin: 11/01/16 08:36 Dose: 81 mg Bisacodyl (Dulcolax) 5 mg PO DAILY PRN PRN Reason: Constipation Budesonide (Pulmicort) 0.5 mg INH BIDRT [facility] Last Admin: 11/01/16 06:07 Dose: 0.5 mg Calcium Carbonate (Calcium Carbonate/Vitamin D 1500 Mg-200 Unit) 1 tab PO DAILY [facility] Last Admin: 11/01/16 08:35 Dose: 1 tab Carvedilol (Coreg) 12.5 mg PO BID@0600,1800 [facility] Last Admin: 11/01/16 06:15 Dose: 12.5 mg Clopidogrel Bisulfate (Plavix) 75 mg PO DAILY [facility] Last Admin: 11/01/16 08:39 Dose: 75 mg Docusate Sodium (Colace) 100 mg PO DAILY PRN PRN Reason: Constipation Last Admin: 10/30/16 10:02 Dose: 100 mg Doxazosin Mesylate (Cardura) 2 mg PO DAILY PRN PRN Reason: SBP greater than 160 Fish Oil (Fish Oil) 1 gm PO DAILY [facility] Last Admin: 11/01/16 08:36 Dose: 1 gm Furosemide (Lasix) 40 mg PO DAILY [facility] Last Admin: 11/01/16 08:37 Dose: 40 mg Guaifenesin (Mucinex) 1,200 mg PO Q12H [facility] Last Admin: 11/01/16 06:15 Dose: 1,200 mg Guaifenesin (Robitussin) 200 mg PO Q4H [facility] Last Admin: 11/01/16 08:42 Dose: 200 mg Meropenem 500 mg/ Sodium (Chloride) 100 mls @ 200 mls/hr IV Q6H [facility] Last Admin: 11/01/16 08:45 Dose: 200 mls/hr Aminophylline 500 mg/ Sodium (Chloride) 520 mls @ 37.5 mls/hr IV ASDIRECTED [facility] Stop: 11/01/16 11:00 Last Admin: 11/01/16 03:13 Dose: 37.5 mls/hr Sodium Chloride (Normal Saline) 1,000 mls @ 15 mls/hr IV ASDIRECTED [facility] Last Admin: 10/31/16 14:55 Dose: 15 mls/hr Levofloxacin (Levaquin) 750 mg PO Q24H [facility] Last Admin: 10/31/16 12:21 Dose: 750 mg Lisinopril (Prinivil) 20 mg PO BID [facility] Last Admin: 11/01/16 08:39 Dose: 20 mg Lorazepam (Ativan) 0.5 mg IV Q6H PRN PRN Reason: Anxiety Methylprednisolone Sodium Succinate (Solu-Medrol) 80 mg IVPUSH Q12H [facility] Montelukast Sodium (Singulair) 10 mg PO BEDTIME [facility] Last Admin: 10/31/16 20:25 Dose: 10 mg Multivitamins (Thera) 1 each PO DAILY [facility] Last Admin: 11/01/16 08:41 Dose: 1 each Nitroglycerin (Nitrostat) 0.4 mg SL Q5M PRN PRN Reason: chest pain Ondansetron HCl (Zofran) 4 mg IV Q6H PRN PRN Reason: Nausea/Vomiting Pantoprazole Sodium (Protonix) 40 mg PO 0800 [facility] Last Admin: 10/31/16 09:23 Dose: 40 mg Arformoterol 15 Mcg 0 each NEB BID [facility] Last Admin: 10/31/16 20:33 Dose: 1 each Roflumilast 500 Mcg ((Daliresp)) 0 each PO DAILY [facility] Last Admin: 11/01/16 08:40 Dose: 1 each Polyethylene Glycol (Miralax) 17 gm PO DAILY PRN PRN Reason: Constipation Pseudoephedrine HCl (Sudogest) 30 mg PO QID PRN PRN Reason: Congestion Last Admin: 10/31/16 22:35 Dose: 30 mg Rivaroxaban (Xarelto) 10 mg PO DAILY [facility] Last Admin: 11/01/16 08:42 Dose: 10 mg Saccharomyces Boulardii (Florastor) 250 mg PO BID [facility] Last Admin: 11/01/16 08:36 Dose: 250 mg Senna/Docusate Sodium (Senna Plus) 1 tab PO BID PRN PRN Reason: Constipation Simvastatin (Zocor) 40 mg PO BEDTIME [facility] Last Admin: 10/31/16 20:25 Dose: 40 mg Sodium Chloride (Saline Flush) 10 ml FLUSH ASDIRECTED PRN PRN Reason: Keep Vein Open Last Admin: 10/25/16 20:28 Dose: 10 ml Temazepam (Restoril) 15 mg PO BEDTIME PRN PRN Reason: Sleep Last Admin: 10/30/16 20:31 Dose: 15 mg Theophylline (Theophylline Anhydrous) 300 mg PO DAILY [facility] Triamcinolone Acetonide (Triamcinolone Acetonide 0.1% Crm) 15 gm TOP DAILY PRN PRN Reason: Itching Discontinued Medications Acetaminophen (Tylenol) 975 mg PO NOW ONE Stop: 10/24/16 11:57 Last Admin: 10/24/16 11:59 Dose: 975 mg Albuterol (Proventil Neb Soln) Confirm Administered Dose 2.5 mg .ROUTE .STK-MED ONE Stop: 10/25/16 11:13 Last Admin: 10/25/16 11:15 Dose: 2.5 mg Albuterol (Proventil Neb Soln) 2.5 mg NEB ONETIME ONE Stop: 10/25/16 11:15 Last Admin: 10/25/16 11:17 Dose: Not Given Albuterol/Ipratropium (Duoneb 3.0-0.5 Mg/3 Ml) 3 ml NEB ONETIME ONE Stop: 10/24/16 09:12 Last Admin: 10/24/16 09:36 Dose: 3 ml Albuterol/Ipratropium (Duoneb 3.0-0.5 Mg/3 Ml) 3 ml NEB Q6HRRT PRN PRN Reason: sob Last Admin: 10/27/16 09:07 Dose: 3 ml Carvedilol (Coreg) 12.5 mg PO BID [facility] Last Admin: 10/27/16 08:32 Dose: 12.5 mg Ceftriaxone Sodium (Rocephin) Confirm Administered Dose 1 gm .ROUTE .STK-MED ONE Stop: 10/25/16 07:59 Last Admin: 10/25/16 08:06 Dose: Not Given Doxazosin Mesylate (Cardura) 2 mg PO ONETIME ONE Stop: 10/27/16 16:24 Last Admin: 10/27/16 16:33 Dose: 2 mg Enoxaparin Sodium (Lovenox) 40 mg SUBCUT DAILY [facility] Last Admin: 10/29/16 08:19 Dose: Not Given Epinephrine HCl (Epipen) 0.3 mg IM ASDIRECTED PRN PRN Reason: Allergies Furosemide (Lasix) 20 mg IVPUSH NOW ONE Stop: 10/28/16 20:56 Last Admin: 10/28/16 21:20 Dose: 20 mg Guaifenesin (Mucinex) 1,200 mg PO BID [facility] Last Admin: 10/27/16 20:33 Dose: 1,200 mg Magnesium Sulfate 2 gm/ Premix 50 mls @ 25 mls/hr IV ONETIME ONE Stop: 10/24/16 11:11 Last Admin: 10/24/16 09:22 Dose: 25 mls/hr Azithromycin 500 mg/ Sodium (Chloride) 250 mls @ 250 mls/hr IV ONETIME ONE Stop: 10/24/16 10:35 Last Admin: 10/24/16 09:56 Dose: 250 mls/hr Ceftriaxone Sodium 2 gm/ (Sodium Chloride) 100 mls @ 200 mls/hr IV ONETIME ONE Stop: 10/24/16 10:04 Last Admin: 10/24/16 10:31 Dose: 200 mls/hr Sodium Chloride (Normal Saline) 500 mls @ 1,000 mls/hr IV .BOLUS ONE Stop: 10/24/16 11:44 Last Admin: 10/24/16 11:27 Dose: 1,000 mls/hr Azithromycin 500 mg/ Sodium (Chloride) 250 mls @ 250 mls/hr IV Q24H [facility] Last Admin: 10/27/16 08:59 Dose: 250 mls/hr Promethazine HCl 12.5 mg/ (Sodium Chloride) 50.5 mls @ 100 mls/hr IV Q6H PRN PRN Reason: Nausea/Vomiting Ceftriaxone Sodium 1 gm/ (Sodium Chloride) 100 mls @ 200 mls/hr IV Q24H [facility] Last Admin: 10/27/16 08:14 Dose: 200 mls/hr Sodium Chloride (Normal Saline) Confirm Administered Dose 100 mls @ as directed .ROUTE .STK-MED ONE Stop: 10/25/16 07:59 Last Admin: 10/25/16 08:07 Dose: Not Given Aminophylline 440 mg/ Sodium (Chloride) 117.6 mls @ 235 mls/hr IV ONETIME ONE Stop: 10/26/16 12:15 Last Admin: 10/26/16 11:27 Dose: 235 mls/hr Aminophylline 500 mg/ Sodium (Chloride) 520 mls @ 30 mls/hr IV ONETIME ONE Stop: 10/27/16 05:49 Last Admin: 10/26/16 12:06 Dose: 30 mls/hr Meropenem 1 gm/ Sodium (Chloride) 100 mls @ 200 mls/hr IV Q8H [facility] Levofloxacin/Dextrose 750 mg/ (Premix) 150 mls @ 100 mls/hr IV Q24H [facility] Last Admin: 10/30/16 12:29 Dose: 100 mls/hr Aminophylline 500 mg/ Sodium (Chloride) 520 mls @ 30 mls/hr IV ONETIME ONE Stop: 10/30/16 09:19 Last Admin: 10/29/16 16:21 Dose: 30 mls/hr Dextrose/Sodium Chloride (Dextrose 5%-Normal Saline) 1,000 mls @ 125 mls/hr IV ASDIRECTED [facility] Insulin Human Regular 100 unit (/ Sodium Chloride) 100 mls @ 4 mls/hr IV TITRATE HELEN; 4 UNITS/HR PRN Reason: Protocol Diltiazem HCl 100 mg/ Sodium (Chloride) 100 mls @ 10 mls/hr IV TITRATE HELEN; 10 MG/HR PRN Reason: Protocol Gentamicin Sulfate 400 mg/ (Dextrose/Water) 110 mls @ 110 mls/hr IV ONETIME ONE Stop: 10/31/16 19:59 Last Admin: 10/31/16 19:18 Dose: 110 mls/hr Lisinopril (Prinivil) 20 mg PO DAILY [facility] Last Admin: 10/25/16 08:19 Dose: 20 mg Magnesium Oxide (Magnesium Oxide) 400 mg PO BID [facility] Last Admin: 10/26/16 08:24 Dose: 400 mg Magnesium Oxide (Magnesium Oxide) 400 mg PO BID [facility] Last Admin: 10/28/16 10:50 Dose: Not Given Methylprednisolone Sodium Succinate (Solu-Medrol) 125 mg IVPUSH ONETIME ONE Stop: 10/24/16 09:12 Last Admin: 10/24/16 09:25 Dose: 125 mg Methylprednisolone Sodium Succinate (Solu-Medrol) 125 mg IVPUSH Q6H [facility] Last Admin: 11/01/16 08:42 Dose: 125 mg Methylprednisolone Sodium Succinate (Solu-Medrol) 125 mg IVPUSH ONETIME ONE Stop: 10/25/16 15:30 Last Admin: 10/25/16 18:42 Dose: 125 mg Morphine Sulfate (Morphine) 2 mg IVPUSH Q4H PRN PRN Reason: Pain (severe 7-10) Stop: 10/27/16 13:38 Morphine Sulfate (Morphine) 1 mg IVPUSH Q4H PRN PRN Reason: Other Stop: 10/27/16 13:38 Last Admin: 10/25/16 08:33 Dose: 1 mg Non-Formulary Medication (Risedronate Sodium [Risedronate Sodium]) 150 mg PO Q30D [facility] Last Admin: 10/24/16 14:33 Dose: Not Given Non-Formulary Medication (Atorvastatin) 10 mg PO QPM [facility] Potassium Chloride (Potassium Chloride) 40 meq PO BID [facility] Stop: 10/28/16 21:01 Last Admin: 10/28/16 20:08 Dose: 40 meq Pseudoephedrine HCl (Sudogest) 60 mg PO ONETIME ONE Stop: 10/28/16 11:11 Last Admin: 10/28/16 11:20 Dose: 60 mg Saccharomyces Boulardii (Florastor) 500 mg PO BID [facility] Last Admin: 10/29/16 08:14 Dose: 500 mg Theophylline (Theophylline Anhydrous) 300 mg PO DAILY [facility] Last Admin: 10/29/16 08:23 Dose: 300 mg Theophylline (Theophylline Anhydrous) 300 mg PO DAILY [facility] Last Admin: 10/31/16 08:08 Dose: 300 mg - Exam Quality Assessment: supplemental oxygen, DVT prophylaxis General: alert, oriented, cooperative, no acute distress HEENT: Pupils equal, Pupils reactive, EOMI Neck: supple, trachea midline, no JVD Lungs: Normal respiratory effort, Rhonchi, Wheezing Cardiovascular: Regular Rate Abdomen: bowel sounds present, soft, no tenderness, no distension (Male) Exam: Deferred Back Exam: Normal Inspection Extremities: normal pulses Skin: warm Neurological: no new focal deficit, normal gait, normal speech Psy/Mental Status: alert, normal affect, normal mood - Problem List & Annotations (1) Pneumonia SNOMED Code(s): 460994358 Code(s): J18.9 - PNEUMONIA, UNSPECIFIED ORGANISM Status: Acute Priority: High Current Visit: Yes Qualifiers: Pneumonia type: due to unspecified organism Laterality: right Lung location: middle lobe of lung Qualified Code(s): J18.1 - Lobar pneumonia, unspecified organism (2) Sepsis SNOMED Code(s): 18806590 Code(s): A41.9 - SEPSIS, UNSPECIFIED ORGANISM Status: Acute Current Visit : Yes Qualifiers: Sepsis type: sepsis due to unspecified organism Qualified Code(s): A41.9 - Sepsis, unspecified organism (3) COPD (chronic obstructive pulmonary disease) with emphysema SNOMED Code(s): 27353801 Code(s): J43.9 - EMPHYSEMA, UNSPECIFIED Status: Chronic Priority: High Current Visit: Yes Qualifiers: Emphysema type: panlobular Qualified Code(s): J43.1 - Panlobular emphysema (4) COPD exacerbation SNOMED Code(s): 935922109, 833541084 Code(s): J44.1 - CHRONIC OBSTRUCTIVE PULMONARY DISEASE W (ACUTE) EXACERBATION Status: Acute Priority: High Current Visit: No - Problem List Review Problem List Initiated/Reviewed/Updated: Yes - My Orders Last 24 Hours: My Active Orders 10/31/16 11:00 Aminophylline 500 mg Sodium Chloride 0.9% [Normal Saline] 500 ml IV ASDIRECTED 10/31/16 12:00 Levofloxacin [Levaquin] 750 mg PO Q24H 10/31/16 13:30 Sodium Chloride 0.9% [Normal Saline] 1,000 ml IV ASDIRECTED 11/01/16 23:00 THEOPHYLLINE [CHEM] Timed 11/03/16 09:00 Theophylline [Theophylline Anhydrous] 300 mg PO DAILY - Plan Plan:: Assessment/Plan: Acute: CAP- Right Lower Lobe PNA; HCAP - Suspect Aspiration - Routine RT care, Supplemental O2 - Sputum Cx/Sx - IV Antibiotics: Azithromycin and Rocephin, stopped today; started meropenem and levoquin; add gentamycin - Serial CXR, recent showed RLL PNA without significant pulmonary congestion Willl order resp panel, continue meds as ordered , SOB with significant wheezing, ABG without severe hypercapnia or hypoxia; transferred to ICU for close monitoring after abrupt SOB. Restarted Aminophylline, it was used on an earlier admission with good response. However it was subsequently stopped by the pulmonary doctor on his hospital DC visit. Additionally IV Aminophylline ordered, subtherapeutic level; rechecking as ordered by pharmacy. RESP PANEL=HUMAN METAPNEUMOVIRUS, HMPV; will check CT of Chest, high resolution COPD Exacerbation - Audible Wheezing - IV Solumedrol, Bronchodilators, Decongestant, IV Magnesium - IS q2 awake - Routine RT care Leukocytosis - WBC 14.43, CRP 12; increase 24K - 2/2 above - Treat underlying cause Chronic: HTN PVD HLD Hx/o CAD P/p Heart Cath Asthma/End Stage COPD Chronic Respiratory Failure on 2L NC CKD Stage 3 GERD Hiatal Hernia Anemia Osteoporosis Hx/o Pulmonary Nodules on Both Lungs Hx/o Pituitary Tumor S/p Resection Plan: Check for Change to MST Increase Pulmonary Toilet Routine AM Labs Resume Home Meds PPI Daily PT/OT/RT consult SW/CM for d/c planning DVT PPx: Lovenox Sub Q daily Additional orders as above Code status: DNR/DNI DC>96 hours;[place], SNF placement.
[2016-11-01] MEDS: ARFORMOTEROL 15 MCG NEB SCH ×2 (10:50→21:31)
[2016-11-01] MEDS: Levofloxacin 750 MG Tab PO SCH (12:46)
--- NOTE | 2016-11-01 17:01 | CT ---
CT chest Technique: Noncontrast high-resolution images of the chest are obtained both supine and prone positions. Comparison: Previous chest CT of 10/03/16. Findings: Parenchymal density is seen adjacent to the major fissure within the right upper lung. This remains fairly similar in appearance to prior exam. Presumably represents thick area of scarring. Linear densities are noted within the right and left upper lungs compatible with linear scarring which remains stable. Mild interstitial change is noted within the right lung base most likely representing slight fibrosis which is stable. Minimal density within the right middle lobe is also stable which is felt compatible with scarring. Lungs otherwise are clear. Impression: 1. Parenchymal densities as noted above most likely representing areas of fibrosis and scarring. No significant change seen from previous chest CT study of 10/03/16. Diagnostic code #3
[2016-11-01] MEDS: Amitriptyline 25 MG Tab PO SCH (20:35)
[2016-11-01] MEDS: Pseudoephedrine 30 MG Tab PO PRN (20:35)
[2016-11-01] MEDS: Simvastatin 40 MG Tab PO SCH (20:35)
[2016-11-01] MEDS: Montelukast 10 MG Tab PO SCH (20:35)
[2016-11-02] MEDS: guaiFENesin 100 MG/5 ML Soln 10 ML UD Cup PO SCH ×6 (03:11→22:07)
[2016-11-02] MEDS: Meropenem 500 MG in Sodium Chloride 0.9% 100 ML IV SCH ×2 (03:11→08:45)
[2016-11-02] MEDS: Carvedilol 12.5 MG Tab PO SCH ×2 (06:08→17:38)
[2016-11-02] MEDS: guaiFENesin 600 MG Tab.ER PO SCH ×2 (06:08→17:39)
[2016-11-02] MEDS: Pantoprazole 40 MG Tab.CR PO SCH ×2 (06:08→10:01)
[2016-11-02] MEDS: Albuterol/Ipratropium 3.0-0.5 MG/3 ML Neb Soln NEB SCH ×4 (06:47→20:56)
[2016-11-02] MEDS: Budesonide 0.5 MG/2 ML Neb Susp INH SCH ×2 (06:48→20:57)
[2016-11-02] MEDS: Multivitamins,Therapeutic Tab PO SCH (08:45)
[2016-11-02] MEDS: Furosemide 40 MG Tab PO SCH (08:45)
[2016-11-02] MEDS: Calcium Carbonate/Vitamin D3 1500 MG-200 Units Tab PO SCH (08:45)
[2016-11-02] MEDS: Fish Oil/Omega-3 Fatty Acids 1 Gm Cap PO SCH (08:45)
[2016-11-02] MEDS: Aspirin 81 MG Tab.EC PO SCH (08:46)
[2016-11-02] MEDS: Clopidogrel 75 MG Tab PO SCH (08:46)
[2016-11-02] MEDS: amLODIPine 5 MG Tab PO SCH ×2 (08:46→22:08)
[2016-11-02] MEDS: Lisinopril 20 MG Tab PO SCH ×2 (08:46→22:08)
[2016-11-02] MEDS: Rivaroxaban 10 MG Tab PO SCH (08:46)
[2016-11-02] MEDS: Saccharomyces Boulardii (Probiotic) 250 MG Cap PO SCH ×2 (10:01→22:07)
[2016-11-02] MEDS: methylPREDNISolone Sodium Succinate 40 MG/1 ML SDV IVPUSH SCH ×2 (10:02→22:09)
[2016-11-02] MEDS: ARFORMOTEROL 15 MCG NEB SCH ×2 (10:34→20:57)
[2016-11-02] MEDS: Fluconazole 100 MG Tab PO SCH (12:17)
[2016-11-02] MEDS: Theophylline 300 MG Tab.ER PO SCH (12:19)
--- NOTE | 2016-11-02 13:15 | PCM.PN ---
- General Info Date of Service: 11/02/16 - Patient Data Vitals - most recent: Last Vital Signs Temp 36.4 C 11/02/16 03:10 Pulse 81 11/02/16 06:08 Resp 16 11/02/16 03:10 BP 133/97 H 11/02/16 08:46 Pulse Ox 97 11/02/16 10:34 Weight - most recent: 82.146 kg I&O - last 24 hours: Intake & Output 11/01/16 11/02/16 11/02/16 22:59 06:59 14:59 Intake Total 1530 545 330 Output Total 2076 685 Balance -545 -140 330 Lab Results last 24 hrs: Laboratory Results - last 24 hr 11/01/16 11/02/16 Range/Units 23:08 04:07 Sodium 142 (136-145) mEq/L Potassium 4.0 (3.5-5.1) mEq/L Chloride 106 (98-107) mEq/L Carbon Dioxide 35 H (21-32) mEq/L Anion Gap 5.0 (5-15) BUN 36 H (7-18) mg/dL Creatinine 1.1 (0.7-1.3) mg/dL Est Cr Clr Drug Dosing 62.71 mL/min Estimated GFR (MDRD) > 60 (>60) mL/min BUN/Creatinine Ratio 32.7 H (14-18) Glucose 111 (83-115) mg/dL Calcium 8.1 L (8.5-10.1) mg/dL C-Reactive Protein < 0.2 (<1.0) mg/dL Theophylline 5.9 L (10.0-20.0) ug/mL Fabien Results last 24 hrs: Microbiology 11/01/16 20:42 Gram Stain - Final Sputum - Expectorated Sputum Culture - Preliminary YEAST 10/30/16 17:38 Streptococcus pneumoniae Antigen (M - Final Urine Med Orders - Current: Current Medications Acetaminophen (Tylenol) 650 mg PO Q4H PRN PRN Reason: Pain (Mild 1-3)/fever Hydrocodone Bitart/Acetaminophen ([place] 325-5 Mg) 1 tab PO Q4H PRN PRN Reason: Pain (moderate 4-6) Albuterol (Proventil Neb Soln) 2.5 mg NEB Q4HRRT PRN PRN Reason: Shortness of Breath Last Admin: 10/28/16 02:03 Dose: 2.5 mg Albuterol/Ipratropium (Duoneb 3.0-0.5 Mg/3 Ml) 3 ml NEB QIDRT [facility] Last Admin: 11/02/16 10:34 Dose: 3 ml Amitriptyline HCl (Elavil) 50 mg PO BEDTIME [facility] Last Admin: 11/01/16 20:35 Dose: 50 mg Amlodipine Besylate (Norvasc) 5 mg PO BID [facility] Last Admin: 11/02/16 08:46 Dose: 5 mg Artificial Tears (Isopto Tears 0.5% Ophth Soln) 1 ml EYEBOTH Q1H PRN PRN Reason: dry eyes Last Admin: 10/25/16 05:15 Dose: 1 ml Aspirin (Halfprin) 81 mg PO DAILY [facility] Last Admin: 11/02/16 08:46 Dose: 81 mg Bisacodyl (Dulcolax) 5 mg PO DAILY PRN PRN Reason: Constipation Budesonide (Pulmicort) 0.5 mg INH BIDRT [facility] Last Admin: 11/02/16 06:48 Dose: 0.5 mg Calcium Carbonate (Calcium Carbonate/Vitamin D 1500 Mg-200 Unit) 1 tab PO DAILY [facility] Last Admin: 11/02/16 08:45 Dose: 1 tab Carvedilol (Coreg) 12.5 mg PO BID@0600,1800 [facility] Last Admin: 11/02/16 06:08 Dose: 12.5 mg Clopidogrel Bisulfate (Plavix) 75 mg PO DAILY [facility] Last Admin: 11/02/16 08:46 Dose: 75 mg Docusate Sodium (Colace) 100 mg PO DAILY PRN PRN Reason: Constipation Last Admin: 10/30/16 10:02 Dose: 100 mg Doxazosin Mesylate (Cardura) 2 mg PO DAILY PRN PRN Reason: SBP greater than 160 Fish Oil (Fish Oil) 1 gm PO DAILY [facility] Last Admin: 11/02/16 08:45 Dose: 1 gm Fluconazole (Diflucan) 400 mg PO DAILY [facility] Last Admin: 11/02/16 12:17 Dose: 400 mg Furosemide (Lasix) 40 mg PO DAILY [facility] Last Admin: 11/02/16 08:45 Dose: 40 mg Guaifenesin (Mucinex) 1,200 mg PO Q12H [facility] Last Admin: 11/02/16 06:08 Dose: 1,200 mg Guaifenesin (Robitussin) 200 mg PO Q4H [facility] Last Admin: 11/02/16 08:45 Dose: 200 mg Lisinopril (Prinivil) 20 mg PO BID [facility] Last Admin: 11/02/16 08:46 Dose: 20 mg Lorazepam (Ativan) 0.5 mg IV Q6H PRN PRN Reason: Anxiety Methylprednisolone Sodium Succinate (Solu-Medrol) 40 mg IVPUSH Q12H [facility] Montelukast Sodium (Singulair) 10 mg PO BEDTIME [facility] Last Admin: 11/01/16 20:35 Dose: 10 mg Multivitamins (Thera) 1 each PO DAILY [facility] Last Admin: 11/02/16 08:45 Dose: 1 each Nitroglycerin (Nitrostat) 0.4 mg SL Q5M PRN PRN Reason: chest pain Ondansetron HCl (Zofran) 4 mg IV Q6H PRN PRN Reason: Nausea/Vomiting Pantoprazole Sodium (Protonix) 40 mg PO 0800 [facility] Last Admin: 11/02/16 10:01 Dose: Not Given Arformoterol 15 Mcg 0 each NEB BID [facility] Last Admin: 11/02/16 10:34 Dose: 1 each Roflumilast 500 Mcg ((Daliresp)) 0 each PO DAILY [facility] Last Admin: 11/02/16 12:16 Dose: 1 each Polyethylene Glycol (Miralax) 17 gm PO DAILY PRN PRN Reason: Constipation Pseudoephedrine HCl (Sudogest) 30 mg PO QID PRN PRN Reason: Congestion Last Admin: 11/01/16 20:35 Dose: 30 mg Rivaroxaban (Xarelto) 10 mg PO DAILY [facility] Last Admin: 11/02/16 08:46 Dose: 10 mg Saccharomyces Boulardii (Florastor) 250 mg PO BID [facility] Last Admin: 11/02/16 10:01 Dose: 250 mg Senna/Docusate Sodium (Senna Plus) 1 tab PO BID PRN PRN Reason: Constipation Simvastatin (Zocor) 40 mg PO BEDTIME [facility] Last Admin: 11/01/16 20:35 Dose: 40 mg Sodium Chloride (Saline Flush) 10 ml FLUSH ASDIRECTED PRN PRN Reason: Keep Vein Open Last Admin: 10/25/16 20:28 Dose: 10 ml Temazepam (Restoril) 15 mg PO BEDTIME PRN PRN Reason: Sleep Last Admin: 10/30/16 20:31 Dose: 15 mg Theophylline (Theophylline Anhydrous) 600 mg PO DAILY [facility] Last Admin: 11/02/16 12:19 Dose: 300 mg Triamcinolone Acetonide (Triamcinolone Acetonide 0.1% Crm) 15 gm TOP DAILY PRN PRN Reason: Itching Discontinued Medications Acetaminophen (Tylenol) 975 mg PO NOW ONE Stop: 10/24/16 11:57 Last Admin: 10/24/16 11:59 Dose: 975 mg Albuterol (Proventil Neb Soln) Confirm Administered Dose 2.5 mg .ROUTE .STK-MED ONE Stop: 10/25/16 11:13 Last Admin: 10/25/16 11:15 Dose: 2.5 mg Albuterol (Proventil Neb Soln) 2.5 mg NEB ONETIME ONE Stop: 10/25/16 11:15 Last Admin: 10/25/16 11:17 Dose: Not Given Albuterol/Ipratropium (Duoneb 3.0-0.5 Mg/3 Ml) 3 ml NEB ONETIME ONE Stop: 10/24/16 09:12 Last Admin: 10/24/16 09:36 Dose: 3 ml Albuterol/Ipratropium (Duoneb 3.0-0.5 Mg/3 Ml) 3 ml NEB Q6HRRT PRN PRN Reason: sob Last Admin: 10/27/16 09:07 Dose: 3 ml Carvedilol (Coreg) 12.5 mg PO BID [facility] Last Admin: 10/27/16 08:32 Dose: 12.5 mg Ceftriaxone Sodium (Rocephin) Confirm Administered Dose 1 gm .ROUTE .STK-MED ONE Stop: 10/25/16 07:59 Last Admin: 10/25/16 08:06 Dose: Not Given Doxazosin Mesylate (Cardura) 2 mg PO ONETIME ONE Stop: 10/27/16 16:24 Last Admin: 10/27/16 16:33 Dose: 2 mg Enoxaparin Sodium (Lovenox) 40 mg SUBCUT DAILY [facility] Last Admin: 10/29/16 08:19 Dose: Not Given Epinephrine HCl (Epipen) 0.3 mg IM ASDIRECTED PRN PRN Reason: Allergies Furosemide (Lasix) 20 mg IVPUSH NOW ONE Stop: 10/28/16 20:56 Last Admin: 10/28/16 21:20 Dose: 20 mg Guaifenesin (Mucinex) 1,200 mg PO BID [facility] Last Admin: 10/27/16 20:33 Dose: 1,200 mg Magnesium Sulfate 2 gm/ Premix 50 mls @ 25 mls/hr IV ONETIME ONE Stop: 10/24/16 11:11 Last Admin: 10/24/16 09:22 Dose: 25 mls/hr Azithromycin 500 mg/ Sodium (Chloride) 250 mls @ 250 mls/hr IV ONETIME ONE Stop: 10/24/16 10:35 Last Admin: 10/24/16 09:56 Dose: 250 mls/hr Ceftriaxone Sodium 2 gm/ (Sodium Chloride) 100 mls @ 200 mls/hr IV ONETIME ONE Stop: 10/24/16 10:04 Last Admin: 10/24/16 10:31 Dose: 200 mls/hr Sodium Chloride (Normal Saline) 500 mls @ 1,000 mls/hr IV .BOLUS ONE Stop: 10/24/16 11:44 Last Admin: 10/24/16 11:27 Dose: 1,000 mls/hr Azithromycin 500 mg/ Sodium (Chloride) 250 mls @ 250 mls/hr IV Q24H [facility] Last Admin: 10/27/16 08:59 Dose: 250 mls/hr Promethazine HCl 12.5 mg/ (Sodium Chloride) 50.5 mls @ 100 mls/hr IV Q6H PRN PRN Reason: Nausea/Vomiting Ceftriaxone Sodium 1 gm/ (Sodium Chloride) 100 mls @ 200 mls/hr IV Q24H [facility] Last Admin: 10/27/16 08:14 Dose: 200 mls/hr Sodium Chloride (Normal Saline) Confirm Administered Dose 100 mls @ as directed .ROUTE .STK-MED ONE Stop: 10/25/16 07:59 Last Admin: 10/25/16 08:07 Dose: Not Given Aminophylline 440 mg/ Sodium (Chloride) 117.6 mls @ 235 mls/hr IV ONETIME ONE Stop: 10/26/16 12:15 Last Admin: 10/26/16 11:27 Dose: 235 mls/hr Aminophylline 500 mg/ Sodium (Chloride) 520 mls @ 30 mls/hr IV ONETIME ONE Stop: 10/27/16 05:49 Last Admin: 10/26/16 12:06 Dose: 30 mls/hr Meropenem 1 gm/ Sodium (Chloride) 100 mls @ 200 mls/hr IV Q8H [facility] Levofloxacin/Dextrose 750 mg/ (Premix) 150 mls @ 100 mls/hr IV Q24H [facility] Last Admin: 10/30/16 12:29 Dose: 100 mls/hr Meropenem 500 mg/ Sodium (Chloride) 100 mls @ 200 mls/hr IV Q6H [facility] Last Admin: 11/02/16 08:45 Dose: 200 mls/hr Aminophylline 500 mg/ Sodium (Chloride) 520 mls @ 30 mls/hr IV ONETIME ONE Stop: 10/30/16 09:19 Last Admin: 10/29/16 16:21 Dose: 30 mls/hr Dextrose/Sodium Chloride (Dextrose 5%-Normal Saline) 1,000 mls @ 125 mls/hr IV ASDIRECTED [facility] Insulin Human Regular 100 unit (/ Sodium Chloride) 100 mls @ 4 mls/hr IV TITRATE HELEN; 4 UNITS/HR PRN Reason: Protocol Diltiazem HCl 100 mg/ Sodium (Chloride) 100 mls @ 10 mls/hr IV TITRATE HELEN; 10 MG/HR PRN Reason: Protocol Aminophylline 500 mg/ Sodium (Chloride) 520 mls @ 37.5 mls/hr IV ASDIRECTED [facility] Stop: 11/01/16 11:00 Last Admin: 11/01/16 03:13 Dose: 37.5 mls/hr Sodium Chloride (Normal Saline) 1,000 mls @ 15 mls/hr IV ASDIRECTED [facility] Last Admin: 10/31/16 14:55 Dose: 15 mls/hr Gentamicin Sulfate 400 mg/ (Dextrose/Water) 110 mls @ 110 mls/hr IV ONETIME ONE Stop: 10/31/16 19:59 Last Admin: 10/31/16 19:18 Dose: 110 mls/hr Levofloxacin (Levaquin) 750 mg PO Q24H [facility] Last Admin: 11/01/16 12:46 Dose: 750 mg Lisinopril (Prinivil) 20 mg PO DAILY [facility] Last Admin: 10/25/16 08:19 Dose: 20 mg Magnesium Oxide (Magnesium Oxide) 400 mg PO BID [facility] Last Admin: 10/26/16 08:24 Dose: 400 mg Magnesium Oxide (Magnesium Oxide) 400 mg PO BID [facility] Last Admin: 10/28/16 10:50 Dose: Not Given Methylprednisolone Sodium Succinate (Solu-Medrol) 125 mg IVPUSH ONETIME ONE Stop: 10/24/16 09:12 Last Admin: 10/24/16 09:25 Dose: 125 mg Methylprednisolone Sodium Succinate (Solu-Medrol) 125 mg IVPUSH Q6H [facility] Last Admin: 11/01/16 08:42 Dose: 125 mg Methylprednisolone Sodium Succinate (Solu-Medrol) 125 mg IVPUSH ONETIME ONE Stop: 10/25/16 15:30 Last Admin: 10/25/16 18:42 Dose: 125 mg Methylprednisolone Sodium Succinate (Solu-Medrol) 80 mg IVPUSH Q12H [facility] Last Admin: 11/02/16 10:02 Dose: 80 mg Morphine Sulfate (Morphine) 2 mg IVPUSH Q4H PRN PRN Reason: Pain (severe 7-10) Stop: 10/27/16 13:38 Morphine Sulfate (Morphine) 1 mg IVPUSH Q4H PRN PRN Reason: Other Stop: 10/27/16 13:38 Last Admin: 10/25/16 08:33 Dose: 1 mg Non-Formulary Medication (Risedronate Sodium [Risedronate Sodium]) 150 mg PO Q30D [facility] Last Admin: 10/24/16 14:33 Dose: Not Given Non-Formulary Medication (Atorvastatin) 10 mg PO QPM [facility] Potassium Chloride (Potassium Chloride) 40 meq PO BID [facility] Stop: 10/28/16 21:01 Last Admin: 10/28/16 20:08 Dose: 40 meq Pseudoephedrine HCl (Sudogest) 60 mg PO ONETIME ONE Stop: 10/28/16 11:11 Last Admin: 10/28/16 11:20 Dose: 60 mg Saccharomyces Boulardii (Florastor) 500 mg PO BID [facility] Last Admin: 10/29/16 08:14 Dose: 500 mg Theophylline (Theophylline Anhydrous) 300 mg PO DAILY [facility] Last Admin: 10/29/16 08:23 Dose: 300 mg Theophylline (Theophylline Anhydrous) 300 mg PO DAILY [facility] Last Admin: 10/31/16 08:08 Dose: 300 mg Theophylline (Theophylline Anhydrous) 300 mg PO DAILY [facility] - Problem List & Annotations (1) Pneumonia SNOMED Code(s): 042076473 Code(s): J18.9 - PNEUMONIA, UNSPECIFIED ORGANISM Status: Acute Priority: High Current Visit: Yes Qualifiers: Pneumonia type: due to unspecified organism Laterality: right Lung location: middle lobe of lung Qualified Code(s): J18.1 - Lobar pneumonia, unspecified organism (2) Sepsis SNOMED Code(s): 35116480 Code(s): A41.9 - SEPSIS, UNSPECIFIED ORGANISM Status: Acute Current Visit : Yes Qualifiers: Sepsis type: sepsis due to unspecified organism Qualified Code(s): A41.9 - Sepsis, unspecified organism (3) COPD (chronic obstructive pulmonary disease) with emphysema SNOMED Code(s): 12318334 Code(s): J43.9 - EMPHYSEMA, UNSPECIFIED Status: Chronic Priority: High Current Visit: Yes Qualifiers: Emphysema type: panlobular Qualified Code(s): J43.1 - Panlobular emphysema (4) COPD exacerbation SNOMED Code(s): 691780790, 298073900 Code(s): J44.1 - CHRONIC OBSTRUCTIVE PULMONARY DISEASE W (ACUTE) EXACERBATION Status: Acute Priority: High Current Visit: No - My Orders Last 24 Hours: My Active Orders 11/01/16 20:42 CULTURE SPUTUM + SMEAR [RM] Routine 11/02/16 10:45 Fluconazole [Diflucan] 400 mg PO DAILY 11/02/16 12:00 Theophylline [Theophylline Anhydrous] 600 mg PO DAILY 11/03/16 05:00 BASIC METABOLIC PANEL,BMP [CHEM] DAILY CRP [C-REACTIVE PROTEIN] [CHEM] DAILY 11/04/16 05:00 BASIC METABOLIC PANEL,BMP [CHEM] DAILY CRP [C-REACTIVE PROTEIN] [CHEM] DAILY 11/05/16 08:00 THEOPHYLLINE [CHEM] Timed - Plan Plan:: Assessment/Plan: Acute: CAP- Right Lower Lobe PNA; HCAP - Suspect Aspiration - Routine RT care, Supplemental O2 - Sputum Cx/Sx - IV Antibiotics: Azithromycin and Rocephin, stopped today; started meropenem and levoquin; add gentamycin - Serial CXR, recent showed RLL PNA without significant pulmonary congestion Willl order resp panel, continue meds as ordered , SOB with significant wheezing, ABG without severe hypercapnia or hypoxia; transferred to ICU for close monitoring after abrupt SOB. Restarted Aminophylline, it was used on an earlier admission with good response. However it was subsequently stopped by the pulmonary doctor on his hospital DC visit. Additionally IV Aminophylline ordered, subtherapeutic level; rechecking as ordered by pharmacy. RESP PANEL=HUMAN METAPNEUMOVIRUS, HMPV; will check CT of Chest, high resolution COPD Exacerbation - Audible Wheezing - IV Solumedrol, Bronchodilators, Decongestant, IV Magnesium - IS q2 awake - Routine RT care Leukocytosis - WBC 14.43, CRP 12; increase 24K - 2/2 above - Treat underlying cause Chronic: HTN PVD HLD Hx/o CAD P/p Heart Cath Asthma/End Stage COPD Chronic Respiratory Failure on 2L NC CKD Stage 3 GERD Hiatal Hernia Anemia Osteoporosis Hx/o Pulmonary Nodules on Both Lungs Hx/o Pituitary Tumor S/p Resection Plan: Check for Change to MST Increase Pulmonary Toilet Routine AM Labs Resume Home Meds PPI Daily PT/OT/RT consult SW/CM for d/c planning DVT PPx: Lovenox Sub Q daily Additional orders as above Code status: DNR/DNI DC>96 hours;[place], SNF placement.
[2016-11-02] MEDS ORDERED: Furosemide 20 MG/2 ML VIAL IVPUSH ONE ×2 (13:18→18:13)
[2016-11-02] MEDS: Amitriptyline 25 MG Tab PO SCH (22:07)
[2016-11-02] MEDS: Simvastatin 40 MG Tab PO SCH (22:08)
[2016-11-02] MEDS: Montelukast 10 MG Tab PO SCH (22:08)
[2016-11-03] MEDS: guaiFENesin 100 MG/5 ML Soln 10 ML UD Cup PO SCH ×6 (02:37→21:20)
[2016-11-03] MEDS: Carvedilol 12.5 MG Tab PO SCH ×2 (06:12→17:02)
[2016-11-03] MEDS: guaiFENesin 600 MG Tab.ER PO SCH ×2 (06:12→17:01)
[2016-11-03] MEDS: Budesonide 0.5 MG/2 ML Neb Susp INH SCH ×2 (06:40→20:53)
[2016-11-03] MEDS: Albuterol/Ipratropium 3.0-0.5 MG/3 ML Neb Soln NEB SCH ×4 (06:40→20:53)
[2016-11-03] MEDS: Multivitamins,Therapeutic Tab PO SCH (08:50)
[2016-11-03] MEDS: Theophylline 300 MG Tab.ER PO SCH (08:50)
[2016-11-03] MEDS: Saccharomyces Boulardii (Probiotic) 250 MG Cap PO SCH ×2 (08:50→21:19)
[2016-11-03] MEDS: Fish Oil/Omega-3 Fatty Acids 1 Gm Cap PO SCH (08:51)
[2016-11-03] MEDS: amLODIPine 5 MG Tab PO SCH ×2 (08:51→21:19)
[2016-11-03] MEDS: Fluconazole 100 MG Tab PO SCH (08:51)
[2016-11-03] MEDS: Clopidogrel 75 MG Tab PO SCH (08:51)
[2016-11-03] MEDS: Calcium Carbonate/Vitamin D3 1500 MG-200 Units Tab PO SCH (08:51)
[2016-11-03] MEDS: Lisinopril 20 MG Tab PO SCH ×2 (08:52→21:19)
[2016-11-03] MEDS: Rivaroxaban 10 MG Tab PO SCH (08:52)
[2016-11-03] MEDS: Furosemide 40 MG Tab PO SCH (08:52)
[2016-11-03] MEDS: Aspirin 81 MG Tab.EC PO SCH (08:52)
[2016-11-03] MEDS: Pantoprazole 40 MG Tab.CR PO SCH (08:56)
[2016-11-03] MEDS: methylPREDNISolone Sodium Succinate 40 MG/1 ML SDV IVPUSH SCH (09:00)
[2016-11-03] MEDS ORDERED: Theophylline 300 MG Tab.ER PO SCH (09:00)
[2016-11-03] MEDS: ARFORMOTEROL 15 MCG NEB SCH ×2 (10:20→20:53)
--- NOTE | 2016-11-03 13:50 | PCM.PN ---
- General Info Date of Service: 11/03/16 Functional Status: Reports: tolerating diet, ambulating, urinating - Review of Systems General: Reports: Weakness HEENT: Reports: sinus congestion Pulmonary: Reports: shortness of breath Cardiovascular: Reports: No Symptoms Gastrointestinal: Reports: No symptoms Genitourinary: Reports: no symptoms Musculoskeletal: Reports: no symptoms Skin: Reports: no symptoms Neurological: Reports: No Symptoms Psychiatric: Reports: no symptoms - Patient Data Vitals - most recent: Last Vital Signs Temp 36.3 C 11/03/16 09:00 Pulse 70 11/03/16 09:00 Resp 16 11/03/16 09:00 BP 118/84 11/03/16 08:52 Pulse Ox 96 11/03/16 10:20 Weight - most recent: 80.785 kg I&O - last 24 hours: Intake & Output 11/02/16 11/03/16 11/03/16 22:59 06:59 14:59 Intake Total 1680 200 225 Output Total 2520 1450 Balance -840 -1250 225 Lab Results last 24 hrs: Laboratory Results - last 24 hr 11/03/16 Range/Units 04:35 Sodium 143 (136-145) mEq/L Potassium 3.8 (3.5-5.1) mEq/L Chloride 103 (98-107) mEq/L Carbon Dioxide 37 H (21-32) mEq/L Anion Gap 6.8 (5-15) BUN 44 H (7-18) mg/dL Creatinine 1.2 (0.7-1.3) mg/dL Est Cr Clr Drug Dosing 57.48 mL/min Estimated GFR (MDRD) 59 (>60) mL/min BUN/Creatinine Ratio 36.7 H (14-18) Glucose 121 H (83-115) mg/dL Calcium 8.2 L (8.5-10.1) mg/dL C-Reactive Protein < 0.2 (<1.0) mg/dL Fabien Results last 24 hrs: Microbiology 11/01/16 20:42 Gram Stain - Final Sputum - Expectorated Sputum Culture - Preliminary YEAST Med Orders - Current: Current Medications Acetaminophen (Tylenol) 650 mg PO Q4H PRN PRN Reason: Pain (Mild 1-3)/fever Hydrocodone Bitart/Acetaminophen ([place] 325-5 Mg) 1 tab PO Q4H PRN PRN Reason: Pain (moderate 4-6) Albuterol (Proventil Neb Soln) 2.5 mg NEB Q4HRRT PRN PRN Reason: Shortness of Breath Last Admin: 10/28/16 02:03 Dose: 2.5 mg Albuterol/Ipratropium (Duoneb 3.0-0.5 Mg/3 Ml) 3 ml NEB QIDRT [facility] Last Admin: 11/03/16 10:20 Dose: 3 ml Amitriptyline HCl (Elavil) 50 mg PO BEDTIME [facility] Last Admin: 11/02/16 22:07 Dose: 50 mg Amlodipine Besylate (Norvasc) 5 mg PO BID [facility] Last Admin: 11/03/16 08:51 Dose: 5 mg Artificial Tears (Isopto Tears 0.5% Ophth Soln) 1 ml EYEBOTH Q1H PRN PRN Reason: dry eyes Last Admin: 10/25/16 05:15 Dose: 1 ml Aspirin (Halfprin) 81 mg PO DAILY [facility] Last Admin: 11/03/16 08:52 Dose: 81 mg Bisacodyl (Dulcolax) 5 mg PO DAILY PRN PRN Reason: Constipation Budesonide (Pulmicort) 0.5 mg INH BIDRT [facility] Last Admin: 11/03/16 06:40 Dose: 0.5 mg Calcium Carbonate (Calcium Carbonate/Vitamin D 1500 Mg-200 Unit) 1 tab PO DAILY [facility] Last Admin: 11/03/16 08:51 Dose: 1 tab Carvedilol (Coreg) 12.5 mg PO BID@0600,1800 [facility] Last Admin: 11/03/16 06:12 Dose: 12.5 mg Clopidogrel Bisulfate (Plavix) 75 mg PO DAILY [facility] Last Admin: 11/03/16 08:51 Dose: 75 mg Docusate Sodium (Colace) 100 mg PO DAILY PRN PRN Reason: Constipation Last Admin: 10/30/16 10:02 Dose: 100 mg Doxazosin Mesylate (Cardura) 2 mg PO DAILY PRN PRN Reason: SBP greater than 160 Fish Oil (Fish Oil) 1 gm PO DAILY [facility] Last Admin: 11/03/16 08:51 Dose: 1 gm Fluconazole (Diflucan) 400 mg PO DAILY [facility] Last Admin: 11/03/16 08:51 Dose: 400 mg Furosemide (Lasix) 40 mg PO DAILY [facility] Last Admin: 11/03/16 08:52 Dose: 40 mg Guaifenesin (Mucinex) 1,200 mg PO Q12H [facility] Last Admin: 11/03/16 06:12 Dose: 1,200 mg Guaifenesin (Robitussin) 200 mg PO Q4H [facility] Last Admin: 11/03/16 12:36 Dose: 200 mg Lisinopril (Prinivil) 20 mg PO BID [facility] Last Admin: 11/03/16 08:52 Dose: 20 mg Lorazepam (Ativan) 0.5 mg IV Q6H PRN PRN Reason: Anxiety Methylprednisolone Sodium Succinate (Solu-Medrol) 40 mg IVPUSH Q12H [facility] Last Admin: 11/03/16 09:00 Dose: 40 mg Montelukast Sodium (Singulair) 10 mg PO BEDTIME [facility] Last Admin: 11/02/16 22:08 Dose: 10 mg Multivitamins (Thera) 1 each PO DAILY [facility] Last Admin: 11/03/16 08:50 Dose: 1 each Nitroglycerin (Nitrostat) 0.4 mg SL Q5M PRN PRN Reason: chest pain Ondansetron HCl (Zofran) 4 mg IV Q6H PRN PRN Reason: Nausea/Vomiting Pantoprazole Sodium (Protonix) 40 mg PO 0800 [facility] Last Admin: 11/03/16 08:56 Dose: 40 mg Arformoterol 15 Mcg 0 each NEB BID [facility] Last Admin: 11/03/16 10:20 Dose: 1 each Roflumilast 500 Mcg ((Daliresp)) 0 each PO DAILY [facility] Last Admin: 11/03/16 08:50 Dose: 1 each Polyethylene Glycol (Miralax) 17 gm PO DAILY PRN PRN Reason: Constipation Pseudoephedrine HCl (Sudogest) 30 mg PO QID PRN PRN Reason: Congestion Last Admin: 11/01/16 20:35 Dose: 30 mg Rivaroxaban (Xarelto) 10 mg PO DAILY [facility] Last Admin: 11/03/16 08:52 Dose: 10 mg Saccharomyces Boulardii (Florastor) 250 mg PO BID [facility] Last Admin: 11/03/16 08:50 Dose: 250 mg Senna/Docusate Sodium (Senna Plus) 1 tab PO BID PRN PRN Reason: Constipation Simvastatin (Zocor) 40 mg PO BEDTIME [facility] Last Admin: 11/02/16 22:08 Dose: 40 mg Sodium Chloride (Saline Flush) 10 ml FLUSH ASDIRECTED PRN PRN Reason: Keep Vein Open Last Admin: 10/25/16 20:28 Dose: 10 ml Temazepam (Restoril) 15 mg PO BEDTIME PRN PRN Reason: Sleep Last Admin: 10/30/16 20:31 Dose: 15 mg Theophylline (Theophylline Anhydrous) 600 mg PO DAILY [facility] Last Admin: 11/03/16 08:50 Dose: 600 mg Triamcinolone Acetonide (Triamcinolone Acetonide 0.1% Crm) 15 gm TOP DAILY PRN PRN Reason: Itching Discontinued Medications Acetaminophen (Tylenol) 975 mg PO NOW ONE Stop: 10/24/16 11:57 Last Admin: 10/24/16 11:59 Dose: 975 mg Albuterol (Proventil Neb Soln) Confirm Administered Dose 2.5 mg .ROUTE .STK-MED ONE Stop: 10/25/16 11:13 Last Admin: 10/25/16 11:15 Dose: 2.5 mg Albuterol (Proventil Neb Soln) 2.5 mg NEB ONETIME ONE Stop: 10/25/16 11:15 Last Admin: 10/25/16 11:17 Dose: Not Given Albuterol/Ipratropium (Duoneb 3.0-0.5 Mg/3 Ml) 3 ml NEB ONETIME ONE Stop: 10/24/16 09:12 Last Admin: 10/24/16 09:36 Dose: 3 ml Albuterol/Ipratropium (Duoneb 3.0-0.5 Mg/3 Ml) 3 ml NEB Q6HRRT PRN PRN Reason: sob Last Admin: 10/27/16 09:07 Dose: 3 ml Carvedilol (Coreg) 12.5 mg PO BID [facility] Last Admin: 10/27/16 08:32 Dose: 12.5 mg Ceftriaxone Sodium (Rocephin) Confirm Administered Dose 1 gm .ROUTE .STK-MED ONE Stop: 10/25/16 07:59 Last Admin: 10/25/16 08:06 Dose: Not Given Doxazosin Mesylate (Cardura) 2 mg PO ONETIME ONE Stop: 10/27/16 16:24 Last Admin: 10/27/16 16:33 Dose: 2 mg Enoxaparin Sodium (Lovenox) 40 mg SUBCUT DAILY [facility] Last Admin: 10/29/16 08:19 Dose: Not Given Epinephrine HCl (Epipen) 0.3 mg IM ASDIRECTED PRN PRN Reason: Allergies Furosemide (Lasix) 20 mg IVPUSH NOW ONE Stop: 10/28/16 20:56 Last Admin: 10/28/16 21:20 Dose: 20 mg Furosemide (Lasix) 20 mg IVPUSH NOW ONE Stop: 11/02/16 13:19 Last Admin: 11/02/16 13:32 Dose: 20 mg Furosemide (Lasix) 20 mg IVPUSH ONETIME ONE Stop: 11/02/16 18:14 Last Admin: 11/02/16 18:59 Dose: 20 mg Guaifenesin (Mucinex) 1,200 mg PO BID [facility] Last Admin: 10/27/16 20:33 Dose: 1,200 mg Magnesium Sulfate 2 gm/ Premix 50 mls @ 25 mls/hr IV ONETIME ONE Stop: 10/24/16 11:11 Last Admin: 10/24/16 09:22 Dose: 25 mls/hr Azithromycin 500 mg/ Sodium (Chloride) 250 mls @ 250 mls/hr IV ONETIME ONE Stop: 10/24/16 10:35 Last Admin: 10/24/16 09:56 Dose: 250 mls/hr Ceftriaxone Sodium 2 gm/ (Sodium Chloride) 100 mls @ 200 mls/hr IV ONETIME ONE Stop: 10/24/16 10:04 Last Admin: 10/24/16 10:31 Dose: 200 mls/hr Sodium Chloride (Normal Saline) 500 mls @ 1,000 mls/hr IV .BOLUS ONE Stop: 10/24/16 11:44 Last Admin: 10/24/16 11:27 Dose: 1,000 mls/hr Azithromycin 500 mg/ Sodium (Chloride) 250 mls @ 250 mls/hr IV Q24H [facility] Last Admin: 10/27/16 08:59 Dose: 250 mls/hr Promethazine HCl 12.5 mg/ (Sodium Chloride) 50.5 mls @ 100 mls/hr IV Q6H PRN PRN Reason: Nausea/Vomiting Ceftriaxone Sodium 1 gm/ (Sodium Chloride) 100 mls @ 200 mls/hr IV Q24H [facility] Last Admin: 10/27/16 08:14 Dose: 200 mls/hr Sodium Chloride (Normal Saline) Confirm Administered Dose 100 mls @ as directed .ROUTE .STK-MED ONE Stop: 10/25/16 07:59 Last Admin: 10/25/16 08:07 Dose: Not Given Aminophylline 440 mg/ Sodium (Chloride) 117.6 mls @ 235 mls/hr IV ONETIME ONE Stop: 10/26/16 12:15 Last Admin: 10/26/16 11:27 Dose: 235 mls/hr Aminophylline 500 mg/ Sodium (Chloride) 520 mls @ 30 mls/hr IV ONETIME ONE Stop: 10/27/16 05:49 Last Admin: 10/26/16 12:06 Dose: 30 mls/hr Meropenem 1 gm/ Sodium (Chloride) 100 mls @ 200 mls/hr IV Q8H [facility] Levofloxacin/Dextrose 750 mg/ (Premix) 150 mls @ 100 mls/hr IV Q24H [facility] Last Admin: 10/30/16 12:29 Dose: 100 mls/hr Meropenem 500 mg/ Sodium (Chloride) 100 mls @ 200 mls/hr IV Q6H [facility] Last Admin: 11/02/16 08:45 Dose: 200 mls/hr Aminophylline 500 mg/ Sodium (Chloride) 520 mls @ 30 mls/hr IV ONETIME ONE Stop: 10/30/16 09:19 Last Admin: 10/29/16 16:21 Dose: 30 mls/hr Dextrose/Sodium Chloride (Dextrose 5%-Normal Saline) 1,000 mls @ 125 mls/hr IV ASDIRECTED [facility] Insulin Human Regular 100 unit (/ Sodium Chloride) 100 mls @ 4 mls/hr IV TITRATE [facility]; 4 UNITS/HR PRN Reason: Protocol Diltiazem HCl 100 mg/ Sodium (Chloride) 100 mls @ 10 mls/hr IV TITRATE [facility]; 10 MG/HR PRN Reason: Protocol Aminophylline 500 mg/ Sodium (Chloride) 520 mls @ 37.5 mls/hr IV ASDIRECTED [facility] Stop: 11/01/16 11:00 Last Admin: 11/01/16 03:13 Dose: 37.5 mls/hr Sodium Chloride (Normal Saline) 1,000 mls @ 15 mls/hr IV ASDIRECTED [facility] Last Admin: 10/31/16 14:55 Dose: 15 mls/hr Gentamicin Sulfate 400 mg/ (Dextrose/Water) 110 mls @ 110 mls/hr IV ONETIME ONE Stop: 10/31/16 19:59 Last Admin: 10/31/16 19:18 Dose: 110 mls/hr Levofloxacin (Levaquin) 750 mg PO Q24H [facility] Last Admin: 11/01/16 12:46 Dose: 750 mg Lisinopril (Prinivil) 20 mg PO DAILY [facility] Last Admin: 10/25/16 08:19 Dose: 20 mg Magnesium Oxide (Magnesium Oxide) 400 mg PO BID [facility] Last Admin: 10/26/16 08:24 Dose: 400 mg Magnesium Oxide (Magnesium Oxide) 400 mg PO BID [facility] Last Admin: 10/28/16 10:50 Dose: Not Given Methylprednisolone Sodium Succinate (Solu-Medrol) 125 mg IVPUSH ONETIME ONE Stop: 10/24/16 09:12 Last Admin: 10/24/16 09:25 Dose: 125 mg Methylprednisolone Sodium Succinate (Solu-Medrol) 125 mg IVPUSH Q6H [facility] Last Admin: 11/01/16 08:42 Dose: 125 mg Methylprednisolone Sodium Succinate (Solu-Medrol) 125 mg IVPUSH ONETIME ONE Stop: 10/25/16 15:30 Last Admin: 10/25/16 18:42 Dose: 125 mg Methylprednisolone Sodium Succinate (Solu-Medrol) 80 mg IVPUSH Q12H [facility] Last Admin: 11/02/16 10:02 Dose: 80 mg Morphine Sulfate (Morphine) 2 mg IVPUSH Q4H PRN PRN Reason: Pain (severe 7-10) Stop: 10/27/16 13:38 Morphine Sulfate (Morphine) 1 mg IVPUSH Q4H PRN PRN Reason: Other Stop: 10/27/16 13:38 Last Admin: 10/25/16 08:33 Dose: 1 mg Non-Formulary Medication (Risedronate Sodium [Risedronate Sodium]) 150 mg PO Q30D [facility] Last Admin: 10/24/16 14:33 Dose: Not Given Non-Formulary Medication (Atorvastatin) 10 mg PO QPM [facility] Potassium Chloride (Potassium Chloride) 40 meq PO BID [facility] Stop: 10/28/16 21:01 Last Admin: 10/28/16 20:08 Dose: 40 meq Pseudoephedrine HCl (Sudogest) 60 mg PO ONETIME ONE Stop: 10/28/16 11:11 Last Admin: 10/28/16 11:20 Dose: 60 mg Saccharomyces Boulardii (Florastor) 500 mg PO BID [facility] Last Admin: 10/29/16 08:14 Dose: 500 mg Theophylline (Theophylline Anhydrous) 300 mg PO DAILY [facility] Last Admin: 10/29/16 08:23 Dose: 300 mg Theophylline (Theophylline Anhydrous) 300 mg PO DAILY [facility] Last Admin: 10/31/16 08:08 Dose: 300 mg Theophylline (Theophylline Anhydrous) 300 mg PO DAILY [facility] - Exam Quality Assessment: supplemental oxygen, DVT prophylaxis General: alert, oriented, cooperative, no acute distress HEENT: Pupils equal, Pupils reactive, EOMI Neck: supple, trachea midline Lungs: Normal respiratory effort, Wheezing Cardiovascular: Regular Rate Abdomen: bowel sounds present, soft, no tenderness, no distension (Male) Exam: Deferred Back Exam: Normal Inspection Extremities: normal pulses Skin: warm Neurological: normal gait, normal speech Psy/Mental Status: alert, normal affect, normal mood - Problem List & Annotations (1) Pneumonia SNOMED Code(s): 617210555 Code(s): J18.9 - PNEUMONIA, UNSPECIFIED ORGANISM Status: Acute Priority: High Current Visit: Yes Qualifiers: Pneumonia type: due to unspecified organism Laterality: right Lung location: middle lobe of lung Qualified Code(s): J18.1 - Lobar pneumonia, unspecified organism (2) Sepsis SNOMED Code(s): 88916606 Code(s): A41.9 - SEPSIS, UNSPECIFIED ORGANISM Status: Acute Current Visit : Yes Qualifiers: Sepsis type: sepsis due to unspecified organism Qualified Code(s): A41.9 - Sepsis, unspecified organism (3) COPD (chronic obstructive pulmonary disease) with emphysema SNOMED Code(s): 71851763 Code(s): J43.9 - EMPHYSEMA, UNSPECIFIED Status: Chronic Priority: High Current Visit: Yes Qualifiers: Emphysema type: panlobular Qualified Code(s): J43.1 - Panlobular emphysema (4) COPD exacerbation SNOMED Code(s): 200510687, 096608044 Code(s): J44.1 - CHRONIC OBSTRUCTIVE PULMONARY DISEASE W (ACUTE) EXACERBATION Status: Acute Priority: High Current Visit: No - Problem List Review Problem List Initiated/Reviewed/Updated: Yes - My Orders Last 24 Hours: My Active Orders 11/03/16 16:30 CBC WITH AUTO DIFF [HEME] Routine 11/04/16 05:00 BASIC METABOLIC PANEL,BMP [CHEM] DAILY CBC WITH AUTO DIFF [HEME] DAILY CRP [C-REACTIVE PROTEIN] [CHEM] DAILY 11/05/16 05:00 CBC WITH AUTO DIFF [HEME] DAILY 11/05/16 08:00 THEOPHYLLINE [CHEM] Timed 11/06/16 05:00 CBC WITH AUTO DIFF [HEME] DAILY - Plan Plan:: Assessment/Plan: Acute: CAP- Right Lower Lobe PNA; HCAP - Routine RT care, Supplemental O2 - Sputum Cx/Sx - IV Antibiotics: Azithromycin and Rocephin, stopped today; started meropenem and levoquin; add gentamycin-stopped all antibiotics. - Serial CXR, recent showed RLL PNA without significant pulmonary congestion Willl order resp panel, continue meds as ordered Sputum sent for gm stain Restarted Aminophylline, it was used on an earlier admission with good response. However it was subsequently stopped by the pulmonary doctor on his hospital DC visit. Additionally IV Aminophylline ordered, subtherapeutic level; rechecking as ordered by pharmacy. RESP PANEL=HUMAN METAPNEUMOVIRUS, HMPV; CT of Chest, high resolution essentially unchanged. Gm statin suggestive of a yeast infection, will start Diflucan 400 mg daily; will also send an additional sputum, documeted YEAST, Diflucan empirically started 11/02/16. COPD Exacerbation - Audible Wheezing - IV Solumedrol taper dose and frequency, Bronchodilators, Decongestant, IV Magnesium - IS q2 awake - Routine RT care Leukocytosis - WBC 14.43, CRP 12; increase 24K; repeat today. - 2/2 above - Treat underlying cause Chronic: HTN PVD HLD Hx/o CAD P/p Heart Cath Asthma/End Stage COPD Chronic Respiratory Failure on 2L NC CKD Stage 3 GERD Hiatal Hernia Anemia Osteoporosis Hx/o Pulmonary Nodules on Both Lungs Hx/o Pituitary Tumor S/p Resection Plan: Check for Change to MST Increase Pulmonary Toilet Routine AM Labs Resume Home Meds PPI Daily PT/OT/RT consult SW/CM for d/c planning DVT PPx: Lovenox Sub Q daily Additional orders as above Code status: DNR/DNI DC>96 hours; prolong response to therapy, Celina at DC.
[2016-11-03] MEDS ORDERED: Furosemide 20 MG/2 ML VIAL IVPUSH ONE (13:55)
[2016-11-03] MEDS: Amitriptyline 25 MG Tab PO SCH (21:19)
[2016-11-03] MEDS: Montelukast 10 MG Tab PO SCH (21:19)
[2016-11-03] MEDS: Simvastatin 40 MG Tab PO SCH (21:20)
[2016-11-04] MEDS: guaiFENesin 100 MG/5 ML Soln 10 ML UD Cup PO SCH ×3 (02:01→08:56)
[2016-11-04] MEDS: guaiFENesin 600 MG Tab.ER PO SCH (05:16)
[2016-11-04] MEDS: Carvedilol 12.5 MG Tab PO SCH (06:04)
[2016-11-04] MEDS: Albuterol/Ipratropium 3.0-0.5 MG/3 ML Neb Soln NEB SCH ×2 (06:19→09:58)
[2016-11-04] MEDS: Budesonide 0.5 MG/2 ML Neb Susp INH SCH (06:19)
[2016-11-04 07:32] VITALS: BP 91/63
[2016-11-04] MEDS: Calcium Carbonate/Vitamin D3 1500 MG-200 Units Tab PO SCH (08:53)
[2016-11-04] MEDS: Multivitamins,Therapeutic Tab PO SCH (08:53)
[2016-11-04] MEDS: Fluconazole 100 MG Tab PO SCH (08:53)
[2016-11-04] MEDS: Saccharomyces Boulardii (Probiotic) 250 MG Cap PO SCH (08:54)
[2016-11-04] MEDS: Aspirin 81 MG Tab.EC PO SCH (08:54)
[2016-11-04] MEDS: Fish Oil/Omega-3 Fatty Acids 1 Gm Cap PO SCH (08:54)
[2016-11-04] MEDS: Clopidogrel 75 MG Tab PO SCH (08:54)
[2016-11-04] MEDS: Lisinopril 20 MG Tab PO SCH (08:55)
[2016-11-04] MEDS: amLODIPine 5 MG Tab PO SCH (08:55)
[2016-11-04] MEDS: Theophylline 300 MG Tab.ER PO SCH (08:56)
[2016-11-04] MEDS: Rivaroxaban 10 MG Tab PO SCH (08:56)
[2016-11-04] MEDS ORDERED: predniSONE 20 MG Tab PO SCH (09:00)
[2016-11-04] MEDS ORDERED: predniSONE 10 MG Tab PO SCH (09:00)
[2016-11-04] MEDS: Pantoprazole 40 MG Tab.CR PO SCH (09:01)
[2016-11-04] MEDS: ARFORMOTEROL 15 MCG NEB SCH (09:59)
--- NOTE | 2016-11-04 10:59 | PCM.DCSUM1 ---
Discharge Summary - Hospital Course Free Text/Narrative:: 75 year old male with end stage COPD presented with SOB, was found to have probable R sided infiltrate. Was treated empriciaclly for HCAP. Has had multiple admissions for pneumonia. Resp panel documented HMPV; CT of chest was unchanged. Gm stain documented Samantha Albicans. Patient initially responded to therapy but had increasing WBCs. Avenues available were provided including IS/Nebs/aggressive pulmonary toilet and multiple ATB without signifcant improvement. A5 day stay occurred in the ICU when he became more SOB and hypoxic. Acceptance to [place] occurred during the admission, however he was transferred to [facility] for a higher level of care. Primary Dx HCAP Respiratory Distress (hypercapnia/hypoxia) Endstage COPD Condition Fair Diet Heart Healthy Disposition Transfer to [facility] Activity Bedrest, up with assistance Follow Up TBA Medication Please see list. - Discharge Data Discharge Date: 11/04/16 Discharge Disposition: DC/Tfer to [facility] 02 Condition: Good - Discharge Diagnosis/Problem(s) (1) Pneumonia SNOMED Code(s): 058944118 ICD Code: J18.9 - PNEUMONIA, UNSPECIFIED ORGANISM Status: Acute Priority : High Qualifiers: Pneumonia type: due to unspecified organism Laterality: right Lung location: middle lobe of lung Qualified Code(s): J18.1 - Lobar pneumonia, unspecified organism (2) Sepsis SNOMED Code(s): 35224980 ICD Code: A41.9 - SEPSIS, UNSPECIFIED ORGANISM Status: Acute Qualifiers: Sepsis type: sepsis due to unspecified organism Qualified Code(s): A41.9 - Sepsis, unspecified organism (3) COPD (chronic obstructive pulmonary disease) with emphysema SNOMED Code(s): 62462773 ICD Code: J43.9 - EMPHYSEMA, UNSPECIFIED Status: Chronic Priority: High Qualifiers: Emphysema type: panlobular Qualified Code(s): J43.1 - Panlobular emphysema (4) COPD exacerbation SNOMED Code(s): 098607063, 211248886 ICD Code: J44.1 - CHRONIC OBSTRUCTIVE PULMONARY DISEASE W (ACUTE) EXACERBATION Status: Acute Priority: High - Patient Summary/Data Consults: Consultations 10/24/16 13:50 Consult to Case Management [CONS] Routine Consult to Business Operations Manager [CONS] Routine Consult to Spiritual Care [CONS] Routine OT Evaluation and Treatment [CONS] Routine PT Evaluation and Treatment [CONS] Routine Respiratory Care Assess and Treatment [CONS] Routine - Patient Instructions Diet: Heart Healthy Diet Activity: Bedrest, May Use Bathroom Driving: Do Not Drive Showering/Bathing: May Shower Notify Provider of: Fever, Nausea and/or Vomiting - Discharge Plan Home Medications: Home Meds Albuterol Sulfate 2.5 mg IH Q4HR PRN 04/24/16 [History] Amitriptyline [Elavil] 50 mg PO BEDTIME 04/24/16 [History] Arformoterol [Brovana] 15 mcg NEB BID 04/24/16 [History] Budesonide [Pulmicort] 0.5 mg IH BID 04/24/16 [History] Clopidogrel [Plavix] 75 mg PO DAILY 04/24/16 [History] Montelukast [Singulair] 10 mg PO BEDTIME 04/24/16 [History] Multivitamin [Multivitamins] 1 each PO DAILY 04/24/16 [History] Nitroglycerin 0.4 mg SL Q5M PRN 04/24/16 [History] [place]-3/DHA/Epa/Fish Oil [Fish Oil 1,000 mg Softgel] 1 each PO DAILY 04/24/16 [ History] Risedronate Sodium 150 mg PO Q30D 04/24/16 [History] Roflumilast [Daliresp] 500 mcg PO DAILY 04/24/16 [History] Triamcinolone Acetonide [Triamcinolone Acetonide 0.1% Crm] 15 gm TOP DAILY PRN 04/24/16 [History] atorvaSTATin [Lipitor] 40 mg PO BEDTIME 04/24/16 [History] EPINEPHrine [Epipen] 0.3 mg IM ASDIRECTED PRN 08/27/16 [History] Lisinopril [Prinivil] 20 mg PO BID 08/27/16 [History] Docusate Sodium 100 mg PO DAILY PRN 08/28/16 [History] guaiFENesin [Mucinex] 1,200 mg PO BID #60 tab.er 08/31/16 [Rx] Aspirin [Ecotrin] 81 mg PO DAILY 10/24/16 [History] Calc/D3/Mag/Zn/Town Clerk/Garcia/[place] [Calcium 600 MG Plus Vit D] 600 mg PO DAILY [History] Furosemide [Lasix] 40 mg PO DAILY 10/24/16 [History] Pantoprazole [ProTONIX] 40 mg PO 0800 10/24/16 [History] Acetaminophen [Tylenol] 650 mg PO Q4H PRN #0 tablet 11/04/16 [Rx] Acetaminophen/HYDROcodone [[place] 325-5 MG] 1 tab PO Q4H PRN #0 tablet 11/04/16 [ Rx] Albuterol [IJD: Albuterol] 2.5 mg NEB Q4HRRT PRN #0 nebule 11/04/16 [Rx] Albuterol/Ipratropium [DuoNeb 3.0-0.5 MG/3 ML] 3 ml NEB QIDRT neb 11/04/16 [Rx] Bisacodyl [Dulcolax] 5 mg PO DAILY PRN #0 tablet 11/04/16 [Rx] Carvedilol [Coreg] 12.5 mg PO BID@0600,1800 tablet 11/04/16 [Rx] Docusate Sodium/Sennosides [Senna Plus] 1 tab PO BID PRN #0 tablet 11/04/16 [Rx] Fluconazole [Diflucan] 400 mg PO DAILY tablet 11/04/16 [Rx] LORazepam [Ativan] 0.5 mg IV Q6H PRN #0 vial 11/04/16 [Rx] Ondansetron [Zofran] 4 mg IV Q6H PRN #0 vial 11/04/16 [Rx] Polyethylene Glycol 3350 [MiraLAX] 17 gm PO DAILY PRN #0 packet 11/04/16 [Rx] Prednisone [IJD: predniSONE] 40 mg PO DAILY tablet 11/04/16 [Rx] Pseudoephedrine [Sudogest] 30 mg PO QID PRN #0 tablet 11/04/16 [Rx] Rivaroxaban [Xarelto] 10 mg PO DAILY tablet 11/04/16 [Rx] Temazepam [Restoril] 15 mg PO BEDTIME PRN #0 cap 11/04/16 [Rx] Theophylline [Theophylline Anhydrous] 600 mg PO DAILY tab.er 11/04/16 [Rx] amLODIPine [Norvasc] 5 mg PO BID tablet 11/04/16 [Rx] guaiFENesin [Robitussin] 200 mg PO Q4H cup 11/04/16 [Rx] Patient Handouts: Heart Failure, [id number], Community-Acquired Pneumonia, Adult, [id number] Forms: ED Department Discharge Referrals: Jess Klein MD [Ordering Only Provider] - 11/28/16 11:45 am (Breathing test (1245) and CT scan (1200 noon) prior to appointment with Dr Klein (1300: 1:00 pm). Appointment is in Central Standard Time. Come 15 minutes early to [facility] in [place] to register.) Domingo Osborn Jr, MD [Primary Care Provider] - - Discharge Summary/Plan Comment DC Time >30 min.: No - General Info Date of Service: 10/24/16 Functional Status: Reports: tolerating diet, ambulating, urinating - Review of Systems General: Reports: Weakness, Fatigue, Malaise HEENT: Reports: no symptoms Pulmonary: Reports: shortness of breath Cardiovascular: Reports: No Symptoms Gastrointestinal: Reports: No symptoms Genitourinary: Reports: no symptoms Musculoskeletal: Reports: no symptoms Skin: Reports: no symptoms Neurological: Reports: No Symptoms Psychiatric: Reports: no symptoms - Patient Data Vitals - Most Recent: Last Vital Signs Temp 35.8 C 11/04/16 07:30 Pulse 78 11/04/16 07:30 Resp 18 11/03/16 21:16 BP 91/63 11/04/16 08:55 Pulse Ox 93 L 11/04/16 09:59 Weight - Most Recent: 80.014 kg I&O - Last 24 hours: Intake & Output 11/03/16 11/04/16 11/04/16 22:59 06:59 14:59 Intake Total 1550 100 210 Output Total 900 1225 Balance 650 -1125 210 Lab Results - Last 24 hrs: Laboratory Results - last 24 hr 11/03/16 11/04/16 11/04/16 Range/Units 16:28 04:38 04:38 WBC 33.42 H 32.97 H (4.23-9.07) K/mm3 RBC 3.48 L 3.19 L (4.63-6.08) M/mm3 Hgb 10.6 L 9.7 L (13.7-17.5) gm/L Hct 33.1 L 30.3 L (40.1-51.0) % MCV 95.1 H 95.0 H (79.0-92.2) fl MCH 30.5 30.4 (25.7-32.2) pg MCHC 32.0 L 32.0 L (32.2-35.5) g/dl RDW Std Deviation 58.3 H 58.2 H (35.1-43.9) fL Plt Count 519 H 446 H (163-337) K/mm3 MPV 9.3 L 9.4 (9.4-12.3) fl Neut % (Auto) 90.1 H 86.9 H (34.0-67.9) % Lymph % (Auto) 2.2 L 3.9 L (21.8-53.1) % [place] % (Auto) 4.5 L 6.7 (5.3-12.2) % Eos % (Auto) 0 L 0 L (0.8-7.0) Baso % (Auto) 0.1 0.1 (0.1-1.2) % Neut # (Auto) 30.09 H 28.66 H (1.78-5.38) K/mm3 Lymph # (Auto) 0.75 L 1.28 L (1.32-3.57) K/mm3 [place] # (Auto) 1.49 H 2.21 H (0.30-0.82) K/mm3 Eos # (Auto) 0.00 L 0.00 L (0.04-0.54) K/mm3 Baso # (Auto) 0.04 0.03 (0.01-0.08) K/mm3 Manual Slide Review Abnormal smear Abnormal smear Sodium 142 (136-145) mEq/L Potassium 3.7 (3.5-5.1) mEq/L Chloride 103 (98-107) mEq/L Carbon Dioxide 37 H (21-32) mEq/L Anion Gap 5.7 (5-15) BUN 59 H (7-18) mg/dL Creatinine 1.1 (0.7-1.3) mg/dL Est Cr Clr Drug Dosing 62.71 mL/min Estimated GFR (MDRD) > 60 (>60) mL/min BUN/Creatinine Ratio 53.6 H (14-18) Glucose 94 (83-115) mg/dL Calcium 8.2 L (8.5-10.1) mg/dL C-Reactive Protein < 0.2 (<1.0) mg/dL SUSANA Results - Last 24 hrs: Microbiology 11/01/16 20:42 Gram Stain - Final Sputum - Expectorated Sputum Culture - Final Samantha Albicans Med Orders - Current: Current Medications Acetaminophen (Tylenol) 650 mg PO Q4H PRN PRN Reason: Pain (Mild 1-3)/fever Hydrocodone Bitart/Acetaminophen ([place] 325-5 Mg) 1 tab PO Q4H PRN PRN Reason: Pain (moderate 4-6) Albuterol (Proventil Neb Soln) 2.5 mg NEB Q4HRRT PRN PRN Reason: Shortness of Breath Last Admin: 10/28/16 02:03 Dose: 2.5 mg Albuterol/Ipratropium (Duoneb 3.0-0.5 Mg/3 Ml) 3 ml NEB QIDRT [facility] Last Admin: 11/04/16 09:58 Dose: 3 ml Amitriptyline HCl (Elavil) 50 mg PO BEDTIME [facility] Last Admin: 11/03/16 21:19 Dose: 50 mg Amlodipine Besylate (Norvasc) 5 mg PO BID [facility] Last Admin: 11/04/16 08:55 Dose: Not Given Artificial Tears (Isopto Tears 0.5% Ophth Soln) 1 ml EYEBOTH Q1H PRN PRN Reason: dry eyes Last Admin: 10/25/16 05:15 Dose: 1 ml Aspirin (Halfprin) 81 mg PO DAILY [facility] Last Admin: 11/04/16 08:54 Dose: 81 mg Bisacodyl (Dulcolax) 5 mg PO DAILY PRN PRN Reason: Constipation Budesonide (Pulmicort) 0.5 mg INH BIDRT [facility] Last Admin: 11/04/16 06:19 Dose: 0.5 mg Calcium Carbonate (Calcium Carbonate/Vitamin D 1500 Mg-200 Unit) 1 tab PO DAILY [facility] Last Admin: 11/04/16 08:53 Dose: 1 tab Carvedilol (Coreg) 12.5 mg PO BID@0600,1800 [facility] Last Admin: 11/04/16 06:04 Dose: 12.5 mg Clopidogrel Bisulfate (Plavix) 75 mg PO DAILY [facility] Last Admin: 11/04/16 08:54 Dose: 75 mg Docusate Sodium (Colace) 100 mg PO DAILY PRN PRN Reason: Constipation Last Admin: 10/30/16 10:02 Dose: 100 mg Doxazosin Mesylate (Cardura) 2 mg PO DAILY PRN PRN Reason: SBP greater than 160 Fish Oil (Fish Oil) 1 gm PO DAILY [facility] Last Admin: 11/04/16 08:54 Dose: 1 gm Fluconazole (Diflucan) 400 mg PO DAILY [facility] Last Admin: 11/04/16 08:53 Dose: 400 mg Furosemide (Lasix) 40 mg PO DAILY [facility] Last Admin: 11/03/16 08:52 Dose: 40 mg Guaifenesin (Mucinex) 1,200 mg PO Q12H [facility] Last Admin: 11/04/16 05:16 Dose: Not Given Guaifenesin (Robitussin) 200 mg PO Q4H [facility] Last Admin: 11/04/16 08:56 Dose: Not Given Lisinopril (Prinivil) 20 mg PO BID [facility] Last Admin: 11/04/16 08:55 Dose: Not Given Lorazepam (Ativan) 0.5 mg IV Q6H PRN PRN Reason: Anxiety Montelukast Sodium (Singulair) 10 mg PO BEDTIME [facility] Last Admin: 11/03/16 21:19 Dose: 10 mg Multivitamins (Thera) 1 each PO DAILY [facility] Last Admin: 11/04/16 08:53 Dose: 1 each Nitroglycerin (Nitrostat) 0.4 mg SL Q5M PRN PRN Reason: chest pain Ondansetron HCl (Zofran) 4 mg IV Q6H PRN PRN Reason: Nausea/Vomiting Pantoprazole Sodium (Protonix) 40 mg PO 0800 [facility] Last Admin: 11/04/16 09:01 Dose: 40 mg Arformoterol 15 Mcg 0 each NEB BID [facility] Last Admin: 11/04/16 09:59 Dose: 1 each Roflumilast 500 Mcg ((Daliresp)) 0 each PO DAILY [facility] Last Admin: 11/04/16 08:56 Dose: 1 each Polyethylene Glycol (Miralax) 17 gm PO DAILY PRN PRN Reason: Constipation Prednisone (Prednisone) 40 mg PO DAILY [facility] Stop: 11/06/16 09:01 Last Admin: 11/04/16 08:54 Dose: 40 mg Prednisone (Prednisone) 30 mg PO DAILY [facility] Stop: 11/09/16 09:01 Prednisone (Prednisone) 20 mg PO DAILY [facility] Stop: 11/12/16 09:01 Prednisone (Prednisone) 10 mg PO DAILY [facility] Stop: 11/15/16 09:01 Pseudoephedrine HCl (Sudogest) 30 mg PO QID PRN PRN Reason: Congestion Last Admin: 11/01/16 20:35 Dose: 30 mg Rivaroxaban (Xarelto) 10 mg PO DAILY [facility] Last Admin: 11/04/16 08:56 Dose: Not Given Saccharomyces Boulardii (Florastor) 250 mg PO BID [facility] Last Admin: 11/04/16 08:54 Dose: 250 mg Senna/Docusate Sodium (Senna Plus) 1 tab PO BID PRN PRN Reason: Constipation Simvastatin (Zocor) 40 mg PO BEDTIME [facility] Last Admin: 11/03/16 21:20 Dose: Not Given Sodium Chloride (Saline Flush) 10 ml FLUSH ASDIRECTED PRN PRN Reason: Keep Vein Open Last Admin: 10/25/16 20:28 Dose: 10 ml Temazepam (Restoril) 15 mg PO BEDTIME PRN PRN Reason: Sleep Last Admin: 10/30/16 20:31 Dose: 15 mg Theophylline (Theophylline Anhydrous) 600 mg PO DAILY [facility] Last Admin: 11/04/16 08:56 Dose: 600 mg Triamcinolone Acetonide (Triamcinolone Acetonide 0.1% Crm) 15 gm TOP DAILY PRN PRN Reason: Itching Discontinued Medications Acetaminophen (Tylenol) 975 mg PO NOW ONE Stop: 10/24/16 11:57 Last Admin: 10/24/16 11:59 Dose: 975 mg Albuterol (Proventil Neb Soln) Confirm Administered Dose 2.5 mg .ROUTE .STK-MED ONE Stop: 10/25/16 11:13 Last Admin: 10/25/16 11:15 Dose: 2.5 mg Albuterol (Proventil Neb Soln) 2.5 mg NEB ONETIME ONE Stop: 10/25/16 11:15 Last Admin: 10/25/16 11:17 Dose: Not Given Albuterol/Ipratropium (Duoneb 3.0-0.5 Mg/3 Ml) 3 ml NEB ONETIME ONE Stop: 10/24/16 09:12 Last Admin: 10/24/16 09:36 Dose: 3 ml Albuterol/Ipratropium (Duoneb 3.0-0.5 Mg/3 Ml) 3 ml NEB Q6HRRT PRN PRN Reason: sob Last Admin: 10/27/16 09:07 Dose: 3 ml Carvedilol (Coreg) 12.5 mg PO BID [facility] Last Admin: 10/27/16 08:32 Dose: 12.5 mg Ceftriaxone Sodium (Rocephin) Confirm Administered Dose 1 gm .ROUTE .STK-MED ONE Stop: 10/25/16 07:59 Last Admin: 10/25/16 08:06 Dose: Not Given Doxazosin Mesylate (Cardura) 2 mg PO ONETIME ONE Stop: 10/27/16 16:24 Last Admin: 10/27/16 16:33 Dose: 2 mg Enoxaparin Sodium (Lovenox) 40 mg SUBCUT DAILY [facility] Last Admin: 10/29/16 08:19 Dose: Not Given Epinephrine HCl (Epipen) 0.3 mg IM ASDIRECTED PRN PRN Reason: Allergies Furosemide (Lasix) 20 mg IVPUSH NOW ONE Stop: 10/28/16 20:56 Last Admin: 10/28/16 21:20 Dose: 20 mg Furosemide (Lasix) 20 mg IVPUSH NOW ONE Stop: 11/02/16 13:19 Last Admin: 11/02/16 13:32 Dose: 20 mg Furosemide (Lasix) 20 mg IVPUSH ONETIME ONE Stop: 11/02/16 18:14 Last Admin: 11/02/16 18:59 Dose: 20 mg Furosemide (Lasix) 20 mg IVPUSH ONETIME ONE Stop: 11/03/16 13:56 Last Admin: 11/03/16 14:32 Dose: 20 mg Guaifenesin (Mucinex) 1,200 mg PO BID [facility] Last Admin: 10/27/16 20:33 Dose: 1,200 mg Magnesium Sulfate 2 gm/ Premix 50 mls @ 25 mls/hr IV ONETIME ONE Stop: 10/24/16 11:11 Last Admin: 10/24/16 09:22 Dose: 25 mls/hr Azithromycin 500 mg/ Sodium (Chloride) 250 mls @ 250 mls/hr IV ONETIME ONE Stop: 10/24/16 10:35 Last Admin: 10/24/16 09:56 Dose: 250 mls/hr Ceftriaxone Sodium 2 gm/ (Sodium Chloride) 100 mls @ 200 mls/hr IV ONETIME ONE Stop: 10/24/16 10:04 Last Admin: 10/24/16 10:31 Dose: 200 mls/hr Sodium Chloride (Normal Saline) 500 mls @ 1,000 mls/hr IV .BOLUS ONE Stop: 10/24/16 11:44 Last Admin: 10/24/16 11:27 Dose: 1,000 mls/hr Azithromycin 500 mg/ Sodium (Chloride) 250 mls @ 250 mls/hr IV Q24H [facility] Last Admin: 10/27/16 08:59 Dose: 250 mls/hr Promethazine HCl 12.5 mg/ (Sodium Chloride) 50.5 mls @ 100 mls/hr IV Q6H PRN PRN Reason: Nausea/Vomiting Ceftriaxone Sodium 1 gm/ (Sodium Chloride) 100 mls @ 200 mls/hr IV Q24H [facility] Last Admin: 10/27/16 08:14 Dose: 200 mls/hr Sodium Chloride (Normal Saline) Confirm Administered Dose 100 mls @ as directed .ROUTE .STK-MED ONE Stop: 10/25/16 07:59 Last Admin: 10/25/16 08:07 Dose: Not Given Aminophylline 440 mg/ Sodium (Chloride) 117.6 mls @ 235 mls/hr IV ONETIME ONE Stop: 10/26/16 12:15 Last Admin: 10/26/16 11:27 Dose: 235 mls/hr Aminophylline 500 mg/ Sodium (Chloride) 520 mls @ 30 mls/hr IV ONETIME ONE Stop: 10/27/16 05:49 Last Admin: 10/26/16 12:06 Dose: 30 mls/hr Meropenem 1 gm/ Sodium (Chloride) 100 mls @ 200 mls/hr IV Q8H [facility] Levofloxacin/Dextrose 750 mg/ (Premix) 150 mls @ 100 mls/hr IV Q24H [facility] Last Admin: 10/30/16 12:29 Dose: 100 mls/hr Meropenem 500 mg/ Sodium (Chloride) 100 mls @ 200 mls/hr IV Q6H [facility] Last Admin: 11/02/16 08:45 Dose: 200 mls/hr Aminophylline 500 mg/ Sodium (Chloride) 520 mls @ 30 mls/hr IV ONETIME ONE Stop: 10/30/16 09:19 Last Admin: 10/29/16 16:21 Dose: 30 mls/hr Dextrose/Sodium Chloride (Dextrose 5%-Normal Saline) 1,000 mls @ 125 mls/hr IV ASDIRECTED [facility] Insulin Human Regular 100 unit (/ Sodium Chloride) 100 mls @ 4 mls/hr IV TITRATE HELEN; 4 UNITS/HR PRN Reason: Protocol Diltiazem HCl 100 mg/ Sodium (Chloride) 100 mls @ 10 mls/hr IV TITRATE HELEN; 10 MG/HR PRN Reason: Protocol Aminophylline 500 mg/ Sodium (Chloride) 520 mls @ 37.5 mls/hr IV ASDIRECTED [facility] Stop: 11/01/16 11:00 Last Admin: 11/01/16 03:13 Dose: 37.5 mls/hr Sodium Chloride (Normal Saline) 1,000 mls @ 15 mls/hr IV ASDIRECTED [facility] Last Admin: 10/31/16 14:55 Dose: 15 mls/hr Gentamicin Sulfate 400 mg/ (Dextrose/Water) 110 mls @ 110 mls/hr IV ONETIME ONE Stop: 10/31/16 19:59 Last Admin: 10/31/16 19:18 Dose: 110 mls/hr Levofloxacin (Levaquin) 750 mg PO Q24H [facility] Last Admin: 11/01/16 12:46 Dose: 750 mg Lisinopril (Prinivil) 20 mg PO DAILY [facility] Last Admin: 10/25/16 08:19 Dose: 20 mg Magnesium Oxide (Magnesium Oxide) 400 mg PO BID [facility] Last Admin: 10/26/16 08:24 Dose: 400 mg Magnesium Oxide (Magnesium Oxide) 400 mg PO BID [facility] Last Admin: 10/28/16 10:50 Dose: Not Given Methylprednisolone Sodium Succinate (Solu-Medrol) 125 mg IVPUSH ONETIME ONE Stop: 10/24/16 09:12 Last Admin: 10/24/16 09:25 Dose: 125 mg Methylprednisolone Sodium Succinate (Solu-Medrol) 125 mg IVPUSH Q6H [facility] Last Admin: 11/01/16 08:42 Dose: 125 mg Methylprednisolone Sodium Succinate (Solu-Medrol) 125 mg IVPUSH ONETIME ONE Stop: 10/25/16 15:30 Last Admin: 10/25/16 18:42 Dose: 125 mg Methylprednisolone Sodium Succinate (Solu-Medrol) 80 mg IVPUSH Q12H [facility] Last Admin: 11/02/16 10:02 Dose: 80 mg Methylprednisolone Sodium Succinate (Solu-Medrol) 40 mg IVPUSH Q12H [facility] Last Admin: 11/03/16 09:00 Dose: 40 mg Morphine Sulfate (Morphine) 2 mg IVPUSH Q4H PRN PRN Reason: Pain (severe 7-10) Stop: 10/27/16 13:38 Morphine Sulfate (Morphine) 1 mg IVPUSH Q4H PRN PRN Reason: Other Stop: 10/27/16 13:38 Last Admin: 10/25/16 08:33 Dose: 1 mg Non-Formulary Medication (Risedronate Sodium [Risedronate Sodium]) 150 mg PO Q30D [facility] Last Admin: 10/24/16 14:33 Dose: Not Given Non-Formulary Medication (Atorvastatin) 10 mg PO QPM [facility] Potassium Chloride (Potassium Chloride) 40 meq PO BID [facility] Stop: 10/28/16 21:01 Last Admin: 10/28/16 20:08 Dose: 40 meq Pseudoephedrine HCl (Sudogest) 60 mg PO ONETIME ONE Stop: 10/28/16 11:11 Last Admin: 10/28/16 11:20 Dose: 60 mg Saccharomyces Boulardii (Florastor) 500 mg PO BID [facility] Last Admin: 10/29/16 08:14 Dose: 500 mg Theophylline (Theophylline Anhydrous) 300 mg PO DAILY [facility] Last Admin: 10/29/16 08:23 Dose: 300 mg Theophylline (Theophylline Anhydrous) 300 mg PO DAILY [facility] Last Admin: 10/31/16 08:08 Dose: 300 mg Theophylline (Theophylline Anhydrous) 300 mg PO DAILY [facility] - Exam Quality Assessment: Reports: supplemental oxygen, DVT prophylaxis General: Reports: alert, oriented, cooperative HEENT: Reports: Pupils equal, Pupils reactive, EOMI Neck: Reports: supple, trachea midline, no JVD Lungs: Reports: Normal respiratory effort, Decreased breath sounds, Wheezing Cardiovascular: Reports: Regular Rate, Regular Rhythm Abdomen: Reports: bowel sounds present, soft, no tenderness, no distension (Male) Exam: Deferred Rectal (Males) Exam: Deferred Back Exam: Reports: Normal Inspection Extremities: Reports: normal pulses Skin: Reports: warm Neurological: Reports: no new focal deficit, normal gait, normal speech Psy/Mental Status: Reports: alert, normal affect, normal mood *Q Meaningful Use (DIS) - VTE *Q VTE Criteria *Q: - Stroke *Q Stroke Criteria *Q: - AMI *Q AMI Criteria *Q:
[2016-11-07] MEDS ORDERED: predniSONE 10 MG Tab PO SCH (09:00)
[2016-11-10] MEDS ORDERED: predniSONE 20 MG Tab PO SCH (09:00)
[2016-11-13] MEDS ORDERED: predniSONE 10 MG Tab PO SCH (09:00)
== END 2016-11-04 11:06 | DRG 871 ==
LOC: JD.ED 08:58 → JD.MS 13:04 → JD.ICU 10-25 12:44 → JD.MS 10-26 14:31 → JD.ICU 10-26 14:38 → JD.MS 10-31 12:06
PROVIDERS: ADMIT Internal Medicine; ATTEND Internal Medicine Cardiovascular Disease
DX: A41.9 Sepsis, unspecified organism (principal); J18.9 Pneumonia, unspecified organism; J43.1 Panlobular emphysema; N28.9 Disorder of kidney and ureter, unspecified; J45.909 Unspecified asthma, uncomplicated; I10 Essential (primary) hypertension; J44.0 Chronic obstructive pulmonary disease with (acute) lower respiratory infection; J44.1 Chronic obstructive pulmonary disease with (acute) exacerbation; J96.10 Chronic respiratory failure, unspecified whether with hypoxia or hypercapnia; B97.81 Human metapneumovirus as the cause of diseases classified elsewhere; Z87.891 Personal history of nicotine dependence; I25.10 Atherosclerotic heart disease of native coronary artery without angina pectoris; I12.9 Hypertensive chronic kidney disease with stage 1 through stage 4 chronic kidney disease, or unspecified chronic kidney disease; N18.3 Chronic kidney disease, stage 3 (moderate); Z95.5 Presence of coronary angioplasty implant and graft; E78.5 Hyperlipidemia, unspecified; K21.9 Gastro-esophageal reflux disease without esophagitis; Z79.52 Long term (current) use of systemic steroids; I73.9 Peripheral vascular disease, unspecified; K44.9 Diaphragmatic hernia without obstruction or gangrene; M19.90 Unspecified osteoarthritis, unspecified site; M81.0 Age-related osteoporosis without current pathological fracture; G62.9 Polyneuropathy, unspecified; D64.9 Anemia, unspecified; Z66 Do not resuscitate; Z79.01 Long term (current) use of anticoagulants; Z79.82 Long term (current) use of aspirin; Z99.81 Dependence on supplemental oxygen; Z79.899 Other long term (current) drug therapy; Z79.51 Long term (current) use of inhaled steroids; Z88.8 Allergy status to other drugs, medicaments and biological substances
CPT/HCPCS: 36415; 71010; 73502; 80053; 81001; 83605; 84484; 85025; 86140; 87040 ×2; 93005; 94664; 96361; 96365; 96366; 96368; 96375; 99285; A9270; J0456; J0696; J2930; J7030; J7040; J7050 ×2; 36600; 71020; 71020-26; 71250; 71250-26; 80048; 80170; 80198; 82803; 83735; 86738; 87070; 87205; 87486; 87581; 87633; 87641; 87798; 87807; 87899; 94640-76; 94660; 94760; 94761; 97110-GO; 97110-GP; 97116-GP; 97162-GP; 97163-GP; 97166-GO; 97530-GO; 97530-GP; 97535-GO; J0280; J1580; J1956; J2185; J2270; J2920; J3475; J7060

== ENCOUNTER 2016-11-22 10:50 | Emergency (ER) | payer MEDICARE, OTHER ==
[2016-11-22 11:09] VITALS: BP 124/77
[2016-11-22] MEDS ORDERED: Sodium Chloride 0.9% 10 ML Syringe FLUSH PRN (11:25)
--- NOTE | 2016-11-22 11:28 | EDM.PDOC ---
ED HPI GENERAL MEDICAL PROBLEM - General Chief Complaint: Respiratory Problem Stated Complaint: Cough, dyspnea Time Seen by Provider: 11/22/16 11:15 Source of Information: Reports: EMS, Old Records, RN Notes Reviewed History Limitations: Reports: No Limitations - History of Present Illness INITIAL COMMENTS - FREE TEXT/NARRATIVE: 75 year old male presents to the ED via [facility] due to dyspnea and "rattling" in his chest. He reports frequent, white sputum with coughing. This white sputum is not typical for him. He is short of breath at rest. When asked how long he's been experiencing these symptoms, he states "a while" but will not specify a time frame. He has a frequent cough. He has a history of COPD and wears 2 liters of oxygen at home. He denies chest pain except for a brief episode of left sided chest pain on the ambulance ride here. That pain quickly resolved without intervention. He reports lower extremity edema and is unsure if this has worsened. He denies fever or chills. He normally lives in an assisted living but is now living at the [facility] for rehab. He was recently admitted to the hospital here on 10/24/16 with diagnosis of pneumonia. He was subsequently transferred to [facility] for further treatment. He was released from [facility] on 11/12/16. Right Shoulder Pain Score (Numeric/FACES): 4 - Related Data Allergies Allergy/AdvReac Type Severity Reaction Status Date / Time moxifloxacin Allergy Other Verified 10/24/16 09:11 tiotropium Allergy Other Verified 10/24/16 09:11 [From Spiriva with HandiHaler] clonidine AdvReac Tremors Verified 10/24/16 09:11 fluticasone AdvReac Leg Cramps Verified 10/24/16 09:11 [From Advair Diskus] paroxetine [From Paxil] AdvReac Tremors Verified 10/24/16 09:11 salmeterol AdvReac Leg Cramps Verified 10/24/16 09:11 [From Advair Diskus] Home Meds: Home Meds Albuterol Sulfate 2.5 mg IH Q4HR PRN 04/24/16 [History] Amitriptyline [Elavil] 50 mg PO BEDTIME 04/24/16 [History] Arformoterol [Brovana] 15 mcg NEB BID 04/24/16 [History] Budesonide [Pulmicort] 0.5 mg IH BID 04/24/16 [History] Clopidogrel [Plavix] 75 mg PO DAILY 04/24/16 [History] Montelukast [Singulair] 10 mg PO BEDTIME 04/24/16 [History] Multivitamin [Multivitamins] 1 each PO DAILY 04/24/16 [History] Nitroglycerin 0.4 mg SL Q5M PRN 04/24/16 [History] [address]-3/DHA/Epa/Fish Oil [Fish Oil 1,000 mg Softgel] 1 each PO DAILY 04/24/16 [ History] Risedronate Sodium 150 mg PO Q30D 04/24/16 [History] Roflumilast [Daliresp] 500 mcg PO DAILY 04/24/16 [History] Triamcinolone Acetonide [Triamcinolone Acetonide 0.1% Crm] 15 gm TOP DAILY PRN 04/24/16 [History] atorvaSTATin [Lipitor] 40 mg PO BEDTIME 04/24/16 [History] EPINEPHrine [Epipen] 0.3 mg IM ASDIRECTED PRN 08/27/16 [History] Lisinopril [Prinivil] 20 mg PO BID 08/27/16 [History] Docusate Sodium 100 mg PO DAILY PRN 08/28/16 [History] guaiFENesin [Mucinex] 1,200 mg PO BID #60 tab.er 08/31/16 [Rx] Aspirin [Ecotrin] 81 mg PO DAILY 10/24/16 [History] Calc/D3/Mag/Zn/Hand Slitter/Garcia/[place] [Calcium 600 MG Plus Vit D] 600 mg PO DAILY [History] Furosemide [Lasix] 40 mg PO DAILY 10/24/16 [History] Pantoprazole [ProTONIX] 40 mg PO 0800 10/24/16 [History] Acetaminophen [Tylenol] 650 mg PO Q4H PRN #0 tablet 11/04/16 [Rx] Acetaminophen/HYDROcodone [[place] 325-5 MG] 1 tab PO Q4H PRN #0 tablet 11/04/16 [ Rx] Albuterol [IJD: Albuterol] 2.5 mg NEB Q4HRRT PRN #0 nebule 11/04/16 [Rx] Albuterol/Ipratropium [DuoNeb 3.0-0.5 MG/3 ML] 3 ml NEB QIDRT neb 11/04/16 [Rx] Bisacodyl [Dulcolax] 5 mg PO DAILY PRN #0 tablet 11/04/16 [Rx] Carvedilol [Coreg] 12.5 mg PO BID@0600,1800 tablet 11/04/16 [Rx] Docusate Sodium/Sennosides [Senna Plus] 1 tab PO BID PRN #0 tablet 11/04/16 [Rx] Fluconazole [Diflucan] 400 mg PO DAILY tablet 11/04/16 [Rx] LORazepam [Ativan] 0.5 mg IV Q6H PRN #0 vial 11/04/16 [Rx] Ondansetron [Zofran] 4 mg IV Q6H PRN #0 vial 11/04/16 [Rx] Polyethylene Glycol 3350 [MiraLAX] 17 gm PO DAILY PRN #0 packet 11/04/16 [Rx] Prednisone [IJD: predniSONE] 40 mg PO DAILY tablet 11/04/16 [Rx] Pseudoephedrine [Sudogest] 30 mg PO QID PRN #0 tablet 11/04/16 [Rx] Rivaroxaban [Xarelto] 10 mg PO DAILY tablet 11/04/16 [Rx] Temazepam [Restoril] 15 mg PO BEDTIME PRN #0 cap 11/04/16 [Rx] Theophylline [Theophylline Anhydrous] 600 mg PO DAILY tab.er 11/04/16 [Rx] amLODIPine [Norvasc] 5 mg PO BID tablet 11/04/16 [Rx] guaiFENesin [Robitussin] 200 mg PO Q4H cup 11/04/16 [Rx] Past Medical History HEENT History: Reports: Cataract Cardiovascular History: Reports: Hypertension, PTCA, PVD, Stents, Other (See Below) Other Cardiovascular History: reports leg edema but no CHF history, "silent 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 Respiratory History: Reports: Asthma, COPD Other Respiratory History: wears O2 at 2L at home, up to 3-4L with activity Gastrointestinal History: Reports: GERD, Hiatal Hernia Genitourinary History: Reports: Retention, Urinary Musculoskeletal History: Reports: Arthritis Neurological History: Reports: Neuropathy, Peripheral Endocrine/Metabolic History: Reports: Other (See Below) Other Endocrine/Metabolic History: pituitary tumor Hematologic History: Reports: Anemia Immunologic History: Reports: None Other Immunologic History: pt is on prednisone for his copd Dermatologic History: Reports: Other (See Below) Other Dermatologic History: fragile skin, is on prednisone/steroid therapy - Infectious Disease History Infectious Disease History: Reports: Influenza - Past Surgical History HEENT Surgical History: Reports: Cataract Surgery Cardiovascular Surgical History: Reports: Coronary Artery Stent, Percutaneous Transluminal Angioplasty GI Surgical History: Reports: Appendectomy, Colonoscopy, Hernia, Abdominal, Hernia, Inguinal Endocrine Surgical History: Reports: Pituitary Tumor Resection Social & Family History - Family History Family Medical History: Noncontributory Endocrine/Metabolic: Reports: Diabetes, type II Oncologic: Reports: Other (See Below) - Tobacco Use Smoking Status *Q: Former Smoker Years of Tobacco use: 50 Packs/Tins Daily: 1 Used Tobacco, but Quit: Yes Month Tobacco Last Used: 20 years Second Hand Smoke Exposure: No - Caffeine Use Caffeine Use: Reports: Coffee - Recreational Drug Use Recreational Drug Use: No - Living Situation & Occupation Living situation: Reports: Single, Alone Occupation: Retired ED ROS GENERAL - Review of Systems Review Of Systems: See Below Constitutional: Reports: No Symptoms. Denies: Fever, Chills, Diaphoresis Respiratory: Reports: Shortness of Breath, Cough, Sputum Cardiovascular: Reports: Chest Pain, Dyspnea on Exertion, Edema GI/Abdominal: Reports: No Symptoms. Denies: Abdominal Pain, Nausea, Vomiting ED EXAM, GENERAL - Physical Exam Exam: See Below Exam Limited By: No Limitations General Appearance: Alert, WD/WN, Moderate Distress Respiratory/Chest: Respiratory Distress, Rales, Rhonchi, Wheezing, Prolonged Expiration Cardiovascular: Tachycardia, Other (2-3+ dependent edema bilaterally ) GI/Abdominal: Normal Bowel Sounds, Soft, Non-Tender Neurological: Alert, Oriented EKG INTERPRETATION EKG Date: 11/22/16 Time: 11:46 Rhythm: other (Sinus tach) Rate (beats/min): 102 [place]: normal P-wave: present QRS: normal ST-T: normal QT: normal EKG Interpretation Comments: No acute ischemic changes. EKG read by Dr. Alford Course - Vital Signs Last Recorded V/S: Last Vital Signs Temp 97.9 F 11/22/16 11:03 Pulse 104 H 11/22/16 11:03 Resp 24 H 11/22/16 11:03 BP 124/77 11/22/16 11:03 Pulse Ox 99 11/22/16 11:48 - Orders/Labs/Meds Orders: Active Orders 24 hr Category Date Time Status Cardiac Monitoring [RC] . DIRECTED Care 11/22/16 11:26 Active EKG 12 Lead [EKG Documentation Completion] [RC] STAT Care 11/22/16 11:26 Active Peripheral IV Care [RC] . DIRECTED Care 11/22/16 11:27 Active RT Aerosol Therapy [RC] ASDIRECTED Care 11/22/16 11:48 Active Peripheral IV Insertion Adult [OM.PC] Stat Oth 11/22/16 11:26 Ordered Labs: Laboratory Tests 11/22/16 11/22/16 11/22/16 Range/Units 11:53 11:53 11:53 WBC 7.91 (4.23-9.07) K/mm3 RBC 3.44 L (4.63-6.08) M/mm3 Hgb 10.4 L (13.7-17.5) gm/L Hct 33.7 L (40.1-51.0) % MCV 98.0 H (79.0-92.2) fl MCH 30.2 (25.7-32.2) pg MCHC 30.9 L (32.2-35.5) g/dl RDW Std Deviation 76.6 H (35.1-43.9) fL Plt Count 344 H (163-337) K/mm3 MPV 9.6 (9.4-12.3) fl Neut % (Auto) 89.0 H (34.0-67.9) % Lymph % (Auto) 7.1 L (21.8-53.1) % [place] % (Auto) 2.9 L (5.3-12.2) % Eos % (Auto) 0 L (0.8-7.0) Baso % (Auto) 0.1 (0.1-1.2) % Neut # (Auto) 7.04 H (1.78-5.38) K/mm3 Lymph # (Auto) 0.56 L (1.32-3.57) K/mm3 [place] # (Auto) 0.23 L (0.30-0.82) K/mm3 Eos # (Auto) 0.00 L (0.04-0.54) K/mm3 Baso # (Auto) 0.01 (0.01-0.08) K/mm3 Manual Slide Review Abnormal smear Sodium 145 (136-145) mEq/L Potassium 3.8 (3.5-5.1) mEq/L Chloride 104 (98-107) mEq/L Carbon Dioxide 33 H (21-32) mEq/L Anion Gap 11.8 (5-15) BUN 26 H (7-18) mg/dL Creatinine 1.5 H (0.7-1.3) mg/dL Est Cr Clr Drug Dosing 45.10 mL/min Estimated GFR (MDRD) 46 (>60) mL/min BUN/Creatinine Ratio 17.3 (14-18) Glucose 98 (83-115) mg/dL Calcium 8.9 (8.5-10.1) mg/dL Total Bilirubin 0.3 (0.2-1.0) mg/dL AST 19 (15-37) U/L ALT 37 (16-63) U/L Alkaline Phosphatase 77 (46-116) U/L Troponin I 0.026 (0.00-0.056) ng/mL B-Natriuretic Peptide 164 H (0-100) pg/mL Total Protein 6.2 L (6.4-8.2) g/dl Albumin 3.0 L (3.4-5.0) g/dl Globulin 3.2 gm/dL Albumin/Globulin Ratio 0.9 L (1-2) Meds: Medications Discontinued Medications Generic Name Dose Route Start Last Admin Trade Name Altagracia PRN Reason Stop Dose Admin Acetaminophen 975 mg 11/22/16 14:03 11/22/16 14:04 Tylenol PO 11/22/16 14:04 975 mg NOW ONE Administration Acetaminophen Confirm 11/22/16 14:03 11/22/16 14:21 Tylenol Administered 11/22/16 14:04 Not Given Dose 975 mg .ROUTE .STK-MED ONE Albuterol/Ipratropium 3 ml 11/22/16 11:48 11/22/16 11:53 Duoneb 3.0-0.5 Mg/3 Ml NEB 11/22/16 11:49 3 ml ONETIME ONE Administration Sodium Chloride 10 ml 11/22/16 11:25 11/22/16 12:51 Saline Flush FLUSH 10 ml ASDIRECTED PRN Administration Keep Vein Open - Re-Assessments/Exams Free Text/Narrative Re-Assessment/Exam: CBC reveals normal WBC. CMP reveals Co2 of 33, BUN 26, and creatinine 1.5. Potassium and sodium are WNL. BNP is mildly elevated at 164. Troponin is WNL at 0.026. EKG is normal. Chest x-ray reveals chronic hyperinflation changes consistent with COPD. There are no pulmonary infiltrates or effusions. The patient's lung sounds are very course and he's had an increase in sputum production. He is tachypnic and dyspnic at rest. He has little improvement in dyspnea with Duonebs. He has a course audible rattle with his breathing which is his primary concern. I spoke to our Hospitalist Dr. Le who is very familiar with the patient. She recommends transfer to [place] due to need for pulmonology services. The patient and his daughter are agreeable to transfer and plan of care. I spoke to Hospitalist Dr. Perkins at [facility]. He has accepted care of patient. The patient will be transferred via [facility]. Departure - Departure Time of Disposition: 14:00 Disposition: DC/Tfer to Acute Hospital 02 Condition: fair Clinical Impression: COPD exacerbation, Increased sputum production Dyspnea Qualifiers: Dyspnea type: unspecified Qualified Code(s): R06.00 - Dyspnea, unspecified - Discharge Information Referrals: Domingo Osborn Jr, MD [Primary Care Provider] - Forms: ED Department Discharge - My Orders Last 24 Hours: My Active Orders 11/22/16 11:26 Cardiac Monitoring [RC] . DIRECTED EKG 12 Lead [EKG Documentation Completion] [RC] STAT Peripheral IV Insertion Adult [OM.PC] Stat 11/22/16 11:27 Peripheral IV Care [RC] . DIRECTED 11/22/16 11:48 RT Aerosol Therapy [RC] ASDIRECTED - Assessment/Plan Last 24 Hours: My Active Orders 11/22/16 11:26 Cardiac Monitoring [RC] . DIRECTED EKG 12 Lead [EKG Documentation Completion] [RC] STAT Peripheral IV Insertion Adult [OM.PC] Stat 11/22/16 11:27 Peripheral IV Care [RC] . DIRECTED 06/01/17 11:48 RT Aerosol Therapy [RC] ASDIRECTED
[2016-11-22] MEDS ORDERED: Albuterol/Ipratropium 3.0-0.5 MG/3 ML Neb Soln NEB ONE (11:48)
--- NOTE | 2016-11-22 12:30 | CR ---
Chest: Portable view of the chest was obtained. Comparison: Previous chest x-ray of 10/27/[address] of 11/01/16. Findings: Heart size appears normal. Tortuous thoracic aorta is seen. Lucency identified within the right upper chest felt to be due to oligemic change. There is some scarring within both upper lungs. Lower lungs are clear. Bony structures are grossly intact. Impression: 1. Findings felt to be incidental as described above. Nothing acute is appreciated. Diagnostic code #2
[2016-11-22] MEDS ORDERED: Acetaminophen 325 MG Tab ONE (14:03)
[2016-11-22] MEDS ORDERED: Acetaminophen 325 MG Tab PO ONE (14:03)
== END 2016-11-22 14:07 ==
LOC: JD.ED 10:50
DX: J44.1 Chronic obstructive pulmonary disease with (acute) exacerbation (principal); I10 Essential (primary) hypertension; K21.9 Gastro-esophageal reflux disease without esophagitis; D64.9 Anemia, unspecified; I73.9 Peripheral vascular disease, unspecified; Z98.49 Cataract extraction status, unspecified eye; Z95.5 Presence of coronary angioplasty implant and graft; Z90.49 Acquired absence of other specified parts of digestive tract; Z98.890 Other specified postprocedural states; Z87.891 Personal history of nicotine dependence; Z79.82 Long term (current) use of aspirin; Z79.02 Long term (current) use of antithrombotics/antiplatelets; Z79.899 Other long term (current) drug therapy; Z88.1 Allergy status to other antibiotic agents; Z88.8 Allergy status to other drugs, medicaments and biological substances
CPT/HCPCS: 36415; 71010; 80053; 83880; 84484; 85025; 93005; 94664; 99285; A9270; J7050; 99284

== ENCOUNTER 2016-12-09 13:40 | Emergency (ER) | payer MEDICARE, OTHER ==
[2016-12-09] MEDS ORDERED: Sodium Chloride 0.9% 1,000 ML IV ONE (13:56)
[2016-12-09] MEDS ORDERED: Ondansetron 4 MG/2 ML SDV IVPUSH ONE (13:57)
[2016-12-09] MEDS ORDERED: fentaNYL 100 MCG/2 ML SDV IVPUSH ONE (13:57)
[2016-12-09] MEDS ORDERED: Albuterol/Ipratropium 3.0-0.5 MG/3 ML Neb Soln NEB ONE (14:00)
--- NOTE | 2016-12-09 14:01 | EDM.PDOC ---
ED HPI GENERAL MEDICAL PROBLEM - General Chief Complaint: Respiratory Problem Stated Complaint: [facility] Time Seen by Provider: 12/09/16 13:46 Source of Information: Reports: Patient History Limitations: Reports: No Limitations - History of Present Illness INITIAL COMMENTS - FREE TEXT/NARRATIVE: 76-year-old male presents to the ED per [place] [facility]. He has chronic terminal COPD. In [facility] for the last 6 weeks with pneumonia and is in [place] [facility] for rehabilitation at this time. He had some chills last night. Not sure if he had any fever. P as far as he knows he still on antibiotic therapy with the last tablet to be given today. He is on a weaning dose of prednisone he believes 30 mg today and for the next 5 days. O2 sats are in the 78th percentile. He can't tolerate a mask as he feels claustrophobic. Her medics tried a short course of BiPAP en route which she could not tolerate. He does not wish to be intubated. He is usually on oxygen at 2 L/m at all times by nasal specs. He is on numerous inhalational agents given by nebulizer. Sputum is brown to slightly yellow in color. He did cough up some that will be sent for culture. He has a needed today because he is too dyspneic. He's been up since 0400 hrs. this morning because of increased dyspnea. Associated diffuse wheezing. Pressure on arrival is 70 on 40. It has gone up slightly to 78 /48. Heart rate is 100 and sinus. Of note he takes antihypertensive medications. He does not appear to have a fever at this time. Onset: Gradual (Patient has been chronically ill with lung disease for several months but in an out of hospital for the last 6 weeks because of pneumonia and deteriorating lung function. 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 Last admission was around November 22 is unclear how long he stayed. This was at [facility]) Onset Date: 12/09/16 Onset Time: 04:00 (Became acutely more dyspneic at 4:00 this morning.) Duration: Hour(s): Location: Reports: Chest (Can't get his air.) Quality: Reports: Burning (Planes of severe burning in both of the soles of his feet I neuropathy. He has a burning ache stabbing pain in the right side of his neck that radiates into his right shoulder.), Stabbing Severity: Severe (He is requesting pain medication for this.) Improves with: Reports: Rest Worsens with: Reports: Other, Movement Context: Reports: Other (End-stage COPD). Denies: Activity (Eating), Exercise, Lifting, Sick Contact, Trauma Associated Symptoms: Reports: Cough, cough w sputum (No brown in color), Fever/ Chills, Loss of Appetite, Malaise, Shortness of Breath, Weakness (Generalized.) . 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 Treatments Bilateral Leg Pain Score (Numeric/FACES): 7 Right Shoulder Pain Score (Numeric/FACES): 5 - Related Data Allergies Allergy/AdvReac Type Severity Reaction Status Date / Time moxifloxacin Allergy Other Verified 12/09/16 14:39 tiotropium Allergy Other Verified 12/09/16 14:39 [From Spiriva with HandiHaler] clonidine AdvReac Tremors Verified 12/09/16 14:39 fluticasone AdvReac Leg Cramps Verified 12/09/16 14:39 [From Advair Diskus] paroxetine [From Paxil] AdvReac Tremors Verified 12/09/16 14:39 salmeterol AdvReac Leg Cramps Verified 12/09/16 14:39 [From Advair Diskus] Home Meds: Home Meds Albuterol Sulfate 2.5 mg IH Q4HR PRN 04/24/16 [History] Amitriptyline [Elavil] 50 mg PO BEDTIME 04/24/16 [History] Arformoterol [Brovana] 15 mcg NEB BID 04/24/16 [History] Budesonide [Pulmicort] 0.5 mg IH BID 04/24/16 [History] Clopidogrel [Plavix] 75 mg PO DAILY 04/24/16 [History] Montelukast [Singulair] 10 mg PO BEDTIME 04/24/16 [History] Multivitamin [Multivitamins] 1 each PO DAILY 04/24/16 [History] Nitroglycerin 0.4 mg SL Q5M PRN 04/24/16 [History] Logan-3/DHA/Epa/Fish Oil [Fish Oil 1,000 mg Softgel] 1 each PO DAILY 04/24/16 [ History] Risedronate Sodium 150 mg PO Q30D 04/24/16 [History] Roflumilast [Daliresp] 500 mcg PO DAILY 04/24/16 [History] Triamcinolone Acetonide [Triamcinolone Acetonide 0.1% Crm] 15 gm TOP DAILY PRN 04/24/16 [History] atorvaSTATin [Lipitor] 40 mg PO BEDTIME 04/24/16 [History] EPINEPHrine [Epipen] 0.3 mg IM ASDIRECTED PRN 08/27/16 [History] Lisinopril [Prinivil] 20 mg PO BID 08/27/16 [History] Docusate Sodium 100 mg PO DAILY PRN 08/28/16 [History] guaiFENesin [Mucinex] 1,200 mg PO BID #60 tab.er 08/31/16 [Rx] Aspirin [Ecotrin] 81 mg PO DAILY 10/24/16 [History] Calc/D3/Mag/Zn/Care Aide/[place] [Calcium 600 MG Plus Vit D] 600 mg PO DAILY [History] Furosemide [Lasix] 40 mg PO DAILY 10/24/16 [History] Pantoprazole [ProTONIX] 40 mg PO 0800 10/24/16 [History] Acetaminophen [Tylenol] 650 mg PO Q4H PRN #0 tablet 11/04/16 [Rx] Acetaminophen/HYDROcodone [Celina 325-5 MG] 1 tab PO Q4H PRN #0 tablet 11/04/16 [ Rx] Albuterol [IJD: Albuterol] 2.5 mg NEB Q4HRRT PRN #0 nebule 11/04/16 [Rx] Albuterol/Ipratropium [DuoNeb 3.0-0.5 MG/3 ML] 3 ml NEB QIDRT neb 11/04/16 [Rx] Bisacodyl [Dulcolax] 5 mg PO DAILY PRN #0 tablet 11/04/16 [Rx] Carvedilol [Coreg] 12.5 mg PO BID@0600,1800 tablet 11/04/16 [Rx] Docusate Sodium/Sennosides [Senna Plus] 1 tab PO BID PRN #0 tablet 11/04/16 [Rx] Fluconazole [Diflucan] 400 mg PO DAILY tablet 11/04/16 [Rx] LORazepam [Ativan] 0.5 mg IV Q6H PRN #0 vial 11/04/16 [Rx] Ondansetron [Zofran] 4 mg IV Q6H PRN #0 vial 11/04/16 [Rx] Polyethylene Glycol 3350 [MiraLAX] 17 gm PO DAILY PRN #0 packet 11/04/16 [Rx] Prednisone [IJD: predniSONE] 40 mg PO DAILY tablet 11/04/16 [Rx] Pseudoephedrine [Sudogest] 30 mg PO QID PRN #0 tablet 11/04/16 [Rx] Rivaroxaban [Xarelto] 10 mg PO DAILY tablet 11/04/16 [Rx] Temazepam [Restoril] 15 mg PO BEDTIME PRN #0 cap 11/04/16 [Rx] Theophylline [Theophylline Anhydrous] 600 mg PO DAILY tab.er 11/04/16 [Rx] amLODIPine [Norvasc] 5 mg PO BID tablet 11/04/16 [Rx] guaiFENesin [Robitussin] 200 mg PO Q4H cup 11/04/16 [Rx] Past Medical History HEENT History: Reports: Cataract Cardiovascular History: Reports: Hypertension, PTCA (He remains on Plavix. I's seeing his med list is also on Xarelto 10mg), PVD (Moderate.), Stents, Other ( See Below) Other Cardiovascular History: reports leg edema but no CHF history, "silent 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 Respiratory History: Reports: Asthma, COPD (End-stage COPD.) Other Respiratory History: wears O2 at 2L at home, up to 3-4L with activity Gastrointestinal History: Reports: GERD, Hiatal Hernia Genitourinary History: Reports: BPH, Retention, Urinary (Of note he is on amitriptyline which is a combination to precipitate urinary retention.) Other Genitourinary History: "burning prostate and urgency to void" Musculoskeletal History: Reports: Arthritis Other Musculoskeletal History: chronic right shoulder pain Neurological History: Reports: Neuropathy, Peripheral Endocrine/Metabolic History: Reports: Other (See Below) Other Endocrine/Metabolic History: pituitary tumor resection. Hematologic History: Reports: Anemia Immunologic History: Reports: None Other Immunologic History: pt is on prednisone for his copd Dermatologic History: Reports: Other (See Below) Other Dermatologic History: fragile skin, is on prednisone/steroid therapy - Infectious Disease History Infectious Disease History: Reports: Influenza - Past Surgical History HEENT Surgical History: Reports: Cataract Surgery Cardiovascular Surgical History: Reports: Coronary Artery Stent, Percutaneous Transluminal Angioplasty GI Surgical History: Reports: Appendectomy, Colonoscopy, Hernia, Abdominal, Hernia, Inguinal Endocrine Surgical History: Reports: Pituitary Tumor Resection Social & Family History - Family History Family Medical History: Noncontributory Endocrine/Metabolic: Reports: Diabetes, type II Oncologic: Reports: Other (See Below) - Tobacco Use Smoking Status *Q: Former Smoker Years of Tobacco use: 50 Packs/Tins Daily: 1 Used Tobacco, but Quit: Yes Month Tobacco Last Used: 20 years Second Hand Smoke Exposure: No - Caffeine Use Caffeine Use: Reports: Coffee - Recreational Drug Use Recreational Drug Use: No - Living Situation & Occupation Living situation: Reports: Single, Alone, Extended Care Facility ([facility] [place] for rehabilitation purposes) Occupation: Retired ED ROS GENERAL - Review of Systems Review Of Systems: See Below Constitutional: Reports: Chills, Malaise, Weakness, Fatigue, Decreased Appetite. Denies: Fever, Diaphoresis, Weight Loss HEENT: Reports: Glasses Respiratory: Reports: Shortness of Breath, Wheezing, Cough, Sputum, Hemoptysis ( Sputum has a dark brown consistency and may contain some blood.). Denies: Pleuritic Chest Pain, Other Cardiovascular: Reports: Chest Pain, Blood Pressure Problem, Dyspnea on Exertion (Chronically in his extremities well is on prednisone at any rate.), Edema. Denies: Claudication, Lightheadedness, Orthopnea (Usually hypertensive but today he is hypotensive.), Palpitations Endocrine: Reports: Fatigue GI/Abdominal: Reports: Constipation. Denies: Abdominal Pain : Reports: Frequency, Other (Slower urinary stream. Usually nocturia 3 or 4 times nightly.) Musculoskeletal: Reports: Neck Pain, Shoulder Pain (With radicular pain into his right shoulder area. Right shoulder pain rating from his neck.), Back Pain, Joint Pain (Knees and hips at times.), Other (Has generalized severe polyarthralgia. Suspect this is due to weaning doses of high-dose prednisone. He hurts in his ankles his feet his knees his hips his wrists and elbows and shoulders.) Skin: Reports: Bruising (Bruises extremely easily due to being on combination of prednisone Plavix and Xarelto ) Neurological: Reports: Difficulty Walking (Due to his feet feel like on fire.), Weakness, Gait Disturbance. Denies: Confusion, Dizziness, Headache, Numbness, Syncope, Tingling, Tremors, Trouble Speaking, Change in Speech Psychiatric: Reports: No Symptoms Hematologic/Lymphatic: Reports: Easy Bleeding, Easy Bruising Immunologic: Reports: No Symptoms ED EXAM, GENERAL - Physical Exam Exam: See Below Exam Limited By: No Limitations (He can answer all questions appropriately.) General Appearance: Other (Evidence of multiple injuries to his facial cheeks from shaving. I small blood clots and abrasions or lacerations superficially to the left side of his face over the mandible.) Eye Exam: Bilateral Eye: Normal Inspection Ears: Hearing Grossly Normal Ear Exam: Right Ear: TM Perforation Throat/Mouth: Normal Inspection, Normal Lips, Normal Oropharynx Head: Atraumatic, Normocephalic Neck: Limited Range of Motion, Tender Lateral (Both sides worse on the right as compared to the left). No: Full Range of Motion, Carotid Bruit, Lymphadenopathy (L), Lymphadenopathy (R) Respiratory/Chest: Chest Non-Tender, Respiratory Distress (Marked tachypnea rest. O2 sats 78% on 2 L.), Decreased Breath Sounds (Decreased breath sounds of the lower 30% of lung blackwell posteriorly.), Rales (A few rales are appreciated in the base of the right lung.), Rhonchi (Expiratory wheezes bilaterally. Rhonchi both bases that clear somewhat with coughing), Wheezing Cardiovascular: Regular Rate, Rhythm, No Murmur, No Rub. No: Normal Peripheral Pulses, No Edema Peripheral Pulses: 1+: Posterior Tibial (L), Posterior Tibial (R), Dorsalis Pedis (L), Dorsalis Pedis (R), 2+: Femoral (L), Femoral (R) GI/Abdominal: Normal Bowel Sounds, Soft, Non-Tender, No Organomegaly, No Abnormal Bruit, No Mass, Other. No: Rigid, Rebound, Tender, Abnormal Bowel Sounds (Male) Exam: No Hernia Back Exam: Normal Inspection, Full Range of Motion. No: CVA Tenderness (L), CVA Tenderness (R) Extremities: Normal Inspection, Normal Range of Motion, Non-Tender, Pedal Edema (2+ pedal edema from mid tib-fib to his ankles and feet.) Neurological: Alert, Oriented, CN II-XII Intact, Normal Cognition, No Motor/ Sensory Deficits (Reports severe burning discomfort in the soles of both feet compatible with peripheral neuropathy. Since unclear whether this is always when he is on prednisone or not.). No: Normal Gait Psychiatric: Normal Affect, Normal Mood Skin Exam: Warm, Dry, Intact, Ecchymosis (Covered with ecchymoses particularly dorsal hands dorsal forearms left shoulder abdominal wall.) EKG INTERPRETATION EKG Date: 12/09/16 Time: 14:05 Rhythm: NSR Rate (Beats/Min): 100 Captain Cook: RAD-Right Captain Cook Deviation (Borderline at 86.) P-Wave: Present QRS: Other (Decreased voltage throughout the precordial leads.) ST-T: Normal QT: Normal Course - Vital Signs Last Recorded V/S: Last Vital Signs Temp 37.0 C 12/09/16 13:40 Pulse 96 12/09/16 13:40 Resp 24 H 12/09/16 13:40 BP 70/54 L 12/09/16 13:40 Pulse Ox 95 12/09/16 14:30 - Orders/Labs/Meds Orders: Active Orders 24 hr Category Date Time Status EKG Documentation Completion [RC] STAT Care 12/09/16 13:58 Active RT Aerosol Therapy [RC] ASDIRECTED Care 12/09/16 14:00 Active Chest 1V Frontal [CR] Stat Exams 12/09/16 13:58 Taken CULTURE BLOOD [BC] Stat Lab 12/09/16 14:37 Received CULTURE BLOOD [BC] Stat Lab 12/09/16 14:50 Received CULTURE SPUTUM + SMEAR [RM] Stat Lab 12/09/16 13:55 Results URINALYSIS W/MICROSCOPIC [UA W/MICROSCOPIC] [URIN] Stat Lab 12/09/16 14:00 Uncollected Sodium Chloride 0.9% [Normal Saline] 1,000 ml Med 12/09/16 16:15 Active IV ASDIRECTED Blood Culture x2 Reflex Set [OM.PC] Stat Oth 12/09/16 14:00 Ordered Medication Orders Sodium Chloride (Normal Saline) 1,000 mls @ 500 mls/hr IV ASDIRECTED HELEN Last Admin: 12/09/16 16:17 Dose: 500 mls/hr Labs: Laboratory Tests 12/09/16 12/09/16 12/09/16 Range/Units 14:00 14:00 14:00 WBC 19.74 H (4.23-9.07) K/mm3 RBC 2.71 L (4.63-6.08) M/mm3 Hgb 8.6 L (13.7-17.5) gm/L Hct 27.5 L (40.1-51.0) % MCV 101.5 H (79.0-92.2) fl MCH 31.7 (25.7-32.2) pg MCHC 31.3 L (32.2-35.5) g/dl RDW Std Deviation 80.4 H (35.1-43.9) fL Plt Count 342 H (163-337) K/mm3 MPV 9.8 (9.4-12.3) fl Neutrophils % (Manual) 81 H (40-60) % Band Neutrophils % 0 (0-10) % Lymphocytes % (Manual) 14 L (20-40) % Atypical Lymphs % 0 % Monocytes % (Manual) 3 (2-10) % Eosinophils % (Manual) 0 L (0.8-7.0) % Basophils % (Manual) 0 L (0.2-1.2) Myelocytes % 2 Toxic Granulation 1+ slight Platelet Estimate Adequate Plt Morphology Comment Normal Polychromasia Moderate Anisocytosis 3+ marked Macrocytosis Moderate Stomatocytes Moderate Acanthocytes (Spur) Few RBC Morph Comment Not Reportable PT 10.6 (8.0-13.0) SECONDS INR 0.97 APTT 23 (22-36) SECONDS Sodium 142 (136-145) mEq/L Potassium 4.6 (3.5-5.1) mEq/L Chloride 105 (98-107) mEq/L Carbon Dioxide 32 (21-32) mEq/L Anion Gap 9.6 (5-15) BUN 37 H (7-18) mg/dL Creatinine 2.0 H (0.7-1.3) mg/dL Est Cr Clr Drug Dosing TNP Estimated GFR (MDRD) 33 (>60) mL/min BUN/Creatinine Ratio 18.5 H (14-18) Glucose 80 L (83-115) mg/dL Calcium 8.9 (8.5-10.1) mg/dL Magnesium 2.2 (1.8-2.4) mg/dl Total Bilirubin 0.2 (0.2-1.0) mg/dL AST 14 L (15-37) U/L ALT 33 (16-63) U/L Alkaline Phosphatase 70 (46-116) U/L CK-MB (CK-2) 2.2 (0-3.6) ng/ml Troponin I < 0.017 (0.00-0.056) ng/mL C-Reactive Protein 5.1 H* (<1.0) mg/dL B-Natriuretic Peptide (0-100) pg/mL Total Protein 5.9 L (6.4-8.2) g/dl Albumin 2.7 L (3.4-5.0) g/dl Globulin 3.2 gm/dL Albumin/Globulin Ratio 0.8 L (1-2) /18/17 Range/Units 14:00 WBC (4.23-9.07) K/mm3 RBC (4.63-6.08) M/mm3 Hgb (13.7-17.5) gm/L Hct (40.1-51.0) % MCV (79.0-92.2) fl MCH (25.7-32.2) pg MCHC (32.2-35.5) g/dl RDW Std Deviation (35.1-43.9) fL Plt Count (163-337) K/mm3 MPV (9.4-12.3) fl Neutrophils % (Manual) (40-60) % Band Neutrophils % (0-10) % Lymphocytes % (Manual) (20-40) % Atypical Lymphs % % Monocytes % (Manual) (2-10) % Eosinophils % (Manual) (0.8-7.0) % Basophils % (Manual) (0.2-1.2) Myelocytes % Toxic Granulation Platelet Estimate Plt Morphology Comment Polychromasia Anisocytosis Macrocytosis Stomatocytes Acanthocytes (Spur) RBC Morph Comment PT (8.0-13.0) SECONDS INR APTT (22-36) SECONDS Sodium (136-145) mEq/L Potassium (3.5-5.1) mEq/L Chloride (98-107) mEq/L Carbon Dioxide (21-32) mEq/L Anion Gap (5-15) BUN (7-18) mg/dL Creatinine (0.7-1.3) mg/dL Est Cr Clr Drug Dosing Estimated GFR (MDRD) (>60) mL/min BUN/Creatinine Ratio (14-18) Glucose (83-115) mg/dL Calcium (8.5-10.1) mg/dL Magnesium (1.8-2.4) mg/dl Total Bilirubin (0.2-1.0) mg/dL AST (15-37) U/L ALT (16-63) U/L Alkaline Phosphatase (46-116) U/L CK-MB (CK-2) (0-3.6) ng/ml Troponin I (0.00-0.056) ng/mL C-Reactive Protein (<1.0) mg/dL B-Natriuretic Peptide 127 H (0-100) pg/mL Total Protein (6.4-8.2) g/dl Albumin (3.4-5.0) g/dl Globulin gm/dL Albumin/Globulin Ratio (1-2) Meds: Medications Generic Name Dose Route Start Last Admin Trade Name Freq PRN Reason Stop Dose Admin Sodium Chloride 1,000 mls @ 500 mls/hr 12/09/16 16:15 12/09/16 16:17 Normal Saline IV 500 mls/hr ASDIRECTED HELEN Administration Discontinued Medications Generic Name Dose Route Start Last Admin Trade Name Freq PRN Reason Stop Dose Admin Albuterol/Ipratropium 3 ml 12/09/16 14:00 12/09/16 14:29 Duoneb 3.0-0.5 Mg/3 Ml NEB 12/09/16 14:01 3 ml ONETIME ONE Administration Fentanyl 50 mcg 12/09/16 13:57 12/09/16 14:35 Sublimaze IVPUSH 12/09/16 13:58 50 mcg ONETIME ONE Administration Hydromorphone HCl 0.5 mg 12/09/16 16:03 12/09/16 16:08 Dilaudid IVPUSH 12/09/16 16:04 0.5 mg ONETIME ONE Administration Sodium Chloride 1,000 mls @ 500 mls/hr 12/09/16 13:56 12/09/16 13:59 Normal Saline IV 12/09/16 15:55 500 mls/hr ONETIME ONE Administration Sodium Chloride Confirm 12/09/16 16:16 12/09/16 16:17 Normal Saline Administered 12/09/16 16:17 Not Given Dose 1,000 mls @ as directed .ROUTE .STK-MED ONE Levofloxacin 500 mg 12/09/16 16:09 Levaquin PO 12/09/16 16:10 ONETIME ONE Ondansetron HCl 4 mg 12/09/16 13:57 12/09/16 14:32 Zofran IVPUSH 12/09/16 13:58 4 mg ONETIME ONE Administration - Radiology Interpretation Free Text/Narrative:: 76-year-old male presents once again to the ED with an exacerbation of his COPD and difficulty getting his breath. O2 sats was 78% on arrival and 2 L/m by nasal cannula. Her pressure 70/40. He does not look shocky however. He has been on several course of metabolic last 6 weeks with multiple admissions to hospital both here and in [facility]. He is still on prednisone 30 mg daily in a weaning fashion. He is on multiple medications to thin his blood Iie.Plavix due to having coronary artery stents ,Xarelto . This covered with bruises. Hands forearms and recent cuts to his face from shaving. Plan normal saline at 500 mils per hour. I suspect he has a component of congestive failure. Unclear neural nose whether or not he is a student CO2 retainer. He refuses mask to try to ensure he he had a trial of BiPAP en route which she failed. He does not wish to be intubated. Will place him on 6 L/min by nasal cannula. ABGs will be done to see if he has a retainer. Sputum has been collected for culture. Routine lab including blood cultures 2 ordered. - Re-Assessments/Exams Free Text/Narrative Re-Assessment/Exam: 12/09/16 14:59 RT reports they poked him Fortaz for ABGs and were unsuccessful. The procedure with both Foroblique canceled. I will try look at the old notes to see if they have been done in the past to see if he has a retainer. 12/09/16 15:05 chest x-ray done portably reveals hyperinflated lung blackwell. The lungs are clear with no upper. There is a 30 Ectatic thoracic aorta. Cardiac silhouette is within normal limits. No pneumothorax. 12/09/16 15:09 I could find no history of any reported blood gases on the last several visits. However his bicarbonate is always elevated at 3736 indicating that he has a retainer. Currently he is 12/09/16 15:12 labs are back to reveal an elevated white count at 19.74 with 81 % neutrophils and no bands. Note he is on high-dose steroids. Hemoglobin is low at 8.6 hematocrit is 27.5. Platelets 342,000. Coags are normal MCV is elevated at 11.5 sodium 142 potassium 4.6 chloride 107 bicarbonate today is 32. BUS is 37 creatinine is 2.0 EGFR is 30 3I stage III chronic kidney disease glucose is only 80 prednisone does not appear to be having an effect on his blood sugars. Troponin is less than 0.017 CK-MB fraction 2.2 CRP 5.1 BNP 127. 12/09/16 15:30: Spoke with our hospitalist Dr. Sheikh. He is very familiar with Mr. reza. After looking at his labs he felt that we did not have the services available here that we can provide to him as his hospitalization would likely last longer than 96 hours. Therefore I discussed case with Dr. Alejandro hospitalist in [place] at [facility] and he has accepted care. Patient will continue IV normal saline at 500 mils per hour. Blood pressure at time of discharge was 96 on 62. Sats were is slowly improving as his volume depletion was being corrected. They were as high as 97% on 6 L and therefore he was weaned down to 5 L and may be weaned down to 4 L/m by nasal cannula condition improves. Ideally would like to keep him greater than 90-93%. Troponin is 8.5 and he will require blood transfusion. Decision was not to be made whether he needs to continue with Xarelto. Patient be transferred to [facility] per ground ambulance. His chest x-ray was sent by PACS. Given Dilaudid 0.5 mg IV prior to discharge because of pain in his right neck radiating to his right shoulder. Prior to this he had had fentanyl with some good relief but of course that no one lasted an hour. Departure - Departure Time of Disposition: 16:10 Disposition: DC/Tfer to Acute Hospital 02 Condition: Serious Clinical Impression: End stage chronic obstructive pulmonary disease, Stage III chronic kidney disease, Diffuse arthralgia Respiratory failure Qualifiers: Chronicity: chronic Respiratory failure complication: hypercapnia Qualified Code(s): J96.12 - Chronic respiratory failure with hypercapnia Anemia Qualifiers: Anemia type: unspecified type Qualified Code(s): D64.9 - Anemia, unspecified - Discharge Information Referrals: Domingo Osborn Jr, MD [Primary Care Provider] - Additional Instructions: Transferred to [facility] in [place] due to multiple comorbid illnesses likely requiring hospitalization greater than 96 hours. - My Orders Last 24 Hours: My Active Orders 12/09/16 13:55 CULTURE SPUTUM + SMEAR [RM] Stat 12/09/16 13:58 EKG Documentation Completion [RC] STAT Chest 1V Frontal [CR] Stat 12/09/16 14:00 RT Aerosol Therapy [RC] ASDIRECTED URINALYSIS W/MICROSCOPIC [UA W/MICROSCOPIC] [URIN] Stat Blood Culture x2 Reflex Set [OM.PC] Stat 12/09/16 14:37 CULTURE BLOOD [BC] Stat 12/09/16 14:50 CULTURE BLOOD [BC] Stat 12/09/16 16:15 Sodium Chloride 0.9% [Normal Saline] 1,000 ml IV ASDIRECTED - Assessment/Plan Last 24 Hours: My Active Orders 12/09/16 13:55 CULTURE SPUTUM + SMEAR [RM] Stat 12/09/16 13:58 EKG Documentation Completion [RC] STAT Chest 1V Frontal [CR] Stat 12/09/16 14:00 RT Aerosol Therapy [RC] ASDIRECTED URINALYSIS W/MICROSCOPIC [UA W/MICROSCOPIC] [URIN] Stat Blood Culture x2 Reflex Set [OM.PC] Stat 12/09/16 14:37 CULTURE BLOOD [BC] Stat 12/09/16 14:50 CULTURE BLOOD [BC] Stat 12/09/16 16:15 Sodium Chloride 0.9% [Normal Saline] 1,000 ml IV ASDIRECTED
[2016-12-09] MEDS ORDERED: HYDROmorphone 0.5 MG/0.5 ML Syringe IVPUSH ONE (16:03)
[2016-12-09] MEDS ORDERED: Levofloxacin 250 MG Tab PO ONE (16:09)
[2016-12-09] MEDS ORDERED: Sodium Chloride 0.9% 1,000 ML IV SCH (16:15)
[2016-12-09] MEDS ORDERED: Sodium Chloride 0.9% 1,000 ML ONE (16:16)
[2016-12-09 17:57] VITALS: BP 97/54
--- NOTE | 2016-12-10 14:37 | CR ---
Chest: Portable view of the chest was obtained. Comparison: Previous chest x-ray of 11/22/16. Heart size is normal. Tortuous thoracic aorta is seen. Lungs are clear with no acute infiltrates. Lungs appear hyperinflated compatible with emphysematous change. Bullous change noted within both upper lungs. Bony structures are grossly intact. Impression: 1. Emphysematous change with bullous change within both upper lungs. 2. Nothing acute is appreciated. Diagnostic code #2
== END 2016-12-09 16:22 ==
LOC: SUPCPDRO 13:40 → JD.ED 13:40
DX: J96.12 Chronic respiratory failure with hypercapnia (principal); J44.9 Chronic obstructive pulmonary disease, unspecified; I12.9 Hypertensive chronic kidney disease with stage 1 through stage 4 chronic kidney disease, or unspecified chronic kidney disease; N18.3 Chronic kidney disease, stage 3 (moderate); M25.50 Pain in unspecified joint; D64.9 Anemia, unspecified; J45.909 Unspecified asthma, uncomplicated; K21.9 Gastro-esophageal reflux disease without esophagitis; Z88.1 Allergy status to other antibiotic agents; Z79.899 Other long term (current) drug therapy; Z79.82 Long term (current) use of aspirin; Z86.2 Personal history of diseases of the blood and blood-forming organs and certain disorders involving the immune mechanism; Z98.49 Cataract extraction status, unspecified eye; Z90.49 Acquired absence of other specified parts of digestive tract; Z87.891 Personal history of nicotine dependence
CPT/HCPCS: 36415; 71010; 80053; 82553; 83735; 83880; 84484; 85025; 85610; 85730; 86140; 87040; 87070; 87205; 93005; 94664; 96361; 96374; 96375; 99285; J1170; J2405; J3010; J7040; 87077; 87186

== ENCOUNTER 2016-12-28 12:28 | Emergency (ER) | payer MEDICARE, OTHER ==
[2016-12-28] MEDS ORDERED: Metoclopramide 10 MG/2 ML SDV IVPUSH ONE (12:55)
[2016-12-28] MEDS ORDERED: HYDROmorphone 0.5 MG/0.5 ML Syringe IVPUSH ONE (12:56)
--- NOTE | 2016-12-28 12:56 | EDM.PDOC ---
ED HPI GENERAL MEDICAL PROBLEM - General Chief Complaint: Abdominal Pain Stated Complaint: [facility] Time Seen by Provider: 12/28/16 12:51 Source of Information: Reports: Patient, EMS, [facility] Records History Limitations: Reports: No Limitations - History of Present Illness INITIAL COMMENTS - FREE TEXT/NARRATIVE: 76-year-old male attends the ED per ambulance from [facility] with [facility] in [place]. Chief complaint is diffuse lower abdominal pain that started about 10: 00 this morning. He states he is passing some flatus and did have a small bowel movement this morning. He did not appreciate if there is any blood in it. Patient states the pain is strongly colicky crampy in origin. Associated nausea and vomiting secondary to the pain. Emesis was bilious but did contain parts of his breakfast as well. Patient states he is voiding and does feel like he is emptying his bladder. No new medications as of recent. Last time he was seen here he was sent to [facility] in [facility] this was 09 December. Hemoglobin was 8.5 at that time and he was hypoxic and hypovolemic upon arrival at that time. He can't remember how long he stayed in the hospital. He can`t rememeber if he had any upper or lower GI endoscopies performed. I see that he still is on Xarelto. Remember how long he stayed there. He was experiencing an exacerbation of his COPD and was hypotensive requiring the inotropic support. His CODE STATUS is DO NOT RESUSCITATE. Onset: Today Onset Date: 12/28/16 Onset Time: 10:00 Duration: Hour(s): Location: Reports: Abdomen (Almost all of the pain is infraumbilical and down to the pubic symphysis. Does not radiate through his back) Quality: Reports: Ache, Pressure, Sharp, Stabbing, Other Severity: Severe (Strong colicky component to his pain) Improves with: Reports: None ( grades it as an 8 out of 10.) Worsens with: Reports: None Context: Reports: Other (Pain came on spontaneously while at rest.). Denies: Activity, Exercise, Lifting, Sick Contact, Trauma Associated Symptoms: Reports: Cough (Chronic cough he has terminal COPD.), Loss of Appetite, Malaise, Nausea/Vomiting, Shortness of Breath, Weakness (Nausea and vomiting 1.). Denies: Confusion, Chest Pain, Diaphoresis, Fever/Chills, Headaches, Rash, Seizure (Chronically.), Syncope Treatments METAL MOLDER: Reports: Other (see below) ( Chronically generalizedNone. ) Lower Abdomen Pain Score (Numeric/FACES): 8 - Related Data Allergies Allergy/AdvReac Type Severity Reaction Status Date / Time moxifloxacin Allergy Other Verified 12/09/16 14:39 tiotropium Allergy Other Verified 12/09/16 14:39 [From Spiriva with HandiHaler] clonidine AdvReac Tremors Verified 12/09/16 14:39 fluticasone AdvReac Leg Cramps Verified 12/09/16 14:39 [From Advair Diskus] paroxetine [From Paxil] AdvReac Tremors Verified 12/09/16 14:39 salmeterol AdvReac Leg Cramps Verified 12/09/16 14:39 [From Advair Diskus] Home Meds: Home Meds Albuterol Sulfate 2.5 mg IH Q4HR PRN 04/24/16 [History] Amitriptyline [Elavil] 50 mg PO BEDTIME 04/24/16 [History] Arformoterol [Brovana] 15 mcg NEB BID 04/24/16 [History] Budesonide [Pulmicort] 0.5 mg IH BID 04/24/16 [History] Clopidogrel [Plavix] 75 mg PO DAILY 04/24/16 [History] Montelukast [Singulair] 10 mg PO BEDTIME 04/24/16 [History] Multivitamin [Multivitamins] 1 each PO DAILY 04/24/16 [History] Nitroglycerin 0.4 mg SL Q5M PRN 04/24/16 [History] Douglas-3/DHA/Epa/Fish Oil [Fish Oil 1,000 mg Softgel] 1 each PO DAILY 04/24/16 [ History] Risedronate Sodium 150 mg PO Q30D 04/24/16 [History] Roflumilast [Daliresp] 500 mcg PO DAILY 04/24/16 [History] Triamcinolone Acetonide [Triamcinolone Acetonide 0.1% Crm] 15 gm TOP DAILY PRN 04/24/16 [History] atorvaSTATin [Lipitor] 40 mg PO BEDTIME 04/24/16 [History] EPINEPHrine [Epipen] 0.3 mg IM ASDIRECTED PRN 08/27/16 [History] Lisinopril [Prinivil] 20 mg PO BID 08/27/16 [History] Docusate Sodium 100 mg PO DAILY PRN 08/28/16 [History] guaiFENesin [Mucinex] 1,200 mg PO BID #60 tab.er 08/31/16 [Rx] Aspirin [Ecotrin] 81 mg PO DAILY 10/24/16 [History] Calc/D3/Mag/Zn/Title I Math Tutor/Garcia/[place] [Calcium 600 MG Plus Vit D] 600 mg PO DAILY [History] Furosemide [Lasix] 40 mg PO DAILY 10/24/16 [History] Pantoprazole [ProTONIX] 40 mg PO 0800 10/24/16 [History] Acetaminophen [Tylenol] 650 mg PO Q4H PRN #0 tablet 11/04/16 [Rx] Acetaminophen/HYDROcodone [Irving 325-5 MG] 1 tab PO Q4H PRN #0 tablet 11/04/16 [ Rx] Albuterol [IJD: Albuterol] 2.5 mg NEB Q4HRRT PRN #0 nebule 11/04/16 [Rx] Albuterol/Ipratropium [DuoNeb 3.0-0.5 MG/3 ML] 3 ml NEB QIDRT neb 11/04/16 [Rx] Bisacodyl [Dulcolax] 5 mg PO DAILY PRN #0 tablet 11/04/16 [Rx] Carvedilol [Coreg] 12.5 mg PO BID@0600,1800 tablet 11/04/16 [Rx] Docusate Sodium/Sennosides [Senna Plus] 1 tab PO BID PRN #0 tablet 11/04/16 [Rx] Fluconazole [Diflucan] 400 mg PO DAILY tablet 11/04/16 [Rx] LORazepam [Ativan] 0.5 mg IV Q6H PRN #0 vial 11/04/16 [Rx] Ondansetron [Zofran] 4 mg IV Q6H PRN #0 vial 11/04/16 [Rx] Polyethylene Glycol 3350 [MiraLAX] 17 gm PO DAILY PRN #0 packet 11/04/16 [Rx] Prednisone [IJD: predniSONE] 40 mg PO DAILY tablet 11/04/16 [Rx] Pseudoephedrine [Sudogest] 30 mg PO QID PRN #0 tablet 11/04/16 [Rx] Rivaroxaban [Xarelto] 10 mg PO DAILY tablet 11/04/16 [Rx] Temazepam [Restoril] 15 mg PO BEDTIME PRN #0 cap 11/04/16 [Rx] Theophylline [Theophylline Anhydrous] 600 mg PO DAILY tab.er 11/04/16 [Rx] amLODIPine [Norvasc] 5 mg PO BID tablet 11/04/16 [Rx] guaiFENesin [Robitussin] 200 mg PO Q4H cup 11/04/16 [Rx] Past Medical History HEENT History: Reports: Cataract Other HEENT History: wears eyeglasses Cardiovascular History: Reports: Hypertension, PTCA (He remains on Plavix. I's seeing his med list is also on Xarelto 10mg), PVD (Moderate.), Stents, Other ( See Below) Other Cardiovascular History: reports leg edema but no CHF history, "silent 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 Respiratory History: Reports: Asthma, COPD (End-stage COPD.) Other Respiratory History: wears O2 at 2L at home, up to 3-4L with activity Gastrointestinal History: Reports: GERD, Hiatal Hernia Genitourinary History: Reports: BPH, Retention, Urinary (Of note he is on amitriptyline which is a combination to precipitate urinary retention.) Other Genitourinary History: "burning prostate and urgency to void" Musculoskeletal History: Reports: Arthritis Other Musculoskeletal History: chronic right shoulder pain Neurological History: Reports: Neuropathy, Peripheral Psychiatric History: Reports: Other (See Below) Other Psychiatric History: states is not depressed but "discouraged" because of illness "it's been going on so long, nobody knows what's causing it." Endocrine/Metabolic History: Reports: Other (See Below) Other Endocrine/Metabolic History: pituitary tumor resection. Hematologic History: Reports: Anemia Immunologic History: Reports: None Other Immunologic History: pt is on prednisone for his copd Dermatologic History: Reports: Other (See Below) Other Dermatologic History: fragile skin, is on prednisone/steroid therapy - Infectious Disease History Infectious Disease History: Reports: Influenza - Past Surgical History HEENT Surgical History: Reports: Cataract Surgery Cardiovascular Surgical History: Reports: Coronary Artery Stent, Percutaneous Transluminal Angioplasty GI Surgical History: Reports: Appendectomy, Colonoscopy, Hernia, Abdominal, Hernia, Inguinal Endocrine Surgical History: Reports: Pituitary Tumor Resection Social & Family History - Family History Family Medical History: Noncontributory Endocrine/Metabolic: Reports: Diabetes, type II Oncologic: Reports: Other (See Below) - Tobacco Use Smoking Status *Q: Former Smoker Years of Tobacco use: 50 Packs/Tins Daily: 1 Used Tobacco, but Quit: Yes Month Tobacco Last Used: 20 years Second Hand Smoke Exposure: No - Caffeine Use Caffeine Use: Reports: Coffee - Recreational Drug Use Recreational Drug Use: No - Living Situation & Occupation Living situation: Reports: Single, Alone, Extended Care Facility (Currently residing in [facility] with [facility] in [place] for rehabilitation purposes) Occupation: Retired ED ROS GENERAL - Review of Systems Review Of Systems: See Below Constitutional: Reports: Malaise, Weakness, Fatigue, Decreased Appetite. Denies : Fever, Chills HEENT: Reports: No Symptoms Respiratory: Reports: Shortness of Breath, Cough, Sputum. Denies: Wheezing, Pleuritic Chest Pain, Hemoptysis (Occasional sputum production.), Other Cardiovascular: Reports: Blood Pressure Problem, Dyspnea on Exertion (Chronic dependent edema), Edema, Lightheadedness. Denies: Chest Pain, Claudication, Orthopnea (Usually runs low.), Palpitations ( chronically), Syncope Endocrine: Reports: Fatigue GI/Abdominal: Reports: Abdominal Pain (See history of present illness), Constipation (Mild positive constipation), Nausea, Vomiting (See history of present illness). Denies: Hematemesis, Hematochezia, Stool Incontinence : Reports: Frequency, Other (Usually nocturia 3 or 4) Musculoskeletal: Reports: Joint Pain (Knees hips and lower back.) Skin: Reports: Bruising (Bruises extremely easily because he is on Plavix. Used to be on Zarrella time to make sure that he is not still taking this as well.) Neurological: Reports: Difficulty Walking, Weakness. Denies: Confusion, Dizziness, Headache, Numbness, Tingling, Trouble Speaking Psychiatric: Reports: Depression Hematologic/Lymphatic: Reports: No Symptoms Immunologic: Reports: No Symptoms ED EXAM, GI/ABD - Physical Exam Exam: See Below Exam Limited By: No Limitations General Appearance: Alert, WD/WN, Mild Distress (Quite cranky on questioning but answers appropriately.) Eyes: Bilateral: Pale Conjunctiva Head: Atraumatic, Normocephalic Neck: Normal Inspection, Supple, Non-Tender, Full Range of Motion, Other (No jugular venous pulsations.). No: Carotid Bruit, Lymphadenopathy (L), Lymphadenopathy (R) Respiratory/Chest: Respiratory Distress (Tachypnea at rest 22-26/m), Decreased Breath Sounds (Decreased air into the lower one third of lung blackwell. Bilaterally.). No: Rales, Rhonchi, Wheezing Cardiovascular: Regular Rate, Rhythm, Tachycardia (Sinus tachycardia at rest 1 25/m.), Other (Has healing ulceration left foot.). No: Normal Peripheral Pulses GI/Abdominal: Hypoactive Bowel Sounds (No bowel sounds were heard on examination ), Other (The abdomen is distended and tympanitic to percussion above the umbilicus but dull to percussion from the umbilicus inferiorly to the pubic symphysis. Pain seems to be localized to the infraumbilical area and I think he has a very full bladder i.e. urinary retention.) Rectal (Males) Exam: Normal Exam Extremities: Pedal Edema (Trace edema lower extremities to the mid tib-fib's bilaterally.), Slow Capillary Refill, Other (Evidence of posterior arthritic changes in both knees.) Neurological: Alert, Oriented, CN II-XII Intact, Normal Cognition Psychiatric: Normal Affect, Normal Mood Skin Exam: Warm, Dry, Intact, Normal Color, Other (He has evidence of healing hemorrhages under the skin on both forearms dorsal hands. Mottling of his lower extremities particularly around the knees and thighs. They are cool to touch as well suggesting significant peripheral vascular disease likely originating in his distal aorta.) EKG INTERPRETATION EKG Date: 12/28/16 Time: 16:05 Rhythm: Other (Sinus tachycardia at 1 20/m) Rate (Beats/Min): 120 (Multiple unifocal PVCs.) [place]: Normal P-Wave: Present QRS: Other (Decreased voltage throughout the precordial leads with poor R-wave progression.) ST-T: Normal QT: Prolonged (For rate.) Course - Vital Signs Last Recorded V/S: Last Vital Signs Temp 36.1 C 12/28/16 12:46 Pulse 114 H 12/28/16 17:20 Resp 20 12/28/16 17:20 BP 97/57 L 12/28/16 17:20 Pulse Ox 97 12/28/16 17:20 - Orders/Labs/Meds Orders: Active Orders 24 hr Category Date Time Status EKG Documentation Completion [RC] STAT Care 12/28/16 12:53 Active Sodium Chloride 0.9% [Normal Saline] 1,000 ml Med 12/28/16 13:00 Active IV ASDIRECTED Sodium Chloride 0.9% [Normal Saline] 100 ml Med 12/28/16 17:15 Active IV ASDIRECTED Medication Orders Sodium Chloride (Normal Saline) 1,000 mls @ 75 mls/hr IV ASDIRECTED HELEN Last Admin: 12/28/16 15:39 Dose: 75 mls/hr Sodium Chloride (Normal Saline) 100 mls @ 60 mls/hr IV ASDIRECTED HELEN Last Admin: 12/28/16 17:13 Dose: 60 mls/hr Labs: Laboratory Tests 12/28/16 12/28/16 12/28/16 Range/Units 13:10 13:10 13:10 WBC 26.55 H (4.23-9.07) K/mm3 RBC 3.24 L (4.63-6.08) M/mm3 Hgb 9.9 L (13.7-17.5) gm/L Hct 33.4 L (40.1-51.0) % MCV 103.1 H (79.0-92.2) fl MCH 30.6 (25.7-32.2) pg MCHC 29.6 L (32.2-35.5) g/dl RDW Std Deviation 69.6 H (35.1-43.9) fL Plt Count 373 H (163-337) K/mm3 MPV 9.0 L (9.4-12.3) fl Neutrophils % (Manual) 81 H (40-60) % Band Neutrophils % 12 H (0-10) % Lymphocytes % (Manual) 5 L (20-40) % Atypical Lymphs % 0 % Monocytes % (Manual) 1 L (2-10) % Eosinophils % (Manual) 0 L (0.8-7.0) % Basophils % (Manual) 1 (0.2-1.2) Nucleated RBCs 1.0 % Platelet Estimate Adequate Polychromasia 1+ slight Anisocytosis 2+ Macrocytosis 2+ moderate RBC Morph Comment Not Reportable PT 10.4 (8.0-13.0) SECONDS INR 0.96 APTT 24 (22-36) SECONDS D-Dimer, Quantitative (0.19-0.59) mg/L Sodium 146 H (136-145) mEq/L Potassium 3.3 L (3.5-5.1) mEq/L Chloride 107 (98-107) mEq/L Carbon Dioxide 30 (21-32) mEq/L Anion Gap 12.3 (5-15) BUN 20 H (7-18) mg/dL Creatinine 1.5 H (0.7-1.3) mg/dL Est Cr Clr Drug Dosing 45.27 mL/min Estimated GFR (MDRD) 45 (>60) mL/min BUN/Creatinine Ratio 13.3 L (14-18) Glucose 123 H (83-115) mg/dL Calcium 9.1 (8.5-10.1) mg/dL Total Bilirubin 0.5 (0.2-1.0) mg/dL AST 15 (15-37) U/L ALT 29 (16-63) U/L Alkaline Phosphatase 66 (46-116) U/L Troponin I < 0.017 (0.00-0.056) ng/mL C-Reactive Protein 3.5 H* (<1.0) mg/dL B-Natriuretic Peptide (0-100) pg/mL Total Protein 6.2 L (6.4-8.2) g/dl Albumin 3.1 L (3.4-5.0) g/dl Globulin 3.1 gm/dL Albumin/Globulin Ratio 1.0 (1-2) Lipase (73-393) U/L Urine Color (Yellow) Urine Appearance (Clear) Urine pH (5.0-8.0) Ur Specific [place] (1.005-1.030) Urine Protein (Negative) Urine Glucose (UA) (Negative) Urine Ketones (Negative) Urine Occult Blood (Negative) Urine Nitrite (Negative) Urine Bilirubin (Negative) Urine Urobilinogen (0.2-1.0) Ur Leukocyte Esterase (Negative) Urine RBC (0-5) /hpf Urine WBC (0-5) /hpf Ur Epithelial Cells (0-5) /hpf Urine Bacteria (FEW) /hpf Hyaline Casts (0-5) /lpf Fine Granular Casts (0-5) /lpf Coarse Granular Casts (0-5) /hpf Broad Casts Urine Mucus (FEW) /hpf 12/28/16 12/28/16 12/28/16 Range/Units 13:10 13:10 13:10 WBC (4.23-9.07) K/mm3 RBC (4.63-6.08) M/mm3 Hgb (13.7-17.5) gm/L Hct (40.1-51.0) % MCV (79.0-92.2) fl MCH (25.7-32.2) pg MCHC (32.2-35.5) g/dl RDW Std Deviation (35.1-43.9) fL Plt Count (163-337) K/mm3 MPV (9.4-12.3) fl Neutrophils % (Manual) (40-60) % Band Neutrophils % (0-10) % Lymphocytes % (Manual) (20-40) % Atypical Lymphs % % Monocytes % (Manual) (2-10) % Eosinophils % (Manual) (0.8-7.0) % Basophils % (Manual) (0.2-1.2) Nucleated RBCs % Platelet Estimate Polychromasia Anisocytosis Macrocytosis RBC Morph Comment PT (8.0-13.0) SECONDS INR APTT (22-36) SECONDS D-Dimer, Quantitative 2.38 H (0.19-0.59) mg/L Sodium (136-145) mEq/L Potassium (3.5-5.1) mEq/L Chloride (98-107) mEq/L Carbon Dioxide (21-32) mEq/L Anion Gap (5-15) BUN (7-18) mg/dL Creatinine (0.7-1.3) mg/dL Est Cr Clr Drug Dosing mL/min Estimated GFR (MDRD) (>60) mL/min BUN/Creatinine Ratio (14-18) Glucose (83-115) mg/dL Calcium (8.5-10.1) mg/dL Total Bilirubin (0.2-1.0) mg/dL AST (15-37) U/L ALT (16-63) U/L Alkaline Phosphatase (46-116) U/L Troponin I (0.00-0.056) ng/mL C-Reactive Protein (<1.0) mg/dL B-Natriuretic Peptide 393 H (0-100) pg/mL Total Protein (6.4-8.2) g/dl Albumin (3.4-5.0) g/dl Globulin gm/dL Albumin/Globulin Ratio (1-2) Lipase 178 (73-393) U/L Urine Color (Yellow) Urine Appearance (Clear) Urine pH (5.0-8.0) Ur Specific [place] (1.005-1.030) Urine Protein (Negative) Urine Glucose (UA) (Negative) Urine Ketones (Negative) Urine Occult Blood (Negative) Urine Nitrite (Negative) Urine Bilirubin (Negative) Urine Urobilinogen (0.2-1.0) Ur Leukocyte Esterase (Negative) Urine RBC (0-5) /hpf Urine WBC (0-5) /hpf Ur Epithelial Cells (0-5) /hpf Urine Bacteria (FEW) /hpf Hyaline Casts (0-5) /lpf Fine Granular Casts (0-5) /lpf Coarse Granular Casts (0-5) /hpf Broad Casts Urine Mucus (FEW) /hpf 12/28/16 Range/Units 15:20 WBC (4.23-9.07) K/mm3 RBC (4.63-6.08) M/mm3 Hgb (13.7-17.5) gm/L Hct (40.1-51.0) % MCV (79.0-92.2) fl MCH (25.7-32.2) pg MCHC (32.2-35.5) g/dl RDW Std Deviation (35.1-43.9) fL Plt Count (163-337) K/mm3 MPV (9.4-12.3) fl Neutrophils % (Manual) (40-60) % Band Neutrophils % (0-10) % Lymphocytes % (Manual) (20-40) % Atypical Lymphs % % Monocytes % (Manual) (2-10) % Eosinophils % (Manual) (0.8-7.0) % Basophils % (Manual) (0.2-1.2) Nucleated RBCs % Platelet Estimate Polychromasia Anisocytosis Macrocytosis RBC Morph Comment PT (8.0-13.0) SECONDS INR APTT (22-36) SECONDS D-Dimer, Quantitative (0.19-0.59) mg/L Sodium (136-145) mEq/L Potassium (3.5-5.1) mEq/L Chloride (98-107) mEq/L Carbon Dioxide (21-32) mEq/L Anion Gap (5-15) BUN (7-18) mg/dL Creatinine (0.7-1.3) mg/dL Est Cr Clr Drug Dosing mL/min Estimated GFR (MDRD) (>60) mL/min BUN/Creatinine Ratio (14-18) Glucose (83-115) mg/dL Calcium (8.5-10.1) mg/dL Total Bilirubin (0.2-1.0) mg/dL AST (15-37) U/L ALT (16-63) U/L Alkaline Phosphatase (46-116) U/L Troponin I (0.00-0.056) ng/mL C-Reactive Protein (<1.0) mg/dL B-Natriuretic Peptide (0-100) pg/mL Total Protein (6.4-8.2) g/dl Albumin (3.4-5.0) g/dl Globulin gm/dL Albumin/Globulin Ratio (1-2) Lipase (73-393) U/L Urine Color Yellow (Yellow) Urine Appearance Clear (Clear) Urine pH 6.0 (5.0-8.0) Ur Specific [place] 1.020 (1.005-1.030) Urine Protein 1+ H (Negative) Urine Glucose (UA) Negative (Negative) Urine Ketones Negative (Negative) Urine Occult Blood Negative (Negative) Urine Nitrite Negative (Negative) Urine Bilirubin Negative (Negative) Urine Urobilinogen 0.2 (0.2-1.0) Ur Leukocyte Esterase Negative (Negative) Urine RBC 0-5 (0-5) /hpf Urine WBC 0-5 (0-5) /hpf Ur Epithelial Cells 0-5 (0-5) /hpf Urine Bacteria Rare (FEW) /hpf Hyaline Casts 0-5 (0-5) /lpf Fine Granular Casts 0-5 (0-5) /lpf Coarse Granular Casts 0-5 (0-5) /hpf Broad Casts 0 Urine Mucus Moderate H (FEW) /hpf Meds: Medications Generic Name Dose Route Start Last Admin Trade Name Freq PRN Reason Stop Dose Admin Sodium Chloride 1,000 mls @ 75 mls/hr 12/28/16 13:00 12/28/16 15:39 Normal Saline IV 75 mls/hr ASDIRECTED HELEN Administration Sodium Chloride 100 mls @ 60 mls/hr 12/28/16 17:15 12/28/16 17:13 Normal Saline IV 60 mls/hr ASDIRECTED HELEN Administration Discontinued Medications Generic Name Dose Route Start Last Admin Trade Name Altagracia PRN Reason Stop Dose Admin Hydromorphone HCl 0.5 mg 12/28/16 12:56 12/28/16 15:37 Dilaudid IVPUSH 12/28/16 12:57 0.5 mg ONETIME ONE Administration Hydromorphone HCl Confirm 12/28/16 15:35 12/28/16 15:39 Dilaudid Administered 12/28/16 15:36 Not Given Dose 0.5 mg .ROUTE .STK-MED ONE Iopamidol 50 ml 12/28/16 17:11 12/28/16 17:13 Isovue-370 (76%) IVPUSH 12/28/16 17:12 50 ml ONETIME ONE Administration Iopamidol 100 ml 12/28/16 17:11 12/28/16 17:13 Isovue-370 (76%) IVPUSH 12/28/16 17:12 100 ml ONETIME ONE Administration Metoclopramide HCl 7.5 mg 12/28/16 12:55 12/28/16 15:35 Reglan IVPUSH 12/28/16 12:56 7.5 mg ONETIME ONE Administration Metoclopramide HCl Confirm 12/28/16 15:35 12/28/16 15:36 Reglan Administered 12/28/16 15:36 Not Given Dose 10 mg .ROUTE .STK-MED ONE Sodium Chloride 10 ml 12/28/16 17:11 12/28/16 17:13 Saline Flush FLUSH 12/28/16 17:12 10 ml ONETIME ONE Administration - Radiology Interpretation Free Text/Narrative:: 76-year-old male presents to the ED with a chief complaint of acute onset of lower abdominal pain infraumbilical and suprapubically. Started at 10:00 this morning. Pain is bad enough that it made him vomit times one of bilious and part of his breakfast.. Pain is constant with a colicky component. Clinically he has absence of bowel sounds distended abdomen and firm palpation infraumbilically compatible with a full urinary bladder. Plan bladder scan and likely need for Cotton catheterization. In the x-ray of the abdomen and chest will be done due to his COPD labs and urinalysis ordered. - Re-Assessments/Exams Free Text/Narrative Re-Assessment/Exam: 12/28/16 13:17 nurses report that he only has 25-35 mils of urine in his urinary bladder they can identify. He will be going to x-ray department shortly. We'll also order an ultrasound of his aorta. His creatinine is usually around 2 or higher and therefore not amenable to contrast. We'll see if he has any evidence of dissection of the aorta on ultrasound. 12/28/16 13:51 chest x-ray reveals hyperinflated lung blackwell bilaterally that are clear. He is rotated to the right making his right hilar area little more prominent. KUB reveals increased stool in the rectum only with no air-fluid levels or signs of obstruction. An ultrasound of the retroperitoneum is being done at this time. 12/28/16 13:57 labs are back and reveal an elevated white count at 26.55 with a left shift of 81% neutrophils and 12% band cells. He is a currently on 40 mg of prednisone daily which may account for the elevated white count. Hemoglobin is 9.9 hematocrit is 33.4 platelets 373,000. Coags reveal a PT of 10.4 INR 0.96 PTT is 24 d-dimer is mildly elevated at 2.38. Sodium 146 potassium low at 3.3. 7 bicarbonate 30. Of note the patient is a CO2 retainer. Anion gap is 12.3 be when his 20 creatinine 1.5. Glucose 123 troponin is less than 0.017 BNP 393. He may well require CT the abdomen without IV contrast to see if he has diverticulitis. 12/28/16 15:21 he has had a bowel movements at this time and therefore is aortic ultrasound has not been completed because of the amount of bowel gas and distention. A letter try and finish up the ultrasound of the aorta but he may well require CT the abdomen without contrast. 12/28/16 16:24 ECG is slightly done. She'll stomach sinus tachycardia at 1 20/ m. There multiple unifocal PVCs. Decreased voltage throughout the precordial leads compose COPD pattern. There is poor R-wave progression. QT interval is slightly prolonged for rate. No ischemic changes are appreciated. The ultrasound of the a abdominal aorta suggests that there may be thrombus or stenosis of the distal aorta. Proximal mid aorta shows some slight ectasia but no definitive aneurysm. Doppler blood flow is seen within the proximal and mid aorta distal aorta shows very poor Doppler flow suggesting stenosis or thrombosis. The distal aorta is not well seen. Common iliac arteries are not well seen either. His creatinine today is 1.5 within EGFR 45 and therefore I will proceed with CT angiogram of the aorta with runoff. Perhaps the patient could benefit from an endovascular procedure as he has terrible COPD. His legs remain mottled but improved as compared to when he first arrived.. His abdominal pain is improved since he is bowels moved a good deal while in the ED. On examination abdominal pain is much improved. 12/28/16 17:35 aortogram reveals that there is no significant aneurysmal dilatation or occlusion or thrombosis of the distal aorta or the iliac vessels. There is good distal runoff to his lower extremities. Were this alleviates the concern identified on ultrasound. He is feeling much improved and he will therefore be given supper before he is transported back to [facility] in [place] where he resides. They will send their best to pick him up. Departure - Departure Time of Disposition: 18:10 Disposition: Home, Self-Care 01 Clinical Impression: Constipation by delayed colonic transit, Peripheral vascular disease Abdominal pain Qualifiers: Abdominal location: lower abdomen, unspecified Qualified Code(s): R10.30 - Lower abdominal pain, unspecified - Discharge Information Referrals: Peterson Morales MD [Primary Care Provider] - Forms: ED Department Discharge Additional Instructions: Evaluation in the emergency department today in regards to acute onset of lower abdominal pain that caused her to have nausea and vomiting. Subsequently a number of investigations were completed. X-ray of your chest did not really reveal any signs of infection or anything that would worsen your COPD. Lab tests were carried out did not reveal any signs of heart attack or significant fluid within the lungs. White count was elevated at 26,000 combination I believe of steroids and pain response. No signs of infection can be identified in the urine. Otherwise in the blood. X-ray of the abdomen revealed a good deal of stool down in the rectum and which you did pass while in the department with relief of the abdominal pain. Her other concern was remottling of your lower extremities suggesting that she were not getting proper blood supply to your legs. Angiogram was therefore carried out of the aorta with runoff of the vessels below that level down into her legs. X-ray showed that there is hardening of the arteries but nothing that is occlusive or in need of immediate attention or surgery. There is a fair amount of stool still within the colon particularly on the right side suggest taking magnesium citrate or Citroma which we will give you a bottle of --take 8 ounces either tonight or tomorrow morning to make sure he but the rest of the stool clears out so that she don't have the same problem occur again in a few days time. Otherwise continue MiraLAX powder 17 g every day to prevent constipation from occurring as it is secondary to a number of the medicines that you take. - My Orders Last 24 Hours: My Active Orders 12/28/16 12:53 EKG Documentation Completion [RC] STAT 12/28/16 13:00 Sodium Chloride 0.9% [Normal Saline] 1,000 ml IV ASDIRECTED 12/28/16 17:15 Sodium Chloride 0.9% [Normal Saline] 100 ml IV ASDIRECTED - Assessment/Plan Last 24 Hours: My Active Orders 12/28/16 12:53 EKG Documentation Completion [RC] STAT 12/28/16 13:00 Sodium Chloride 0.9% [Normal Saline] 1,000 ml IV ASDIRECTED 12/28/16 17:15 Sodium Chloride 0.9% [Normal Saline] 100 ml IV ASDIRECTED
[2016-12-28] MEDS ORDERED: Sodium Chloride 0.9% 1,000 ML IV SCH (13:00)
--- NOTE | 2016-12-28 14:07 | CR ---
Chest: Frontal view of the chest was obtained. Comparison: Previous chest x-ray of 12/09/16. Heart size is within normal limits. Tortuous thoracic aorta is seen. Lungs are clear. Bony structures are grossly intact. Impression: 1. Nothing acute is appreciated on frontal chest x-ray. Diagnostic code #1
--- NOTE | 2016-12-28 14:29 | CR ---
Abdomen: Supine view of the abdomen was obtained. Comparison: No previous study. Mild degenerative change is scattered within the lumbar spine. Paucity of bowel gas is seen which is nonspecific. No discrete soft tissue abnormality is seen. Vascular calcification is present. Impression: 1. Nonspecific supine abdominal x-ray with incidental findings as described above. Diagnostic code #2
[2016-12-28] MEDS ORDERED: Metoclopramide 10 MG/2 ML SDV ONE (15:35)
[2016-12-28] MEDS ORDERED: HYDROmorphone 0.5 MG/0.5 ML Syringe ONE (15:35)
--- NOTE | 2016-12-28 16:01 | US ---
Abdominal aortic ultrasound: Duplex and color flow images as well as multiple real-time images were obtained of the abdominal aorta. Proximal and mid aorta shows some slight ectasia but no aneurysm. Doppler blood flow is seen within the proximal and mid aorta. Proximal aorta has an AP dimension of 2.9 cm and mid aorta has an AP dimension of 2.4 cm. Distal aorta shows very poor Doppler flow suggesting stenosis or thrombosis. Distal aorta is not well seen. Common iliac arteries are not well seen. Impression: 1. Possible stenosis or thrombosis within the distal aorta. Aortoiliac CT angiogram would be helpful to further evaluate if patient's creatinine is within normal limits. Diagnostic code #5
[2016-12-28] MEDS ORDERED: Iopamidol 755 Mg/ML 100 ML Bottle IVPUSH ONE (17:11)
[2016-12-28] MEDS ORDERED: Sodium Chloride 0.9% 10 ML Syringe FLUSH ONE (17:11)
[2016-12-28] MEDS ORDERED: Iopamidol 755 MG/ML 50 ML Bottle IVPUSH ONE (17:11)
[2016-12-28] MEDS ORDERED: Sodium Chloride 0.9% 100 ML IV SCH (17:15)
--- NOTE | 2016-12-28 17:18 | CT ---
CT aortoiliac angiogram with bilateral runoff Technique: Multiple axial sections were obtained from the diaphragmatic hiatus inferiorly to the abdomen and pelvis through the lower extremities. Study performed during the arterial phase as a runoff and aortogram study. Reconstructed images were also obtained. Findings: Aorta: Diffuse atherosclerotic change is seen. 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 Distal aorta is slightly aneurysmal at 2.8 cm. Atherosclerotic change is noted within the proximal renal arteries but this is felt not cause any hemodynamic significant stenosis. Incidental cyst noted within the left kidney. Atherosclerotic change is noted within the celiac axis and within the superior mesenteric artery but again no hemodynamic significant stenosis is identified. Inferior mesenteric artery is patent. Iliac arteries: Diffuse atherosclerotic change is seen. No focal stenosis or occlusion is seen. No iliac artery aneurysm is seen. Atherosclerotic change also seen diffusely within the internal iliac arteries without focal stenosis or occlusion. Right lower extremity: Diffuse atherosclerotic change is seen throughout the common femoral and superficial femoral artery. Profunda artery appears to be patent. Atherosclerotic change continues into the popliteal artery and within the runoff vessels. No focal stenosis or occlusion is seen. Three-vessel runoff is identified into the ankle. Diffuse soft tissue swelling is noted within the ankle and right foot. Left lower extremity: Diffuse atherosclerotic change is seen within the common femoral and superficial femoral artery as well as popliteal artery and runoff vessels. No focal stenosis or occlusion is seen. Profunda artery appears to be patent. Three-vessel runoff is identified into the ankle. Diffuse soft tissue swelling is noted within the left foot and ankle. Lesser edema is identified within the lower extremities below both knees. Other findings: Liver shows no focal abnormality. Spleen appears within normal limits. Adrenal glands show no nodule. Pancreas is within normal limits. Gallbladder shows no calcified gallstones. No retroperitoneal adenopathy or mesenteric abnormalities are seen. No pelvic mass or adenopathy is seen. Very slight diverticulosis is seen within the colon. Bone window settings shows mild degenerative change within the spine with mild scoliosis. Impression: 1. Diffuse atherosclerotic change. No hemodynamic significant stenosis or occlusion is seen within any of the major abdominal arteries or within the lower extremity arteries. Three-vessel runoff is seen into both ankles. 2. Soft tissue swelling within both lower extremities from below the knees and more prominently within the ankles and feet. 3. Other incidental findings as noted above. Diagnostic code #3
[2016-12-28] MEDS ORDERED: Magnesium Citrate Solution 296 ML Bottle PO ONE (18:07)
[2016-12-28 18:55] VITALS: BP 122/68
== END 2016-12-28 19:50 | disposition home or self-care (01) ==
LOC: SUPCPDRO 12:28 → JD.ED 12:28
DX: K59.01 Slow transit constipation (principal); I73.9 Peripheral vascular disease, unspecified; Z88.1 Allergy status to other antibiotic agents; Z79.899 Other long term (current) drug therapy; Z98.49 Cataract extraction status, unspecified eye; Z95.5 Presence of coronary angioplasty implant and graft; I10 Essential (primary) hypertension; J45.909 Unspecified asthma, uncomplicated; J44.9 Chronic obstructive pulmonary disease, unspecified; K21.9 Gastro-esophageal reflux disease without esophagitis; M19.90 Unspecified osteoarthritis, unspecified site; D64.9 Anemia, unspecified; R06.02 Shortness of breath
CPT/HCPCS: 36415; 51798; 71010; 74000; 75635; 76770; 80053; 81001; 83690; 83880; 84484; 85025; 85379; 85610; 85730; 86140; 93005; 96361; 96374; 96375; 99285; A9270; J1170; J2765; J7030; J7040; J7050; Q9967; 99284